=== PATIENT | female | born 1945 | race Caucasian/White ===

== ENCOUNTER → 2019-04-18 11:10 | Outpatient (CLI) | payer MEDICARE, SELFPAY ==
--- NOTE | 2019-04-18 11:14 | BD_ITS ---
STUDY: DUAL ENERGY X-RAY ABSORPTIOMETRY / DXA REASON FOR EXAM: Female, 74 years old. The patient is postmenopausal. Loss of height. TECHNIQUE: Bone Mineral Density (BMD) measurements of lumbar spine and bilateral hips were obtained. COMPARISON: Comparison is made with prior study dated March 22, 2017. FINDINGS: Lumbar Spine (L1-L4): g/cm2 (1.106) / T-score (-0.5) / Z-score (1.2) Findings are suggestive of normal bone density with a low fracture risk. Left Femur Total: g/cm2 (0.794) / T-score (-1.7) / Z-score (-0.1) Left Femoral Neck: g/cm2 (0.758) / T-score (-2.0) / Z-score (-0.2) Right Femur Total: g/cm2 (0.777) / T-score (-1.8) / Z-score (-0.2) Right Femoral Neck: g/cm2 (0.776) / T-score (-1.9) / Z-score (-0.1) The T-Scores on the most recent prior examination were: Lumbar Spine (L1-L4): There has been improvement of bone density since the previous examination. Left Femur Total: which represents a worsening of 4%. Right Femur Total: which represents an improvement of 5.4%. BD/Dexa Bone Density Study IMPRESSION: The patient is considered osteopenic as outlined below according to World Milad Organization (WHO) criteria with a moderate fracture risk. There has been improvement of bone density since the previous examination. Reference Information: The T-score is the number of standard deviations above or below the standard which is normal for young adults at their peak bone mineral density. The World Health Organization (WHO) interprets the T-scores as follows: Above -1 Normal bone density Between -1 and -2.5 Osteopenia Equal to / or below -2.5 Osteoporosis As a practical clinical guideline, osteopenia may be graded as follows: Mild -1 through -1.5 Moderate -1.6 through -2.0 Severe -2.1 through -2.4 The Z-score is the number of standard deviations above or below age-matched controls. A Z-score of less than -1.5 would be considered abnormal. References: 1. NIH Osteoporosis and Related Bone Diseases http://www.osteo.org 2. International Society for Clinical Densitometry http://www.iscd.org 3. National Osteoporosis Foundation http://www.nof.org Electronically Signed: Darnell Hernández, at 13:27 EDT , Service support ,
--- NOTE | 2019-04-18 11:14 | BI_ITS ---
MAMMOGRAPHY - BILATERAL SCREENING 3-D TOMOSYNTHESIS REASON FOR EXAM: Female, 74 years old. Bilateral Screening 3-D tomosynthesis PERTINENT HISTORY: Previous biopsy history. TECHNIQUE: 2-D mammograms and 3-D Tomosynthesis of the breast (s) were performed. CAD was performed. COMPARISON: 03/22/2017 FINDINGS: The breast composition is almost entirely fat. Scattered benign calcifications are seen. No dense spiculated masses or suspicious microcalcifications are identified. No architectural distortion is identified. There is no skin thickening or retraction. There has been no significant change since the prior study. BI/SCREEN MAMM (CAD) W/BERNARDINO BILAT IMPRESSION: No mammographic signs of malignancy. Routine yearly mammograms recommended. ASSESSMENT CATEGORY: BIRADS Category 1: Negative. A letter regarding these results will be sent to the patient by the facility within 30 days. FOLLOW UP RECOMMENDATION: Yearly follow up mammogram recommended. (A) Approximately 10% of breast cancers are not detected by mammography. A normal mammogram should not delay biopsy of a clinically suspicious abnormality. Electronically Signed: Jason Marley MD at 12:42 EDT , Service support ,
== END ==
PROVIDERS: Family Provider Family Medicine; PCP Family Medicine; Referring Provider Family Medicine; Visit Provider Family Medicine
DX: Z12.31 Encounter for screening mammogram for malignant neoplasm of breast (principal); M85.80 Other specified disorders of bone density and structure, unspecified site; Z78.0 Asymptomatic menopausal state
CPT/HCPCS: 77063; 77067; 77080

== ENCOUNTER → 2019-06-13 10:47 | Outpatient (CLI) | payer MEDICARE, SELFPAY ==
[2019-06-13 12:33] LABS: Erythrocyte Sedimentation Rate 17 mm/hr (0-30)
[2019-06-13 12:42] LABS: Absolute Lymphocyte Count 2.18 X10^3/uL (0.83-4.51); Absolute Neutrophil Count 6.3 X10^3/uL (2.0-7.7); Basophil# 0.08 X10^3/uL; Basophil% 0.8 % (0-1); Eosinophils% 2.1 % (0-5); Hematocrit 49.4 % (37-47); Hemoglobin 15.9 g/dL (12.0-15.0); Lymphocyte # 2.18 X10^3/ul (4.0); Mean Corp Hgb Conc 32.2 g/dL (32-36); Mean Corpuscular Hgb 31.9 pg (27.0-32.0); Mean Corpuscular Volume 99.2 fL (81-99); Mean Platelet Vol. 12.1 fl (6.2-12.0); Monocyte# 0.69 X10^3/uL; Monocyte% 7.3 % (0-10); NRBC Flagged by Analyzer 0 % (0-5); Neutrophil % 66.6 % (47-70); Platelet Count 230 K/mm3 (150-450); RBC Distribution Width CV 13.7 % (11.6-14.6); RBC Distribution Width SD 50.2 fl (35.1-43.9); Red Blood Count 4.98 M/mm3 (4.2-5.4); White Blood Count 9.5 K/mm3 (4.4-11.0)
[2019-06-13 12:52] LABS: ALB/GLOB Ratio 1.1 RATIO (0.9-2.4); AST(SGOT) 18 U/L (15-37); Alanine Aminotransfer ALT/SGPT 22 U/L (13-56); Albumin, Serum 3.9 g/dL (3.2-5.0); Alkaline Phosphatase 106 U/L (45-117); Anion Gap 8 (5-15); BUN 16 mg/dL (7-18); BUN/Creat Ratio 22.2 RATIO (10-20); Calcium,Total 9.2 mg/dL (8.5-10.1); Chloride 101 mmol/L (98-107); Cholesterol 151 mg/dL (200); Creatinine, Serum 0.72 mg/dL (0.55-1.02); EST Glomerular Filtration Rate 84 mL/min (>60); Est Glom Filt Rate - Afr Amer 102 mL/min (>60); Globulin 3.7 g/dL (2.2-4.2); Glucose 87 mg/dL (74-106); High Density Lipoprotein 59 mg/dL; Potassium 4.7 mmol/L (3.5-5.1); Protein, Total 7.6 g/dL (6.4-8.2); Sodium Level 138 mmol/L (136-145); Thyroid Stim Hormone (TSH) 2.33 uIU/mL (0.358-3.74); Triglycerides 155 mg/dL; Very Low Density Lipoprotein 31 mg/dL (5-40); Vitamin D,25 Hydroxy 40.4 ng/mL (29.95-100.01)
== END ==
PROVIDERS: Family Provider Family Medicine; PCP Family Medicine; Referring Provider Family Medicine; Visit Provider Family Medicine
DX: C18.9 Malignant neoplasm of colon, unspecified (principal); E78.00 Pure hypercholesterolemia, unspecified; M85.80 Other specified disorders of bone density and structure, unspecified site
CPT/HCPCS: 36415; 80053; 80061; 82306; 84443; 85025; 85652

== ENCOUNTER → 2020-06-30 11:45 | Outpatient (CLI) | payer MEDICARE, SELFPAY ==
[2020-04-01 12:57] VITALS: BMI 28.6
[2020-06-30 15:24] LABS: Hematocrit 48.8 % (37-47); Hemoglobin 15.4 g/dL (12.0-15.0); Mean Corp Hgb Conc 31.6 g/dL (32-36); Mean Corpuscular Hgb 30.7 pg (27.0-32.0); Mean Corpuscular Volume 97.4 fL (81-99); Mean Platelet Vol. 12.2 fl (6.2-12.0); Platelet Count 248 K/mm3 (150-450); RBC Distribution Width CV 12.8 % (11.6-14.6); RBC Distribution Width SD 46.5 fl (35.1-43.9); Red Blood Count 5.01 M/mm3 (4.2-5.4); White Blood Count 8.7 K/mm3 (4.4-11.0)
[2020-06-30 15:36] LABS: AST(SGOT) 16 U/L (15-37); Alanine Aminotransfer ALT/SGPT 22 U/L (13-56); Albumin, Serum 3.8 g/dL (3.2-5.0); Alkaline Phosphatase 105 U/L (45-117); Anion Gap 5 (5-15); BUN 15 mg/dL (7-18); BUN/Creat Ratio 20.8 RATIO (10-20); Calcium,Total 9.9 mg/dL (8.5-10.1); Chloride 101 mmol/L (98-107); Cholesterol 176 mg/dL (200); Creatinine, Serum 0.72 mg/dL (0.55-1.02); EST Glomerular Filtration Rate 84 mL/min (>60); Est Glom Filt Rate - Afr Amer 101 mL/min (>60); Globulin 3.9 g/dL (2.2-4.2); Glucose 89 mg/dL (74-106); High Density Lipoprotein 65 mg/dL; Potassium 4.5 mmol/L (3.5-5.1); Protein, Total 7.7 g/dL (6.4-8.2); Sodium Level 137 mmol/L (136-145); Triglycerides 198 mg/dL; Very Low Density Lipoprotein 40 mg/dL (5-40)
== END ==
PROVIDERS: PCP Family Medicine; Visit Provider Family Medicine
DX: R73.01 Impaired fasting glucose (principal); F17.200 Nicotine dependence, unspecified, uncomplicated; Z79.899 Other long term (current) drug therapy
CPT/HCPCS: 36415; 80053; 80061; 85027

== ENCOUNTER 2020-11-27 17:15 | Outpatient (RCR) | payer MEDICARE, SELFPAY ==
[2020-04-01 12:57] VITALS: BMI 28.6
[2020-11-27] MEDS: COVID-19 VACC, MRNA(PFIZER)/PF 30 MCG/0.3 ML SYRINGE IM (10:28)
[2020-12-18] MEDS: COVID-19 VACC, MRNA(PFIZER)/PF 30 MCG/0.3 ML SYRINGE IM (10:17)
== END 2020-11-27 23:59 ==
LOC: IMMUN 17:15
PROVIDERS: PCP Family Medicine; Visit Provider Family Medicine
DX: Z23 Encounter for immunization (principal)
CPT/HCPCS: 0001A; 0002A

== ENCOUNTER → 2021-05-14 15:24 | Outpatient (CLI) | payer MEDICARE, SELFPAY ==
--- NOTE | 2021-05-14 15:27 | RAD_ITS ---
STUDY: X-RAY - CERVICAL SPINE REASON FOR EXAM: Female, 76 years old. NECK PAIN TECHNIQUE: Lateral, bilateral oblique, AP, and odontoid radiographic view(s) of the cervical spine were obtained. COMPARISON: None FINDINGS: Normal anterior atlantoaxial articulation. Normal odontoid process. Normal cervical lordosis. Moderate to severe degenerative disc and endplate disease at C5-6 and C6-7. Otherwise normal vertebral bodies and endplates. Normal disc space heights. Mild to moderate facet arthrosis throughout the mid to lower cervical spine. No more than mild neural foraminal stenosis. The soft tissue structures are unremarkable. There is no demonstrated fracture of the cervical spine. 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 Electronically Signed: Camilo Armendariz MD at 0:06 EDT Tel , Service support ,
--- NOTE | 2021-05-14 15:27 | RAD_ITS ---
STUDY: X-RAY - LUMBAR SPINE REASON FOR EXAM: Female, 76 years old. BACK PAIN TECHNIQUE: 5 radiographic view(s) of the lumbar spine were obtained. COMPARISON: 07/28/2016 abdomen radiograph FINDINGS: Normal lumbar lordosis. Minimal levoscoliosis centered on L3-4. There is a normal alignment of the vertebrae. Normal vertebral bodies. Degenerative disc, endplate, and facet disease is most prominent at L2-3. There is no demonstrated fracture. There is no demonstrated spondylolysis of the pars interarticulares. Aortoiliac calcifications. RAD/L/S Spine Min 4 Views IMPRESSION: Degenerative changes most prominent at L2-3. No finding of vertebral compression or pars defect. Electronically Signed: Camilo Armendariz MD at 0:03 EDT Tel , Service support ,
== END ==
PROVIDERS: PCP Family Medicine; Referring Provider Family Medicine; Visit Provider Family Medicine
DX: M54.9 Dorsalgia, unspecified (principal); M54.2 Cervicalgia
CPT/HCPCS: 72050; 72110

== ENCOUNTER → 2021-08-26 13:45 | Outpatient (CLI) | payer MEDICARE, SELFPAY ==
--- NOTE | 2021-08-26 13:58 | CT_ITS ---
STUDY: LOW DOSE CT LUNG CANCER SCREENING REASON FOR EXAM: Female, 76 years old. Smoking history of 1 pack per day x55 years RADIATION DOSAGE (If Supplied By Facility): CTDIvol = ( 3.02 ) mGy, DLP = ( 91.38 ) mGycm TECHNIQUE: No contrast was administered. Low dose technique was utilized (average mAS-38 and kVp 120). 1.25 mm axial source images with a slice interval of 1.25-mm were reconstructed in lung windows. 2.5 mm axial source images with a slice interval of 2.5-mm were reconstructed in lung windows. 5.0 mm axial source images with a slice interval of 5.0-mm were reconstructed in soft tissue windows. Nodule measured using lung windows on PACS and/or independent workstation with automated measurement of minimum and maximum diameter. Nodule measurement reported as average diameter rounded to the nearest whole number. Growth is defined as an increase ins size of greater than 1.5 mm. COMPARISON: 2016 FINDINGS: There is underlying emphysema with bleb formation noted. New since previous study is a suspicious poorly defined somewhat spiculated mass in the left upper lobe measuring 1.9 x 1.9 cm. The mass shows evidence of a tail that extends to the pleural surface. This mass is highly suspicious for neoplastic process and further evaluation with biopsy or PET/CT recommended There is a tiny 2 mm noncalcified pleural-based nodule in the right upper lobe on axial image 49. There is a noncalcified 4.5 mm nodule in the right upper lobe on axial image 74. There is likely chronic elevation of the right hemidiaphragm with right basilar atelectasis. There is no organized infiltrate or effusion. Limited soft tissue evaluation shows a normal appearing thyroid gland. There are scattered subcentimeter axillary and mediastinal lymph nodes. There are calcified coronary vessels. Bony structures show degenerative change. Limited cuts through the upper abdomen do not show a suspicious abnormality CT/Low Dose CT Lung Screening IMPRESSION: Lung-RADS category 4X - Chest CT with or without contrast, PET/CT and/or tissue sampling can be obtained depending on the probability of malignancy and comorbidities. IMPORTANT NOTES FOR USE: ACR Lung-RADS Version 1.1 Assessment Categories Release Date: 2018 Category: Coded 0-4 bases on nodule(s) with highest degree of suspicion. Negative screen is defined as categories 1 and 2; a positive screen is defined as categories 3 and 4. Category 3 and 4A nodules that are unchanged on interval CT should be coded as category 2, and individuals returned to screening in 12 months. Category 4X: Category 3 or 4 nodules with additional imaging findings that increase the suspicion of lung cancer, such as spiculation, GGN that doubles in size in 1 year, enlarged lymph notes, etc. Category Modifiers: S (significant finding unrelated to lung cancer) Electronically Signed: Jason Marley MD at 17:27 EST , Service support ,
[2021-08-26 15:49] LABS: Vitamin D,25 Hydroxy 41.7 ng/mL
[2021-08-26 15:59] LABS: AST(SGOT) 24 U/L (15-37); Alanine Aminotransfer ALT/SGPT 25 U/L (13-56); Albumin, Serum 3.8 g/dL (3.2-5.0); Alkaline Phosphatase 104 U/L (45-117); Anion Gap 7 (5-15); BUN 20 mg/dL (7-18); BUN/Creat Ratio 30.5 RATIO (10-20); Bilirubin, Direct 0.13 mg/dL (0.00-0.30); Calcium,Total 9.4 mg/dL (8.5-10.1); Chloride 101 mmol/L (98-107); Cholesterol 175 mg/dL (200); Creatinine, Serum 0.66 mg/dL (0.55-1.02); EST Glomerular Filtration Rate 93 mL/min (>60); Est Glom Filt Rate - Afr Amer 113 mL/min (>60); Globulin 4.1 g/dL (2.2-4.2); Glucose 89 mg/dL (74-106); High Density Lipoprotein 62 mg/dL; Potassium 4.2 mmol/L (3.5-5.1); Protein, Total 7.9 g/dL (6.4-8.2); Sodium Level 138 mmol/L (136-145); Thyroid Stim Hormone (TSH) 2.51 uIU/mL (0.358-3.74); Triglycerides 261 mg/dL; Very Low Density Lipoprotein 52 mg/dL (5-40)
== END ==
PROVIDERS: PCP Family Medicine; Referring Provider Family Medicine; Visit Provider Family Medicine
DX: F17.210 Nicotine dependence, cigarettes, uncomplicated (principal); M85.80 Other specified disorders of bone density and structure, unspecified site; E78.00 Pure hypercholesterolemia, unspecified
CPT/HCPCS: 36415; 71271; 80048; 80061; 80076; 82306; 84443

== ENCOUNTER → 2021-09-15 13:49 | Outpatient (CLI) | payer MEDICARE, SELFPAY ==
--- NOTE | 2021-09-15 13:30 | PET_ITS ---
EXAMINATION: FDG PET-CT INDICATIONS: A 76-year-old female with reported history of pulmonary nodularity. COMPARISON EXAMINATION: CT of the chest report dated 08/26/21. INDEX LESION SIZE SUV INTERPRETATION Left upper lung-left upper lobe 24.4 mm (frame 202) 11.2 Fulfills quantitative criteria for viable neoplasm, histopathologic analysis recommended. TECHNIQUE: Following the intravenous administration of 16.82 mCi of F-18 deoxyglucose via the left antecubital fossa, multiplanar image acquisitions of the neck, chest, abdomen and pelvis to level of mid thigh, obtained at one hour post radiopharmaceutical administration contemporaneously interpreted with the current CT of the neck, chest, abdomen and pelvis, to level of mid thigh, dated 09/15/[address] of the chest report dated 08/26/21 reveals: BLOOD GLUCOSE LEVEL:?? 85 mg/dl?HEIGHT:?61 inches?WEIGHT: 162 lbs. FINDINGS: 1. Focal increased FDG distribution is defined in the left upper anterior lung-left upper lobe generating a calculated maximum standard uptake value of 11.2. The maximal axial diameter of the corresponding non-calcified density on review of CT of the chest dated 09/15/21 is 24.4-mm (AP). 2. Normal physiologic distribution of the radiopharmaceutical is apparent in the hepatic (2.8) and splenic parenchyma, both renal units, bladder and visualized intestinal tract. The visualized portion of the cerebral cortical-subcortical structures demonstrate symmetric and preserved glucose metabolism. Diffuse radiopharmaceutical concentration is noted in all four quadrants of the abdomen and pelvis. Pertinent CT findings are as follows: CHEST: There are no additional parenchymal densities-nodules defined in the right and left hemithorax with discernible increased tracer uptake. Bilateral axillary and scattered mediastinal soft tissue densities, a majority of which express fatty hilus formation, are non-glucose avid. There is atherosclerotic calcification defined in the thoracic aorta without evidence of dilatation-aneurysm formation. Coronary arterial calcification is observed. ABDOMEN AND PELVIS: There is atherosclerotic calcification defined in the abdominal aorta. The maximal axial diameter of the abdominal aorta is 29.3-mm. Abdominal and pelvic arterial calcification is defined. A paraumbilical ventral hernia with associated intestinal tract. Calcifications are manifest in both kidneys. Cholelithiasis is identified. The spleen is diminished in size. The uterus appears surgically absent. SKELETAL: Degenerative changes are noted in the cervical, thoracic and lumbar spine without evidence of increased radiopharmaceutical concentration. PET/PET/CT Tumor Base -Thigh Init IMPRESSION: 1. The increase in fluorine-labeled glucose metabolism defined in the left upper lung-right upper lobe fulfills quantitative criteria for viable neoplasm. Histopathologic analysis is recommended. (Sinha et al, Annals of Internal Medicine, 138:724, 2003) 2. No other quantitatively significant hypermetabolic abnormalities are encountered. Electronic Signature Que Quevedo D.O. Accurate Quantification of SUVs for this report are calculated using the exclusive [employer] Technology. (U.S. Patent No. 10, [id number] 983). Standardization and correction of the FDG SUV metric via [employer] technology allow for vendor non-specific objective quantitative examination comparison and optimization of the sensitivity and specificity of the FDG PET-CT examination. Electronically Signed: Que Quevedo DO at 23:27 EST Tel , Service support ,
== END ==
PROVIDERS: PCP Family Medicine; Referring Provider Family Medicine; Visit Provider Family Medicine
DX: R91.8 Other nonspecific abnormal finding of lung field (principal)
CPT/HCPCS: 78815; A9552

== ENCOUNTER → 2021-09-23 11:44 | Outpatient (CLI) | payer MEDICARE, SELFPAY ==
[2021-09-23 12:54] LABS: Prothrombin Time (Protime)PT. 12.7 SECONDS (11.7-14.9)
[2021-09-23 12:55] LABS: Partial Thromboplast Time 28.1 Seconds (24.1-36.2)
== END ==
PROVIDERS: PCP Family Medicine; Visit Provider Internal Medicine Critical Care Medicine
DX: R91.8 Other nonspecific abnormal finding of lung field (principal)
CPT/HCPCS: 36415; 85610; 85730

== ENCOUNTER 2021-10-02 09:15 | Inpatient (IN) | payer MEDICARE, SELFPAY ==
[2021-10-02] VITALS (31 sets, daily range): BP systolic 62–158; BP diastolic 21–113; PULSE 86–137; RESP 16–42; TEMP 35.1–36.6; O2SAT 87–98; BMI 30.6; BMI 29.6
--- NOTE | 2021-10-02 09:40 | EKG12_ITS ---
Test Reason : GI BLEED Blood Pressure : / mmHG Vent. Rate : 138 BPM Atrial Rate : 138 BPM P-R Int : 132 ms QRS Dur : 076 ms QT Int : 292 ms P-R-T Axes : 047 -14 055 degrees QTc Int : 442 ms Sinus tachycardia with Premature supraventricular complexes Nonspecific ST abnormality Abnormal ECG Confirmed by RIKI SÁNCHEZ, NAPOLEON ([id number]), medical editor MIGUEL DOMÍNGUEZ ([id number]) on 10/07/2021 11:15:00 AM Referred By: HEATHER Confirmed By:NAPOLEON LYN MD
[2021-10-02 09:49] LABS: Absolute Lymphocyte Count 2.13 X10^3/uL (0.83-4.51); Absolute Neutrophil Count 22.2 X10^3/uL (2.0-7.7); Basophil# 0.07 X10^3/uL; Basophil% 0.3 % (0-1); Eosinophil# 0.01 X10^3/uL; Hematocrit 43.5 % (37-47); Hemoglobin 14.1 g/dL (12.0-15.0); Lymphocyte # 2.13 X10^3/ul (0.83-4.51); Lymphocyte % 8.2 % (19-41); Mean Corp Hgb Conc 32.4 g/dL (32-36); Mean Corpuscular Hgb 31.7 pg (27.0-32.0); Mean Corpuscular Volume 97.8 fL (81-99); Mean Platelet Vol. 12.7 fl (6.2-12.0); Monocyte# 1.28 X10^3/uL; Monocyte% 4.9 % (0-10); NRBC Flagged by Analyzer 0 % (0-5); Neutrophil % 85.9 % (47-70); POSITIVE DIFFERENTIAL YES; Platelet Count 244 K/mm3 (150-450); RBC Distribution Width SD 50.8 fl (35.1-43.9); Red Blood Count 4.45 M/mm3 (4.2-5.4); White Blood Count 25.9 K/mm3 (4.4-11.0)
[2021-10-02] MEDS: Ondansetron 4 MG/2 ML Vial IV (09:57)
--- NOTE | 2021-10-02 10:00 | EDS_ITS ---
HPI HPI - GI History of Present Illness Chief Complaint: GI Bleed Informant: patient Narrative Narrative: Patient presents with 3 episodes of hematemesis and episode of melena. She states this started a little after dinner last night. She has vomited red blood 3 times. She does describe some coffee-ground type material mixed in. The stool she had was melena. When specifically asked, she did state that she has had increased acid reflux over the last 3 days. But she has no abdominal pain now. She has no chest pain. She does have soreness across her upper back and neck from vomiting. She also has a history of some chronic neck pain in that area. She does take baby aspirin which she last took yesterday. She takes Aleve about twice a week and has not been using it more. No other nonsteroidals. No other anticoagulation. She does not take anything for acid reduction. She has had endoscopies but it is probably 9 or 10 years ago. She has a history of a partial colectomy with colostomy that was reversed about 9 years ago. But neither her nor her remember why this was done. They do not know if this was diverticula, bleeding, or other disease. [facility] Medical History (Updated 10/02/21 @ 17:[address] Basilio Lai MD) Abdominal aortic aneurysm COPD (chronic obstructive pulmonary disease) Depression with anxiety Hemorrhoids Lung mass SOB (shortness of breath) Home Medications aspirin 81 mg PO DAILY 07/27/16 [History Last Taken Unknown] calcium carbonate-vitamin D3 1 ea PO DAILY 07/27/16 [History Last Taken Unknown] pramipexole 0.25 mg tablet 0.25 mg PO DAILY tab 04/01/20 [History Last Taken Unknown] albuterol sulfate 90 mcg/actuation aerosol inhaler 2 inh INHALATION Q8H PRN g 09/23/21 [History Last Taken Unknown] atorvastatin 20 mg tablet 20 mg PO DAILY tab 09/23/21 [History Last Taken Unknown] fluoxetine 20 mg capsule 20 mg PO DAILY cap 09/23/21 [History Last Taken Unknown] Allergy/AdvReac Type Severity Reaction Status Date / Time No Known Allergies Allergy Verified 10/02/21 09:18 Family History Mother Colon cancer Diabetes Father Heart disease Surgical History history colon reanastamosis History of colectomy History of colostomy History of hysterectomy Social History Smoking Status: Current every day smoker tobacco type: cigarettes Tobacco: How many years used: 50 Electronic Cigarette Use: not used second hand exposure: Yes alcohol intake: never substance use type: does not use ROS ROS ED Constitutional Constitutional ED: Denies fever(s) or subjective ENT ENT ED: Denies rhinorrhea or sore throat Cardiovascular Cardiovascular: Reports other Details: Heart rate is increased but patient's not really having palpitations. ; Denies chest pain, palpitations or racing heartbeat Respiratory/Chest Respiratory/Chest: Reports dyspnea and other Details: Patient did feel dyspneic coming back here. But she feels better now. ; Denies cough or sputum Gastrointestinal Gastrointestinal: Reports diarrhea, melena, nausea, vomiting and other Details: See history of present illness. ; Denies abdominal pain Genitourinary Genitourinary ED: Denies hematuria Musculoskeletal Musculoskeletal: Denies myalgias Integumentary Denies rash Neurologic Neurologic: Denies headache(s) Endocrine Endocrinology: Denies polydipsia or polyuria Hematologic/Lymphatic Hematologic/Lymphatic: Reports other Details: Patient does take baby aspirin. She takes occasional Aleve. No other anticoagulation. ; Denies easy bleeding or easy bruising Allergic/Immunologic Allergic/Immunologic ED: Denies mouth swelling or urticaria EXAM Physical Exam Const Vital Signs: 10/02/21 09:16 10/02/21 09:21 10/02/21 09:28 Temperature 95.2 F L Temperature Source Temporal Pulse Rate 86 137 H Respiratory Rate 29 H Blood Pressure 103/74 Blood Pressure Mean 83 Pulse Ox 95 Oxygen Delivery Method Room Air Oxygen Flow Rate (L/min) 10/02/21 09:37 10/02/21 10:46 10/02/21 11:02 Temperature Temperature Source Pulse Rate 127 H Respiratory Rate Blood Pressure 83/63 L Blood Pressure Mean 69 Pulse Ox 94 87 Oxygen Delivery Method Room Air Room Air Oxygen Flow Rate (L/min) 10/02/21 11:03 Temperature Temperature Source Pulse Rate Respiratory Rate Blood Pressure 158/113 H Blood Pressure Mean 128 Pulse Ox 98 Oxygen Delivery Method Nasal Cannula Oxygen Flow Rate (L/min) 2 Positive well nourished and well developed General Appearance ED: well developed and pallor HEENT normocephalic Eyes Eyes Narrative: Mildly pale conjunctive a. General Eye ED: Yes pale conjunctiva; Negative for scleral icterus Neck no JVD Resp normal respiratory effort and clear to auscultation bilaterally Auscultation: Negative for rales, rhonchi or wheezes Cardio regular rhythm; Negative for regular rate GI non-tender and non-distended Auscultation: normoactive bowel sounds Palpation: soft Back/Spine no CVA tenderness Extremity General Extremety ED: Negative for tenderness Neuro Sensorium / Orientation: alert and oriented to person Psych mental status grossly normal Skin Skin Narrative: Mild pallor General Skin Exam: pallor Lesions: no lesions Rashes: no rashes MDM MDM MDM Narrative Medical decision making narrative: We started getting blood work back. Her hemoglobin is normal. She does show signs of dehydration with elevation of the BUN and creatinine. BUN elevation is also likely due to some of the bleeding. I went over her history again. Both her and her state that she had 3 large episodes of bloody emesis. She had actually about 3 melena stools. She has minimal epigastric discomfort with palpation but it is not notably tender. I had to push very hard and she just mentioned that it was a little sore. Rectal exam shows some black stool around the anus but no sign of active bleeding. I also note that her troponin is a bit elevated. This may be due to her heart rate. Patient states she was not coughing blood but did vomit it. She has no chest pain or dyspnea. I will add CT scan of her abdomen. I do not want to give her something to artificially lower her heart rate as her history is consistent with a GI bleed and her blood pressure is not significantly up. We cannot give meds for typical NSTEMI as this can worsen a GI bleed. We will give her some fluids. CTs do show signs of pneumonia on the right. This goes along with some borderline hypoxia and elevated white count. She is given antibiotics. Her blood pressure did drop. Bit. With low blood pressure, lactate white count and pneumonia this does meet sepsis criteria. We initiated fluids. However she also has GI bleed and we wanted to kind to mitigate the total volume of fluids that she got so we did these fluid resuscitation's and smaller amounts for the patient safety. Patient will be admitted. We have adjusted fluids, medications, done further studies. With her GI bleed and significant pneumonia, hypotension hypoxia she was at risk for decompensation respiratory and GI. Patient has stabilized. At this point we will go PCU stepdown rather than ICU. She will get repeat hemoglobins. Lab Data Labs: Laboratory Results - last 24 hr 10/02/21 10/02/21 10/02/21 09:30 09:30 09:30 WBC 25.9 H RBC 4.45 Hgb 14.1 Hct 43.5 MCV 97.8 MCH 31.7 MCHC 32.4 RDW Std Deviation 50.8 H RDW Coeff of Yeimi 14.0 Plt Count 244 MPV 12.7 H Immature Gran % (Auto) 0.700 Neut % (Auto) 85.9 H Lymph % (Auto) 8.2 L [place] % (Auto) 4.9 Eos % (Auto) 0.0 Baso % (Auto) 0.3 Absolute Neuts (auto) 22.2 H Absolute Lymphs (auto) 2.13 Nucleated RBC % 0 Sodium 139 Potassium 3.8 Chloride 101 Carbon Dioxide 28.0 Anion Gap 10 BUN 64 H Creatinine 1.25 H Estim Creat Clear Calc 29.34 Est GFR (MDRD) Af Amer 54 L Est GFR (MDRD) Non-Af 44 L BUN/Creatinine Ratio 51.2 H Glucose 128 H Lactic Acid Cancelled Calcium 9.8 Total Bilirubin 0.60 AST 31 ALT 27 Alkaline Phosphatase 86 Troponin I High Sens 130 H* Total Protein 7.4 Albumin 3.5 Globulin 3.9 Albumin/Globulin Ratio 0.9 Lipase 45 L Blood Type Antibody Screen Crossmatch 10/02/21 10/02/21 10:25 10:25 WBC RBC Hgb Hct MCV MCH MCHC RDW Std Deviation RDW Coeff of [place] Plt Count MPV Immature Gran % (Auto) Neut % (Auto) Lymph % (Auto) [place] % (Auto) Eos % (Auto) Baso % (Auto) Absolute Neuts (auto) Absolute Lymphs (auto) Nucleated RBC % Sodium Potassium Chloride Carbon Dioxide Anion Gap BUN Creatinine Estim Creat Clear Calc Est GFR (MDRD) Af Amer Est GFR (MDRD) Non-Af BUN/Creatinine Ratio Glucose Lactic Acid 4.4 H* Calcium Total Bilirubin AST ALT Alkaline Phosphatase Troponin I High Sens Total Protein Albumin Globulin Albumin/Globulin Ratio Lipase Blood Type O POSITIVE Antibody Screen NEGATIVE Crossmatch See Detail Radiography Diagnostic Testing: Clinical Impression(s) from Imaging Studies Abdomen/Pelvis CT 10/02/21 10:48 IMPRESSION: Infiltration in the right middle lobe and right lower lobe. Fatty infiltration of liver. Electronically Signed: Darnell Hernández MD at 11:49 EST , Service support , Chest CTA 10/02/21 10:52 IMPRESSION: Right upper as well as right middle and right lower lobe pulmonary infiltrates. Stable appearance of the nodular densities in the left upper lobe. Electronically Signed: Darnell Hernández MD at 11:46 EST , Service support , EKG Initial EKG: Comments: EKG done for tachycardia read by me shows sinus rhythm with tachycardic rate at 138. There may be one PVC. Mild nonspecific ST changes. NC interval, QRS duration and QTc are normal. Critical Care Time Critical Care Time: Yes Critical care time (excluding procedures): 30-74 minutes, Including time spent:, Discussing w/Patient &/or Family/Dormitory Keeper, Discussing w/Consultants, Arranging Admission or Transfer, Performing Direct Patient Care at Bedside and - (40 minutes, repeat evaluations, altering therapy, type and screen, antibiotics, further CTs, and consultation discussion with others.) Discharge Plan Dx/Rx/DC Orders Clinical Impression: Acute GI bleeding, Elevated troponin, Sepsis, Aspiration pneumonia, Leukocytosis, Respiratory failure with hypoxia Disposition Disposition: Acute Care [facility] Discharge Date/Time: 10/02/21 13:34
[2021-10-02 10:02] LABS: Differential Indicated SCAN CRITERIA MET
[2021-10-02 10:17] LABS: ALB/GLOB Ratio 0.9 RATIO (0.9-2.4); AST(SGOT) 31 U/L (15-37); Alanine Aminotransfer ALT/SGPT 27 U/L (13-56); Albumin, Serum 3.5 g/dL (3.2-5.0); Alkaline Phosphatase 86 U/L (45-117); Anion Gap 10 (5-15); BUN 64 mg/dL (7-18); BUN/Creat Ratio 51.2 RATIO (10-20); Calcium,Total 9.8 mg/dL (8.5-10.1); Chloride 101 mmol/L (98-107); Creatinine, Serum 1.25 mg/dL (0.55-1.02); EST Glomerular Filtration Rate 44 mL/min (>60); Est Glom Filt Rate - Afr Amer 54 mL/min (>60); Estimated Creatinine Clearance 29.34 ml/min; Globulin 3.9 g/dL (2.2-4.2); Glucose 128 mg/dL (74-106); Lipase 45 U/L (73-393); Potassium 3.8 mmol/L (3.5-5.1); Protein, Total 7.4 g/dL (6.4-8.2); Sodium Level 139 mmol/L (136-145); Troponin-I HS 130 pg/mL (3.0-54.0)
--- NOTE | 2021-10-02 10:48 | CT_ITS ---
STUDY: CT ABDOMEN AND PELVIS WITH CONTRAST REASON FOR EXAM: Female, 76 years old. Abdominal pain, GI bleed, leukocytosis RADIATION DOSAGE (If Supplied By Facility): CTDIvol = ( 15.56 ) mGy, DLP = ( 1503.19 ) mGycm TECHNIQUE: Transaxial images were obtained from the dome of the diaphragm to the symphysis pubis without oral contrast. IV 100mL [id number]-[id number] was administered. Sagittal and coronal images were reconstructed. Individualized dose optimization techniques were used for this CT. COMPARISON: Comparison is made with prior examination dated 07/27/2016. FINDINGS: Consolidation in the right middle lobe and right lower lobe. Coronary artery calcification. There is decreased attenuation of the liver consistent with steatosis. Normal gallbladder and extrahepatic biliary system. Normal spleen. Normal pancreas. Normal bilateral adrenal glands. Normal right kidney. Normal left kidney. Normal visualized stomach. Normal small intestine. Normal colon. There is non-visualization of the appendix. There is diffuse atherosclerotic calcification of the abdominal aorta. There is evidence of a known abdominal aortic aneurysm with a transverse dimension of 2.4 cm. Mural thrombus is seen. Normal inferior vena cava. Normal retroperitoneum. Normal urinary bladder. There is absence of the uterus consistent with a prior hysterectomy. Evidence of prior ventral hernia repair. There are degenerative changes of the visualized lumbar spine. CT/Abdomen/Pelvis W IV Cont ONLY IMPRESSION: Infiltration in the right middle lobe and right lower lobe. Fatty infiltration of liver. Electronically Signed: Darnell Hernández MD at 11:49 EST , Service support ,
--- NOTE | 2021-10-02 10:52 | CT_ITS ---
STUDY: CTA CHEST REASON FOR EXAM: Female, 76 years old. PE RADIATION DOSAGE (If Supplied By Facility): CTDIvol = ( 15.56 ) mGy, DLP = ( 1503.19 ) mGycm TECHNIQUE: The examination was performed with the intravenous administration of IV 100mL Isovue-370. Post-processing of the angiographic images was performed, with multiplanar reformation and 3D reconstruction. Individualized dose optimization techniques were used for this CT. COMPARISON: Comparison is made with prior study dated 08/26/2021. FINDINGS: Normal enhancement of the main pulmonary artery and right and left pulmonary arteries. Normal enhancement of the bilateral peripheral pulmonary arteries. There is no demonstrated pulmonary embolism. Normal thoracic aorta and visualized great vessels. There is no demonstrated aortic dissection. There are calcifications of the coronary arteries. Normal mediastinum. Normal hilar regions. Normal visualized trachea and bronchi. The lungs are well expanded. Lungs again, there is a 1.9 cm x 1.9 cm spiculated mass in the anterior aspect of the left upper lobe. Anterior to this, there is also evidence of a 6.4 mm noncalcified nodule. Stable 4.5 mm noncalcified nodule in the right upper lobe. Patchy infiltrate in the posterior aspect of the right upper lobe abutting the right minor fissure. Progressive infiltration in the right lower lobe and right middle lobe. Normal chest wall structures. There are degenerative changes of thoracic spine. Small solitary gallstone. Focal calcification along the lateral limb of the right adrenal gland. CT/CTA Chest W/WO Contrast IMPRESSION: Right upper as well as right middle and right lower lobe pulmonary infiltrates. Stable appearance of the nodular densities in the left upper lobe. Electronically Signed: Darnell Hernández MD at 11:46 EST , Service support ,
[2021-10-02] MEDS: 0.9% Normal Saline 1,000 ML 999 ML IV ×2 (10:54→22:15)
--- NOTE | 2021-10-02 11:07 | ED.RN ---
pt has developed a wet cough that has not been witnessed until now by this RN. fluids turned off. provider aware.
[2021-10-02 11:10] LABS: Lactic Acid 4.4 mmol/L (0.4-1.9)
--- NOTE | 2021-10-02 12:05 | HP.PCM.HOS_ITS ---
[facility] - General General Date of Admission: 10/02/21 Date of Service: 10/02/21 Chief Complaint: Hematemesis HPI Narrative ERICA CASTILLO, is a 76 F who presented to the emergency department at [facility] on 10/02/2021 with a chief complaint of hematemesis. The patient states she was feeling relatively well up until last evening when she started vomiting blood. She did indicate that she had some acid reflux that has been worse probably the last 3 days prior to to having the hematemesis but attributed this to the stress that she is under lately. She takes daily aspirin and admits to Aleve use probably twice per week for joint pain. She has no history of GI bleeding. Last evening after dinner she developed her first episode of hematemesis and then states she woke up once in the middle the night with another episode and had a third this morning and that is when she decided to come to the emergency department. She also reports she had a large bowel movement that was black this morning. She denies any fever or chills, she developed a cough this morning after having emesis but was not having cough previous to this, she has some mild shortness of breath now but that started this morning as well, she denies any chest pain, she does have some epigastric pain but this does not radiate anywhere and her chest region, she has no tingling numbness or weakness. Upon arrival to the emergency department her temperature was 95.2 she was tachycardic with a heart rate at 137 her blood pressures have ranged from 79-158 systolic and 57-113 diastolic. I suspect the upper ranges are anomaly as they more consistently have been on the lower side. She was tachypneic with respiratory rates in the 30s to 40s and her oxygen saturation was 87% on room air. Her oxygen saturation did improve to the mid 90s on 2 L nasal cannula. Her CBC showed a markedly elevated white count at 25.9 with a left shift and a neutrophilia. Her hemoglobin was 14.1 in the mid 15-16 range. Her CMP shows normal electrolytes, and elevated BUN and creatinine at 64 and 1.25 with a BUN being disproportionately elevated when compared to her serum creatinine, a lactic acid at 4.4, normal LFTs, normal bilirubin and normal lipase. Her high- sensitivity troponin was slightly elevated at 130. Her EKG shows poor R wave progression, P mitrale but no ST-T wave changes consistent with acute ischemia. A CTA of her chest was performed and showed a right upper/middle/lower lobe infiltrate and a stable spiculated nodule of the left upper lobe. A CT of her abdomen pelvis was performed and showed fatty liver and an abdominal aortic aneurysm with a transverse dimension of 2.4 cm. Mural thrombus was noted at the aneurysm. Given her presentation and concerns for sepsis related to aspiration pneumonia she was treated with Zosyn in the emergency department and given fluid boluses at 30 cc/kg body weight. 2 full liters were given to the emergency department and 500 more cc were ordered upon admission. She was given antiemetics and request for admission was made to the hospital. [facility] Medical History (Updated 10/02/21 @ 12:[address] Mackenzie Hedrick DO) Abdominal aortic aneurysm COPD (chronic obstructive pulmonary disease) Depression with anxiety Hemorrhoids Lung mass SOB (shortness of breath) Home Medications aspirin 81 mg PO DAILY 07/27/16 [History Last Taken Unknown] calcium carbonate-vitamin D3 1 ea PO DAILY 07/27/16 [History Last Taken Unknown] pramipexole 0.25 mg tablet 0.25 mg PO DAILY tab 04/01/20 [History Last Taken Unknown] albuterol sulfate 90 mcg/actuation aerosol inhaler 2 inh INHALATION Q8H PRN g 09/23/21 [History Last Taken Unknown] atorvastatin 20 mg tablet 20 mg PO DAILY tab 09/23/21 [History Last Taken Unknown] fluoxetine 20 mg capsule 20 mg PO DAILY cap 09/23/21 [History Last Taken Unknown] Allergy/AdvReac Type Severity Reaction Status Date / Time No Known Allergies Allergy Verified 10/02/21 09:18 Family History Mother Colon cancer Diabetes Father Heart disease Surgical History history colon reanastamosis History of colectomy History of colostomy History of hysterectomy Social History Smoking Status: Current every day smoker tobacco type: cigarettes Tobacco: How many years used: 50 Electronic Cigarette Use: not used second hand exposure: Yes alcohol intake: never substance use type: does not use ROS Constitutional Constitutional: Denies anorexia, change in weight, chills, fatigue, fever(s), malaise, night sweats, weakness or other Eyes Eyes: Denies blurry vision, change in eye color, change in vision, discharge from eye(s), double vision, erythema, eye pain, loss of vision or other ENT HEENT: Denies abnormal hearing, dysphagia, ear pain, epistaxis, headache(s), hearing loss, nasal congestion, nasal discharge, post nasal drip, sinus pr essure, sore throat or other Cardiovascular Cardiovascular: Denies chest pain, claudication, dyspnea on exertion, edema, lightheadedness, orthopnea, palpitations, paroxysmal nocturnal dyspnea, rapid heart rate, syncope or other Respiratory/Chest Respiratory/Chest: Reports cough, dyspnea, shortness of breath at rest and shortness of breath with exertion; Denies excessive phlegm production, hemoptysis, productive cough, wheezing or other Gastrointestinal Gastrointestinal: Reports diarrhea, dyspepsia, hematemesis, melena, nausea and vomiting Genitourinary Genitourinary: Denies burning urination, difficulty urinating, dysuria, hematuria, nocturia, urinary frequency, urinary hesitancy, urinary incontinence, urinary urgency or other Musculoskeletal Musculoskeletal: Reports joint pain; Denies arthralgias, back pain, joint stiffness, joint swelling, myalgias, neck pain or other Neurologic Neurologic: Denies abnormal gait, abnormal speech, confusion, disequilibrium, dizziness, focal weakness, headache(s), numbness, paresthesias, seizure-like activity, seizures, syncope, tingling, tremor(s) or other Psychiatric Psychiatric: Denies anxiety, depression, homicidal ideation, suicidal ideation or other Endocrine Endocrinology: Denies change in body appearance, cold intolerance, excessive sweating, heat intolerance, polydipsia, polyuria or other Hematologic/Lymphatic Hematologic/Lymphatic: Denies anemia, easy bleeding, easy bruising, lymphadenopathy or other Allergic/Immunologic Allergic/Immunologic: Denies rhinitis, hives, eczemia, asthma or other Vital Signs Vital Signs Vital Signs: 10/02/21 09:16 10/02/21 09:21 10/02/21 09:28 Temperature 95.2 F L Temperature Source Temporal Pulse Rate 86 137 H Respiratory Rate 29 H Blood Pressure 103/74 Blood Pressure Mean 83 Pulse Ox 95 Oxygen Delivery Method Room Air Oxygen Flow Rate (L/min) 10/02/21 09:37 10/02/21 10:46 10/02/21 11:02 Temperature Temperature Source Pulse Rate 127 H Respiratory Rate Blood Pressure 83/63 L Blood Pressure Mean 69 Pulse Ox 94 87 Oxygen Delivery Method Room Air Room Air Oxygen Flow Rate (L/min) 10/02/21 11:03 10/02/21 11:57 Temperature Temperature Source Pulse Rate 120 H Respiratory Rate 42 H Blood Pressure 158/113 H 82/59 L Blood Pressure Mean 128 66 Pulse Ox 98 95 Oxygen Delivery Method Nasal Cannula Nasal Cannula Oxygen Flow Rate (L/min) 2 2 Weight Weight: 73.482 kg Body Mass Index (BMI) 30.6 Physical Exam Const alert and oriented x3 Constitutional Narrative: Obese older white female sitting up in bed, at bedside, patient appears nontoxic but mildly ill, very pleasant and appropriately interactive, able to move independently on the bed General Appearance: cooperative HEENT normocephalic, head/scalp atraumatic, hearing grossly normal bilaterally and moist oral mucous membranes HEENT Narrative: Maxilla is edentulous few decayed teeth in the lower mandible, Mallampati is 2, no thrush Eyes PERRL, EOMs intact bilaterally and conjunctivae normal Eyes Narrative: No scleral icterus Neck no lymphadenopathy, supple, no JVD and no carotid bruits Neck Narrative: Trachea midline, no thyroid enlargement Resp no retractions and no use of accessory muscles Resp Narrative: Crackles right lung base greater than apex, left lung is clear, mild tachypnea but no accessory muscle use Auscultation: crackles; Negative for rhonchi or wheezes Cardio regular rhythm, S1 normal heart sound, S2 normal heart sound, no murmurs, no rub, no gallops, no clicks and no JVD Cardio Narrative: Sinus tachycardia GI normal to inspection, nondistended, normoactive bowel sounds, soft to palpation and non-distended Palpation: tender epigastric Extremity no clubbing, cyanosis or edema Peripheral Pulses: Yes pulses 2+ throughout Skin no rashes or lesions noted, no wounds, skin turgor normal, no jaundice, no petec hiae and no mottling Neuro oriented x3, CN's II-XII intact bilaterally, moves all extremities and no focal motor deficits Neuro Narrative: Mild generalized weakness but no focal deficits, sensation is normal throughout Sensorium / Orientation: awake and alert Speech: speech normal Psych affect normal Psych Narrative: Very pleasant Results Lab / Micro Data Attestation: I reviewed the patient's lab results. Result Diagrams: 10/02/21 09:30 10/02/21 09:30 Labs: Laboratory Results - last 24 hr 10/02/21 09:30: WBC 25.9 H, RBC 4.45, Hgb 14.1, Hct 43.5, MCV 97.8, MCH 31.7, MC HC 32.4, RDW Std Deviation 50.8 H, RDW Coeff of [place] 14.0, Plt Count 244, MPV 12.7 H, Immature Gran % (Auto) 0.700, Neut % (Auto) 85.9 H, Lymph % (Auto) 8.2 L , [place] % (Auto) 4.9, Eos % (Auto) 0.0, Baso % (Auto) 0.3, Absolute Neuts (auto) 22.2 H, Absolute Lymphs (auto) 2.13, Nucleated RBC % 0 10/02/21 09:30: Sodium 139, Potassium 3.8, Chloride 101, Carbon Dioxide 28.0, Anion Gap 10, BUN 64 H, Creatinine 1.25 H, Estim Creat Clear Calc 29.34, Est GFR (MDRD) Af Amer 54 L, Est GFR (MDRD) Non-Af 44 L, BUN/Creatinine Ratio 51.2 H, Glucose 128 H, Calcium 9.8, Total Bilirubin 0.60, AST 31, ALT 27, Alkaline Phosphatase 86, Troponin I High Sens 130 H*, Total Protein 7.4, Albumin 3.5, Globulin 3.9, Albumin/Globulin Ratio 0.9, Lipase 45 L 10/02/21 09:30: Lactic Acid Cancelled 10/02/21 10:25: Blood Type O POSITIVE, Antibody Screen NEGATIVE, Crossmatch See Detail 10/02/21 10:25: Lactic Acid 4.4 H* Micro: Microbiology 10/02/21 10:47 Stool Stool Occult Blood (CHENG) - Final Occult Blood Positive 10/02/21 09:50 Nasal Secretion SARS-CoV-2 Antigen (Rapid) - Final Radiology Impression Abdomen/Pelvis CT 10/02/21 10:48 IMPRESSION: Infiltration in the right middle lobe and right lower lobe. Fatty infiltration of liver. Electronically Signed: Darnell Hernández MD at 11:49 EST , Service support , Chest CTA 10/02/21 10:52 IMPRESSION: Right upper as well as right middle and right lower lobe pulmonary infiltrates. Stable appearance of the nodular densities in the left upper lobe. Electronically Signed: Darnell Hernández MD at 11:46 EST , Service support , Assessment & Plan Assessment/Plan (1) Sepsis: (2) Aspiration pneumonia: (3) Lactic acidosis: (4) JESS (acute kidney injury): (5) Leukocytosis: (6) Acute GI bleeding: (7) Elevated troponin: (8) Acute respiratory failure with hypoxia: (9) Thrombosis of abdominal aorta: PLAN: Sepsis secondary to aspiration pneumonia -Patient with tachycardia, hypotension, leukocytosis, tachypnea, temp less than 96.8, JESS, lactic acidosis, and source of infection and therefore meets criteria for sepsis -Cultures are pending -High suspicion of aspiration with clinical history -Start Unasyn -Patient was given fluid boluses at 30 cc/kg body weight with 2 L given in the emergency department and 500 cc given at admission -We will continue IV hydration at 50 cc/h -Monitor blood pressures and may need to consider pressors -Case discussed with critical care medicine Acute hypoxic respiratory failure secondary to aspiration pneumonia -Unasyn -DuoNebs with as needed albuterol -Incentive spirometer -Acapella -Supplemental oxygen--> currently requiring 2 L Acute GI bleed -Suspect upper with BUN elevation and history -Antiemetics to prevent further emesis -Serial hemoglobins every 4 hours -Transfuse for hypotension/marked drop in hemoglobin/hemoglobin less than 7 -Protonix bolus with drip -Consult GI for EGD--> Case discussed with GI -Aspirin -Patient had been utilizing NSAIDs periodically at home Lactic acidosis -4.4 on arrival -Suspect multifactorial with sepsis due to aspiration pneumonia/GI bleed/hypoxia -We will cycle Troponin elevation -Mild -EGD without any signs of acute ischemia -Cycle cardiac enzymes -Suspect stress-induced ischemia related to hypotension/hypoxia/sepsis -Consider echo if upward trend JESS -Likely related to GI bleed/hypotension/sepsis picture -Fluid boluses given -Repeat BMP in a.m. Abdominal aortic mural thrombus -Unable to anticoagulate at this time -We will likely need anticoagulation at some point -Await input from GI related to GI bleeding -Monitor clinically AAA -Chronic -Current transverse dimension is 2.4 cm -will need monitored as an outpatient Left upper lobe spiculated lung mass -Outpatient work-up in progress -CT-guided biopsy has been ordered -Highly suspicious for malignancy -We will probably need left upper lobectomy Hyperlipidemia -Hold atorvastatin Restless leg syndrome -Hold Requip COPD -Aerosols as above Tobacco abuse -Patient remains smoking but states she is cut back to a pack every 2 to 2-1/2 days -Trying to quit -Is a marked history of tobacco abuse with a [id number] history -Continue patch available Depression -Hold fluoxetine DVT prophylaxis -SCDs -Chemoprophylaxis is contraindicated with GI bleed CODE STATUS -Full code as addressed with patient in the emergency department- at bedside during conversation Charges/Coding Visit Charges Inpatient E&M: 92414 Init Hosp L3
[2021-10-02 13:22] LABS: Hematocrit 36.8 % (37-47)
--- NOTE | 2021-10-02 14:14 | EX.PCM.CONCC ---
Assessment & Plan Assessment/Plan (1) Acute GI bleeding: (2) Aspiration pneumonia: (3) Sepsis: (4) Thrombosis of abdominal aorta: (5) COPD (chronic obstructive pulmonary disease): (6) Lung mass: PLAN: RECOMMENDATIONS: 1. Initiation of Unasyn for aspiration pneumonia 2. Continue bronchodilators. Wean oxygen as tolerated 3. Urgent endoscopy per GI. Start Protonix daily. Every 6hr H&H 4. No need for transfusion at this time 5. Fluid boluses as necessary for hypotension IMPRESSIONS: 1. Severe sepsis secondary to aspiration pneumonia Patient with severe sepsis as indicated by elevated troponin and acute kidney injury in the setting of hypotension. Clinical suspicion for a hypovolemic component also from problem #2. Patient will be placed on Unasyn for aspiration pneumonia. Patient will likely have an element of chemical pneumonitis at a minimum. Patient does have poor dentition, so I do believe antibiotics are needed. Continue to support blood pressure with fluid boluses. 2. Acute blood loss anemia secondary to acute upper GI bleed Patient with approximately 4 g drop in hemoglobin from baseline. Patient does report hematemesis prior to melena indicating probable upper GI bleed. GI has been consulted. Patient does not have a report of increased NSAID use, but partial colectomy may have been secondary to a GI bleed. Await results of scope. Patient can be placed on PPI for now. 3. Elevated troponin/JESS High clinical suspicion for elevation in troponin and creatinine secondary to problems one and two. We will continue with hemodynamic support and monitor closely. Do not believe an echocardiogram would be required at this time. Reasonable to continue to cycle troponins. No indication for renal replacement therapy at this time. 4. Advanced age/lung mass/AAA with mural thrombus/hyperlipidemia/tobacco abuse/depression Complicates care, management, recovery and prognosis. Low clinical suspicion for bleeding from the mass leading to onset of symptoms. Await findings on EGD prior to any recommendations on anticoagulation with thrombus. Reinitiate baseline meds per GI. Okay to give nicotine replacement. HPI Consult Data Date of Consult: 10/02/21 HPI Narrative HPI Narrative: ERICA CASTILLO is a 76 F, with past medical history listed below and known to me from the outpatient office, who presents to [facility] on 10/02/2021 secondary to 3 episodes of hematemesis followed by hemoptysis and an episode of melena. Patient reportedly stated she was out of her usual health until yesterday evening at dinner. Patient had an emesis with coffee-ground material. Shortly thereafter, patient had some hemoptysis and then melena. Patient had reported some increased GERD type symptoms for 3 days, but denied any obvious abdominal or chest pain. Patient has reported some soreness in the ER that she relates to vomiting. Patient does report a history of endoscopies 9 to 10 years ago and does have a history of a partial colectomy with colostomy that was reversed about 9 years ago. Patient is on aspirin, but no other anticoagulants at baseline. Patient is not reporting increased NSAID use. In the ER, patient was afebrile, but tachycardic at 137 bpm. Patient was saturating well on room air, but over the course of the ER visit started to become hypoxic and hypotensive. Patient did have a blood pressure documented in the 70s systolic, so she would eventually come to the intensive care unit. Laboratory work-up showed a white blood cell count of 25.9, hemoglobin of 14.1, down from a baseline of 15.4. Chemistry showed acute kidney injury with a BUN of 64, creatinine of 1.25 and a troponin of 130. EKG showed sinus tachycardia. Patient was given a fluid bolus and admitted to the intensive care unit for further evaluation. Since being in the intensive care unit, patient reports she subjectively feels improved compared to previous. Patient is not reporting any current chest pain or abdominal pain. Patient states she has not had a bowel movement since this morning. Patient is very clear that she did not have any retching prior to the onset of her hemoptysis and hematemesis. Patient also states that she had her hematemesis spontaneously, followed by shortness of breath with hemoptysis and then ultimately melena. Patient states on subsequent episodes of hematemesis she also had diarrhea with melena. Patient described it is foul-smelling. Patient does not have any history of GI bleeds that she is aware of. Patient had seen me in the last 2 weeks secondary to an incidentally found PET positive lung nodule. A CT-guided biopsy, PFT and walking oximetry have been ordered, but patient states she has not been able to complete the secondary to changing her insurance on September 26. Patient is very clear that she has not had any lung biopsy at this time. Patient does have a long smoking history and has continued to smoke. There are no other changes in her history compared to my most recent visit. Review of systems otherwise negative from a constitutional, HEENT, respiratory, cardiovascular, GI, genitourinary, musculoskeletal, skin, neurologic, psychiatric and hematologic system unless stated above. [facility] Medical History (Updated 10/02/21 @ 14:[address] Jay Jay Tan MD) Abdominal aortic aneurysm COPD (chronic obstructive pulmonary disease) Depression with anxiety Hemorrhoids Lung mass SOB (shortness of breath) Home Medications aspirin 81 mg PO DAILY 07/27/16 [History Last Taken Unknown] calcium carbonate-vitamin D3 1 ea PO DAILY 07/27/16 [History Last Taken Unknown] pramipexole 0.25 mg tablet 0.25 mg PO DAILY tab 04/01/20 [History Last Taken Unknown] albuterol sulfate 90 mcg/actuation aerosol inhaler 2 inh INHALATION Q8H PRN g 09/23/21 [History Last Taken Unknown] atorvastatin 20 mg tablet 20 mg PO DAILY tab 09/23/21 [History Last Taken Unknown] fluoxetine 20 mg capsule 20 mg PO DAILY cap 09/23/21 [History Last Taken Unknown] Allergy/AdvReac Type Severity Reaction Status Date / Time No Known Allergies Allergy Verified 10/02/21 09:18 Family History Mother Colon cancer Diabetes Father Heart disease Surgical History history colon reanastamosis History of colectomy History of colostomy History of hysterectomy Social History Smoking Status: Current every day smoker tobacco type: cigarettes Tobacco: How many years used: 50 Electronic Cigarette Use: not used second hand exposure: Yes alcohol intake: never substance use type: does not use ROS ROS Narrative See HPI Physical Exam Const alert, oriented x3 and average body habitus Constitutional Narrative: at the bedside. No conversational dyspnea. Slightly pale General Appearance: cooperative and comfortable HEENT normocephalic, head/scalp atraumatic, hearing grossly normal bilaterally and moist oral mucous membranes HEENT Narrative: Poor dentition. Mallampati two. Eyes PERRL, EOMs intact bilaterally, conjunctivae normal and no scleral icterus Neck no lymphadenopathy, supple, no JVD and no carotid bruits Neck Narrative: Trachea midline, no thyroid enlargement Chest Chest: abnormal inspection of the chest increased A-P diameter and symmetrical chest wall rise; Negative for crepitus Resp no retractions and no use of accessory muscles Effort and Inspection: able to speak in complete sentences Auscultation: rhonchi right lower; Negative for wheezes Cardio regular rhythm, S1 normal heart sound, S2 normal heart sound, no murmurs, no rub, no gallops, no clicks and no JVD Cardio Narrative: Sinus tachycardia GI normal to inspection, nondistended, normoactive bowel sounds, soft to palpation and non-distended Palpation: tender epigastric Extremity no clubbing, cyanosis or edema Peripheral Pulses: Yes pulses 2+ throughout Skin no rashes or lesions noted, no wounds, skin turgor normal, no jaundice, no petechiae and no mottling Neuro oriented x3, CN's II-XII intact bilaterally, moves all extremities and no focal motor deficits Sensorium / Orientation: awake and alert Speech: speech normal Psych mental status grossly normal, thought process normal, cooperative, affect normal and speech normal Lab / Micro Data Result Diagrams: 10/02/21 13:17 10/02/21 09:30 Labs: Laboratory Results - last 24 hr 10/02/21 09:30: WBC 25.9 H, RBC 4.45, Hgb 14.1, Hct 43.5, MCV 97.8, MCH 31.7, MCHC 32.4, RDW Std Deviation 50.8 H, RDW Coeff of Yeimi 14.0, Plt Count 244, MPV 12.7 H, Immature Gran % (Auto) 0.700, Neut % (Auto) 85.9 H, Lymph % (Auto) 8.2 L, [place] % (Auto) 4.9, Eos % (Auto) 0.0, Baso % (Auto) 0.3, Absolute Neuts (auto) 22.2 H, Absolute Lymphs (auto) 2.13, Nucleated RBC % 0 10/02/21 09:30: Sodium 139, Potassium 3.8, Chloride 101, Carbon Dioxide 28.0, Anion Gap 10, BUN 64 H, Creatinine 1.25 H, Estim Creat Clear Calc 29.34, Est GFR (MDRD) Af Amer 54 L, Est GFR (MDRD) Non-Af 44 L, BUN/Creatinine Ratio 51.2 H, Glucose 128 H, Calcium 9.8, Total Bilirubin 0.60, AST 31, ALT 27, Alkaline Phosphatase 86, Troponin I High Sens 130 H*, Total Protein 7.4, Albumin 3.5, Globulin 3.9, Albumin/Globulin Ratio 0.9, Lipase 45 L 10/02/21 09:30: Lactic Acid Cancelled 10/02/21 10:25: Blood Type O POSITIVE, Antibody Screen NEGATIVE, Crossmatch See Detail 10/02/21 10:25: Lactic Acid 4.4 H* 10/02/21 13:17: Hgb 12.0, Hct 36.8 L Micro: Microbiology 10/02/21 10:47 Stool Stool Occult Blood (CHENG) - Final Occult Blood Positive 10/02/21 09:50 Nasal Secretion SARS-CoV-2 Antigen (Rapid) - Final Radiology Impression Abdomen/Pelvis CT 10/02/21 10:48 IMPRESSION: Infiltration in the right middle lobe and right lower lobe. Fatty infiltration of liver. Electronically Signed: Darnell Hernández MD at 11:49 EST , Service support , Chest CTA 10/02/21 10:52 IMPRESSION: Right upper as well as right middle and right lower lobe pulmonary infiltrates. Stable appearance of the nodular densities in the left upper lobe. Electronically Signed: Darnell Hernández MD at 11:46 EST , Service support , Charges/Coding Visit Charges Inpatient E&M: 90755 Init Hosp L3
[2021-10-02 14:36] LABS: Reflex Lactate? Y
[2021-10-02 14:51] LABS: Troponin-I HS 145 pg/mL (3.0-54.0)
[2021-10-02] MEDS: 0.9% Normal Saline 1,000 ML 50 ML IV (15:27)
[2021-10-02 16:07] LABS: Lactic Acid 2.5 mmol/L (0.4-1.9)
[2021-10-02] MEDS: Ipratropium/Albuterol Sulfate 3 ML AMPUL.NEB INHALATION ×2 (16:24→19:20)
[2021-10-02] MEDS: Lactated Ringers 1,000 ML 999 ML IV (17:14)
--- NOTE | 2021-10-02 22:11 | CON.PCM.GI_ITS ---
HPI Consult Data Date of Consult: 10/02/21 HPI Narrative HPI Narrative: ERICA CASTILLO, is a 76 F who presents to the ED after having multiple episodes of hematemesis followed by hemoptysis. She also complained of one episode of melena prior to arriving to the hospital and she had one episode in the ED. She is not currently on anticoagulation. She is on aspirin and does not report any other NSAIDs. She had a possible history of acute recurrent lower GI bleeding resulting in the need for a sigmoid colectomy with primary anastomosis. In the ED she was discovered to have a elevated BUN/creatinine ratio of 64/1.25 and elevated troponin of 130. Her EKG is showing sinus tachycardia. She was also discovered to have elevated white blood cell count to 25.9. Her imaging displayed bilateral pneumonia possibly secondary to aspiration pneumonia. Her Covid test was negative. She was started on antibiotic therapy. She became hypotensive and tachycardic in the ED after having another episode of GI bleed. She also reports several episodes of hemoptysis. On her CT scan of the chest there also was a suspicious lung nodule. I was consulted for the evaluation of an upper GI bleed. At this time she is resting comfortably. [facility] Medical History (Updated 10/02/21 @ 17:[address] Basilio Lai MD) Abdominal aortic aneurysm COPD (chronic obstructive pulmonary disease) Depression with anxiety Hemorrhoids Lung mass SOB (shortness of breath) Home Medications aspirin 81 mg PO DAILY 07/27/16 [History Last Taken Unknown] calcium carbonate-vitamin D3 1 ea PO DAILY 07/27/16 [History Last Taken Unknown] pramipexole 0.25 mg tablet 0.25 mg PO DAILY tab 04/01/20 [History Last Taken Unknown] albuterol sulfate 90 mcg/actuation aerosol inhaler 2 inh INHALATION Q8H PRN g 09/23/21 [History Last Taken Unknown] atorvastatin 20 mg tablet 20 mg PO DAILY tab 09/23/21 [History Last Taken Unknown] fluoxetine 20 mg capsule 20 mg PO DAILY cap 09/23/21 [History Last Taken Unknown] Allergy/AdvReac Type Severity Reaction Status Date / Time No Known Allergies Allergy Verified 10/02/21 09:18 Family History Mother Colon cancer Diabetes Father Heart disease Surgical History history colon reanastamosis History of colectomy History of colostomy History of hysterectomy Social History Smoking Status: Current every day smoker tobacco type: cigarettes Tobacco: How many years used: 50 Electronic Cigarette Use: not used second hand exposure: Yes alcohol intake: never substance use type: does not use ROS Review of Systems ROS Unobtainable: other Constitutional Constitutional: Denies fatigue, fever(s), poor appetite, weight gain or weight loss ENT HEENT: Denies mouth lesions Cardiovascular Cardiovascular: Denies abdominal bloating, abdominal edema or abdominal pain Respiratory/Chest Respiratory/Chest: Denies change in mental status, change in phlegm color, chest congestion or chest tightness Gastrointestinal Gastrointestinal: Reports coffee ground emesis, hematemesis, hematochezia, rectal bleeding and vomiting; Denies belching, bloating, change in bowel habits, change in stool character, chewing difficulty, constipation, cramping, diarrhea, dyspepsia, dysphagia, early satiety, excessive flatus, fecal incontinence, heartburn, hemorrhoids, loose stools, melena, nausea, odynophagia, tenesmus or weight changes Genitourinary Genitourinary: Denies abdominal discomfort, burning urination or itching Musculoskeletal Musculoskeletal: Reports as per HPI; Denies muscle weakness or myalgias Integumentary Integumentary: Denies jaundice Neurologic Neurologic: Denies lack of coordination or weakness Psychiatric Psychiatric: Denies confusion, depression, memory loss, mood swings, paranoia or suicidal ideation Endocrine Endocrinology: Denies systems reviewed and no addt'l complaints, except as documented Hematologic/Lymphatic Hematologic/Lymphatic: Denies anemia, easy bleeding, easy bruising or lymphadenopathy Allergic/Immunologic Allergic/Immunologic: Denies systems reviewed and no addt'l complaints, except as documented Physical Exam Const alert General Appearance: cooperative Orientation / Consciousness: oriented to person HEENT hearing grossly normal bilaterally Head and Scalp: normal to inspection Face and Sinus: face symmetric Nose: external nose normal Mouth: oral and palatal mucosa normal Eyes conjunctivae normal General Eye: normal appearance of both eyes Neck full ROM General: normal visual inspection Lymph Lymphatic: no lymphadenopathy noted Chest inspection of chest normal and palpation of chest normal Chest: symmetrical chest wall rise Resp normal respiratory effort Effort and Inspection: able to speak in complete sentences Cardio regular rate GI non-distended Percussion: normal to percussion Rectal Exam: deferred Neuro Speech: speech normal Gait (Neuro): normal gait Lab / Micro Data Result Diagrams: 10/02/21 20:05 10/02/21 09:30 Labs: Laboratory Results - last 24 hr 10/02/21 09:30: WBC 25.9 H, RBC 4.45, Hgb 14.1, Hct 43.5, MCV 97.8, MCH 31.7, MCHC 32.4, RDW Std Deviation 50.8 H, RDW Coeff of Yeimi 14.0, Plt Count 244, MPV 12.7 H, Immature Gran % (Auto) 0.700, Neut % (Auto) 85.9 H, Lymph % (Auto) 8.2 L , [place] % (Auto) 4.9, Eos % (Auto) 0.0, Baso % (Auto) 0.3, Absolute Neuts (auto) 22.2 H, Absolute Lymphs (auto) 2.13, Nucleated RBC % 0 10/02/21 09:30: Sodium 139, Potassium 3.8, Chloride 101, Carbon Dioxide 28.0, Anion Gap 10, BUN 64 H, Creatinine 1.25 H, Estim Creat Clear Calc 29.34, Est GFR (MDRD) Af Amer 54 L, Est GFR (MDRD) Non-Af 44 L, BUN/Creatinine Ratio 51.2 H, Glucose 128 H, Calcium 9.8, Total Bilirubin 0.60, AST 31, ALT 27, Alkaline Phosphatase 86, Troponin I High Sens 130 H*, Total Protein 7.4, Albumin 3.5, Globulin 3.9, Albumin/Globulin Ratio 0.9, Lipase 45 L 10/02/21 09:30: Lactic Acid Cancelled 10/02/21 10:25: Blood Type O POSITIVE, Antibody Screen NEGATIVE, Crossmatch See Detail 10/02/21 10:25: Lactic Acid 4.4 H* 10/02/21 13:17: Hgb 12.0, Hct 36.8 L 10/02/21 14:05: Troponin I High Sens 145 H* 10/02/21 15:00: Lactic Acid 2.5 H* 10/02/21 20:05: Hgb 10.9 L, Hct 34.3 L Micro: Microbiology 10/02/21 15:00 Urine, Clean Catch Legionella Antigen - Final 10/02/21 15:00 Urine, Clean Catch Streptococcus pneumoniae Antigen (M - Final 10/02/21 10:47 Stool Stool Occult Blood (CHENG) - Final Occult Blood Positive 10/02/21 09:50 Nasal Secretion SARS-CoV-2 Antigen (Rapid) - Final Radiology Impression Abdomen/Pelvis CT 10/02/21 10:48 IMPRESSION: Infiltration in the right middle lobe and right lower lobe. Fatty infiltration of liver. Electronically Signed: Darnell Hernández MD at 11:49 EST , Service support , Chest CTA 10/02/21 10:52 IMPRESSION: Right upper as well as right middle and right lower lobe pulmonary infiltrates. Stable appearance of the nodular densities in the left upper lobe. Electronically Signed: Darnell Hernández MD at 11:46 EST , Service support , Assessment & Plan Assessment/Plan (1) Acute GI bleeding: PLAN: The differential diagnosis for upper GI bleed does include a Mariposa-Bryan tear, rule esophagitis, peptic ulcer disease. She will need to undergo an upper endoscopy. She was explained alternatives, risk, benefits including not withstanding bleeding, infection, sepsis, perforation, need for emergency or . She will have an ASA of 3. Recommend to continue PPI drip, monitor blood pressure closely. Charges/Coding Visit Charges Inpatient E&M: 42368 Init Hosp L3
[2021-10-03] VITALS (34 sets, daily range): BP systolic 63–104; BP diastolic 40–80; PULSE 80–112; RESP 15–25; TEMP 35.9–37.7; O2SAT 89–99
--- NOTE | 2021-10-03 | GASB_PTH ---
PATIENT: ERICA CASTILLO LOC: [facility] U#:[id number] AGE/SX: 76/F ROOM: [facility] RE10/02/[address]: Dr. Nalini Garcia MD : 1945 BED: 1 DIS: 10/06/2021 SPEC #: [id number] RECD: 10/03/21 13:34 STATUS: IRAJ REFabiola #: [id number] ESAU: 10/03/21 00:[address]: Wong George DEPT: SURGICAL PATHOLOGY RECD BY: Quang Treviño ENTERED: 10/05/21 07:39 SP TYPE: Gastric Bx OTHR DR: MD Dr. Luís Loera MD Dr. Derek Brown, DO Dr. Mackenzie Hedrick, MD Krissy Murrell Dr., [employer]ENTICE-C Tissues: Gastric mucous membrane Procedures: Special Stain Group II Surgery Specimen Level IV Alcian Blue/PAS (control) Comments: @ Ordering doctor for SUIV edited from to @ vernell VELASQUEZ at 10/05/21 1231 @ Submitting doctor edited from to @ vernell VELASQUEZ at 10/05/21 1231 HEADER OPERATION: EGD ([employer] [facility] [employer]) PRE-OP DIAGNOSIS: GI bleed TISSUE SUBMITTED: Gastric antral ulcer MICROSCOPIC DIAGNOSIS Gastric antral ulcer, biopsy: Fragments of gastric mucosa with focal ulceration, fibrinopurulent exudation, acute and chronic inflammation. See comment. SJ:lupe 10/06/2021 COMMENT H& E stains show focal area suspicious for intestinal metaplasia. Alcian blue/PAS stain with matched control is used in the evaluation of the specimen and negative for intestinal metaplasia. The results of immunohistochemistry for Helicobacter pylori will be reported separately ([id number]). MICROSCOPIC DESCRIPTION Slides are reviewed. GROSS DESCRIPTION Received in fixative is one container labeled with the patient's name and designated gastric antral ulcer. The specimen consists of multiple irregular fragments of light diop soft tissue that in aggregate measure 1 x 0.8 x 0.1 cm. The specimen is totally submitted in one cassette. / MICHEL:lupe 10/05/2021 TC:2 CPT: 22413, 57524
[2021-10-03 00:37] LABS: Hemoglobin 9.4 g/dL (12.0-15.0)
[2021-10-03 05:30] LABS: Hematocrit 34.2 % (37-47); Hemoglobin 10.9 g/dL (12.0-15.0); Mean Corp Hgb Conc 31.9 g/dL (32-36); Mean Corpuscular Hgb 31.2 pg (27.0-32.0); Mean Platelet Vol. 12.6 fl (6.2-12.0); Platelet Count 143 K/mm3 (150-450); RBC Distribution Width SD 57.4 fl (35.1-43.9); Red Blood Count 3.49 M/mm3 (4.2-5.4); White Blood Count 20.4 K/mm3 (4.4-11.0)
[2021-10-03 05:56] LABS: ALB/GLOB Ratio 0.8 RATIO (0.9-2.4); AST(SGOT) 34 U/L (15-37); Alanine Aminotransfer ALT/SGPT 17 U/L (13-56); Albumin, Serum 2.5 g/dL (3.2-5.0); Alkaline Phosphatase 56 U/L (45-117); Anion Gap 4 (5-15); BUN 32 mg/dL (7-18); Calcium,Total 8.3 mg/dL (8.5-10.1); Chloride 114 mmol/L (98-107); Creatinine, Serum 0.65 mg/dL (0.55-1.02); EST Glomerular Filtration Rate 94 mL/min (>60); Est Glom Filt Rate - Afr Amer 114 mL/min (>60); Estimated Creatinine Clearance 36.68 ml/min; Globulin 3.3 g/dL (2.2-4.2); Glucose 116 mg/dL (74-106); Phosphorus 2.9 mg/dL (2.5-4.9); Protein, Total 5.8 g/dL (6.4-8.2); Sodium Level 146 mmol/L (136-145)
[2021-10-03] MEDS: Ipratropium/Albuterol Sulfate 3 ML AMPUL.NEB INHALATION ×3 (06:58→20:27)
--- NOTE | 2021-10-03 07:19 | PCM.PN.INT ---
Assessment & Plan Assessment/Plan (1) Acute GI bleeding: (2) Aspiration pneumonia: (3) Sepsis: (4) Thrombosis of abdominal aorta: (5) COPD (chronic obstructive pulmonary disease): (6) Lung mass: PLAN: RECOMMENDATIONS: 1. Continue of Unasyn for aspiration pneumonia to complete 7 days 2. Continue bronchodilators. Wean oxygen as tolerated 3. Await endoscopy per GI. Possibly transition to twice daily Protonix. Possibly space H&H once intervention completed 4. Bolus with LR only as crystalloid option 5. Likely monitor in intensive care unit following endoscopy IMPRESSIONS: 1. Severe sepsis secondary to aspiration pneumonia Patient with severe sepsis as indicated by elevated troponin and acute kidney injury in the setting of hypotension. Clinical suspicion for a hypovolemic component also from problem #2. Patient will be placed on Unasyn for aspiration pneumonia. Patient will likely have an element of chemical pneumonitis at a minimum. Patient does have poor dentition, so I do believe antibiotics are needed. Continue to support blood pressure with fluid boluses. 2. Acute blood loss anemia secondary to acute upper GI bleed Patient with approximately 5 g drop in hemoglobin from baseline and has received 2 units of packed red blood cells thus far. Patient does report hematemesis prior to melena indicating probable upper GI bleed. GI has been consulted. Patient does not have a report of increased NSAID use, but partial colectomy may have been secondary to a GI bleed. Await results of scope. Await endoscopy to dictate length of PPI drip and frequency of H&H assessments 3. Elevated troponin/JESS High clinical suspicion for elevation in troponin and creatinine secondary to problems one and two. We will continue with hemodynamic support and monitor closely. Do not believe an echocardiogram would be required at this time. No indication for renal replacement therapy at this time. 4. Advanced age/lung mass/AAA with mural thrombus/hyperlipidemia/tobacco abuse/depression Complicates care, management, recovery and prognosis. Low clinical suspicion for bleeding from the mass leading to onset of symptoms. Await findings on EGD prior to any recommendations on anticoagulation with thrombus. Reinitiate baseline meds per GI. Okay to give nicotine replacement. Subjective Subjective Patient did okay overnight. Patient is not reporting a lot of abdominal pain, but has had marginal blood pressures overnight. Patient was given 2 units of packed red blood cells overnight secondary to ongoing losses. Patient is scheduled for an EGD this morning. Patient has had a periodic productive cough, but no hemoptysis is reported. Objective Data Objective Data Vital Signs: Vital Signs Temp Pulse Resp BP Pulse Ox 36.1 C L 92 18 85/62 L 94 10/03/21 07:00 10/03/21 07:00 10/03/21 07:00 10/03/21 07:00 10/03/21 07:00 Oxygen Flow Rate (L/min) 2 Oxygen Delivery Method Nasal Cannula Weight: 73.6 kg Body Mass Index (BMI) 29.6 Intake & Output: Intake and Output for Last 24 Hours 10/01/21 10/02/21 10/03/21 23:59 23:59 23:59 Intake Total 3395.8 / 3395.8 565 / 565 Output Total 200 / 600 750 / 750 Balance 3195.8 / 2795.8 -185 / -185 Lab / Micro Data Result Diagrams: 10/03/21 05:15 10/03/21 05:15 Labs: Laboratory Results - last 24 hr 10/02/21 09:30: WBC 25.9 H, RBC 4.45, Hgb 14.1, Hct 43.5, MCV 97.8, MCH 31.7, MCHC 32.4, RDW Std Deviation 50.8 H, RDW Coeff of Yeimi 14.0, Plt Count 244, MPV 12.7 H, Immature Gran % (Auto) 0.700, Neut % (Auto) 85.9 H, Lymph % (Auto) 8.2 L, [place] % (Auto) 4.9, Eos % (Auto) 0.0, Baso % (Auto) 0.3, Absolute Neuts (auto) 22.2 H, Absolute Lymphs (auto) 2.13, Nucleated RBC % 0 10/02/21 09:30: Sodium 139, Potassium 3.8, Chloride 101, Carbon Dioxide 28.0, Anion Gap 10, BUN 64 H, Creatinine 1.25 H, Estim Creat Clear Calc 29.34, Est GFR (MDRD) Af Amer 54 L, Est GFR (MDRD) Non-Af 44 L, BUN/Creatinine Ratio 51.2 H, Glucose 128 H, Calcium 9.8, Total Bilirubin 0.60, AST 31, ALT 27, Alkaline Phosphatase 86, Troponin I High Sens 130 H*, Total Protein 7.4, Albumin 3.5, Globulin 3.9, Albumin/Globulin Ratio 0.9, Lipase 45 L 10/02/21 09:30: Lactic Acid Cancelled 10/02/21 10:25: Blood Type O POSITIVE, Antibody Screen NEGATIVE, Crossmatch See Detail 10/02/21 10:25: Lactic Acid 4.4 H* 10/02/21 13:17: Hgb 12.0, Hct 36.8 L 10/02/21 14:05: Troponin I High Sens 145 H* 10/02/21 15:00: Lactic Acid 2.5 H* 10/02/21 20:05: Hgb 10.9 L, Hct 34.3 L 10/03/21 00:00: Hgb 9.4 L, Hct 30.0 L 10/03/21 05:15: WBC 20.4 H, RBC 3.49 L, Hgb 10.9 L, Hct 34.2 L, MCV 98.0, MCH 31.2, MCHC 31.9 L, RDW Std Deviation 57.4 H, RDW Coeff of Yeimi 16.0 H, Plt Count 143 L, MPV 12.6 H 10/03/21 05:15: Sodium 146 H, Potassium 5.0, Chloride 114 H, Carbon Dioxide 28.0, Anion Gap 4 L, BUN 32 H, Creatinine 0.65, Estim Creat Clear Calc 36.68, Est GFR (MDRD) Af Amer 114, Est GFR (MDRD) Non-Af 94, BUN/Creatinine Ratio 49.0 H, Glucose 116 H, Calcium 8.3 L, Phosphorus 2.9, Magnesium 2.0, Total Bilirubin 0.70, AST 34, ALT 17, Alkaline Phosphatase 56, Total Protein 5.8 L, Albumin 2.5 L, Globulin 3.3, Albumin/Globulin Ratio 0.8 L Micro: Microbiology 10/02/21 15:00 Urine, Clean Catch Legionella Antigen - Final 10/02/21 15:00 Urine, Clean Catch Streptococcus pneumoniae Antigen (M - Final 10/02/21 10:47 Stool Stool Occult Blood (CHENG) - Final Occult Blood Positive 10/02/21 09:50 Nasal Secretion SARS-CoV-2 Antigen (Rapid) - Final Radiography Diagnostic Testing: Radiology Impression Abdomen/Pelvis CT 10/02/21 10:48 IMPRESSION: Infiltration in the right middle lobe and right lower lobe. Fatty infiltration of liver. Electronically Signed: Darnell Hernández MD at 11:49 EST , Service support , Chest CTA 10/02/21 10:52 IMPRESSION: Right upper as well as right middle and right lower lobe pulmonary infiltrates. Stable appearance of the nodular densities in the left upper lobe. Electronically Signed: Darnell Hernández MD at 11:46 EST , Service support , Physical Exam Const alert, oriented x3 and average body habitus Constitutional Narrative: No conversational dyspnea. Slightly pale General Appearance: cooperative and comfortable HEENT normocephalic, head/scalp atraumatic, hearing grossly normal bilaterally and moist oral mucous membranes HEENT Narrative: Poor dentition. Mallampati 2 00,. Eyes PERRL, EOMs intact bilaterally, conjunctivae normal and no scleral icterus Neck no lymphadenopathy, supple, no JVD and no carotid bruits Neck Narrative: Trachea midline, no thyroid enlargement Chest Chest: abnormal inspection of the chest increased A-P diameter and symmetrical chest wall rise; Negative for crepitus Resp no retractions and no use of accessory muscles Effort and Inspection: able to speak in complete sentences Auscultation: rhonchi right lower; Negative for wheezes Cardio regular rhythm, S1 normal heart sound, S2 normal heart sound, no murmurs, no rub, no gallops, no clicks and no JVD Cardio Narrative: Sinus tachycardia GI normal to inspection, nondistended, normoactive bowel sounds, soft to palpation and non-distended Palpation: tender epigastric Extremity no clubbing, cyanosis or edema Peripheral Pulses: Yes pulses 2+ throughout Skin no rashes or lesions noted, no wounds, skin turgor normal, no jaundice, no petechiae and no mottling Neuro oriented x3, CN's II-XII intact bilaterally, moves all extremities and no focal motor deficits Sensorium / Orientation: awake and alert Speech: speech normal Psych mental status grossly normal, thought process normal, cooperative, affect normal and speech normal Charges/Coding Visit Charges Inpatient E&M: 88034 Subs Hosp L3
[2021-10-03] MEDS: 0.45% Normal Saline 1,000 ML 60 ML IV (08:23)
[2021-10-03 09:00] LABS: Hemoglobin 12.5 g/dL (12.0-15.0)
--- NOTE | 2021-10-03 09:35 | IMM_PTH ---
PATIENT: ERICA CASTILLO LOC: [facility] U#:[id number] AGE/SX: 76/F ROOM: [facility] RE10/02/[address]: Dr. Nalini Garcia MD : 1945 BED: 1 DIS: 10/06/2021 SPEC #: [id number] RECD: 10/05/21 12:29 STATUS: IRAJ REQ #: [id number] ESAU: 10/03/21 09:[address]: Wong George DEPT: IMMUNOHISTOCHEMISTRY RECD BY: Salome Bell ENTERED: 10/05/21 12:31 SP TYPE: IMMUNO OTHR DR: MD Dr. Luís Loera MD Dr. Derek Brown, DO Dr. Kathryn Lee, DO Dr. Nana Yaa Koram, MD Christina Muller, WATER INSPECTOR-C Tissues: Stomach, NOS Procedures: H Pylori (initial) PHYSICIAN & [place] [id number] SPECIMEN INFORMATION: Tissue Source: Gastric antral ulcer Clinical Info: GI bleed Specimen Number: [id number] CPT code: 93348 METHODOLOGY: Deparaffinized sections of prefer/formalin-fixed tissue or PAP/DQ stained slides are incubated with monoclonal/polyclonal antibodies/oligonucleotide probes. Localization is made via biotin free immunoperoxidase method. Appropriate controls are performed and reacted as expected. Results on target cell population are indicated in the following table: RESULTS: ANTIBODY / CLONE RESULT H Pylori (polyclonal) negative These tests were developed and their performance characteristics determined by [facility]. They may not have been cleared or approved by the U.S. Food and Drug Administration. The FDA has determined that such clearance or approval is not necessary. INTERPRETATION: Gastric antral ulcer: Negative for Helicobacter pylori organisms. SJ:lupe 10/06/2021
--- NOTE | 2021-10-03 10:45 | CASEMGMT ---
Addendum entered by Liliane Olivier 10/03/21 14:53: FREDDY HORTON in to pt room. Pt is off of floor at this time. Original Note: FREDDY HORTON in to pt room to complete assessment. Pt off floor at this time. Pt in room. FREDDY HORTON to check back at later time.
--- NOTE | 2021-10-03 11:00 | OP.EGD_ITS ---
Patient Name: Olivia Townsend Procedure Date: 10/03/2021 9:50 AM Date of : 1945 Age: 76 Procedure: Upper GI endoscopy Indications: Coffee-ground emesis, Hematemesis, Melena Providers: Wong George DO Medicines: See the Anesthesia note for documentation of the administered medications Patient Profile: This is a 76 year old female. Refer to note in patient chart for documentation of history and physical. Patient has symptoms. Complications: No immediate complications. Procedure: Pre-Anesthesia Assessment: - Prior to the procedure, a History and Physical was performed, and patient medications and allergies were reviewed. The patient is competent. The risks and benefits of the procedure and the sedation options and risks were discussed with the patient. All questions were answered and informed consent was obtained. Patient identification and proposed procedure were verified by the physician in the pre-procedure area. Mental Status Examination: alert and oriented. Airway Examination: normal oropharyngeal airway and neck mobility. Respiratory Examination: clear to auscultation. CV Examination: normal. Prophylactic Antibiotics: The patient does not require prophylactic antibiotics. Prior Anticoagulants: The patient has taken no previous anticoagulant or antiplatelet agents. ASA Grade Assessment: II - A patient with mild systemic disease. After reviewing the risks and benefits, the patient was deemed in satisfactory condition to undergo the procedure. The anesthesia plan was to use moderate sedation / analgesia (conscious sedation). Immediately prior to administration of medications, the patient was re-assessed for adequacy to receive sedatives. The heart rate, respiratory rate, oxygen saturations, blood pressure, adequacy of pulmonary ventilation, and response to care were monitored throughout the procedure. The physical status of the patient was re-assessed after the procedure. After obtaining informed consent, the endoscope was passed under direct vision. Throughout the procedure, the patient's blood pressure, pulse, and oxygen saturations were monitored continuously. The gastroscope was introduced through the mouth, and advanced to the second part of duodenum. The Endoscope was introduced through the and advanced to the. The upper GI endoscopy was accomplished without difficulty. The patient tolerated the procedure well. Moderate Sedation: Moderate (conscious) sedation was administered by the endoscopy nurse and supervised by the endoscopist. The patient's oxygen saturation, heart rate, blood pressure and response to care were monitored. Total physician intraservice time was 15 minutes. Moderate (conscious) sedation was administered by the endoscopy nurse and supervised by the endoscopist. The patient's oxygen saturation, heart rate, blood pressure and response to care were monitored. Total physician intraservice time was 15 minutes. Scope In: 10:40:06 AM Scope Out: 10:51:35 AM Total Procedure Duration Time 0 hours 11 minutes 29 seconds Findings: The examined esophagus was normal. Red blood was found in the stomach. One oozing cratered gastric ulcer with a visible vessel was found in the gastric body. The lesion was 20 mm in largest dimension. Coagulation for hemostasis using heater probe was successful. Biopsies were taken with a cold forceps for histology. Verification of patient identification for the specimen was done. Estimated blood loss was minimal. The second portion of the duodenum was normal. Impression: - Normal esophagus. - Red blood in the stomach. - Oozing gastric ulcer with a visible vessel. Treated with a heater probe. Biopsied. - Normal second portion of the duodenum. Recommendation: - [facility]. - Clear liquid diet today. - No aspirin, ibuprofen, naproxen, or other non-steroidal anti-inflammatory drugs for 4 weeks. - Await pathology results. - Repeat upper endoscopy in 2 months for surveillance based on pathology results. - Return to GI office in 2 weeks. - Use sucralfate suspension 1 gram PO QID for 4 weeks. - Use Protonix (pantoprazole) 40 mg PO BID for 8 months. Procedure Code(s): --- Professional --- 04913, 59, Esophagogastroduodenoscopy, flexible, transoral; with control of bleeding, any method 63355, Esophagogastroduodenoscopy, flexible, transoral; with biopsy, single or multiple 66621, 59, Moderate sedation services provided by the same physician or other qualified health child care performing the diagnostic or therapeutic service that the sedation supports, requiring the presence of an independent trained observer to assist in the monitoring of the patient's level of consciousness and physiological status; initial 15 minutes of intraservice time, patient age 5 years or older 19760, 59, Moderate sedation services provided by the same physician or other qualified health child care performing the diagnostic or therapeutic service that the sedation supports, requiring the presence of an independent trained observer to assist in the monitoring of the patient's level of consciousness and physiological status; initial 15 minutes of intraservice time, patient age 5 years or older CPT copyright 2017 [employer]. All rights reserved. The codes documented in this report are preliminary and upon printing table hand review may be revised to meet current compliance requirements. Wong George DO 10/03/2021 11:00:11 AM This report has been signed electronically. Number of Addenda: 1 Note Initiated On: 10/03/2021 9:50 AM Addendum Number: 1 Addendum Date: 06/03/2022 6:11:23 AM MAC was used instead of moderate sedation for the patient. Wong George DO 06/03/2022 6:11:27 AM This report has been signed electronically.
--- NOTE | 2021-10-03 11:01 | OP.CCLET_ITS ---
06/03/2022 Emigdio Jasso [address] [place] [address] Re : Upper GI endoscopy procedure for Olivia Townsend Dear Dr. Jasso This procedure was performed on Sunday, October 03, 2021. My impressions and recommendations are as follows: Impressions : - Normal esophagus. - Red blood in the stomach. - Oozing gastric ulcer with a visible vessel. Treated with a heater probe. Biopsied. - Normal second portion of the duodenum. Recommendations : - [facility]. - Clear liquid diet today. - No aspirin, ibuprofen, naproxen, or other non-steroidal anti-inflammatory drugs for 4 weeks. - Await pathology results. - Repeat upper endoscopy in 2 months for surveillance based on pathology results. - Return to GI office in 2 weeks. - Use sucralfate suspension 1 gram PO QID for 4 weeks. - Use Protonix (pantoprazole) 40 mg PO BID for 8 months. My findings are described in the full procedure note, which is enclosed. If I can be of further assistance, please feel free to contact me at . Sincerely, Wong George, 10/03/2021 11:00:11 AM This report has been signed electronically.
[2021-10-03] MEDS: Sucralfate 1 GM Tablet PO ×3 (11:59→22:05)
--- NOTE | 2021-10-03 14:22 | PN.HOSP_ITS ---
Subjective Subjective Scope is planned for this morning via EGD. No further hematemesis. Patient states that her mouth is very dry and she is anxious to have something to drink. She denies any pain. Blood pressures remain borderline. She was able to produce a sputum to be sent for culture although I suspect this will be aspiration based. Objective Data Objective Data Vital Signs: Vital Signs Temp Pulse Resp BP Pulse Ox 96.7 F L 112 H 22 H 90/75 94 10/03/21 12:00 10/03/21 13:00 10/03/21 13:00 10/03/21 13:00 10/03/21 13:00 Oxygen Flow Rate (L/min) 2 Oxygen Delivery Method Nasal Cannula Weight: 73.6 kg Body Mass Index (BMI) 29.6 Intake & Output: Intake and Output for Last 24 Hours 10/01/21 10/02/21 10/03/21 23:59 23:59 23:59 Intake Total 3395.8 / 3395.8 1975.83 / 1975.83 Output Total 200 / 600 750 / 750 Balance 3195.8 / 2795.8 1225.83 / 1225.83 Lab / Micro Data Result Diagrams: 10/03/21 08:50 10/03/21 05:15 Labs: Laboratory Results - last 24 hr 10/02/21 10:25: Blood Type O POSITIVE, Antibody Screen NEGATIVE, Crossmatch See Detail 10/02/21 14:05: Troponin I High Sens 145 H* 10/02/21 15:00: Lactic Acid 2.5 H* 10/02/21 20:05: Hgb Cancelled, Hct Cancelled 10/03/21 00:00: Hgb 9.4 L, Hct 30.0 L 10/03/21 05:15: WBC 20.4 H, RBC 3.49 L, Hgb 10.9 L, Hct 34.2 L, MCV 98.0, MCH 31.2, MCHC 31.9 L, RDW Std Deviation 57.4 H, RDW Coeff of Yeimi 16.0 H, Plt Count 143 L, MPV 12.6 H 10/03/21 05:15: Sodium 146 H, Potassium 5.0, Chloride 114 H, Carbon Dioxide 28.0, Anion Gap 4 L, BUN 32 H, Creatinine 0.65, Estim Creat Clear Calc 36.68, Est GFR (MDRD) Af Amer 114, Est GFR (MDRD) Non-Af 94, BUN/Creatinine Ratio 49.0 H, Glucose 116 H, Calcium 8.3 L, Phosphorus 2.9, Magnesium 2.0, Total Bilirubin 0.70, AST 34, ALT 17, Alkaline Phosphatase 56, Total Protein 5.8 L, Albumin 2.5 L, Globulin 3.3, Albumin/Globulin Ratio 0.8 L 10/03/21 08:50: Hgb 12.5, Hct 39.0 Micro: Microbiology 10/02/21 15:00 Urine, Clean Catch Legionella Antigen - Final 10/02/21 15:00 Urine, Clean Catch Streptococcus pneumoniae Antigen (M - Final 10/02/21 10:47 Stool Stool Occult Blood (CHENG) - Final Occult Blood Positive 10/02/21 09:50 Nasal Secretion SARS-CoV-2 Antigen (Rapid) - Final Physical Exam Const alert and oriented x3 Constitutional Narrative: Obese older white female lying in bed in the ICU, appears comfortable, nontoxic no significant complaints this morning other than she is thirsty, nursing at bedside General Appearance: cooperative Exam Limitations: no limitations Nutritional Appearance: overweight HEENT normocephalic, head/scalp atraumatic, hearing grossly normal bilaterally and moist oral mucous membranes Head and Scalp: normocephalic Resp no retractions and no use of accessory muscles Resp Narrative: Crackles at right lung base greater than apex, left lung is clear, remains with mild tachypnea but still no signs of extremis and on 2 L Auscultation: crackles; Negative for rhonchi or wheezes Cardio regular rhythm, S1 normal heart sound, S2 normal heart sound, no murmurs, no rub, no gallops, no clicks and no JVD Cardio Narrative: Sinus tachycardia GI normal to inspection, nondistended, normoactive bowel sounds, soft to palpation and non-distended Palpation: tender epigastric Extremity no clubbing, cyanosis or edema Peripheral Pulses: Yes pulses 2+ throughout Neuro oriented x3, moves all extremities and no focal motor deficits Sensorium / Orientation: awake and alert Speech: speech normal Assessment & Plan Assessment/Plan (1) Sepsis: (2) Aspiration pneumonia: (3) Lactic acidosis: (4) JESS (acute kidney injury): (5) Leukocytosis: (6) Acute GI bleeding: (7) Elevated troponin: (8) Acute respiratory failure with hypoxia: (9) Thrombosis of abdominal aorta: PLAN: Sepsis secondary to aspiration pneumonia -Patient with tachycardia, hypotension, leukocytosis, tachypnea, temp less than 96.8, JESS, lactic acidosis, and source of infection and therefore meets criteria for sepsis -Sepsis is resolving -Sputum culture was sent this morning -Blood cultures are pending -Strep pneumo and Legionella antigens are negative -Blood pressures are improving and patient states that her pressures usually run on the low normal side at baseline -K[facility] to [facility] Acute hypoxic respiratory failure secondary to aspiration pneumonia -Continue Unasyn -Sputum cultures pending -Strep pneumo and Legionella antigens are negative -Covid test is negative -DuoNebs with as needed albuterol -Continue incentive spirometer -Continue Acapella -Supplemental oxygen--> remains on 2 L nasal cannula with oxygen saturations in the mid 90s Acute GI bleed -EGD was done today and showed a normal esophagus with red blood in the stomach and a oozing gastric ulcer with a visible vessel -Treated with a heater probe -Biopsies taken -Hemoglobin has relatively stabilized and therefore will discontinue serial hemoglobins -Transfuse for hypotension/marked drop in hemoglobin/hemoglobin less than 7 -Comfort Protonix to p.o. twice daily for 8 months -Carafate added 1 g p.o. 4 times daily for 4 weeks -'s pension is preferred however we only have tablets here -Consult GI for EGD--> Case discussed with GI -Hold aspirin for another 5 days and okay to start full anticoagulation at 5 days as well per discussion with gastroenterology -Recommend limited NSAID use -Minus for repeat EGD in 2 months Lactic acidosis - resolved Troponin elevation -Mild -EGD without any signs of acute ischemia -Cardiac enzymes were fairly stable with mild elevation -No current need for echocardiogram -Suspect stress-induced ischemia related to hypotension/hypoxia/sepsis JESS -Likely related to GI bleed/hypotension/sepsis picture -Resolved Abdominal aortic mural thrombus -Unable to anticoagulate at this time--> discussed with gastroenterology today and okay for full anticoagulation in 5 days -will likely need anticoagulation at some point -Would recommend outpatient follow-up with vascular medicine -Monitor clinically AAA -Chronic -Current transverse dimension is 2.4 cm -Outpatient follow-up with vascular medicine -will need monitored as an outpatient Left upper lobe spiculated lung mass -Outpatient work-up in progress -CT-guided biopsy has been ordered--> pending approval -Highly suspicious for malignancy -We will probably need left upper lobectomy Hyperlipidemia -Hold atorvastatin Restless leg syndrome -Hold Requip COPD -Aerosols as above Tobacco abuse -Patient remains smoking but states she is cut back to a pack every 2 to 2-1/2 days -Trying to quit -Is a marked history of tobacco abuse with a [id number] history -Continue patch available Depression -Hold fluoxetine DVT prophylaxis -SCDs -Chemoprophylaxis is contraindicated with GI bleed CODE STATUS -Full code as addressed with patient in the emergency department- at bedside during conversation Charges/Coding Visit Charges Inpatient E&M: 08955 Subs Hosp L2
--- NOTE | 2021-10-03 17:26 | PCS.PANDOC ---
PANDEMIC DOCUMENTATION INITIATED: Date: 05/11/2021 Time: 190
[2021-10-03] MEDS: MELATONIN 3 MG TABLET PO (23:01)
[2021-10-04] VITALS (17 sets, daily range): BP systolic 90–118; BP diastolic 56–85; PULSE 77–115; RESP 16–20; TEMP 36.6–37.6; O2SAT 78–95
[2021-10-04 05:18] LABS: Absolute Neutrophil Count 12.6 X10^3/uL (2.0-7.7); Basophil# 0.04 X10^3/uL; Basophil% 0.3 % (0-1); Eosinophil# 0.02 X10^3/uL; Eosinophils% 0.1 % (0-5); Hematocrit 35.2 % (37-47); Hemoglobin 11.5 g/dL (12.0-15.0); Lymphocyte % 8.7 % (19-41); Mean Corp Hgb Conc 32.7 g/dL (32-36); Mean Corpuscular Hgb 31.4 pg (27.0-32.0); Mean Corpuscular Volume 96.2 fL (81-99); Mean Platelet Vol. 12.2 fl (6.2-12.0); Monocyte# 0.96 X10^3/uL; Monocyte% 6.4 % (0-10); NRBC Flagged by Analyzer 0 % (0-5); Neutrophil # 12.61 X10^3/uL (2.7-7.7); Neutrophil % 84.1 % (47-70); Platelet Count 127 K/mm3 (150-450); RBC Distribution Width CV 16.1 % (11.6-14.6); RBC Distribution Width SD 57.9 fl (35.1-43.9); Red Blood Count 3.66 M/mm3 (4.2-5.4)
[2021-10-04 05:38] LABS: Anion Gap 8 (5-15); BUN 13 mg/dL (7-18); BUN/Creat Ratio 22.5 RATIO (10-20); Calcium,Total 8.2 mg/dL (8.5-10.1); Chloride 106 mmol/L (98-107); Creatinine, Serum 0.58 mg/dL (0.55-1.02); EST Glomerular Filtration Rate 108 mL/min (>60); Est Glom Filt Rate - Afr Amer 131 mL/min (>60); Estimated Creatinine Clearance 36.68 ml/min; Glucose 106 mg/dL (74-106); Potassium 3.5 mmol/L (3.5-5.1); Sodium Level 140 mmol/L (136-145)
[2021-10-04] MEDS: Sucralfate 1 GM Tablet PO ×4 (06:03→21:52)
[2021-10-04] MEDS: Ipratropium/Albuterol Sulfate 3 ML AMPUL.NEB INHALATION ×4 (07:17→20:05)
--- NOTE | 2021-10-04 09:41 | PCM.PN.INT ---
Assessment & Plan Assessment/Plan (1) Acute GI bleeding: (2) Aspiration pneumonia: (3) Sepsis: (4) Thrombosis of abdominal aorta: (5) COPD (chronic obstructive pulmonary disease): (6) Lung mass: PLAN: RECOMMENDATIONS: 1. Continue of Unasyn/Augmentin for aspiration pneumonia to complete 7 days 2. Continue bronchodilators. Wean oxygen as tolerated 3. Okay for daily H&H from my perspective. PPI p.o. twice daily per GI 4. No biopsy of lung mass until stomach biopsy is resulted. Okay to obtain complete PFT and walking oximetry as outpatient 5. Hemodynamically stable on minimal nasal cannula oxygen. Will sign off from a pulmonary perspective 6. Patient should follow-up with pulmonary 2 weeks after discharge or scheduled appointment IMPRESSIONS: 1. Severe sepsis secondary to aspiration pneumonia Patient with severe sepsis as indicated by elevated troponin and acute kidney injury in the setting of hypotension. Clinical suspicion for a hypovolemic component also from problem #2. Patient will be placed on Unasyn for aspiration pneumonia. Patient will likely have an element of chemical pneumonitis at a minimum. Patient does have poor dentition, so I do believe antibiotics are needed to complete 7 days. Blood pressure has been doing well but now the GI bleed is controlled 2. Acute blood loss anemia secondary to acute upper GI bleed Patient with approximately 5 g drop in hemoglobin from baseline and has received 2 units of packed red blood cells thus far. Patient does report hematemesis prior to melena indicating probable upper GI bleed. Patient was found to have a large gastric ulcer with some concerns for malignancy. Biopsies are pending. Intervention appears to be successful. Okay to move to daily blood counts. 3. Elevated troponin/JESS High clinical suspicion for elevation in troponin and creatinine secondary to problems one and two. We will continue with hemodynamic support and monitor closely. Do not believe an echocardiogram would be required at this time. No indication for renal replacement therapy at this time. 4. Advanced age/lung mass/AAA with mural thrombus/hyperlipidemia/tobacco abuse/depression Complicates care, management, recovery and prognosis. Low clinical suspicion for bleeding from the mass leading to onset of symptoms. Await findings on EGD prior to any recommendations on anticoagulation with thrombus. Reinitiate baseline meds per GI. Okay to give nicotine replacement. Subjective Subjective Patient did well overnight. No recurrence of nausea or melena reported. Patient did require minimal nasal cannula oxygen overnight with sleep. Patient is not reporting any abdominal pain. Patient does have a cough. Objective Data Objective Data Vital Signs: Vital Signs Temp Pulse Resp BP Pulse Ox 37.1 C 88 18 102/69 94 10/04/21 07:33 10/04/21 07:33 10/04/21 07:33 10/04/21 07:33 10/04/21 07:33 Oxygen Flow Rate (L/min) 3 Oxygen Delivery Method Nasal Cannula Weight: 75.7 kg Body Mass Index (BMI) 29.6 Intake & Output: Intake and Output for Last 24 Hours 10/02/21 10/03/21 10/04/21 23:59 23:59 23:59 Intake Total 3395.8 / 3395.8 2580.66 / 2580.66 698.5 / 698.5 Output Total 200 / 600 750 / 750 Balance 3195.8 / 2795.8 1830.66 / 1830.66 698.5 / 698.5 Lab / Micro Data Result Diagrams: 10/04/21 04:25 10/04/21 04:25 Labs: Laboratory Results - last 24 hr 10/02/21 20:05: Hgb Cancelled, Hct Cancelled 10/04/21 04:25: WBC 15.0 H, RBC 3.66 L, Hgb 11.5 L, Hct 35.2 L, MCV 96.2, MCH 31.4, MCHC 32.7, RDW Std Deviation 57.9 H, RDW Coeff of [place]imi 16.1 H, Plt Count 127 L, MPV 12.2 H, Immature Gran % (Auto) 0.400, Neut % (Auto) 84.1 H, Lymph % (Auto) 8.7 L, [place] % (Auto) 6.4, Eos % (Auto) 0.1, Baso % (Auto) 0.3, Absolute Neuts (auto) 12.6 H, Absolute Lymphs (auto) 1.30, Nucleated RBC % 0 10/04/21 04:25: Sodium 140, Potassium 3.5, Chloride 106, Carbon Dioxide 26.0, Anion Gap 8, BUN 13, Creatinine 0.58, Estim Creat Clear Calc 36.68, Est GFR (MDRD) Af Amer 131, Est GFR (MDRD) Non-Af 108, BUN/Creatinine Ratio 22.5 H, Glucose 106, Calcium 8.2 L Micro: Microbiology 10/02/21 12:00 Blood Culture (Wb) - Venous Blood Culture - Preliminary No growth in 48 hours. 10/02/21 11:40 Blood Culture (Wb) - Venous Blood Culture - Preliminary No growth in 48 hours. 10/02/21 15:00 Urine, Clean Catch Legionella Antigen - Final 10/02/21 15:00 Urine, Clean Catch Streptococcus pneumoniae Antigen (M - Final 10/02/21 10:47 Stool Stool Occult Blood (CHENG) - Final Occult Blood Positive 10/02/21 09:50 Nasal Secretion SARS-CoV-2 Antigen (Rapid) - Final Physical Exam Const alert, oriented x3 and average body habitus Constitutional Narrative: No conversational dyspnea. Appears to be at baseline General Appearance: cooperative and comfortable HEENT normocephalic, head/scalp atraumatic, hearing grossly normal bilaterally and moist oral mucous membranes HEENT Narrative: Poor dentition. Mallampati 2 Eyes PERRL, EOMs intact bilaterally, conjunctivae normal and no scleral icterus Neck no lymphadenopathy, supple, no JVD and no carotid bruits Neck Narrative: Trachea midline, no thyroid enlargement Chest Chest: abnormal inspection of the chest increased A-P diameter and symmetrical chest wall rise; Negative for crepitus Resp no retractions and no use of accessory muscles Effort and Inspection: able to speak in complete sentences Auscultation: rhonchi right lower; Negative for wheezes Cardio regular rhythm, S1 normal heart sound, S2 normal heart sound, no murmurs, no rub, no gallops, no clicks and no JVD Cardio Narrative: Sinus tachycardia GI normal to inspection, nondistended, normoactive bowel sounds, soft to palpation and non-distended Palpation: tender epigastric Extremity no clubbing, cyanosis or edema Peripheral Pulses: Yes pulses 2+ throughout Skin no rashes or lesions noted, no wounds, skin turgor normal, no jaundice, no petechiae and no mottling Neuro oriented x3, CN's II-XII intact bilaterally, moves all extremities and no focal motor deficits Sensorium / Orientation: awake and alert Speech: speech normal Psych mental status grossly normal, thought process normal, cooperative, affect normal and speech normal Charges/Coding Visit Charges Inpatient E&M: 69059 Subs Hosp L2
--- NOTE | 2021-10-04 11:02 | PN.HOSP_ITS ---
Subjective Subjective Patient states she is feeling much better today. She states her breathing is improved. She is having no epigastric pain or nausea/vomiting. Did discuss with her the fact she has an abdominal aortic aneurysm and a mural thrombus and will need anticoagulated when it is okay with gastroenterology. She is anxious to eat some food today. Objective Data Objective Data Vital Signs: Vital Signs Temp Pulse Resp BP Pulse Ox 98.8 F 88 18 102/69 94 10/04/21 07:33 10/04/21 07:33 10/04/21 07:33 10/04/21 07:33 10/04/21 07:33 Oxygen Flow Rate (L/min) 3 Oxygen Delivery Method Nasal Cannula Weight: 75.7 kg Body Mass Index (BMI) 29.6 Intake & Output: Intake and Output for Last 24 Hours 10/02/21 10/03/21 10/04/21 23:59 23:59 23:59 Intake Total 3395.8 / 3395.8 2580.66 / 2580.66 698.5 / 698.5 Output Total 200 / 600 750 / 750 Balance 3195.8 / 2795.8 1830.66 / 1830.66 698.5 / 698.5 Lab / Micro Data Result Diagrams: 10/04/21 04:25 10/04/21 04:25 Labs: Laboratory Results - last 24 hr 10/04/21 04:25: WBC 15.0 H, RBC 3.66 L, Hgb 11.5 L, Hct 35.2 L, MCV 96.2, MCH 31.4, MCHC 32.7, RDW Std Deviation 57.9 H, RDW Coeff of [place] 16.1 H, Plt Count 127 L, MPV 12.2 H, Immature Gran % (Auto) 0.400, Neut % (Auto) 84.1 H, Lymph % (Auto) 8.7 L, [place] % (Auto) 6.4, Eos % (Auto) 0.1, Baso % (Auto) 0.3, Absolute Neuts (auto) 12.6 H, Absolute Lymphs (auto) 1.30, Nucleated RBC % 0 10/04/21 04:25: Sodium 140, Potassium 3.5, Chloride 106, Carbon Dioxide 26.0, Anion Gap 8, BUN 13, Creatinine 0.58, Estim Creat Clear Calc 36.68, Est GFR (MDRD) Af Amer 131, Est GFR (MDRD) Non-Af 108, BUN/Creatinine Ratio 22.5 H, G lucose 106, Calcium 8.2 L Micro: Microbiology 10/03/21 11:00 Sputum, Expectorated/Coughed Respiratory Culture - Preliminary Appears to be normal respiratory clarence. Further studies to follow. 10/02/21 12:00 Blood Culture (Wb) - Venous Blood Culture - Preliminary No growth in 48 hours. 10/02/21 11:40 Blood Culture (Wb) - Venous Blood Culture - Preliminary No growth in 48 hours. 10/02/21 15:00 Urine, Clean Catch Legionella Antigen - Final 10/02/21 15:00 Urine, Clean Catch Streptococcus pneumoniae Antigen (M - Final 10/02/21 10:47 Stool Stool Occult Blood (CHENG) - Final Occult Blood Positive 10/02/21 09:50 Nasal Secretion SARS-CoV-2 Antigen (Rapid) - Final Physical Exam Const alert, oriented x3 and no apparent distress Constitutional Narrative: Obese older white female sitting up in a chair at the bedside, is at the bedside, patient appears comfortable and nontoxic, appears much more comfortable General Appearance: cooperative Exam Limitations: no limitations Nutritional Appearance: overweight HEENT normocephalic, head/scalp atraumatic, hearing grossly normal bilaterally and moist oral mucous membranes HEENT Narrative: Mallampati 2, no thrush Head and Scalp: normocephalic Resp normal respiratory effort, no retractions, no use of accessory muscles and clear to auscultation bilaterally Resp Narrative: Diffusely diminished but clear Auscultation: Negative for crackles, rales, rhonchi or wheezes Cardio regular rate, regular rhythm, S1 normal heart sound, S2 normal heart sound, no murmurs, no rub, no gallops, no clicks and no JVD GI normal to inspection, nondistended, normoactive bowel sounds, soft to palpation, non-tender and non-distended Extremity no clubbing, cyanosis or edema Peripheral Pulses: Yes pulses 2+ throughout Neuro oriented x3, moves all extremities and no focal motor deficits Neuro Narrative: Mild generalized weakness but no focal deficits, sensation is normal throughout Sensorium / Orientation: awake and alert Speech: speech normal Assessment & Plan Assessment/Plan (1) Sepsis: (2) Aspiration pneumonia: (3) Lactic acidosis: (4) JESS (acute kidney injury): (5) Leukocytosis: (6) Acute GI bleeding: (7) Elevated troponin: (8) Acute respiratory failure with hypoxia: (9) Thrombosis of abdominal aorta: PLAN: Sepsis secondary to aspiration pneumonia -Patient with tachycardia, hypotension, leukocytosis, tachypnea, temp less than 96.8, JESS, lactic acidosis, and source of infection and therefore meets criteria for sepsis -Sepsis is resolved -Sputum culture is consistent with normal oral clarence -Blood cultures are negative -Strep pneumo and Legionella antigens are negative -Blood pressures are improving and patient states that her pressures usually run on the low normal side at baseline Acute hypoxic respiratory failure secondary to aspiration pneumonia -Continue Unasyn and would complete a course of Augmentin at discharge for total of 7 days of antibiotic therapy day 3 of 7 -Sputum cultures normal oral clarence -Strep pneumo and Legionella antigens are negative -Covid test is negative -DuoNebs with as needed albuterol -Continue incentive spirometer -Continue Acapella -Patient is on room air at baseline--> currently on 2 to 3 L--> christiano with nursing and they will be weaning today Acute GI bleed secondary to peptic ulcer -EGD was done today and showed a normal esophagus with red blood in the stomach and a oozing gastric ulcer with a visible vessel -Treated with a heater probe -Biopsies taken -Hemoglobin has relatively stabilized and therefore will discontinue serial h emoglobins -Transfuse for hypotension/marked drop in hemoglobin/hemoglobin less than 7 -Comfort Protonix to p.o. twice daily for 8 months -Carafate added 1 g p.o. 4 times daily for 4 weeks -'suspension is preferred however we only have tablets here--> order suspension on discharge -Consult GI for EGD--> Case discussed with GI -Hold aspirin for another 5 days and okay to start full anticoagulation at 5 days as well per discussion with gastroenterology -Recommend limited NSAID use -We will need repeat EGD in 2 months Troponin elevation -Mild -EGD without any signs of acute ischemia -Cardiac enzymes were fairly stable with mild elevation -No current need for echocardiogram -Suspect stress-induced ischemia related to hypotension/hypoxia/sepsis Abdominal aortic mural thrombus -Unable to anticoagulate at this time--> discussed with gastroenterology today and okay for full anticoagulation in 5 days -Would recommend outpatient follow-up with vascular medicine -Monitor clinically AAA -Chronic -Current transverse dimension is 2.4 cm -Outpatient follow-up with vascular medicine -will need monitored as an outpatient Left upper lobe spiculated lung mass -Outpatient work-up in progress -CT-guided biopsy has been ordered--> but pulmonology would like to hold off given gastric biopsy as this could be metastatic disease if gastric biopsy is unremarkable then we will proceed with CT-guided biopsy of the spiculated lung mass -Highly suspicious for malignancy Hyperlipidemia -Hold atorvastatin Restless leg syndrome -Restart Requip COPD -Aerosols as above Tobacco abuse -Patient remains smoking but states she is cut back to a pack every 2 to 2-1/2 days -Trying to quit -Is a marked history of tobacco abuse with a [id number] history -Continue patch available Depression -Restart fluoxetine DVT prophylaxis -SCDs -Chemoprophylaxis is contraindicated with GI bleed CODE STATUS -Full code as addressed with patient in the emergency department- at bedside during conversation Charges/Coding Visit Charges Inpatient E&M: 00355 Subs Hosp L2
[2021-10-04] MEDS: FLUoxetine 20 MG Capsule PO (12:21)
[2021-10-04] MEDS: Pramipexole Di-HCl 0.25 MG Tablet PO (19:58)
[2021-10-04] MEDS: Atorvastatin Calcium 20 MG Tablet PO (21:52)
[2021-10-04] MEDS: MELATONIN 3 MG TABLET PO (21:52)
[2021-10-05] VITALS (13 sets, daily range): BP systolic 96–137; BP diastolic 65–89; PULSE 93–104; RESP 16–21; TEMP 36.6–37.1; O2SAT 92–95
[2021-10-05] MEDS: Sucralfate 1 GM Tablet PO ×4 (05:39→20:34)
[2021-10-05 06:11] LABS: Absolute Neutrophil Count 11.2 X10^3/uL (2.0-7.7); Basophil# 0.03 X10^3/uL; Basophil% 0.2 % (0-1); Eosinophil# 0.08 X10^3/uL; Eosinophils% 0.6 % (0-5); Hematocrit 35.3 % (37-47); Hemoglobin 11.2 g/dL (12.0-15.0); Lymphocyte % 11.5 % (19-41); Mean Corp Hgb Conc 31.7 g/dL (32-36); Mean Corpuscular Hgb 30.8 pg (27.0-32.0); Mean Platelet Vol. 12.1 fl (6.2-12.0); Monocyte# 0.99 X10^3/uL; Monocyte% 7.1 % (0-10); NRBC Flagged by Analyzer 0 % (0-5); Neutrophil # 11.15 X10^3/uL (2.7-7.7); Neutrophil % 80.1 % (47-70); Platelet Count 149 K/mm3 (150-450); RBC Distribution Width CV 15.1 % (11.6-14.6); RBC Distribution Width SD 54.6 fl (35.1-43.9); Red Blood Count 3.64 M/mm3 (4.2-5.4); White Blood Count 13.9 K/mm3 (4.4-11.0)
[2021-10-05 06:45] LABS: Anion Gap 8 (5-15); BUN 10 mg/dL (7-18); Calcium,Total 8.6 mg/dL (8.5-10.1); Chloride 107 mmol/L (98-107); Creatinine, Serum 0.67 mg/dL (0.55-1.02); EST Glomerular Filtration Rate 92 mL/min (>60); Est Glom Filt Rate - Afr Amer 111 mL/min (>60); Estimated Creatinine Clearance 36.68 ml/min; Glucose 108 mg/dL (74-106); Potassium 3.6 mmol/L (3.5-5.1); Sodium Level 141 mmol/L (136-145)
[2021-10-05] MEDS: FLUoxetine 20 MG Capsule PO (10:10)
--- NOTE | 2021-10-05 11:20 | CASEMGMT ---
FREDDY HORTON assessment: Face to face with pt for initial transition planning/care coordination assessment. FREDDY HORTON introduced self and role at [facility], pt voices understanding and consents to assessment. Pt is sitting up in chair on 3L in no distress. Care providers, pharmacy, and demographics verified. Presentation: Pt c/o vomiting blood x3 and dark stools Admitting dx: Sepsis w/ asp pna, GI bleed PCP: Romero Specialists: francisca Tan [facility]: [facility] Insurance: [facility] Prescription Benefit: [facility] Living Will/HPOA: Pt states does not have LW/HPOA but would like to complete AD's at this time. Dalila SW aware, voices understanding. LNOK: Georgi Townsend, Living Arrangements: Pt lives with in 1 story home with laundry in basement and states no concerns at home. Pt is independent with ADL's. Transportation: Pt drives self and states no transportation concerns. DME/HHC: Pt has the following DME: canes, walkers, w/c, and shower chair. Pt states no need for any further DME. Pt states no preference for DME provider, if qualifies for home oxygen at discharge. Pt states no hx of HHC or SNF. Pt states no concerns with going home at time of discharge. Pt is retired. Pt states does smoke pack cigarettes daily but is trying to quit and does not drink ETOH. Pt states no further concerns/needs. CM to follow for any further discharge planning/needs. Advised pt to ask for CM if any further questions/cocnerns/needs arise, voices understanding. Pt Goal: Home Plan[place] FREDDY HORTON
--- NOTE | 2021-10-05 13:14 | PN.HOSP_ITS ---
Subjective Subjective Patient seen and examined. She had no complaints this morning. Significant other was by her bedside. Review of systems otherwise negative. She remains on PPI drip. Objective Data Objective Data Vital Signs: Vital Signs Temp Pulse Resp BP Pulse Ox 97.9 F 102 H 17 96/65 92 10/05/21 10:05 10/05/21 12:01 10/05/21 10:05 10/05/21 10:05 10/05/21 10:05 Oxygen Flow Rate (L/min) 3 Oxygen Delivery Method Nasal Cannula Weight: 167 lb 12.348 oz Body Mass Index (BMI) 29.6 Intake & Output: Intake and Output for Last 24 Hours 10/03/21 10/04/21 10/05/21 23:59 23:59 23:59 Intake Total 2580.66 / 2580.66 2222.0 / 2222.0 1346 / 1346 Output Total 750 / 750 Balance 1830.66 / 1830.66 2222.0 / 2222.0 1346 / 1346 Lab / Micro Data Result Diagrams: 10/05/21 05:04 10/05/21 05:04 Labs: Laboratory Results - last 24 hr 10/02/21 10:25: Crossmatch See Detail 10/05/21 05:04: WBC 13.9 H, RBC 3.64 L, Hgb 11.2 L, Hct 35.3 L, MCV 97.0, MCH 30.8, MCHC 31.7 L, RDW Std Deviation 54.6 H, RDW Coeff of Ye[place] 15.1 H, Plt Count 149 L, MPV 12.1 H, Immature Gran % (Auto) 0.500, Neut % (Auto) 80.1 H, Lymph % (Auto) 11.5 L, [place] % (Auto) 7.1, Eos % (Auto) 0.6, Baso % (Auto) 0.2, Absolute Neuts (auto) 11.2 H, Absolute Lymphs (auto) 1.60, Nucleated RBC % 0 10/05/21 05:04: Sodium 141, Potassium 3.6, Chloride 107, Carbon Dioxide 26.0, Anion Gap 8, BUN 10, Creatinine 0.67, Estim Creat Clear Calc 36.68, Est GFR (MDRD) Af Amer 111, Est GFR (MDRD) Non-Af 92, BUN/Creatinine Ratio 15.0, Glucose 108 H, Calcium 8.6 Micro: Microbiology 10/03/21 11:00 Sputum, Expectorated/Coughed Gram Stain - Final 10/03/21 11:00 Sputum, Expectorated/Coughed Respiratory Culture - Final 10/02/21 12:00 Blood Culture (Wb) - Venous Blood Culture - Preliminary No growth in 48 hours. 10/02/21 11:40 Blood Culture (Wb) - Venous Blood Culture - Preliminary No growth in 48 hours. 10/02/21 15:00 Urine, Clean Catch Legionella Antigen - Final 10/02/21 15:00 Urine, Clean Catch Streptococcus pneumoniae Antigen (M - Final 10/02/21 10:47 Stool Stool Occult Blood (CHENG) - Final Occult Blood Positive 10/02/21 09:50 Nasal Secretion SARS-CoV-2 Antigen (Rapid) - Final Physical Exam Const alert, oriented x3 and no apparent distress Exam Limitations: no limitations HEENT head/scalp atraumatic and moist oral mucous membranes Head and Scalp: normocephalic Eyes PERRL, EOMs intact bilaterally and conjunctivae normal Neck no lymphadenopathy and supple Resp normal respiratory effort, no retractions, no use of accessory muscles and clear to auscultation bilaterally Resp Narrative: on 3L of oxygen by nasal canula Cardio regular rate, regular rhythm, S1 normal heart sound, S2 normal heart sound and no murmurs GI normal to inspection, nondistended, normoactive bowel sounds, soft to palpation, non-tender and non-distended Extremity normal to inspection, full ROM and no clubbing, cyanosis or edema Peripheral Pulses: Yes pulses 2+ throughout Skin no rashes or lesions noted Neuro oriented x3, CN's II-XII intact bilaterally and moves all extremities Sensorium / Orientation: awake and alert Psych affect normal Assessment & Plan Assessment/Plan (1) Respiratory failure with hypoxia: (2) Acute GI bleeding: (3) Lung mass: PLAN: #Acute hypoxic respiratory failure due to aspiration pneumonia * on Unasyn * sputum cultures grew normal clarence * on breathing treatment with bronchodilators. Titrate oxygen to maintain sats >90% * on 3L of oxygen; wean as tolerated. * #Acute on chronic anemia due to UGI bleed from peptic ulcer * EGD done during this admission showed a normal esophagus with red blood in the stomach and an oozing gastric ulcer with a visible vessel which was treated with a heater probe and biopsies taken * Currently on Protonix drip. Also on Carafate. * GI on board. Aspirin on hold for another 5 days and start full anticoagulation 5 days after EGD for abdominal aortic aneurysm thrombus * Will benefit from EGD in 2 months. * ] #Bleeding peptic ulcer: As above #Troponin elevation: Mild. No evidence of chest pain and cardiac enzymes showed only mild elevation. Thought to be due to stress-induced ischemia #Abdominal aortic mural thrombus * Okay to start anticoagulation 5 days after EGD; that will be 10/09/2021\ * #Abdominal aortic aneurysm: 2.4 cm in diameter. Follow-up with vascular surgery as outpatient basis. #Left upper lobe spiculated lung mass * Mass noted to be enlarging. * Pulmonology on board. CT-guided biopsy not done as report of gastric biopsy from EGD is pending. If that is negative for any evidence of metastasis then to have CT-guided biopsy of the lung mass which is highly suspicious for malignancy. * #Hyperlipidemia: On atorvastatin #Restless leg syndrome: On Requip #COPD: Not in exacerbation. Breathing treatments with bronchodilators. #Nicotine dependence: Still smokes. Counseled to quit. #Depression: On fluoxetine DVT prophylaxis: SCDs. No anticoagulation due to GI bleed Charges/Coding Visit Charges Inpatient E&M: 50460 Subs Hosp L2
[2021-10-05] MEDS: guaiFENesin 10 ML UDC (200MG/10ML) PO ×2 (14:16→20:34)
[2021-10-05] MEDS: Ipratropium/Albuterol Sulfate 3 ML AMPUL.NEB INHALATION ×2 (15:08→20:23)
--- NOTE | 2021-10-05 15:12 | CASEMGMT ---
SW completed Healthcare Power of Ssis Etl Developer and Healthcare Living Will with patient per her request. Copies were made and given to patient along with originals. A copy of each was also placed in patient's chart. Jessica LONGO
--- NOTE | 2021-10-05 20:28 | NURSING ---
2200 medications given early per patient request.
[2021-10-05] MEDS: Pantoprazole Sodium 40 MG Tablet PO (20:33)
[2021-10-05] MEDS: Pramipexole Di-HCl 0.25 MG Tablet PO (20:33)
[2021-10-05] MEDS: Atorvastatin Calcium 20 MG Tablet PO (20:34)
[2021-10-06] VITALS (8 sets, daily range): BP systolic 96–136; BP diastolic 60–82; PULSE 86–106; RESP 17–18; TEMP 36.7–36.9; O2SAT 87–96
[2021-10-06] MEDS: guaiFENesin 10 ML UDC (200MG/10ML) PO ×3 (00:48→14:58)
[2021-10-06 06:00] LABS: Absolute Lymphocyte Count 1.93 X10^3/uL (0.83-4.51); Absolute Neutrophil Count 8.7 X10^3/uL (2.0-7.7); Basophil# 0.04 X10^3/uL; Basophil% 0.3 % (0-1); Eosinophil# 0.22 X10^3/uL; Eosinophils% 1.8 % (0-5); Hematocrit 34.7 % (37-47); Hemoglobin 11.2 g/dL (12.0-15.0); Lymphocyte # 1.93 X10^3/ul (0.83-4.51); Lymphocyte % 16.1 % (19-41); Mean Corp Hgb Conc 32.3 g/dL (32-36); Mean Corpuscular Volume 96.1 fL (81-99); Mean Platelet Vol. 11.9 fl (6.2-12.0); Monocyte# 0.99 X10^3/uL; Monocyte% 8.3 % (0-10); NRBC Flagged by Analyzer 0 % (0-5); Neutrophil # 8.73 X10^3/uL (2.7-7.7); Platelet Count 204 K/mm3 (150-450); RBC Distribution Width CV 14.6 % (11.6-14.6); RBC Distribution Width SD 51.7 fl (35.1-43.9); Red Blood Count 3.61 M/mm3 (4.2-5.4)
[2021-10-06 06:28] LABS: Anion Gap 7 (5-15); BUN 13 mg/dL (7-18); BUN/Creat Ratio 23.9 RATIO (10-20); Chloride 105 mmol/L (98-107); Creatinine, Serum 0.54 mg/dL (0.55-1.02); EST Glomerular Filtration Rate 116 mL/min (>60); Est Glom Filt Rate - Afr Amer 141 mL/min (>60); Estimated Creatinine Clearance 36.68 ml/min; Glucose 103 mg/dL (74-106); Potassium 3.4 mmol/L (3.5-5.1); Sodium Level 142 mmol/L (136-145)
[2021-10-06] MEDS: Sucralfate 1 GM Tablet PO ×2 (06:42→10:24)
[2021-10-06] MEDS: Ipratropium/Albuterol Sulfate 3 ML AMPUL.NEB INHALATION ×2 (07:32→11:50)
[2021-10-06] MEDS: FLUoxetine 20 MG Capsule PO (08:46)
[2021-10-06] MEDS: Potassium Chloride Oral Tablet 20 MEQ 40 MEQ PO (08:46)
[2021-10-06] MEDS: Pantoprazole Sodium 40 MG Tablet PO (08:46)
--- NOTE | 2021-10-06 11:09 | CASEMGMT ---
Addendum entered by Samantha Antoine 10/06/21 14:43: Pt to be sent home on Eliquis at discharge and med e-scribed to [facility]. Per tech, pt's copay is $42 and pt provided with 30 day free trial card via [facility] pharmacist at this time. Eveline HAYES CM Addendum entered by Samantha Antoine 10/06/21 11:44: This FREDDY CM to room to update pt on home oxygen, voices understanding and pt states has been independent in room. Pt/ voice no further questions/concerns/needs. Eveline HAYES CM Original Note: Pt qualifies for 2L at rest and 4L w/ exertion and states no preference for DME company. Order obtained and faxed to [employer] [facility] notified of referral and pt to use [employer] e-tank already provided to [facility]. Eveline HAYES CM
[2021-10-06] MEDS: Acetaminophen 325 MG Tablet 650 MG PO (12:20)
--- NOTE | 2021-10-06 13:10 | PCM.DC.SUM ---
Providers Date of Admission: 10/02/21 Primary Care Physician: Dr. Emigdio Jasso MD Consultations 10/02/21 14:34 Consult: Gastroenterology Routine Consulting Provider: [facility] Reason for Consult: GIB EMERGENT Consult: No Notified: Yes Date Notified: 10/02/21 Time Notified: 17:19 Method of Notification: Answering Service Consult: [employer] / Pulmonary Medicine Routine Consulting Provider: Pulmonary Medicine [facility] Reason for Consult: Sepsis EMERGENT Consult: No Notified: Yes Date Notified: 10/02/21 Time Notified: 12:56 Method of Notification: Verbal Reason For Visit: SEPSIS 2/2 ASPIRATION PNA/GI BLEED Diagnosis Discharge Diagnosis (1) Respiratory failure with hypoxia: Status: Acute Code(s): J96.91 - Respiratory failure, unspecified with hypoxia (2) Acute GI bleeding: Status: Acute Code(s): K92.2 - Gastrointestinal hemorrhage, unspecified (3) Lung mass: Status: Acute Code(s): R91.8 - Other nonspecific abnormal finding of lung field Medications at Discharge Home Medications calcium carbonate-vitamin D3 1 ea PO DAILY 07/27/16 pramipexole 0.25 mg tablet 0.25 mg PO DAILY tab 04/01/20 albuterol sulfate 90 mcg/actuation aerosol inhaler 2 inh INHALATION Q8H PRN g 09/23/21 atorvastatin 20 mg tablet 20 mg PO DAILY tab 09/23/21 fluoxetine 20 mg capsule 20 mg PO DAILY cap 09/23/21 amoxicillin-pot clavulanate [Augmentin] 1 tab PO BID #10 tab 10/06/21 apixaban [Eliquis] 5 mg PO BID #60 tab 10/06/21 pantoprazole 40 mg PO BID #60 tab 10/06/21 sucralfate 1 g PO 1HR_ACHS #90 tab 10/06/21 Hospital Course Operations None Procedures EGD Summary of Care Provided Minutes Spent on Discharge: 45 Hospital Course: Patient is a 76-year-old female with a past medical history as outlined was admitted through the ED on 10/02/2021 with complaint of hematemesis which started the night before admission. She did have a history of reflux which have been getting worse for about 3 days prior to admission and also took aspirin daily and also admitted to [facility] for joint pain. She has not had any GI bleeding previously. She also had a bowel movement which was black on the morning of admission. She complained of a cough which started after she had an episode of emesis and also admitted to shortness of breath. She was found to be saturating at 87% on room air and her respiratory rate was in the 30s to 40s. CTA of her chest done showed a right upper middle and lower lobe infiltrate and a stable spiculated nodule of the left upper lobe and T of the abdomen and pelvis showed fatty liver and abdominal aortic aneurysm with a transverse dimension of 2.4 cm with mural thrombus noted in the aneurysm. She was started on IV Zosyn in the ED for aspiration pneumonia and hydrated with fluid boluses. She was admitted and managed for acute upper GI bleed and also for severe sepsis due to aspiration pneumonia as well as acute blood loss anemia due to upper GI bleed. She was also found to have lactic acidosis. She had EGD which showed normal esophagus and red blood in the stomach and an oozing gastric ulcer with a visible vessel which was treated with heater probe and biopsied. His shortness of breath gradually improved. She was put on IV PPI drip and also placed on sucralfate. Patient improved subsequently and felt much better. Protonix drip was switched to p.o. Protonix. Her oxygen requirement gradually improved. He had walking pulse ox on 10/06/2021 which showed that she required 2 L of oxygen at rest and 4 L with ambulation. Patient remained stable and was discharged home 10/06/2021. She was discharged on p.o. Augmentin to complete a 7-day course. Patient was seen and examined prior to discharge. He had no active complaints and feels much better. Review of systems otherwise negative. Labs and vitals reviewed. Home medication reviewed and reconciled. She is follow-up with her primary care doctor and gastroenterology in 1 to 2 weeks. She is also to follow-up with pulmonology for biopsy of her lung nodule. Pathology of biopsy from EGD was still pending at time of discharge. She also had walking pulse ox which showed that she required 2 L oxygen at rest and 4 L of oxygen with ambulation. She was also discharged on p.o. Eliquis 5 mg twice daily as anticoagulation for the abdominal aortic aneurysm mural thrombus. Per gastroenterology, she could start anticoagulation 5 days after her EGD which would be 10/08/2021. Physical Exam Const alert, oriented x3 and no apparent distress General Appearance: cooperative, comfortable and well kempt Orientation / Consciousness: awake and oriented to person Exam Limitations: no limitations Nutritional Appearance: overweight HEENT normocephalic, head/scalp atraumatic, hearing grossly normal bilaterally and moist oral mucous membranes Eyes PERRL, EOMs intact bilaterally and conjunctivae normal Neck no lymphadenopathy, supple, no JVD and no carotid bruits Neck Narrative: Trachea midline, no thyroid enlargement Resp normal respiratory effort, no retractions, no use of accessory muscles and clear to auscultation bilaterally Resp Narrative: on 2L of oxygen by nasal canula Auscultation: Negative for crackles, rales, rhonchi or wheezes Cardio regular rate, regular rhythm, S1 normal heart sound, S2 normal heart sound, no murmurs, no rub, no gallops, no clicks and no JVD Cardio Narrative: Sinus tachycardia GI normal to inspection, nondistended, normoactive bowel sounds, soft to palpation, non-tender and non-distended Palpation: tender epigastric Extremity normal to inspection, full ROM and no clubbing, cyanosis or edema Skin no rashes or lesions noted, no wounds, skin turgor normal, no jaundice, no petechiae and no mottling Neuro oriented x3, CN's II-XII intact bilaterally, moves all extremities and no focal motor deficits Sensorium / Orientation: awake and alert Speech: speech normal Psych affect normal Weight / BMI Weight Weight: 169 lb 5.04 oz Body Mass Index (BMI) 29.6 ABG / Lab / Microbiology Data Result Diagrams: 10/06/21 05:20 10/06/21 05:20 Laboratory: Laboratory Results - last 24 hr 10/02/21 10:25: Crossmatch See Detail 10/06/21 05:20: WBC 12.0 H, RBC 3.61 L, Hgb 11.2 L, Hct 34.7 L, MCV 96.1, MCH 31.0, MCHC 32.3, RDW Std Deviation 51.7 H, RDW Coeff of Yeimi 14.6, Plt Count 204, MPV 11.9, Immature Gran % (Auto) 0.500, Neut % (Auto) 73.0 H, Lymph % (Auto) 16.1 L, Hunt % (Auto) 8.3, Eos % (Auto) 1.8, Baso % (Auto) 0.3, Absolute Neuts (auto) 8.7 H, Absolute Lymphs (auto) 1.93, Nucleated RBC % 0 10/06/21 05:20: Sodium 142, Potassium 3.4 L, Chloride 105, Carbon Dioxide 30.0, Anion Gap 7, BUN 13, Creatinine 0.54 L, Estim Creat Clear Calc 36.68, Est GFR (MDRD) Af Amer 141, Est GFR (MDRD) Non-Af 116, BUN/Creatinine Ratio 23.9 H, Glucose 103, Calcium 9.0 Microbiology: Microbiology 10/03/21 11:00 Sputum, Expectorated/Coughed Gram Stain - Final 10/03/21 11:00 Sputum, Expectorated/Coughed Respiratory Culture - Final 10/02/21 12:00 Blood Culture (Wb) - Venous Blood Culture - Preliminary No growth in 48 hours. 10/02/21 11:40 Blood Culture (Wb) - Venous Blood Culture - Preliminary No growth in 48 hours. 10/02/21 15:00 Urine, Clean Catch Legionella Antigen - Final 10/02/21 15:00 Urine, Clean Catch Streptococcus pneumoniae Antigen (M - Final 10/02/21 10:47 Stool Stool Occult Blood (CHENG) - Final Occult Blood Positive 10/02/21 09:50 Nasal Secretion SARS-CoV-2 Antigen (Rapid) - Final D/C Instructions Discharge Diet: Low fat / Low cholesterol Discharge Activity: Return to Normal Activity Weight Bearing Status: Weight bearing as tolerated Call your doctor if you observe: Fever of 101 or Higher, Shortness of breath, Swelling in the ankles, Uncontrolled pain and - (vomiting of blood, dark stools) Meaningful Use Info Meaningful Use Diagnoses (Choose all that apply): None applicable Discharge Plan Admission Admit Date/Time: 10/02/21 11:56 Primary Reason for Your Visit: UGI bleed, aspiration pneumonia Attending Provider: Nalini Garcia Primary Care Provider: Emigdio Jasso Consulting Providers: Jay Jay Tan ; Cordell Leavitt ; Krissy Cheema RADARMAN Instructions Patient Instructions: Dysphagia Aspiration Tx, ED Upper GI Bleeding (Stable) Discharge Orders/Prescriptions Prescriptions: New sucralfate 1 gram Tablet 1 g PO 1HR_ACHS Qty: 90 RF: 1 pantoprazole 40 mg Tablet,Delayed Release (Dr/Ec) 40 mg PO BID Qty: 60 RF: 2 amoxicillin-pot clavulanate [Augmentin] 875-125 mg tablet 1 tab PO BID Qty: 10 RF: 0 Eliquis 5 mg tablet 5 mg PO BID Qty: 60 RF: 1 Continued pramipexole 0.25 mg tablet 0.25 mg PO DAILY RF: 0 atorvastatin 20 mg tablet 20 mg PO DAILY RF: 0 fluoxetine 20 mg capsule 20 mg PO DAILY RF: 0 albuterol sulfate 90 mcg/actuation HFA aerosol inhaler 2 inh inhalation Q8H PRN (Reason: Wheezing) RF: 0 calcium carbonate-vitamin D3 1 EACH tablet 1 ea PO DAILY RF: 0 Discontinued aspirin 81 MG tablet,chewable 81 mg PO DAILY RF: 0 Referrals / Follow Up: Jay Jay Tan MD [STAFF PHYSICIAN] - Within 2 Weeks Emigdio Jasso MD [Primary Care Provider] - Wong George DO [STAFF PHYSICIAN] - Within 2 Weeks Disposition Disposition (needs filled in before D/C Order can be placed): Home, Self Care Charges/Coding Visit Charges Inpatient E&M: 77443 Disch Hosp
--- NOTE | 2021-10-06 14:59 | PHA.DC.MC ---
Pharmacy Service has performed discharge medication reconciliation and counseling for this patient. Per RN CLIFFORD Singh, cost for 1 month of Eliquis is $42. This [facility] gave patient a 30-day free card for Eliquis. Patient voiced understanding. 1. AUGMENTIN 875MG PO BID X 5 DAYS 2. APIXABAN 5MG PO BID STARTING 10/08/21 3. PANTOPRAZOLE 40MG PO BID 4. SUCRALFATE 1000MG PO 1HR_ACHS The patient's discharge medication list was reviewed for discrepancies and discrepancies were resolved. Home Medications calcium carbonate-vitamin D3 1 ea PO DAILY 07/27/16 pramipexole 0.25 mg tablet 0.25 mg PO DAILY tab 04/01/20 albuterol sulfate 90 mcg/actuation aerosol inhaler 2 inh INHALATION Q8H PRN g 09/23/21 atorvastatin 20 mg tablet 20 mg PO DAILY tab 09/23/21 fluoxetine 20 mg capsule 20 mg PO DAILY cap 09/23/21 amoxicillin-pot clavulanate [Augmentin] 1 tab PO BID #10 tab 10/06/21 apixaban [Eliquis] 5 mg PO BID #60 tab 10/06/21 pantoprazole 40 mg PO BID #60 tab 10/06/21 sucralfate 1 g PO 1HR_ACHS #90 tab 10/06/21 The patient was counseled on the following discharge medications and changes in medications for homegoing were reviewed. The Reason for Use, instructions for use, and potential side effects were reviewed for all new medications. The patient's questions regarding all of their medications were answered. The patient was able to verbally demonstrate an understanding of their discharge medications.
== END 2021-10-06 15:20 | disposition home or self-care (01) | DRG 871 ==
LOC: ED 11:59 → ICU 14:41 → PCU 10-03 14:55
PROVIDERS: Internal Medicine Critical Care Medicine; Internal Medicine Gastroenterology; Admitting Provider Internal Medicine; Emergency Provider Emergency Medicine; PCP Family Medicine; Visit Provider Student in an Organized Health Care Education/Training Program
PROC: 0DJ08ZZ Inspection of Upper Intestinal Tract, Via Natural or Artificial Opening Endoscopic (ICD-10-PCS; CPT 43235; principal; 2021-10-03 09:30)
DX: A41.9 Sepsis, unspecified organism (principal); J96.01 Acute respiratory failure with hypoxia; J69.0 Pneumonitis due to inhalation of food and vomit; K27.4 Chronic or unspecified peptic ulcer, site unspecified, with hemorrhage; I74.11 Embolism and thrombosis of thoracic aorta; E87.2 Acidosis; N17.9 Acute kidney failure, unspecified; J44.0 Chronic obstructive pulmonary disease with (acute) lower respiratory infection; D62 Acute posthemorrhagic anemia; K22.10 Ulcer of esophagus without bleeding; R65.20 Severe sepsis without septic shock; I71.4 Abdominal aortic aneurysm, without rupture; G25.81 Restless legs syndrome; E78.5 Hyperlipidemia, unspecified; K76.0 Fatty (change of) liver, not elsewhere classified; M54.2 Cervicalgia; Z87.891 Personal history of nicotine dependence; Z79.82 Long term (current) use of aspirin; Z80.0 Family history of malignant neoplasm of digestive organs; G89.29 Other chronic pain; F32.A Depression, unspecified; R91.8 Other nonspecific abnormal finding of lung field
CPT/HCPCS: 36415; 71275; 74177; 80048; 80053; 82274; 83605; 83690; 83735; 84100; 84484; 85014; 85018; 85025; 85027; 86850; 86900; 86901; 86920; 87040; 87070; 87205; 87426; 87449; 88305; 88313; 88342; 93005; 94640; 94667; 94668; 94762; 97110; 97116; 97162; 97530; 99251; 99284; 99406; J7030; J7120; P9016; Q9967; G0463; J0295; J2405; J3490

== ENCOUNTER 2021-10-23 08:53 | Outpatient (CLI) | payer MEDICARE, SELFPAY ==
[2021-10-23] VITALS (11 sets, daily range): BP systolic 73–125; BP diastolic 42–76; PULSE 84–103; RESP 18–24; TEMP 37; O2SAT 92–100; BMI 29.0
--- NOTE | 2021-10-23 | IMM_PTH ---
PATIENT: ERICA CASTILLO LOC: CT U#:[id number] AGE/SX: 76/F ROOM: RE10/23/[address]: Dr. Jay Jay Tan MD : 1945 BED: DIS: 10/23/2021 SPEC #: [id number] RECD: 10/26/21 12:02 STATUS: IRAJ REFabiola #: [id number] ESAU: 10/23/21 00:[address]: Jay Jay Tan DEPT: IMMUNOHISTOCHEMISTRY RECD BY: Salome Bell ENTERED: 10/26/21 12:04 SP TYPE: IMMUNO OTHR DR: Dr. Luís Jasso MD Tissues: Left upper lobe of lung, NOS Procedures: RCC (add) NAPSIN A (add) CK20 (add) CK5-6 (add) CK7 (add) CK8 (add) HEP PAR (add) NE (add) TTF1 (add) Pankeratin (add) P40 (add) ER (initial) PHYSICIAN & [address] [address] SPECIMEN INFORMATION: Tissue Source: Left upper lobe of lung Clinical Info: SHAWNEE mass Specimen Number: [id number] CPT code: 42553, 10407 x11 METHODOLOGY: Deparaffinized sections of prefer/formalin-fixed tissue or PAP/DQ stained slides are incubated with monoclonal/polyclonal antibodies/oligonucleotide probes. Localization is made via biotin free immunoperoxidase method. Appropriate controls are performed and reacted as expected. Results on target cell population are indicated in the following table: RESULTS: ANTIBODY / CLONE RESULT ER (6F11) negative NE (1E2) negative AE1-3 (AE1/AE3/PCK26) positive CK7 (OV-TL12/30) negative CK8 (34cmgfK53) negative CK20 (KS20.8) negative TTF-1 (8G7G3/1) negative Napsin A (Rabbit Polyclonal) negative HepPar (OCh1E5) negative RCC (PN-15) negative CK5-6 (D5 & 1684) positive P40 (BC28) positive These tests were developed and their performance characteristics determined by [facility]. They may not have been cleared or approved by the U.S. Food and Drug Administration. The FDA has determined that such clearance or approval is not necessary. The above immunohistochemical/dualISH markers are ordered and reviewed by the Pathologist. INTERPRETATION: Left upper lobe of lung, CT-guided core biopsy: Non-small cell carcinoma, favor squamous carcinoma. /SJ 10/26/21
--- NOTE | 2021-10-23 | ASPIGT_PTH ---
PATIENT: ERICA CASTILLO LOC: CT U#:[id number] AGE/SX: 76/F ROOM: RE10/23/[address]: Dr. Jay Jay Tan MD : 1945 BED: DIS: 10/23/2021 SPEC #: [id number] RECD: 10/23/21 11:38 STATUS: IRAJ REFabiola #: [id number] ESAU: 10/23/21 00:[address]: Jay Jay Tan DEPT: SURGICAL PATHOLOGY RECD BY: Quang Treviño ENTERED: 10/23/21 11:39 SP TYPE: ASP RAD OTHR DR: Dr. Luís Jasso MD Tissues: Lung, NOS Procedures: FNA Specimen Adequacy Special Stain Group II Surgery Specimen Level IV Imprint (control) HEADER OPERATION: Left lung, CT-guided core biopsy PRE-OP DIAGNOSIS: SHAWNEE mass TISSUE SUBMITTED: SHAWNEE lung, 20-gauge x4 MICROSCOPIC DIAGNOSIS Left upper lobe lung, CT-guided core biopsy: Non-small cell carcinoma, favor squamous cell carcinoma. See comment. MICHEL:lupe 10/26/2021 COMMENT The specimen is evaluated at the time of biopsy by Dr. Waddell. Immediate Evaluation = Negative for malignant cells. A few granulomas noted. Immunohistochemistry ([id number]) supports the above diagnosis. Molecular studies on the tumor can be performed if clinically indicated. Please notify the laboratory if they are needed. Case has been reviewed in consultation with Dr. Grossman who concurs with the above diagnosis. IDC:AM MICROSCOPIC DESCRIPTION Slides are reviewed. GROSS DESCRIPTION Received in fixative is one container labeled with the patient's name and designated left upper lobe lung, CT-guided core biopsy. The specimen consists of multiple elongated fragments of light diop soft tissue that in aggregate measure 1.5 x 0.1 x <0.1 cm. The specimen is totally submitted in one cassette. Two touch imprints are prepared at the time of core biopsy. / MICHEL:lupe 10/23/2021 TC:0 CPT: 38749, 45699
--- NOTE | 2021-10-23 09:09 | CT_ITS ---
PROCEDURE: CT GUIDED CORE NEEDLE BIOPSY OF A left upper lobe LUNG LESION INDICATION: Female, 76 years old. SHAWNEE mass PHYSICIAN: Dr. MARLON Ann CONSENT: Written informed consent was obtained having explained the risks, benefits and alternatives in detail with the patient who accepted the risks and agreed to proceed. Laboratory review and clinical assessment was performed. CONSCIOUS SEDATION PROTOCOL: The Drugs used were: 2 mg Versed, IV., and 50 mcg Fentanyl, IV. The sedation time was: 30 minutes. Conscious sedation was started at 9:58 AM and terminated at 10:28 AM. The conscious sedation protocol was independently monitored. RADIATION DOSAGE (If Supplied By Facility): CTDIvol = ( 12 ) mGy, DLP = ( 707.26 ) mGycm Individualized dose optimization techniques were used for this CT. TECHNIQUE: The patient was placed in the supine position. A noncontrast CT was performed to localize the lesion in the . The skin surface was prepped and draped in a sterile fashion. 1% lidocaine was used for local anesthesia. Using CT guidance, a 20-gauge coaxial biopsy device was advanced to the periphery of the lesion. A total of 4 core specimens were obtained. The specimens were placed in a formalin solution. A post procedure CT demonstrated no adverse sequelae or pneumothorax. The patient tolerated the procedure well without adverse event. A negative biopsy does not exclude malignancy. Further imaging or clinical followup based on patient condition and degree of clinical suspicion for malignancy. Suggest rebiopsy, if biopsy results do not match with clinical scenario. CT/Biopsy/Inj or Needle Placement IMPRESSION: 1. CT directed core needle biopsy of the left upper lobe lung nodule using CT image guidance with image documentation as described. Pathology results are pending. 2. Conscious Sedation protocol utilized with independent monitoring. Electronically Signed: Darnell Hernández MD at 10:55 EST ,
[2021-10-23 09:12] LABS: Platelet Count 366 K/mm3 (150-450)
[2021-10-23 09:25] LABS: International Normalized Ratio 1.1; Prothrombin Time (Protime)PT. 13.4 SECONDS (11.7-14.9)
[2021-10-23 09:26] LABS: Partial Thromboplast Time 29.8 Seconds (24.1-36.2)
[2021-10-23] MEDS: Midazolam 2 MG/2 ML Syringe IV (09:58)
[2021-10-23] MEDS: fentaNYL 100 MCG/2 ML Ampul IV (09:58)
[2021-10-23] MEDS: Lidocaine 2% (20 ml mdv) 20 ML Vial INFILT (10:10)
--- NOTE | 2021-10-23 10:30 | RAD_ITS ---
STUDY: X-RAY CHEST REASON FOR EXAM: Female, 76 years old. Post lung bx -- Immediately post lung biopsy TECHNIQUE: AP inspiration and expiration views. COMPARISON: None. FINDINGS: Immediate post left lung biopsy radiographs were obtained. There is an approximately 5% left apical pneumothorax. The patient is asymptomatic. RAD/Chest Insp/Exp 2 View IMPRESSION: 5% left apical pneumothorax following the left upper lobe lung biopsy. Electronically Signed: Darnell Hernández MD at 10:52 EST ,
--- NOTE | 2021-10-23 12:25 | RAD_ITS ---
STUDY: X-RAY CHEST REASON FOR EXAM: Female, 76 years old. Post lung bx -- 2 hours post lung biopsy TECHNIQUE: AP inspiration and expiration views. COMPARISON: Comparison is made with prior study done earlier today. FINDINGS: There now is evidence of a 10-15% left pneumothorax. RAD/Chest Insp/Exp 2 View IMPRESSION: 10-15% left pneumothorax. The clinician was notified for appropriate treatment. Electronically Signed: Darnell Hernández MD at 14:37 EST ,
--- NOTE | 2021-10-23 13:07 | NURSING ---
PT TO ED VIA CART TO ROOM 2. REPORT TO GUERDA MIRANDA. AT BEDSIDE.
== END 2021-10-23 23:59 | disposition short-term general hospital (02) ==
PROVIDERS: PCP Family Medicine; Visit Provider Internal Medicine Critical Care Medicine
DX: R91.1 Solitary pulmonary nodule (principal)
CPT/HCPCS: 36415; 71046; 77012; 85049; 85610; 85730; 88172; 88305; 88313; 99156; 99157; J7040; A4216; C2613

== ENCOUNTER 2021-10-23 12:51 | Inpatient (IN) | payer MEDICARE, SELFPAY ==
[2021-10-23] VITALS (9 sets, daily range): BP systolic 105–122; BP diastolic 68–75; PULSE 81–99; RESP 18–24; TEMP 36.3–36.9; O2SAT 92–96; BMI 29.0; BMI 29.7
--- NOTE | 2021-10-23 13:11 | ED.RN ---
wears 2-4L oxygen at home.
--- NOTE | 2021-10-23 13:21 | ED.VIS.DYS ---
HPI History of Present Illness Chief Complaint: Shortness of Breath Informant: patient Narrative Narrative: Patient sent over from radiology department for left-sided pneumothorax status post lung biopsy. Patient states had a nodule that is being evaluated. She is followed by Dr. Tan. Radiologist called over with results for chest tube. History of COPD. She has been on oxygen since her hospitalization earlier this month for GI bleed. She was started on Eliquis after GI bleed was stable. From records for abdominal aortic mural thrombus noted. This has been held for 4 days for her biopsy today. Reports she did have increasing dyspnea after the procedure. This was first biopsied. X-rays reviewed left-sided pneumothorax. [facility] Medical History (Updated 10/23/21 @ 15:[address] Yuniel Gallardo DO) Abdominal aortic aneurysm Acute respiratory failure with hypoxia COPD (chronic obstructive pulmonary disease) Depression with anxiety Hemorrhoids Hyperlipidemia Lung mass Peptic ulcer Restless leg syndrome SOB (shortness of breath) Thrombosis of abdominal aorta Tobacco abuse Home Medications calcium carbonate-vitamin D3 1 ea PO DAILY 07/27/16 [History Last Taken 10/22/21] pramipexole 0.25 mg tablet 0.25 mg PO DAILY tab 04/01/20 [History Last Taken 10/22/21] atorvastatin 20 mg tablet 20 mg PO DAILY tab 09/23/21 [History Last Taken 10/22/21] fluoxetine 20 mg capsule 20 mg PO DAILY cap 09/23/21 [History Last Taken 10/22/21] apixaban [Eliquis] 5 mg PO BID #60 tab 10/06/21 [Rx Last Taken 10/19/21] pantoprazole 40 mg PO BID #60 tab 10/06/21 [Rx Last Taken 10/22/21] sucralfate 1 g PO 1HR_ACHS #90 tab 10/06/21 [Rx Last Taken 10/22/21] Allergy/AdvReac Type Severity Reaction Status Date / Time No Known Allergies Allergy Verified 10/23/21 09:30 Family History Mother Colon cancer Diabetes Father Heart disease Surgical History (Updated 10/23/21 @ 15:[address] Yuniel Gallardo DO) history colon reanastamosis History of colectomy History of colostomy History of hysterectomy Social History Smoking Status: Current every day smoker tobacco type: cigarettes Tobacco: How many years used: 50 Electronic Cigarette Use: not used second hand exposure: Yes alcohol intake: never substance use type: does not use ROS ROS ED Constitutional Constitutional ED: Denies chills, fever(s) or sweats Eyes Eyes: Denies change in vision ENT ENT ED: Denies dysphagia or sore throat Cardiovascular Cardiovascular: Denies chest pain, leg edema, palpitations or racing heartbeat Respiratory/Chest Respiratory/Chest: Reports dyspnea; Denies cough or dyspnea on exertion Gastrointestinal Gastrointestinal: Denies abdominal pain, diarrhea, nausea or vomiting Genitourinary Genitourinary ED: Denies dysuria, hematuria or urinary frequency Musculoskeletal Musculoskeletal: Denies back pain, extremity pain or neck pain Integumentary Denies rash or wounds Neurologic Neurologic: Denies headache(s), paresthesias or weakness EXAM Physical Exam Const Vital Signs: 10/23/21 12:51 10/23/21 13:04 10/23/21 13:07 Temperature 98.4 F Temperature Source Oral Pulse Rate 92 Respiratory Rate 24 H Respiratory Effort Labored Blood Pressure 120/74 Blood Pressure Mean 89 Pulse Ox 93 92 Oxygen Delivery Method Nasal Cannula Nasal Cannula Oxygen Flow Rate (L/min) 2 2 10/23/21 13:45 Temperature Temperature Source Pulse Rate 99 Respiratory Rate 24 H Respiratory Effort Blood Pressure 122/68 H Blood Pressure Mean 86 Pulse Ox 96 Oxygen Delivery Method Nasal Cannula Oxygen Flow Rate (L/min) 2 Positive well nourished and well developed Constitutional Narrative: Nasal cannula, no respiratory distress. General Appearance ED: well developed and NAD HEENT Reports moist mucous membranes normocephalic and atraumatic Eyes PERRL, EOMs intact bilaterally and conjunctivae normal General Eye ED: Yes normal appearance of both eyes Neck no lymphadenopathy and supple General: Negative for tenderness Chest Wall Chest: Negative for tenderness Resp normal air movement Resp Narrative: Diminished breath sounds on the left side. Effort and Inspection: symmetric chest movement; Negative for respiratory distress Cardio regular rate, regular rhythm and no murmurs Peripheral Pulses: pulses 2+ throughout GI normal to inspection, nondistended, normoactive bowel sounds and non-tender Palpation: Negative for guarding or rebound tenderness present Back/Spine no CVA tenderness and no thoracic nor lumbar tenderness Extremity normal to inspection General Extremety ED: Negative for edema or tenderness General Extremity: Negative for edema Neuro oriented x3 and no sensory deficits noted Sensorium / Orientation: awake and alert Skin no rashes or lesions noted and no wounds MDM MDM MDM Narrative Medical decision making narrative: Patient presents with a left-sided pneumothorax status post lung biopsy. Vitals are stable she is on her home current oxygen. There is diminished breath sounds. Basic labs were obtained. She had coags from earlier. Written consent risk and benefits were discussed. Left-sided chest tube 20 Mongolian tube placed with no complications. Tubes are clear. Post chest x-ray notes resolved pneumothorax. She is admitted to medicine service Dr. Hedrick, she will consult her sweatband shaper Dr. Tan for management. She is admitted to PCU. Procedure note: Chest tube placement. Written consent. Risk and benefits discussed. Normal sterile conditions. Site was marked. Lidocaine with epinephrine used for local analgesia with total of 10 cc. Betadine prep of the skin. Patient was placed 30 degrees, left arm over the head. 15 blade horizontal incision was made over the rib. Large hemostats used to enter the chest cavity with a gush of air. 20-gauge Mongolian tube was advanced to 18 cm. Tube was secured. 1 additional skin suture was placed. Around the tube with tube dressing placed. This was secured with tape. Xeroform gauze this was attached to the Pleur-evac. There was no leakage of fluid. Post chest films notes good placement and resolved pneumothorax. Patient tolerated procedure well. Lab Data Attestation: I reviewed the patient's lab results. Labs: Laboratory Results - last 24 hr 10/23/21 10/23/21 08:59 13:30 WBC 11.4 H RBC 3.65 L Hgb 11.1 L Hct 35.6 L MCV 97.5 MCH 30.4 MCHC 31.2 L RDW Std Deviation 49.0 H RDW Coeff of Yeimi 13.7 Plt Count 365 MPV 11.6 Immature Gran % (Auto) 0.400 Neut % (Auto) 75.7 H Lymph % (Auto) 11.6 L [place] % (Auto) 7.3 Eos % (Auto) 4.1 Baso % (Auto) 0.9 Absolute Neuts (auto) 8.6 H Absolute Lymphs (auto) 1.32 Nucleated RBC % 0 Sodium 139 Potassium 4.0 Chloride 106 Carbon Dioxide 28.0 Anion Gap 5 BUN 11 Creatinine 0.59 Estim Creat Clear Calc 36.68 Est GFR (MDRD) Af Amer 128 Est GFR (MDRD) Non-Af 106 BUN/Creatinine Ratio 18.7 Glucose 97 Calcium 9.1 Radiography Chest X-Ray - ED: 1 View, Read by ED Physician and Read by Radiologist Diagnostic Testing: Clinical Impression(s) from Imaging Studies Chest X-Ray 10/23/21 14:14 IMPRESSION: Status post left chest tube placement. The left-sided pneumothorax has resolved. Small amount of subcutaneous emphysema overlying the left thorax. Electronically Signed: Darnell Hernández MD at 14:26 EST , Discharge Plan Triage Chief Complaint: Shortness of Breath ED Provider: Yuniel Gallardo Dx/Rx/DC Orders Clinical Impression: Acute pneumothorax, S/P chest tube placement Primary Care Provider: Emigdio Jasso Disposition Disposition: Acute Care Hospital [facility]
[2021-10-23 13:28] LABS: Absolute Lymphocyte Count 1.32 X10^3/uL (0.83-4.51); Absolute Neutrophil Count 8.6 X10^3/uL (2.0-7.7); Basophil% 0.9 % (0-1); Eosinophil# 0.47 X10^3/uL; Eosinophils% 4.1 % (0-5); Hematocrit 35.6 % (37-47); Hemoglobin 11.1 g/dL (12.0-15.0); Lymphocyte # 1.32 X10^3/ul (0.83-4.51); Lymphocyte % 11.6 % (19-41); Mean Corp Hgb Conc 31.2 g/dL (32-36); Mean Corpuscular Hgb 30.4 pg (27.0-32.0); Mean Corpuscular Volume 97.5 fL (81-99); Mean Platelet Vol. 11.6 fl (6.2-12.0); Monocyte# 0.83 X10^3/uL; Monocyte% 7.3 % (0-10); NRBC Flagged by Analyzer 0 % (0-5); Neutrophil # 8.64 X10^3/uL (2.7-7.7); Neutrophil % 75.7 % (47-70); Platelet Count 365 K/mm3 (150-450); RBC Distribution Width CV 13.7 % (11.6-14.6); Red Blood Count 3.65 M/mm3 (4.2-5.4); White Blood Count 11.4 K/mm3 (4.4-11.0)
[2021-10-23 13:45] LABS: Anion Gap 5 (5-15); BUN 11 mg/dL (7-18); BUN/Creat Ratio 18.7 RATIO (10-20); Calcium,Total 9.1 mg/dL (8.5-10.1); Chloride 106 mmol/L (98-107); Creatinine, Serum 0.59 mg/dL (0.55-1.02); EST Glomerular Filtration Rate 106 mL/min (>60); Est Glom Filt Rate - Afr Amer 128 mL/min (>60); Estimated Creatinine Clearance 36.68 ml/min; Glucose 97 mg/dL (74-106); Sodium Level 139 mmol/L (136-145)
[2021-10-23] MEDS: Morphine 4 MG/ML Syringe IV (14:12)
[2021-10-23] MEDS: Ondansetron 4 MG/2 ML Vial IV (14:12)
--- NOTE | 2021-10-23 14:14 | RAD_ITS ---
STUDY: X-RAY CHEST REASON FOR EXAM: Female, 76 years old. Chest tube TECHNIQUE: Single AP portable view of the chest. COMPARISON: Comparison is made with prior chest radiograph done earlier today at 12:21 PM. FINDINGS: The left-sided chest tube has been placed. The tip is in the left apex. Something is emphysema is seen overlying the left lateral chest wall. The pneumothorax has cleared. Stable elevation of the right hemidiaphragm with infiltrate in the right lower lobe. Stable nodular density in the left upper lobe. RAD/Chest 1 View (Portable) IMPRESSION: Status post left chest tube placement. The left-sided pneumothorax has resolved. Small amount of subcutaneous emphysema overlying the left thorax. Electronically Signed: Darnell Hernández MD at 14:26 EST ,
--- NOTE | 2021-10-23 14:25 | NURSING ---
PCU PEDRO LEFT PNEUMOTHORAX S/P CHEST TUBE
[2021-10-23] MEDS: HYDROmorphone 1 MG/ML Syringe IV (14:44)
--- NOTE | 2021-10-23 14:45 | CASEMGMT ---
FREDDY CM to room to meet with patient for initial transition planning/care coordination assessment. FREDDY HORTON introduced self and role at [facility]. Patient voices understanding and consents to assessment at this time. Patient's Georgi present at bedside. Patient is somewhat drowsy s/p pain medication administration but oriented and answers all questions appropriately. Care providers, pharmacy, and demographics verified/updated at this time. PCP: Luís Jasso Specialists: Dominick- pulmonology Preferred Pharmacy: [facility] Insurance: [facility] Prescription Benefit: yes Living Will/HPOA: Patient has a living will and HPOA is Georgi Townsend. These forms are on file at [facility]. LNOK: Georgi Townsend Living Arrangements: Patient lives with in one story house. Patient independent with ADLs prior to hospitalization. Smoking/ETOH: Patient reports she has quit smoking since time of hospital discharge 10/06/21. Denies ETOH use. Transportation: Patient drives self and denies transportation concerns. DME/HHC/SNF: Patient typically ambulates independently without the use of an assistive device. DME available in home: shower chair, wheelchair, cane and walker. Patient discharged from [facility] on 10/06/21 with order for home oxygen through [employer]: 2LPM at rest and 4LPM with exertion. Patient has oxygen concentrator, as well as portable tanks. Patient reports compliant with use in the home using concentrator but does not use oxygen when leaving the home because tanks are too heavy and difficult to carry. Patient states she is currently working with PCP and [employer] to get portable concentrator. Previous HHC following abdominal surgery but unsure of agency name. Denies previous SNF stays. Patient has no concerns with going home at time of discharge. CM to follow for any discharge planning/needs. Patient voices no concerns/needs at this time. Advised patient to ask for CM if any questions/concerns/needs arise. Voices understanding. Plan: home
--- NOTE | 2021-10-23 14:45 | HP.PCM.HOS_ITS ---
[facility] - General General Date of Admission: 10/23/21 Date of Service: 10/23/21 Chief Complaint: Shortness of breath HPI Narrative ERICA CASTILLO, is a 76 F who presented to the emergency department [facility] on 10/23/2021 with acute shortness of breath after a CT-guided biopsy of a left-sided lung mass that she underwent this morning at approximately 10 AM. Her post procedure chest x-ray shows an acute pneumothorax on the left side. She is on baseline oxygen at 2 to 4 L in has been on 2 to 4 L while in the emergency department with no hypoxia. She is a patient of Dr. Pro. Given the significant size of the left-sided pneumothorax a 20-gauge catheter/test tube was placed by the ER physician with the postprocedure chest x-ray showing resolution of the left-sided pneumothorax and a small amount of subcutaneous emphysema overlying the left thorax. Her only complaint upon my evaluation was pain related to her chest tube placement. Emergency department her vital signs were stable and her oxygen saturation was consistently greater than 92% on her supplemental 2 to 4 L that is her baseline requirement. Her CBC shows a mild leukocytosis with a white count of 11.4. Her hemoglobin is 11.1 which is improved from her recent hospitalization for GI bleed, and her platelet count is normal. Her BMP is unremarkable. In the emergency department a chest tube was placed as noted above and she was treated with pain medication after chest tube placement. She was fairly asymptomatic prior to to the chest tube placement per discussion with the emergency department nurse. Her Eliquis had been held for the procedure and we will restart this tonight. [facility] Medical History (Updated 10/23/21 @ 15:[address] Mackenzie Hedrick, ) Abdominal aortic aneurysm Acute respiratory failure with hypoxia COPD (chronic obstructive pulmonary disease) Depression with anxiety Hemorrhoids Hyperlipidemia Lung mass Peptic ulcer Restless leg syndrome SOB (shortness of breath) Thrombosis of abdominal aorta Tobacco abuse Home Medications calcium carbonate-vitamin D3 1 ea PO DAILY 07/27/16 [History Last Taken Unknown] pramipexole 0.25 mg tablet 0.25 mg PO DAILY tab 04/01/20 [History Last Taken Unknown] atorvastatin 20 mg tablet 20 mg PO DAILY tab 09/23/21 [History Last Taken Unknown] fluoxetine 20 mg capsule 20 mg PO DAILY cap 09/23/21 [History Last Taken Unknown] apixaban [Eliquis] 5 mg PO BID #60 tab 10/06/21 [Rx Last Taken 10/19/21] pantoprazole 40 mg PO BID #60 tab 10/06/21 [Rx Last Taken Unknown] sucralfate 1 g PO 1HR_ACHS #90 tab 10/06/21 [Rx Last Taken Unknown] Allergy/AdvReac Type Severity Reaction Status Date / Time No Known Allergies Allergy Verified 10/23/21 09:30 Family History Mother Colon cancer Diabetes Father Heart disease Surgical History history colon reanastamosis History of colectomy History of colostomy History of hysterectomy Social History Smoking Status: Current every day smoker tobacco type: cigarettes Tobacco: How many years used: 50 Electronic Cigarette Use: not used second hand exposure: Yes alcohol intake: never substance use type: does not use ROS Constitutional Constitutional: Denies anorexia, change in weight, chills, fatigue, fever(s), malaise, night sweats, weakness or other Eyes Eyes: Denies blurry vision, change in eye color, change in vision, discharge from eye(s), double vision, erythema, eye pain, loss of vision or other ENT HEENT: Denies abnormal hearing, dysphagia, ear pain, epistaxis, headache(s), hearing loss, nasal congestion, nasal discharge, post nasal drip, sinus pressure, sore throat or other Cardiovascular Cardiovascular: Reports chest pain; Denies claudication, dyspnea on exertion, edema, lightheadedness, orthopnea, palpitations, paroxysmal nocturnal dyspnea, rapid heart rate, syncope or other Respiratory/Chest Respiratory/Chest: Reports dyspnea and shortness of breath with exertion; Denies cough, excessive phlegm production, hemoptysis, productive cough, shortness of breath at rest, wheezing or other Gastrointestinal Gastrointestinal: Denies abdominal pain, coffee ground emesis, constipation, diarrhea, dyspepsia, hematemesis, hematochezia, loose stools, melena, nausea, vomiting or other Genitourinary Genitourinary: Denies burning urination, difficulty urinating, dysuria, hematuria, nocturia, urinary frequency, urinary hesitancy, urinary incontinence, urinary urgency or other Musculoskeletal Musculoskeletal: Denies arthralgias, back pain, joint pain, joint stiffness, joint swelling, myalgias, neck pain or other Neurologic Neurologic: Denies abnormal gait, abnormal speech, confusion, disequilibrium, dizziness, focal weakness, headache(s), numbness, paresthesias, seizure-like activity, seizures, syncope, tingling, tremor(s) or other Psychiatric Psychiatric: Denies anxiety, depression, homicidal ideation, suicidal ideation or other Endocrine Endocrinology: Denies change in body appearance, cold intolerance, excessive sweating, heat intolerance, polydipsia, polyuria or other Hematologic/Lymphatic Hematologic/Lymphatic: Reports anemia; Denies easy bleeding, easy bruising, lymphadenopathy or other Allergic/Immunologic Allergic/Immunologic: Denies rhinitis, hives, eczemia, asthma or other Vital Signs Vital Signs Vital Signs: 10/23/21 12:51 10/23/21 13:04 10/23/21 13:07 Temperature 98.4 F Temperature Source Oral Pulse Rate 92 Respiratory Rate 24 H Respiratory Effort Labored Blood Pressure 120/74 Blood Pressure Mean 89 Pulse Ox 93 92 Oxygen Delivery Method Nasal Cannula Nasal Cannula Oxygen Flow Rate (L/min) 2 2 10/23/21 13:45 Temperature Temperature Source Pulse Rate 99 Respiratory Rate 24 H Respiratory Effort Blood Pressure 122/68 H Blood Pressure Mean 86 Pulse Ox 96 Oxygen Delivery Method Nasal Cannula Oxygen Flow Rate (L/min) 2 Weight Weight: 69.853 kg Body Mass Index (BMI) 29.0 Physical Exam Const alert, oriented x3 and no apparent distress Constitutional Narrative: Overweight older white female sitting up in bed, appears uncomfortable related to recent chest lead placement, at the bedside, very pleasant General Appearance: cooperative HEENT normocephalic, head/scalp atraumatic, hearing grossly normal bilaterally, moist oral mucous membranes and oropharynx normal Mouth: oral and palatal mucosa normal Eyes PERRL, EOMs intact bilaterally and conjunctivae normal Eyes Narrative: No scleral icterus Neck no lymphadenopathy, supple, no JVD and no carotid bruits Neck Narrative: Trachea midline, no thyroid enlargement neck is short and thick Resp no retractions, no use of accessory muscles and clear to auscultation lizzie aterally Resp Narrative: Diffusely diminished, currently has breath sounds bilaterally, appears uncomfortable with deep breathing and is currently taking shallow br eaths Auscultation: Negative for crackles, rales, rhonchi or wheezes Cardio regular rate, regular rhythm, S1 normal heart sound, S2 normal heart sound, no murmurs, no rub, no gallops, no clicks and no JVD GI normal to inspection, nondistended, normoactive bowel sounds, soft to palpation, non-tender and non-distended Extremity no clubbing, cyanosis or edema Peripheral Pulses: Yes pulses 2+ throughout Skin no rashes or lesions noted, no wounds, skin turgor normal, no jaundice, no petechiae and no mottling Skin Narrative: Left-sided chest tube in place in the left lateral chest wall with dressing intact Neuro oriented x3, CN's II-XII intact bilaterally, moves all extremities and no focal motor deficits Sensorium / Orientation: awake and alert Speech: speech normal Psych affect normal Results Lab / Micro Data Attestation: I reviewed the patient's lab results. Result Diagrams: 10/23/21 08:59 10/23/21 13:30 Labs: Laboratory Results - last 24 hr 10/23/21 08:59: WBC 11.4 H, RBC 3.65 L, Hgb 11.1 L, Hct 35.6 L, MCV 97.5, MCH 30.4, MCHC 31.2 L, RDW Std Deviation 49.0 H, RDW Coeff of Yeimi 13.7, Plt Count 365, MPV 11.6, Immature Gran % (Auto) 0.400, Neut % (Auto) 75.7 H, Lymph % (Auto) 11.6 L, [place] % (Auto) 7.3, Eos % (Auto) 4.1, Baso % (Auto) 0.9, Absolute Neuts (auto) 8.6 H, Absolute Lymphs (auto) 1.32, Nucleated RBC % 0 10/23/21 13:30: Sodium 139, Potassium 4.0, Chloride 106, Carbon Dioxide 28.0, Anion Gap 5, BUN 11, Creatinine 0.59, Estim Creat Clear Calc 36.68, Est GFR (MDRD) Af Amer 128, Est GFR (MDRD) Non-Af 106, BUN/Creatinine Ratio 18.7, Glucose 97, Calcium 9.1 Radiology Impression Chest X-Ray 10/23/21 14:14 IMPRESSION: Status post left chest tube placement. The left-sided pneumothorax has resolved. Small amount of subcutaneous emphysema overlying the left thorax. Electronically Signed: Darnell Hernández MD at 14:26 EST , Assessment & Plan Assessment/Plan (1) Acute pneumothorax: (2) Acute anemia: PLAN: Acute pneumothorax-iatrogenic -Patient was undergoing CT-guided biopsy for left-sided lung mass and postprocedure chest x-ray showed a large left-sided pneumothorax -Left-sided chest tube in place with resolution on chest x-ray -mild subcu emphysema on left side of thorax -Continue chest tube to wall suction -Suspect that that should resolve fairly quickly -We will hold Eliquis until chest tube has been removed -Consult pulmonary medicine--> discussed with Dr. Leavitt Peptic ulcer disease -Had recent upper GI bleed with hematemesis earlier this month -Is doing well -Hemoglobin appears to be recovering despite being anticoagulated -Continue PPI 40 mg p.o. twice daily -Continue Carafate -Patient is following up with Dr. George as an outpatient Left upper lobe spiculated lung mass -Status post biopsy 10/23/2021 -Highly suspicious for malignancy -Pathology reports pending -Patient follows with Dr. Tan -Pulmonary medicine is consulted Abdominal aortic mural thrombus -Restart Eliquis once chest tube has been able to be removed AAA -Chronic -Current transverse dimension is 2.4 cm -will need monitored as an outpatient Hyperlipidemia -Continue atorvastatin Restless leg syndrome -Continue Requip COPD with chronic hypoxic respiratory failure -Aerosols as above -Wears 2 to 4 L of oxygen at baseline Tobacco abuse -Trying to quit -Is a marked history of tobacco abuse with a [id number] history -Patches available if patient so desires Depression -Continue fluoxetine DVT prophylaxis -Lovenox 40 mg daily -SCDs CODE STATUS -Full code as addressed with patient in the emergency department- at bedside during conversation Charges/Coding Visit Charges Inpatient E&M: 42580 Init Hosp L3
--- NOTE | 2021-10-23 16:02 | PCS.PANDOC ---
PANDEMIC DOCUMENTATION INITIATED: Date: 05/11/2021 Time: 190
[2021-10-23] MEDS: oxyCODONE 5 MG Tablet PO (16:23)
[2021-10-23] MEDS: Sucralfate 1 GM Tablet PO ×2 (17:02→21:07)
[2021-10-23] MEDS: Morphine 2 MG/ML Syringe IV (19:52)
[2021-10-23] MEDS: 0.9% Saline Lock 10 ML Syringe IV (19:54)
[2021-10-23] MEDS: Atorvastatin Calcium 20 MG Tablet PO (21:07)
[2021-10-23] MEDS: Pramipexole Di-HCl 0.25 MG Tablet PO (21:07)
[2021-10-23] MEDS: Pantoprazole Sodium 40 MG Tablet PO (21:07)
[2021-10-24] MEDS: Morphine 2 MG/ML Syringe (01:20)
[2021-10-24] MEDS: Sucralfate 1 GM Tablet PO ×4 (06:15→20:30)
[2021-10-24] MEDS: 0.9% Normal Saline 1,000 ML 100 ML IV ×2 (07:50→17:56)
[2021-10-24] MEDS: Morphine 2 MG/ML Syringe 1 MG IV (08:20)
[2021-10-24] MEDS: Pantoprazole Sodium 40 MG Tablet PO ×2 (08:30→20:30)
[2021-10-24] MEDS: Enoxaparin 40 MG/0.4 ML Syringe SC (08:30)
[2021-10-24] MEDS: FLUoxetine 20 MG Capsule PO (08:30)
--- NOTE | 2021-10-24 08:30 | RAD_ITS ---
STUDY: X-RAY CHEST REASON FOR EXAM: Female, 76 years old. pneumothorax TECHNIQUE: Single AP portable view of the chest. COMPARISON: 10/15/2021 FINDINGS: Left-sided thoracostomy tube with no pneumothorax which is unchanged. The lungs are clear and expanded. Increased elevation the right hemidiaphragm with worsening right lower lobe atelectasis. Normal size heart. Normal mediastinum and jaylen. Normal visualized pulmonary arteries. Normal visualized aortic arch and descending thoracic aorta. Normal visualized thoracic spine. Normal visualized ribs, clavicles, and shoulders. There is no demonstrated abnormality of the visualized soft tissue structures of the upper abdomen. RAD/Chest 1 View IMPRESSION: 1. Left-sided thoracostomy tube with no pneumothorax. 2. Increased elevation right hemidiaphragm with worsening right lower lobe atelectasis per Electronically Signed: Que Gorman MD at 9:16 EST ,
[2021-10-24] MEDS: 0.9% Saline Lock 10 ML Syringe IV (09:25)
--- NOTE | 2021-10-24 14:00 | PN_ITS ---
DATE OF SERVICE 10/24/21 SUBJECTIVE Patient seen and examined. Denies significant shortness of breath. Reports back pain and pain related to chest tube. Denies other symptoms or complaints. OBJECTIVE Physical exam: General appearance: Awake, appropriate, no noted distress HEENT: Normocephalic, head/scalp atraumatic Eyes: Conjunctiva normal and no scleral icterus Neck: Supple, no lymphadenopathy, trachea midline Respiratory: Diminished, clear to auscultation Cardio: regular rate/rhythm GI: Soft, nondistended, nontender, normal active bowel sounds Extremity: Normal capillary refill, +1 bilateral lower extremity edema Skin: No lesions, no rashes, no breakdown Neuro: No focal motor deficits and no sensory deficits noted Psych: Normal affect Vitals and lab data personally reviewed. Hemodynamically stable. ASSESSMENT/PLAN 1. Acute iatrogenic pneumothorax-following CT-guided biopsy for left-sided lung mass. Pulmonary medicine following. Chest tube placed to suction. Repeat chest x-ray pending. Eliquis on hold. 2. Left upper lobe spiculated lung mass-biopsy 10/23/2021. Following with pulmonary as outpatient. 3. COPD with chronic approximate respiratory failure-wears 2 to 4 L of oxygen at baseline. Continue aerosols. 4. Tobacco dependence-trying to quit. Support provided. Nicotine replacement patch if desired. 5. Peptic ulcer disease-recent GI bleed. Continue PPI/Carafate. 6. Abdominal aortic mural thrombus-restart Eliquis following resolve of chest tube. 7. AAA-continue outpatient monitoring. 8. Hyperlipidemia-continue statin. 9. Restless leg syndrome-on Requip. 10. Depression-on fluoxetine. DVT prophylaxis-Lovenox, SCDs This patient was seen by JORDYN Jovel under the supervision of Dr. Garcia. Time spent including examining patient, reviewing data and subsequent management: 15 minutes Addendum Patient seen by Vilma COBB under my supervision Patient seen and examined. She was admitted for left-sided pneumothorax which was iatrogenic after she had a lung biopsy. She has chest tube in. He was noted to be hypotensive this morning, so her pain meds were held. Blood pressure improved after she received IV fluid boluses. She still complains of pain this morning. The pain is worse with slight movement at the site of the chest tube insertion. She denies any fever or chills, nausea, vomiting or diarrhea. She is on 2 L of oxygen. Review of systems otherwise negative. O/E: Physical exam: General appearance: Awake, appropriate, no noted distress HEENT: Normocephalic, head/scalp atraumatic Eyes: Conjunctiva normal and no scleral icterus Neck: Supple, no lymphadenopathy, trachea midline Respiratory: diminished breath sounds bibasally, no wheezes or crackles. On 2L of oxygen by nasal canula. Has left sided chest tube in situ Cardio: regular rate/rhythm GI: Soft, nondistended, nontender, normal active bowel sounds Extremity: Normal capillary refill, +1 bilateral lower extremity edema Skin: No lesions, no rashes, no breakdown Neuro: No focal motor deficits and no sensory deficits noted Psych: Normal affect Assessment and plan #Left sided pneumothorax Resulted from lung biopsy for left lung mass Chest tube in place Pulmonology on board. Eliquis on hold. Repeat CXR done, read pending. #Left upper lobe lung mass s/p biopsy. Pathology reports pending. Pulmonology on board. #Hypotension BP was running low this morning, so pain meds were held. BP improved from the 70s systolic to the 100s and 110s systolic after she received a bolus of fluid. Will continue hydrating with IVF NS @ 100cc/hr x 2 bags #History of peptic ulcer disease with recent GI bleed: On PPI and Carafate #Hyperlipidemia: On statin #Abdominal aortic aneurysm with mural thrombus: Eliquis hold as she had chest tube inserted. To resume when chest tube is taken out. #Chronic hypoxic respiratory failure due to COPD On 2 to 3 L at home. Breathing treatments with bronchodilators. #Restless leg syndrome: on requip #Depression: on fluoxetine #Nicotine dependence: Counseled to quit. Nicotine patch. DVT prophylaxis: lovenox Patient seen by Vilma Perez under my supervision. Total time I spent on care with patient today: 20 minutes. Billing code: inpatient follow up Level 2- 45080
[2021-10-24] MEDS: Ketorolac 30 MG/ML Syringe (17:20)
[2021-10-24] MEDS: guaiFENesin 10 ML UDC (200MG/10ML) (17:25)
[2021-10-24 19:05] LABS: ALB/GLOB Ratio 0.7 RATIO (0.9-2.4); AST(SGOT) 16 U/L (15-37); Alanine Aminotransfer ALT/SGPT 22 U/L (13-56); Albumin, Serum 2.7 g/dL (3.2-5.0); Alkaline Phosphatase 140 U/L (45-117); Anion Gap 5 (5-15); BUN 12 mg/dL (7-18); BUN/Creat Ratio 21.5 RATIO (10-20); Calcium,Total 8.7 mg/dL (8.5-10.1); Chloride 105 mmol/L (98-107); Creatinine, Serum 0.56 mg/dL (0.55-1.02); EST Glomerular Filtration Rate 113 mL/min (>60); Est Glom Filt Rate - Afr Amer 136 mL/min (>60); Estimated Creatinine Clearance 36.68 ml/min; Glucose 115 mg/dL (74-106); Magnesium 2.1 mg/dL (1.6-2.6); Phosphorus 3.4 mg/dL (2.5-4.9); Potassium 3.9 mmol/L (3.5-5.1); Protein, Total 6.7 g/dL (6.4-8.2); Sodium Level 138 mmol/L (136-145)
[2021-10-24] MEDS: Pramipexole Di-HCl 0.25 MG Tablet PO (20:30)
[2021-10-24] MEDS: Atorvastatin Calcium 20 MG Tablet PO (20:30)
[2021-10-24 22:36] LABS: Absolute Lymphocyte Count 0.66 X10^3/uL (0.83-4.51); Absolute Neutrophil Count 5.6 X10^3/uL (2.0-7.7); Basophil# 0.05 X10^3/uL; Basophil% 0.7 % (0-1); Eosinophil# 0.05 X10^3/uL; Eosinophils% 0.7 % (0-5); Hematocrit 53.2 % (37-47); Hemoglobin 16.8 g/dL (12.0-15.0); Lymphocyte # 0.66 X10^3/ul (0.83-4.51); Lymphocyte % 9.6 % (19-41); Mean Corp Hgb Conc 31.6 g/dL (32-36); Mean Corpuscular Volume 98.2 fL (81-99); Mean Platelet Vol. 11.2 fl (6.2-12.0); Monocyte# 0.45 X10^3/uL; Monocyte% 6.6 % (0-10); NRBC Flagged by Analyzer 0 % (0-5); Neutrophil # 5.61 X10^3/uL (2.7-7.7); Neutrophil % 82.1 % (47-70); Platelet Count 174 K/mm3 (150-450); RBC Distribution Width CV 13.8 % (11.6-14.6); RBC Distribution Width SD 50.2 fl (35.1-43.9); Red Blood Count 5.42 M/mm3 (4.2-5.4); White Blood Count 6.8 K/mm3 (4.4-11.0)
[2021-10-24 23:55] VITALS: BP 101/60; PULSE 87; RESP 18; TEMP 37.1; O2SAT 95
[2021-10-25] VITALS (11 sets, daily range): BP systolic 94–106; BP diastolic 56–86; PULSE 86–104; RESP 16–19; TEMP 36.6–36.9; O2SAT 92–96
--- NOTE | 2021-10-25 06:18 | PCM.PN.INT ---
Assessment & Plan Assessment/Plan (1) Acute pneumothorax: PLAN: RECOMMENDATIONS: 1. Remove chest tube. 2. Obtain repeat chest x-ray at 10 AM. If there is no evidence of pneumothorax, the patient can be discharged home. 3. Supplemental oxygen as needed. 4. Follow-up in the pulmonary medicine clinic post discharge. IMPRESSIONS: 1. Iatrogenic pneumothorax The patient underwent CT-guided lung biopsy for a left upper lobe lung lesion which resulted in a pneumothorax, which required chest tube placement. Follow-up chest imaging has confirmed resolution of the pneumothorax. Therefore, the patient's chest tube was removed this morning at the bedside after chest imaging revealed stability on waterseal. Recommend obtaining a repeat chest x-ray in 2 hours. If there is no evidence of pneumothorax, the patient can be discharged home with outpatient pulmonary follow-up. 2. COPD with chronic hypoxemic respiratory failure Continue scheduled aerosol treatments and supplemental oxygen. 3. Chronic tobacco dependency The patient has an approximate 98-[id number]-[id number] smoking history. Smoking cessation counseling was provided. Nicotine replacement therapy can be offered to the patient while admitted to the hospital. 4. History of peptic ulcer disease/AAA/restless leg syndrome/depression Complicates care, management, recovery and prognosis. Continue home medications as indicated. This note was generated with [employer] dictation software. It may contain incorrect words, spelling, and punctuation that were not noted in checking the note before signing. Subjective Subjective The patient was seen and examined at the bedside this morning. Events from the last 24 hours have been reviewed. The patient is currently afebrile, hemodynamically stable and maintaining appropriate oxygen saturations on 3 L/min via nasal cannula. The patient's last chest x-ray continues to demonstrate resolution of her pneumothorax. Therefore, she was transitioned from wall suction to waterseal this morning. The patient was seen in consultation yesterday for management of her chest tube after she sustained an iatrogenic pneumothorax following CT-guided lung biopsy on October 23. Follow-up chest imaging after the patient was placed to waterseal demonstrated no significant pneumothorax. Therefore, the patient's chest tube was removed without complication. Objective Data Objective Data The patient's most recent lab work, culture data and imaging studies have all been personally reviewed. Vital Signs: Vital Signs Temp Pulse Resp BP Pulse Ox 97.9 F 88 18 102/70 95 10/25/21 04:30 10/25/21 04:30 10/25/21 04:30 10/25/21 04:30 10/25/21 04:30 Oxygen Flow Rate (L/min) 3 Oxygen Delivery Method Nasal Cannula Weight: 71.5 kg Body Mass Index (BMI) 29.7 Intake & Output: Intake and Output for Last 24 Hours 10/23/21 10/24/21 10/25/21 23:59 23:59 23:59 Intake Total 720 / 720 Output Total 0 / 0 Balance 720 / 720 Lab / Micro Data Attestation: I reviewed the patient's lab results. Result Diagrams: 10/24/21 04:38 10/24/21 04:38 Labs: Laboratory Results - last 24 hr 10/24/21 04:38: WBC 6.8, RBC 5.42 H, Hgb 16.8 H, Hct 53.2 H, MCV 98.2, MCH 31.0, MCHC 31.6 L, RDW Std Deviation 50.2 H, RDW Coeff of Yeimi 13.8, Plt Count 174, MPV 11.2, Immature Gran % (Auto) 0.300, Neut % (Auto) 82.1 H, Lymph % (Auto) 9.6 L, [place] % (Auto) 6.6, Eos % (Auto) 0.7, Baso % (Auto) 0.7, Absolute Neuts (auto) 5.6, Absolute Lymphs (auto) 0.66 L, Nucleated RBC % 0 10/24/21 04:38: Sodium 138, Potassium 3.9, Chloride 105, Carbon Dioxide 28.0, Anion Gap 5, BUN 12, Creatinine 0.56, Estim Creat Clear Calc 36.68, Est GFR (MDRD) Af Amer 136, Est GFR (MDRD) Non-Af 113, BUN/Creatinine Ratio 21.5 H, Glucose 115 H, Calcium 8.7, Phosphorus 3.4, Magnesium 2.1, Total Bilirubin 0.40, AST 16, ALT 22, Alkaline Phosphatase 140 H, Total Protein 6.7, Albumin 2.7 L, Globulin 4.0, Albumin/Globulin Ratio 0.7 L Radiography Diagnostic Testing: Radiology Impression Chest X-Ray 10/24/21 08:30 IMPRESSION: 1. Left-sided thoracostomy tube with no pneumothorax. 2. Increased elevation right hemidiaphragm with worsening right lower lobe atelectasis per Electronically Signed: Que Gorman MD at 9:16 EST , Physical Exam Const alert, oriented x3 and no apparent distress General Appearance: cooperative HEENT normocephalic, head/scalp atraumatic and moist oral mucous membranes Eyes PERRL, EOMs intact bilaterally and conjunctivae normal Neck supple General: trachea midline Chest Chest Narrative: On waterseal currently. No air leak noted in the Pleur-evac. Chest: chest tube Resp Auscultation: diminished lung sounds; Negative for rales, rhonchi or wheezes Cardio regular rate and regular rhythm GI normal to inspection, nondistended, normoactive bowel sounds Extremity no clubbing, cyanosis or edema Skin no rashes or lesions noted Neuro CN's II-XII intact bilaterally, moves all extremities and no focal motor deficits Psych cooperative and affect normal Charges/Coding Visit Charges Inpatient E&M: 65932 Subs Hosp L3
--- NOTE | 2021-10-25 06:32 | RAD_ITS ---
STUDY: X-RAY CHEST REASON FOR EXAM: Female, 76 years old. Chest tube to water seal TECHNIQUE: Single AP portable view of the chest. COMPARISON: 10/15/2021 FINDINGS: Left-sided thoracostomy tube with no pneumothorax which is unchanged. Increase in alveolar opacity in the lower right lung consistent with worsening right lower lobe pneumonia or atelectasis. Elevated right hemidiaphragm which is unchanged. Normal size heart. Normal mediastinum and jaylen. Normal visualized pulmonary arteries. Normal visualized aortic arch and descending thoracic aorta. Normal visualized thoracic spine. Normal visualized ribs, clavicles, and shoulders. There is no demonstrated abnormality of the visualized soft tissue structures of the upper abdomen. RAD/Chest 1 View (Portable) IMPRESSION: Worsening right lower lobe pneumonia or atelectasis. Electronically Signed: Que Gorman MD at 8:14 EST ,
[2021-10-25] MEDS: Sucralfate 1 GM Tablet PO ×4 (07:07→20:44)
[2021-10-25] MEDS: Pantoprazole Sodium 40 MG Tablet PO ×2 (08:49→20:44)
[2021-10-25] MEDS: FLUoxetine 20 MG Capsule PO (08:49)
[2021-10-25] MEDS: Enoxaparin 40 MG/0.4 ML Syringe SC (08:49)
--- NOTE | 2021-10-25 10:00 | RAD_ITS ---
STUDY: X-RAY CHEST REASON FOR EXAM: Female, 76 years old. f/u chest tube removal TECHNIQUE: Single AP portable view of the chest. COMPARISON: 10/25/2021 at 06 19 FINDINGS: Interval removal left-sided thoracostomy tube. No pneumothorax. No change in alveolar opacity in the lower right lung consistent with right lower lobe pneumonia or atelectasis. Elevated right hemidiaphragm which is unchanged. Normal size heart. Normal mediastinum and jaylen. Normal visualized pulmonary arteries. Normal visualized aortic arch and descending thoracic aorta. Normal visualized thoracic spine. Normal visualized ribs, clavicles, and shoulders. There is no demonstrated abnormality of the visualized soft tissue structures of the upper abdomen. RAD/Chest 1 View (Portable) IMPRESSION: Interval removal of left-sided thoracostomy tube with no pneumothorax. Electronically Signed: Que Gorman MD at 10:24 EST ,
--- NOTE | 2021-10-25 10:19 | PN.HOSP_ITS ---
Documented by User: Vilma Perez NP, HEEL CEMENTER MACHINE-C 10/25/21 10:29 Subjective Subjective Patient seen and examined. Chest tube removed this morning. Repeat chest x-ray pending. Patient denies shortness of breath, pain improved. Objective Data Objective Data Vital Signs: Vital Signs Temp Pulse Resp BP Pulse Ox 97.8 F 90 19 H 94/65 92 10/25/21 09:30 10/25/21 09:30 10/25/21 09:30 10/25/21 09:30 10/25/21 09:30 Oxygen Flow Rate (L/min) 3 Oxygen Delivery Method Nasal Cannula Weight: 157 lb 10.088 oz Body Mass Index (BMI) 29.7 Intake & Output: Intake and Output for Last 24 Hours 10/23/21 10/24/21 10/25/21 23:59 23:59 23:59 Intake Total 720 / 720 Output Total 0 / 0 Balance 720 / 720 Lab / Micro Data Result Diagrams: 10/24/21 04:38 10/24/21 04:38 Labs: Laboratory Results - last 24 hr 10/24/21 04:38: WBC 6.8, RBC 5.42 H, Hgb 16.8 H, Hct 53.2 H, MCV 98.2, MCH 31.0, MCHC 31.6 L, RDW Std Deviation 50.2 H, RDW Coeff of Yeimi 13.8, Plt Count 174, MPV 11.2, Immature Gran % (Auto) 0.300, Neut % (Auto) 82.1 H, Lymph % (Auto) 9.6 L, [place] % (Auto) 6.6, Eos % (Auto) 0.7, Baso % (Auto) 0.7, Absolute Neuts (auto) 5.6, Absolute Lymphs (auto) 0.66 L, Nucleated RBC % 0 10/24/21 04:38: Sodium 138, Potassium 3.9, Chloride 105, Carbon Dioxide 28.0, Anion Gap 5, BUN 12, Creatinine 0.56, Estim Creat Clear Calc 36.68, Est GFR (MDRD) Af Amer 136, Est GFR (MDRD) Non-Af 113, BUN/Creatinine Ratio 21.5 H, Glucose 115 H, Calcium 8.7, Phosphorus 3.4, Magnesium 2.1, Total Bilirubin 0.40, AST 16, ALT 22, Alkaline Phosphatase 140 H, Total Protein 6.7, Albumin 2.7 L, Globulin 4.0, Albumin/Globulin Ratio 0.7 L Radiography Diagnostic Testing: Radiology Impression Chest X-Ray 10/24/21 08:30 IMPRESSION: 1. Left-sided thoracostomy tube with no pneumothorax. 2. Increased elevation right hemidiaphragm with worsening right lower lobe atelectasis per Electronically Signed: Que Gorman MD at 9:16 EST Reading Location ID and State: [employer] [facility] [employer] , Service support , Chest X-Ray 10/25/21 06:32 IMPRESSION: Worsening right lower lobe pneumonia or atelectasis. Electronically Signed: Que Gorman MD at 8:14 EST Reading Location ID and State: [employer] [facility] [employer] , Service support , Physical Exam Const alert, oriented x3 and no apparent distress Orientation / Consciousness: awake, oriented to person, oriented to place and oriented to time HEENT normocephalic and moist oral mucous membranes Eyes PERRL, EOMs intact bilaterally and conjunctivae normal Neck no lymphadenopathy Resp normal respiratory effort Auscultation: diminished lung sounds Cardio regular rate, regular rhythm and no murmurs Peripheral Pulses: pulses 2+ throughout GI normal to inspection, nondistended, normoactive bowel sounds, non-tender and non-distended Extremity normal to inspection Skin no rashes or lesions noted Lesions: no lesions Rashes: no rashes Trauma: no lacerations or abrasions Neuro CN's II-XII intact bilaterally, no focal motor deficits, no sensory deficits noted and deep tendon reflexes 2+ bilaterally Psych mental status grossly normal and affect normal Assessment & Plan Assessment/Plan (1) Acute pneumothorax: PLAN: 1. Acute iatrogenic pneumothorax-following CT-guided biopsy for left-sided lung mass. Pulmonary medicine following. Chest tube removed 2 AM. Repeat chest x-ray pending. Resume Eliquis 10/26/21. Plan for DC 10/26 if patient remains stable. 2. Left upper lobe spiculated lung mass-biopsy 10/23/2021. Following with pulmonary as outpatient. 3. COPD with chronic approximate respiratory failure-wears 2 to 4 L of oxygen at baseline. Continue aerosols. 4. Tobacco dependence-trying to quit. Support provided. Nicotine replacement patch if desired. 5. Peptic ulcer disease-recent GI bleed. Continue PPI/Carafate. 6. Abdominal aortic mural thrombus-restart Eliquis following resolve of chest tube. 7. AAA-continue outpatient monitoring. 8. Hyperlipidemia-continue statin. 9. Restless leg syndrome-on Requip. 10. Depression-on fluoxetine. DVT prophylaxis-Lovenox, SCDs This patient was seen by JORDYN Jovel under the supervision of Dr. Garcia. Time spent including examining patient, reviewing data and subsequent management: 12 minutes Documented by User: Dr. Nalini Garcia MD 10/25/21 16:02 Objective Data Lab / Micro Data Result Diagrams: 10/24/21 04:38 10/24/21 04:38 Charges/Coding Addendum Addendum: Patient seen by Vilma COBB under my supervision Patient seen and examined. She felt much better today. The chest tube was taken out this morning after chest x-ray done this morning showed that the pneumothorax had resolved. She denies chest pain, shortness of breath, fever or chills and review of systems otherwise negative. O/E: Physical exam: General appearance: Awake, appropriate, no noted distress HEENT: Normocephalic, head/scalp atraumatic Eyes: Conjunctiva normal and no scleral icterus Neck: Supple, no lymphadenopathy, trachea midline Respiratory: diminished breath sounds bibasally, no wheezes or crackles. On 2L of oxygen by nasal canula. chest tube removed Cardio: regular rate/rhythm GI: Soft, nondistended, nontender, normal active bowel sounds Extremity: Normal capillary refill, +1 bilateral lower extremity edema Skin: No lesions, no rashes, no breakdown Neuro: No focal motor deficits and no sensory deficits noted Psych: Normal affect Assessment and plan #Left sided pneumothorax * Chest tube removed today after repeat chest x-ray today showed resolution of pneumothorax * titrate oxygen to maintain sats >90% * breathing treatment with bronchodilators * #Left upper lobe mass: Pathology report pending. S/p biopsy. Pulmonology on board. #Hypotension: Has resolved. Most likely due to the pain meds she was receiving. #History of peptic ulcer disease with recent GI bleed: On PPI and Carafate #Hyperlipidemia: On statin #History of abdominal aortic aneurysm with mural thrombus: Eliquis held as she had her chest tube inserted. Will resume tomorrow as chest tube was just taken out today. #Chronic hypoxic respiratory failure due to COPD: * On 2 to 3 L of oxygen at home. * Breathing treatments of bronchodilators. * Titrate oxygen to maintain saturation above 90%. #Restless leg syndrome: On Requip #Depression: on fluoxetine DVT prophylaxis: Lovenox Disposition: anticipate likely discharge tomorrow Patient seen by JEREMIE JovelC under my supervision Split/share billling time documentation: * Total time spent reviewing patient's chart, examining patient and subsequent documentation and management: 22 minutes making a total of 34 minutes including 12 minutes by the HEEL CEMENTER MACHINE Visit Charges Inpatient E&M: 29768 Subs Hosp L2
[2021-10-25] MEDS: Atorvastatin Calcium 20 MG Tablet PO (20:44)
[2021-10-25] MEDS: Pramipexole Di-HCl 0.25 MG Tablet PO (20:44)
[2021-10-26] VITALS (8 sets, daily range): BP systolic 94–102; BP diastolic 56–67; PULSE 71–92; RESP 16–18; TEMP 36.7–37.1; O2SAT 90–98
[2021-10-26] MEDS: Sucralfate 1 GM Tablet PO ×2 (06:47→10:52)
[2021-10-26] MEDS: FLUoxetine 20 MG Capsule PO (08:21)
[2021-10-26] MEDS: Enoxaparin 40 MG/0.4 ML Syringe SC (08:21)
[2021-10-26] MEDS: Pantoprazole Sodium 40 MG Tablet PO (08:21)
--- NOTE | 2021-10-26 08:40 | PN.CC_ITS ---
Assessment & Plan Assessment/Plan (1) Acute pneumothorax: PLAN: RECOMMENDATIONS: 1. Await pathology from biopsy 2. Walking oximetry prior to discharge 3. Supplemental oxygen on discharge if indicated 4. Follow-up in pulmonary office to discuss biopsy results when available IMPRESSIONS: 1. Iatrogenic pneumothorax The patient underwent CT-guided lung biopsy for a left upper lobe lung lesion which resulted in a pneumothorax, which required chest tube placement. Follow-up chest imaging has confirmed resolution of the pneumothorax. Therefore, the patient's chest tube was removed yesterday morning at the bedside after chest imaging revealed stability on waterseal. Chest x-ray did not show any reaccumulation. Patient will have a walking oximetry and supplemental oxygen if necessary. Anticipate discharge later today. 2. COPD with chronic hypoxemic respiratory failure Continue scheduled aerosol treatments and supplemental oxygen. 3. Chronic tobacco dependency The patient has an approximate 20-[id number]-skzw smoking history. Smoking cessation counseling was provided. Nicotine replacement therapy can be offered to the patient while admitted to the hospital. 4. History of peptic ulcer disease/AAA/restless leg syndrome/depression Complicates care, management, recovery and prognosis. Continue home medications as indicated. This note was generated with [employer] dictation software. It may contain incorrect words, spelling, and punctuation that were not noted in checking the note before signing. Subjective Subjective Patient did well overnight. No acute issues were reported. Patient subjectively feels unchanged compared to previous. Patient is reporting some minor soreness at the place of chest tube. Patient does report she has supplemental oxygen at home if necessary. Objective Data Objective Data Vital Signs: Vital Signs Temp Pulse Resp BP Pulse Ox 37.1 C 71 18 102/67 93 10/26/21 03:00 10/26/21 07:00 10/26/21 03:00 10/26/21 03:00 10/26/21 08:24 Oxygen Flow Rate (L/min) 2 Oxygen Delivery Method Nasal Cannula Weight: 71.5 kg Body Mass Index (BMI) 29.7 Intake & Output: Intake and Output for Last 24 Hours 10/24/21 10/25/21 10/26/21 23:59 23:59 23:59 Intake Total 1640 / 1640 1480 / 1680 200 / 200 Balance 1640 / 1640 1480 / 1680 200 / 200 Lab / Micro Data Result Diagrams: 10/24/21 04:38 10/24/21 04:38 Radiography Diagnostic Testing: Radiology Impression Chest X-Ray 10/25/21 10:00 IMPRESSION: Interval removal of left-sided thoracostomy tube with no pneumothorax. Electronically Signed: Que Gorman MD at 10:24 EST , Physical Exam Const alert, oriented x3 and no apparent distress General Appearance: cooperative HEENT normocephalic, head/scalp atraumatic and moist oral mucous membranes Eyes PERRL, EOMs intact bilaterally and conjunctivae normal Neck supple General: trachea midline Chest Chest Narrative: Chest tube removed. Slight erythema without exudate or induration Chest: chest tube Resp Auscultation: diminished lung sounds; Negative for rales, rhonchi or wheezes Cardio regular rate and regular rhythm GI normal to inspection, nondistended, normoactive bowel sounds Extremity no clubbing, cyanosis or edema Skin no rashes or lesions noted Neuro CN's II-XII intact bilaterally, moves all extremities and no focal motor deficits Psych cooperative and affect normal Charges/Coding Visit Charges Inpatient E&M: 51792 Subs Hosp L2
--- NOTE | 2021-10-26 10:05 | CASEMGMT ---
Pt's home order is for 2L at rest and 4L w/ exertion and pt tested on this at this time. Per Nick RN, pt does not qualify for increased home oxygen. Per pt and , pt only has e-tanks at home and states is working on getting POC or mini tanks. Call to [facility] [place] and per Viviane, pt has order and will be set up mid week with mini tanks. Pt/ updated on all and voice no further questions/concerns/needs. Pt states has been up in room and declines need for HHC. Eveline RN CM
--- NOTE | 2021-10-26 10:32 | PCM.DC ---
Discharge Instructions Diet Discharge Diet: No restrictions Activity Discharge Activity: Return to Normal Activity Dressing / Incision Call your doctor if you observe: Fever of 101 or Higher, Shortness of breath, Dizziness and Chest pain Follow Up Care Test Results: Test results from this visit will be discussed in further detail at your follow-up appointment, if applicable. Discharge Plan Admission Admit Date/Time: 10/23/21 14:22 Primary Reason for Your Visit: Pneumothorax Attending Provider: Geraldo Law Primary Care Provider: Emigdio Jasso Consulting Providers: Jay Jay Tan ; Cordell Leavitt ; Krissy Cheema ASSISTANT MEDIA PLANNER Discharge Orders/Prescriptions Prescriptions: Continued pramipexole 0.25 mg tablet 0.25 mg PO DAILY RF: 0 atorvastatin 20 mg tablet 20 mg PO DAILY RF: 0 fluoxetine 20 mg capsule 20 mg PO DAILY RF: 0 calcium carbonate-vitamin D3 1 EACH tablet 1 ea PO DAILY RF: 0 sucralfate 1 gram Tablet 1 g PO 1HR_ACHS Qty: 90 RF: 1 pantoprazole 40 mg Tablet,Delayed Release (Dr/Ec) 40 mg PO BID Qty: 60 RF: 2 Eliquis 5 mg tablet 5 mg PO BID Qty: 60 RF: 1 Referrals / Follow Up: Jay Jay Tan MD [STAFF PHYSICIAN] - Within 1 Week Emigdio Jasso MD [Primary Care Provider] - In 1 Week Disposition Disposition (needs filled in before D/C Order can be placed): Home, Self Care
--- NOTE | 2021-10-26 10:45 | PCM.DC.SUM ---
Documented by User: Vilma Perez NP, RADIO MECHANIC HELPER-C 10/26/21 10:50 Providers Date of Admission: 10/23/21 Date of Discharge: 10/26/21 Primary Care Physician: Dr. Emidgio Jasso MD Consultations 10/23/21 15:45 Consult: Spray Mixer / Pulmonary Medicine Routine Consulting Provider: [facility] Reason for Consult: PTX L EMERGENT Consult: No MD Notified: Yes Date Notified: 10/23/21 Time Notified: 14:45 Method of Notification: Verbal Reason For Visit: ACUTE PNEUMOTHORAX Diagnosis Discharge Diagnosis (1) Acute pneumothorax: Status: Acute Code(s): J93.83 - Other pneumothorax Medications at Discharge Home Medications calcium carbonate-vitamin D3 1 ea PO DAILY 07/27/16 pramipexole 0.25 mg tablet 0.25 mg PO DAILY tab 04/01/20 atorvastatin 20 mg tablet 20 mg PO DAILY tab 09/23/21 fluoxetine 20 mg capsule 20 mg PO DAILY cap 09/23/21 Eliquis 5 mg PO BID #60 tab 10/06/21 pantoprazole 40 mg PO BID #60 tab 10/06/21 sucralfate 1 g PO 1HR_ACHS #90 tab 10/06/21 Hospital Course Operations None Procedures - (Chest tube placement) Summary of Care Provided Hospital Course: Patient is a 76-year-old female admitted 10/23/2021 due to shortness of breath. 1. Acute iatrogenic pneumothorax-following CT-guided biopsy for left-sided lung mass. Pulmonary medicine consulted during admission. Chest tube removed 10/25/2019 2 AM. Repeat chest x-ray with resolve of pneumothorax. Resume Eliquis at discharge. Follow-up with pulmonary medicine and PCP in 1 week. 2. Left upper lobe spiculated lung mass-biopsy 10/23/2021. Following with pulmonary as outpatient. 3. COPD with chronic approximate respiratory failure-wears 2 to 4 L of oxygen at baseline. On baseline home O2 requirements. 4. Tobacco dependence-trying to quit. Support provided. 5. Peptic ulcer disease-recent GI bleed. Continue PPI/Carafate. Continue outpatient follow-up with GI as scheduled. 6. Abdominal aortic mural thrombus-restart Eliquis at discharge. 7. AAA-continue outpatient monitoring. 8. Hyperlipidemia-continue statin. 9. Restless leg syndrome-on Requip. 10. Depression-on fluoxetine. Physical Exam Const alert, oriented x3 and no apparent distress Orientation / Consciousness: awake, oriented to person, oriented to place and oriented to time HEENT normocephalic and moist oral mucous membranes Eyes PERRL, EOMs intact bilaterally and conjunctivae normal Neck no lymphadenopathy Resp normal respiratory effort Auscultation: diminished lung sounds Cardio regular rate, regular rhythm and no murmurs Peripheral Pulses: pulses 2+ throughout GI normal to inspection, nondistended, normoactive bowel sounds, non-tender and non-distended Extremity normal to inspection Skin no rashes or lesions noted Lesions: no lesions Rashes: no rashes Trauma: no lacerations or abrasions Neuro CN's II-XII intact bilaterally, no focal motor deficits, no sensory deficits noted and deep tendon reflexes 2+ bilaterally Psych mental status grossly normal and affect normal Patient seen and examined prior to discharge. Physical assessment as noted above. Patient is stable for discharge with follow up recommendations as noted above. This patient was seen by JORDYN Jovel under the supervision of Dr. Law. Time spent examining patient, reviewing data and subsequent management of care: 16 Minutes Weight / BMI Weight Weight: 157 lb 10.088 oz Body Mass Index (BMI) 29.7 ABG / Lab / Microbiology Data Result Diagrams: 10/24/21 04:38 10/24/21 04:38 D/C Instructions Discharge Diet: No restrictions Call your doctor if you observe: Fever of 101 or Higher, Shortness of breath, Dizziness and Chest pain Meaningful Use Info Meaningful Use Diagnoses (Choose all that apply): None applicable Discharge Plan Admission Admit Date/Time: 10/23/21 14:22 Primary Reason for Your Visit: Pneumothorax Attending Provider: Geraldo Law Primary Care Provider: Emigdio Jasso Consulting Providers: Jay Jay Tan ; Cordell Leavitt ; Krissy Cheema RADIO MECHANIC HELPER Discharge Orders/Prescriptions Prescriptions: Continued pramipexole 0.25 mg tablet 0.25 mg PO DAILY RF: 0 atorvastatin 20 mg tablet 20 mg PO DAILY RF: 0 fluoxetine 20 mg capsule 20 mg PO DAILY RF: 0 calcium carbonate-vitamin D3 1 EACH tablet 1 ea PO DAILY RF: 0 sucralfate 1 gram Tablet 1 g PO 1HR_ACHS Qty: 90 RF: 1 pantoprazole 40 mg Tablet,Delayed Release (Dr/Ec) 40 mg PO BID Qty: 60 RF: 2 Eliquis 5 mg tablet 5 mg PO BID Qty: 60 RF: 1 Referrals / Follow Up: Jay Jay Tan MD [STAFF PHYSICIAN] - Within 1 Week Emigdio Jasso MD [Primary Care Provider] - In 1 Week Disposition Disposition (needs filled in before D/C Order can be placed): Home, Self Care Documented by User: Dr. Geraldo Law DO 10/26/21 16:27 Providers Date of Admission: 10/23/21 Reason For Visit: ACUTE PNEUMOTHORAX Medications at Discharge Home Medications calcium carbonate-vitamin D3 1 ea PO DAILY 07/27/16 pramipexole 0.25 mg tablet 0.25 mg PO DAILY tab 04/01/20 atorvastatin 20 mg tablet 20 mg PO DAILY tab 09/23/21 fluoxetine 20 mg capsule 20 mg PO DAILY cap 09/23/21 Eliquis 5 mg PO BID #60 tab 10/06/21 pantoprazole 40 mg PO BID #60 tab 10/06/21 sucralfate 1 g PO 1HR_ACHS #90 tab 10/06/21 Hospital Course Procedures - (chest tube) Summary of Care Provided Minutes Spent on Discharge: 35 Hospital Course: This is a 76-year-old female who developed a pneumothorax status post biopsy of a lung mass. Patient had chest tube placed in the emergency room. Chest tube was in place until the and removed. Patient had no complications after removal and is feeling fine. Patient discharged today in stable condition Physical Exam Resp normal respiratory effort, no retractions, no use of accessory muscles and clear to auscultation bilaterally Cardio regular rate, regular rhythm, S1 normal heart sound and S2 normal heart sound GI normal to inspection, nondistended, normoactive bowel sounds, soft to palpation and non-tender Extremity normal to inspection ABG / Lab / Microbiology Data Result Diagrams: 10/24/21 04:38 10/24/21 04:38 Discharge Plan Admission Admit Date/Time: 10/23/21 14:22 Primary Reason for Your Visit: Pneumothorax Attending Provider: Geraldo Law Primary Care Provider: Emigdio Jasso Consulting Providers: Jay Jay Tan ; Cordell Leavitt ; Krissy Cheema RADIO MECHANIC HELPER Discharge Orders/Prescriptions Prescriptions: Continued pramipexole 0.25 mg tablet 0.25 mg PO DAILY RF: 0 atorvastatin 20 mg tablet 20 mg PO DAILY RF: 0 fluoxetine 20 mg capsule 20 mg PO DAILY RF: 0 calcium carbonate-vitamin D3 1 EACH tablet 1 ea PO DAILY RF: 0 sucralfate 1 gram Tablet 1 g PO 1HR_ACHS Qty: 90 RF: 1 pantoprazole 40 mg Tablet,Delayed Release (Dr/Ec) 40 mg PO BID Qty: 60 RF: 2 Eliquis 5 mg tablet 5 mg PO BID Qty: 60 RF: 1 Referrals / Follow Up: Jay Jay Tan MD [STAFF PHYSICIAN] - Within 1 Week Emigdio Jasso MD [Primary Care Provider] - In 1 Week Disposition Disposition (needs filled in before D/C Order can be placed): Home, Self Care Charges/Coding Visit Charges Inpatient E&M: 34951 Disch Hosp
== END 2021-10-26 11:42 | disposition home or self-care (01) | DRG 200 ==
LOC: ED 14:24 → PCU 15:28
PROVIDERS: Admitting Provider Internal Medicine; Emergency Provider Emergency Medicine; PCP Family Medicine
DX: J95.811 Postprocedural pneumothorax (principal); J96.11 Chronic respiratory failure with hypoxia; I74.09 Other arterial embolism and thrombosis of abdominal aorta; I95.9 Hypotension, unspecified; Z99.81 Dependence on supplemental oxygen; J44.9 Chronic obstructive pulmonary disease, unspecified; I71.4 Abdominal aortic aneurysm, without rupture; G25.81 Restless legs syndrome; D64.9 Anemia, unspecified; E78.5 Hyperlipidemia, unspecified; F17.210 Nicotine dependence, cigarettes, uncomplicated; F41.8 Other specified anxiety disorders; K27.9 Peptic ulcer, site unspecified, unspecified as acute or chronic, without hemorrhage or perforation; Z79.01 Long term (current) use of anticoagulants; R91.1 Solitary pulmonary nodule; Z79.899 Other long term (current) drug therapy
CPT/HCPCS: 32551; 36415; 71045; 71046; 77012; 80048; 80053; 83735; 84100; 85025; 85049; 85610; 85730; 88172; 88305; 88313; 88341; 88342; 99156; 99157; 99251; 99284; 99406; J7030; J7040; A4216; C2613; G0463; J2405

== ENCOUNTER 2021-11-19 09:29 | Outpatient (CLI) | payer MEDICARE, SELFPAY ==
[2021-11-19 10:10] LABS: Allen Test Positive; Base Excess 3 mmol/L (-2 to +2); Bicarbonate 26.9 mmol/L (22-26); Blood Gas Specimen Type ART; O2 Delivery Device Room Air; PO2 60 mmHG (75-100); SITE L Radial; SO2 91 % (95-99); Total Carbon Dioxide 28 mmol/L; pH 7.42 (7.35-7.45)
--- NOTE | 2021-11-19 10:57 | CT_ITS ---
STUDY: CT CHEST WITH CONTRAST REASON FOR EXAM: Female, 76 years old. Newly diagnosed lung cancer. History of uterine and cervical cancer. RADIATION DOSAGE (If Supplied By Facility): CTDIvol = ( 12.18 ) mGy, DLP = ( 371.63 ) mGycm TECHNIQUE: Transaxial imaging was performed following intravenous administration of IV 100mL Isovue-300. Multiplanar coronal and sagittal images were reformatted. Individualized dose optimization techniques were used for this CT. COMPARISON: Comparison is made with prior examination dated 08/26/2021. FINDINGS: Small benign-appearing bilateral axillary lymph nodes. Essentially stable appearance of the spiculated nodular density in the anterior aspect of the right upper lobe as seen on axial image #31. Stable linear scarring with nodular density along its anterior aspect as seen in the anterior aspect of the left upper lobe on axial image #28. Stable volume loss in the anterior aspect of the right lower lobe with areas of bronchiectasis. There are calcifications of the coronary arteries. Normal mediastinum. Normal hilar regions. Normal enhanced pulmonary arteries. Normal aorta arch and descending thoracic aorta. There are multi-level degenerative changes of the thoracic spine. Fatty infiltration of the liver. CT/Chest WITH Contrast IMPRESSION: Stable examination. Electronically Signed: Darnell Hernández MD at 15:15 EST ,
--- NOTE | 2021-11-20 09:58 | PFT ---
INTRODUCTION: The patient is a 76-year-old female that presents for pulmonary function studies secondary to a diagnosis of lung cancer. Respiratory therapy reported good patient effort. Bronchodilators were used during testing. INTERPRETATION: Forced expiration spirometry demonstrates the presence of a moderately severe large airways obstructive ventilatory defect. There was no significant response to aerosolized bronchodilators. Spirograms are of fair quality but do not plateau indicating slow emptying of the lungs. Body plethysmography was performed and revealed an elevated RV to 143% of predicted, indicative of underlying air trapping. Diffusing capacity by single breath CO is reduced at 31% of predicted. IMPRESSION: Irreversible moderately severe large airways obstructive ventilatory defect with associated air trapping and symmetric reduction in diffusing capacity.
== END 2021-11-19 23:59 | disposition home or self-care (01) ==
LOC: PSN 09:30
PROVIDERS: PCP Family Medicine; Referring Provider Internal Medicine Medical Oncology; Visit Provider Internal Medicine Medical Oncology
DX: C34.12 Malignant neoplasm of upper lobe, left bronchus or lung (principal); J18.9 Pneumonia, unspecified organism
CPT/HCPCS: 36600; 71260; 82803; 94060; 94726; 94729; Q9967

== ENCOUNTER 2021-11-27 08:33 | Outpatient (CLI) | payer MEDICARE, SELFPAY ==
--- NOTE | 2021-11-27 10:04 | ECHODONC_ITS ---
Reason For Study: SOB, Pre-chemo lung CA Procedure This was a 2D Doppler, Color Flow transthoracic echocardiogram. Myocardial strain analysis was performed in this exam to aid in the assessment of cardiac function. Exam performed in department. Left Ventricle Normal LV size. Left ventricular systolic function is normal. The estimated ejection fraction is 60 %. Stage 1 diastolic dysfunction. No regional wall motion abnormalities noted. Right Ventricle Normal RV size. Normal systolic function. Atria Normal left atrium. Normal right atrium. Mitral Valve There is moderate to severe mitral annular calcification. Mild (1+) eccentric mitral valve insufficiency. Tricuspid Valve Normal tricuspid valve. Mild (1+) tricuspid valve insufficiency. Pulmonary artery systolic pressure is 32 mmHg. Aortic Valve Trisinus/trileaflet aortic valve. Trivial aortic valve insufficiency. Pulmonic Valve Normal pulmonic valve. Mild (1+) pulmonic valve insufficiency. Great Vessels Normal aortic root. The pulmonary artery is normal size. Normal inferior vena cava. Pericardium/Pleural No pericardial effusion. MMode/2D Measurements & Calculations LVIDd: 4.6 cm IVSd: 0.86 cm LVOT diam: 2.0 cm LVIDs: 3.0 cm LVPWd: 0.94 cm LVOT area: 3.2 cm2 RVDd: 2.2 cm FS: 35.0 % Ao root diam: 3.3 cm LAV(MOD-bp): 43.8 ml LVAd ap4: 19.3 cm2 LAV(MOD-bp) Indexed: 26.0 ml/m2 LVLd ap4: 6.5 cm LAV(MOD-sp2): 46.6 ml EDV(MOD-sp4): 47.9 ml LAV(MOD-sp4): 30.9 ml EDV(sp4-el): 49.0 ml LVAs ap4: 9.7 cm2 LVLs ap4: 5.2 cm ESV(MOD-sp4): 15.6 ml ESV(sp4-el): 15.1 ml EF(MOD-sp4): 67.4 % EF(sp4-el): 69.1 % LVAd ap2: 20.9 cm2 SV(MOD-sp4): 32.3 ml SV(MOD-sp2): 32.7 ml LVLd ap2: 6.6 cm EDV(MOD-sp2): 55.5 ml EDV(sp2-el): 56.3 ml LVAs ap2: 12.2 cm2 LVLs ap2: 5.6 cm ESV(MOD-sp2): 22.8 ml ESV(sp2-el): 22.6 ml EF(MOD-sp2): 59.0 % SV(sp4-el): 33.9 ml LA dimension(2D): 3.5 cm LA A4 area: 12.6 cm2 RA A4 area: 8.7 cm2 Doppler Measurements & Calculations MV E max aung: 76.9 cm/sec Lat Peak E' Aung: 6.6 cm/sec Med Peak E' Aung: 4.8 cm/sec MV A max aung: 110.9 cm/sec E/E' lat: 11.7 E/E' med: 16.1 MV E/A: 0.69 Ao V2 max: 155.5 cm/sec LV V1 max: 111.9 cm/sec SV(LVOT): 73.3 ml Ao max P.7 mmHg LV V1 max P.0 mmHg Ao V2 mean: 107.8 cm/sec LV V1 mean P.8 mmHg Ao mean P.1 mmHg LV V1 mean: 80.3 cm/sec Ao V2 VTI: 30.3 cm LV V1 VTI: 22.6 cm LISA(I,D): 2.4 cm2 LISA(V,D): 2.3 cm2 PA V2 max: 58.1 cm/sec TR max aung: 262.2 cm/sec TR max P.5 mmHg ECHO/ONC Echo Complete Interpretation Summary Normal LV size. Left ventricular systolic function is normal. The estimated ejection fraction is 60 %. Stage 1 diastolic dysfunction. There is moderate to severe mitral annular calcification. Trivial aortic valve insufficiency. The global longitudinal strain is normal. The global longitudinal strain = -19. 2 % (normal). Ordering Physician: Harshil Lopez Referring Physician: Harshil Lopez Performed By: Anna Guerrero RDCS
== END 2021-11-27 23:59 | disposition home or self-care (01) ==
PROVIDERS: PCP Family Medicine; Referring Provider Internal Medicine Medical Oncology; Visit Provider Internal Medicine Medical Oncology
DX: Z01.818 Encounter for other preprocedural examination (principal); C34.90 Malignant neoplasm of unspecified part of unspecified bronchus or lung; R06.02 Shortness of breath
CPT/HCPCS: 93306; 93356

== ENCOUNTER 2021-12-07 12:28 | Outpatient (CLI) | payer MEDICARE, SELFPAY ==
--- NOTE | 2021-12-07 12:29 | MRI_ITS ---
STUDY: MRI BRAIN WITH AND WITHOUT CONTRAST REASON FOR EXAM: Female, 76 years old. no neuro symptoms STAGING LUNG CANCER TECHNIQUE: Standardized multiplanar fat and water weighted pulse sequences were obtained. IV 14ML DOTAREM was administered for the contrast portion of the examination. COMPARISON: CTA of the chest dated October 02, 2021 FINDINGS: There is mild cerebral atrophy with widening of the extra-axial spaces and ventricular dilatation. There are a limited number of small white matter hyperintensities, distributed throughout the deep white matter tracts of the cerebral hemispheres, consistent with mild chronic white matter ischemic changes. There is no evidence for recent intracranial ischemia or other cause of cytotoxic edema on diffusion weighted imaging (DWI). Normal T2* images of the brain without demonstrated susceptibility artifact. There is no demonstrated hemosiderin stain. No focal lesions or edema or abnormal enhancement of the brain parenchyma or meninges or dura is seen on the current study. Normal bilateral basal ganglia. Normal thalami. There is no extra-axial fluid accumulation. Small fatty marrow island in the anterior and left side of the frontal bone noted. Otherwise no focal or suspicious lesions of the skull. Normal flow voids within the major intracranial circulation suggesting patency by spin echo criteria. Normal venous enhancement. There is no enhancing intra-axial or extra-axial abnormality. Normal sella turcica, pituitary gland, infundibular stalk, optic chiasm and hypothalamus. Normal tectal plate and pineal gland. Normal midbrain, idris and medulla. Normal cerebellum. Normal basal cisterns. Normal bilateral temporal bones. Normal bilateral internal auditory canals. No demonstrated orbital abnormality, within the constraints of a routine brain study. Normal visualized paranasal sinuses. Normal calvarium and skull base. Normal visualized soft tissue structures. Normal visualized upper cervical spine. MRI/Brain W/WO Contrast IMPRESSION: 1. Mild chronic ischemic and involutional changes of the brain, as described above. Electronically Signed: Reginald Santos MD at 15:42 EDT Reading Location ID and State: [facility] / [place] , Service support ,
== END 2021-12-07 23:59 | disposition home or self-care (01) ==
LOC: MRI 12:29
PROVIDERS: PCP Family Medicine; Visit Provider Internal Medicine Medical Oncology
DX: C34.90 Malignant neoplasm of unspecified part of unspecified bronchus or lung (principal)
CPT/HCPCS: 70553; A9575

== ENCOUNTER → 2022-03-23 | Outpatient (CLI) | payer MEDICARE, SELFPAY ==
[2022-03-23 08:15] VITALS: PULSE 104; PULSE 105; PULSE 106; PULSE 85; PULSE 88; PULSE 89; PULSE 97; PULSE 98; O2SAT 90; O2SAT 91; O2SAT 92; O2SAT 94; O2SAT 95
--- NOTE | 2022-03-24 10:01 | PCM.PSN.6M ---
PSN 6 Minute Walk Test 6 Minute Walk Test 6 Minute Walk Test: 6 Minute Walk Test PSN:6-Minute Walk Test Start: 03/23/22 08:47 Freq: Status: Active Protocol: RESP.6MINW Document 03/23/22 08:15 EW (Rec: 03/23/22 08:51 EW [id number]) 6 Minute Walk Test Date Performed 03/23/22 Time Performed 08:15 Height 5 ft 1 in Weight: 146 lb Weight in Pounds 146.[address]: Jay Jay Tan Assistive device used: None Pre-test Oxygen Delivery Method Room Air Pulse Ox (%) 95 Pulse Rate (60-100 beats/min) 85 Dyspnea Karen Scale (0-10) 0 Exertion Karen Scale (6-20) 11 1st minute Oxygen Delivery Method Room Air Pulse Ox (%) 91 Pulse Rate (60-100 beats/min) 88 2nd minute Oxygen Delivery Method Room Air Pulse Ox (%) 92 Pulse Rate (60-100 beats/min) 89 3rd minute Oxygen Delivery Method Room Air Pulse Ox (%) 90 Pulse Rate (60-100 beats/min) 98 4th minute Oxygen Delivery Method Room Air Pulse Ox (%) 91 Pulse Rate (60-100 beats/min) 105 H 5th minute Oxygen Delivery Method Room Air Pulse Ox (%) 92 Pulse Rate (60-100 beats/min) 106 H 6th minute Oxygen Delivery Method Room Air Pulse Ox (%) 92 Pulse Rate (60-100 beats/min) 97 Post-test Oxygen Delivery Method Room Air Pulse Ox (%) 94 Pulse Rate (60-100 beats/min) 104 H Dyspnea Karen Scale (0-10) 3 Exertion Karen Scale (6-20) 8 Full Laps Walked 18 Partial Lap, Number of Tiles Walked 20 Total Distance Walked (ft) 1082 Interpretation Interpretation: The patient ambulated 1082 feet over the course of 6 minutes beginning on room air without assistive devices. Pretesting oxygen saturation was noted to be 95% on room air. With ambulation, the joaquin oxygen saturation was 90%. This represents a significant exertional oxygen desaturation. Recommendations Recommendations: There is no indication for the use of supplemental oxygen at this time. However, close interval follow-up is recommended, given the degree of oxygen desaturation noted during this study.
== END | disposition home or self-care (01) ==
LOC: PSN 08:18
PROVIDERS: PCP Family Medicine; Referring Provider Internal Medicine Critical Care Medicine; Visit Provider Internal Medicine Critical Care Medicine
DX: C34.92 Malignant neoplasm of unspecified part of left bronchus or lung (principal)
CPT/HCPCS: 94618

== ENCOUNTER → 2022-04-05 | Outpatient (CLI) | payer MEDICARE, SELFPAY ==
--- NOTE | 2022-04-05 12:49 | CT_ITS ---
STUDY: CT CHEST WITH CONTRAST REASON FOR EXAM: Female, 76 years old. MONITOR LUNG CA. Prior left upper lobe radiation. RADIATION DOSAGE (If Supplied By Facility): CTDIvol = ( 10.26 ) mGy, DLP = ( 368.91 ) mGycm TECHNIQUE: Transaxial imaging was performed following intravenous administration of IV 100mL Isovue-300. Multiplanar coronal and sagittal images were reformatted. Individualized dose optimization techniques were used for this CT. COMPARISON: Comparison is made with prior study dated 11/19/2021. FINDINGS: CHEST Stable small benign-appearing bilateral axillary lymph nodes. The previously seen spiculated nodule in the anterior aspect of the left upper lobe has decreased in size. It presently measures 1.3 cm x 1.1 cm. Stable mild increased markings in the posterior aspect of the right upper lobe abutting the fissure. Linear scarring with volume loss and bronchiectasis in the anterior aspect of the right lower lobe as well as at the posterior aspect of the right lower lobe although there has been improvement. There is no demonstrated pleural abnormality. There are calcifications of the coronary arteries. Normal mediastinum. Normal hilar regions. Normal unenhanced pulmonary arteries. There is atherosclerotic calcification of the aortic arch with tortuosity and elongation of the aortic arch and descending thoracic aorta. There are multi-level degenerative changes of the thoracic spine. Fatty infiltration of the liver. CT/Chest WITH Contrast IMPRESSION: Interval decrease in size of the right upper lobe nodular density. Persistent scarring with bronchiectasis in the right middle lobe although this as improved. Stable scarring at the right lung base. Electronically Signed: Darnell Hernández MD at 14:57 EDT ,
[2022-04-05 13:21] LABS: CREATININE FINGERSTICK < 0.9 mg/dL (0.55-1.02); EGFR FINGERSTICK > 60.0000 mL/min (>60)
== END | disposition home or self-care (01) ==
LOC: CT 12:49
PROVIDERS: PCP Family Medicine; Referring Provider Internal Medicine Medical Oncology; Visit Provider Internal Medicine Medical Oncology
DX: Z01.812 Encounter for preprocedural laboratory examination (principal); C34.90 Malignant neoplasm of unspecified part of unspecified bronchus or lung; C34.12 Malignant neoplasm of upper lobe, left bronchus or lung
CPT/HCPCS: 71260; Q9967

== ENCOUNTER → 2022-04-13 | Outpatient (CLI) | payer MEDICARE, SELFPAY ==
--- NOTE | 2022-04-13 14:32 | PFTCOMP_ITS ---
COMPLETE PULMONARY FUNCTION TEST INTERPRETATION Brief HPI: Patient is a 77-year-old female, currently under the care of myself, who presents to [facility] for complete pulmonary function tests secondary to diagnosis of COPD. Respiratory therapist reports good effort and reproducible results. Interpretation: Forced expiration spirometry shows a moderate large airways obstructive ventilatory defect with an FEV1 of 68% predicted. There is no significant bronchodilator response by strict ATS criteria. Spirograms are of good quality and plateau slowly, indicating slowly emptying areas of the lungs. The respiratory flow volume loop shows decreased expiratory flow rates at all lung volumes consistent with airway obstruction. Lung volumes by body plethysmography show a normal total lung capacity at 4.57 L, 110% predicted. FRC and RV are elevated out of proportion. Lung volume measurements are consistent with hyperinflation and air-trapping. Diffusion capacity by carbon monoxide is decreased at 48% predicted. The airway resistance is slightly elevated. Compared to previous pulmonary function tests from 11/19/2021, there is been a significant improvement in FEV1 and DLCO by 22% and 46% respectively. Impression: Irreversible moderate large airways obstructive ventilatory defect with a disproportionate reduction in diffusing capacity, resulting in air trapping and hyperinflation. There has been some improvement compared to October of this year.
== END | disposition home or self-care (01) ==
LOC: PSN 09:36
PROVIDERS: PCP Family Medicine; Referring Provider Internal Medicine Critical Care Medicine; Visit Provider Internal Medicine Critical Care Medicine
DX: C34.92 Malignant neoplasm of unspecified part of left bronchus or lung (principal)
CPT/HCPCS: 94060; 94726; 94729

== ENCOUNTER → 2022-10-07 | Outpatient (CLI) | payer MEDICARE, SELFPAY ==
--- NOTE | 2022-10-07 17:34 | CT_ITS ---
ACR Level 3 findings have been noted. An addendum which confirms receipt of the report will follow. STUDY: CT CHEST WITH CONTRAST REASON FOR EXAM: Female, 77 years old. Non-small cell lung cancer. Status post radiation treatment. RADIATION DOSAGE (If Supplied By Facility): CTDIvol = ( 9.37 ) mGy, DLP = ( 312.02 ) mGycm TECHNIQUE: Transaxial imaging was performed following intravenous administration of IV 100mL Isovue-370. Individualized dose optimization techniques were used for this CT. COMPARISON: 04/05/2022 CT chest. FINDINGS: Heart and great vessels: Heart size normal. No dissection or aneurysm of the thoracic aorta. Calcific atherosclerosis of the coronary arteries, not well evaluated because of cardiac motion. Mixed plaque causes moderate narrowing of the proximal left subclavian artery, similar to prior. Lipomatous hypertrophy of the interatrial septum again demonstrated. Lungs, pleura, airways: A new highly suspicious nodule in the superior segment of the lower lobe of the left lung, abutting the fissure, measures 1.8 x 0.7 x 1.1 cm TRV X AP X CC, with irregular spiculated margin. The spiculated nodule in the anterior aspect of the left upper lobe measures 1.1 cm diameter, decreased from 1.4 cm on the previous study. Underlying moderate emphysema, elevation of the right hemidiaphragm with overlying right basilar atelectasis, are similar to prior. Small amount of secretions in the distal trachea and right main bronchus. No evidence of pneumonia, edema, pneumothorax, or pleural effusion. Mediastinum: No adenopathy or mass or hematoma. Osseous:No acute osseous abnormality. Chest wall: No concerning findings. Upper abdomen: No acute findings. Small gallstone in the gallbladder. CT/Chest WITH Contrast IMPRESSION: Interval development of a 1.8 cm in greatest dimension nodule abutting the fissure in the superior segment of the left lower lobe with features highly suspicious for a new lung cancer. The spiculated nodule in the more cephalad left upper lobe has decreased in size. Other chronic findings similar to prior. Electronically Signed: Magdiel Mata MD at 5:57 EST Reading Location ID and State: 1951 [place] Tel , Service support ,
[2022-10-07 18:00] LABS: CREATININE FINGERSTICK < 0.9 mg/dL (0.55-1.02); EGFR FINGERSTICK > 60.0000 mL/min (>60)
== END | disposition home or self-care (01) ==
PROVIDERS: PCP Family Medicine; Referring Provider Internal Medicine Medical Oncology; Visit Provider Internal Medicine Medical Oncology
DX: C34.90 Malignant neoplasm of unspecified part of unspecified bronchus or lung (principal); Z92.3 Personal history of irradiation
CPT/HCPCS: 71260; Q9967

== ENCOUNTER → 2023-06-27 | Outpatient (CLI) | payer MEDICARE, SELFPAY | END | disposition home or self-care (01) | PROVIDERS: PCP Family Medicine; Visit Provider Family Medicine | DX: R10.9 Unspecified abdominal pain (principal) | CPT/HCPCS: 87077; 87086; 87088; 87186 ==

== ENCOUNTER → 2023-10-27 | Outpatient (CLI) | payer MEDICARE, SELFPAY ==
--- NOTE | 2023-10-27 13:41 | CT_ITS ---
STUDY: CT CHEST WITH CONTRAST REASON FOR EXAM: Female, 78 years old. MONITOR LUNG CA. Status post radiation treatment. RADIATION DOSAGE (If Supplied By Facility): CTDIvol = ( 11.94 ) mGy, DLP = ( 363.61 ) mGycm TECHNIQUE: Transaxial imaging was performed following intravenous administration of IV 100mL Isovue-370. Multiplanar coronal and sagittal images were reformatted. Individualized dose optimization techniques were used for this CT. COMPARISON: Comparison is made with prior study dated October 07, 2022. FINDINGS: CHEST Irregular area of increased markings are seen in the anterior aspect of the left upper lobe. 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 The previously seen spiculated nodule has decreased in size. There is evidence of increased markings in the left lower lobe suggestive of either atelectasis and/or scarring as well as in the right middle lobe. The previously seen spiculated nodule in the anterior aspect of the left lower lobe abutting the left major fissure has decreased in size. A tiny residual linear density is seen at that site. There is no demonstrated pleural abnormality. There are calcifications of the coronary arteries. Normal mediastinum. Normal hilar regions. Normal unenhanced pulmonary arteries. There is atherosclerotic calcification of the aortic arch with tortuosity and elongation of the aortic arch and descending thoracic aorta. There is demineralization of the thoracic spine. Fatty infiltration of the liver. CT/Chest WITH Contrast IMPRESSION: Status post radiation of the previously seen nodule in the left upper lobe with the findings suggestive of post radiation fibrosis. Interval decrease in size of the previously seen nodular density in the anterior aspect of the left lower lobe abutting the left major fissure. Electronically Signed: Darnell Hernández MD at 15:04 EST ,
[2023-10-27 14:16] LABS: CREATININE FINGERSTICK < 1.0 mg/dL (0.55-1.02)
--- OUTSIDE RECORDS SUMMARY | 2023-10-27 17:33 | XMS RPT_ITS | CCD ---
Author Name Unknown Address [address] [place] [address] Organization [facility] Care Team Providers Care Head [employer] Tenn[employer] Name Role Phone Luís Jasso MD Primary Care Provider Ryley SÁNCHEZ MD, Cheloung Unavailable [phone] Medications Current Medications Medication Drug Class(es) Dates Sig (Normalized) Sig (Original) [id number] 200 actuat albuterol 0.09 mg/actuat metered dose inhaler (9 sources) beta2-Adrenergic Agonist Start: 12-29-2021 End: 03-29-2022 take 2 puff(s) by inhalation every six hours as needed for wheezing albuterol HFA (PROVENTIL HFA, VENTOLIN HFA) 90 mcg/actuation inhaler Indications: Chronic obstructive pulmonary disease, unspecified COPD type (HCC) Inhale 2 Puffs as instructed every 6 hours as needed for wheezing/shortness of breath. 1 Inhaler 2 12/29/2021 03/29/2022 Active Completed/Discontinued Medications Medication Drug Class(es) Dates Sig (Normalized) Sig (Original) aspirin 81 mg delayed release oral tablet (4 sources) Platelet Aggregation Inhibitor, Nonsteroidal Anti-inflammatory Drug Start: 11-24-2009 End: 12-29-2021 aspirin(ADULT LOW DOSE ASPIRIN 81 MG TAB, DELAYED RELEASE) Take one(1) tablet daily. 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] Onset: 12-29-2021 Chronic Chronic obstructive pulmonary disease and bronchiectasis (10 sources) Chronic obstructive lung disease; Translations: [Chronic obstructive pulmonary disease, unspecified] Chronic Disorders of lipid metabolism (12 sources) Dyslipidemia; Translations: [Hyperlipidemia, unspecified] Onset: 08-03-2016 08-03-2016 Chronic Diverticulosis and diverticulitis (12 sources) Diverticulitis of sigmoid colon; Translations: [Diverticulitis of large intestine without perforation or abscess without bleeding] Onset: 11-28-2009 10-19-2016 Chronic Mood disorders (12 sources) Mood disorder; Translations: [Unspecified mood [affective] disorder] Onset: 08-03-2016 08-03-2016 Chronic Other gastrointestinal disorders (12 sources) Ileostomy present; Translations: [Ileostomy status] Onset: 08-11-2016 08-11-2016 Chronic Other nutritional; endocrine; and metabolic disorders (9 sources) Unintentional weight loss; Translations: [Abnormal weight loss] 12-29-2021 Episodic Substance-related disorders (10 sources) Smoker; Translations: [Nicotine dependence, unspecified, uncomplicated] Chronic Past or Other Problems Problem Classification Problem Date Documented Da te Episodic/Chronic Other gastrointestinal disorders (12 sources) Disorder of abdomen; Translations: [Peritoneal adhesions (postprocedural) (postinfection)] Onset: 04-11-2010 04-11-2010 Episodic Other lower respiratory disease (12 sources) Cough; Translations: [Cough] Onset: 03-24-2010 03-24-2010 Episodic Other nervous system disorders (12 sources) Postoperative pain ; Translations: [Other acute postprocedural pain] Onset: 10-21-2016 10-21-2016 Episodic Results Test Name Value Interpretation Reference Range Facil ity Vital Signs Date Time Vital Sign Value Performing Clinician Faci lity 01-27-2022 14:45-0400 Body temperature 97.5 [degF] Shama Vasquez MD, MD Work Phone: [facility] 01-27-2022 14:45-0400 Body weight 66.68 kg Shama Vasquez MD, MD Work Phone: [facility] 01-27-2022 14:45-0400 Diastolic blood pressure 58 mm[Hg] Shama Vasquez MD, MD Work Phone: [facility] 01-27-2022 14:45-0400 Heart rate 83 /min Shama Vasquez MD, MD Work Phone: [facility] 01-27-2022 14:45-0400 Respiratory rate 16 /min Shama Vasquez MD, MD Work Phone: [facility] 01-27-2022 14:45-0400 SaO2% (BldA) [Mass fraction] 94 % Shama Vasquez MD, MD Work Phone: [facility] 01-27-2022 14:45-0400 Systolic blood pressure 113 mm[Hg] Shama Vasquez MD, MD Work Phone: [facility] 12-29-2021 09:36-0400 Body height 154.9 cm Eric Martínez MD Work Phone: [facility] 12-29-2021 09:36-0400 Body temperature 97.39 [degF] Eric Martínez MD Work Phone: [facility] 12-29-2021 09:36-0400 Body weight 67.13 kg Eric Martínez MD Work Phone: [facility] 12-29-2021 09:36-0400 Diastolic blood pressure 73 mm[Hg] Eric Martínez MD Work Phone: [facility] 12-29-2021 09:36-0400 Heart rate 88 /min Eric Martínez MD Work Phone: [facility] 12-29-2021 09:36-0400 Respiratory rate 18 /min Eric Martínez MD Work Phone: [facility] 12-29-2021 09:36-0400 SaO2% (BldA) [Mass fraction] 95 % Eric Martínez MD Work Phone: [facility] 12-29-2021 09:36-0400 Systolic blood pressure 140 mm[Hg] Eric Martínez MD Work Phone: [facility] 12-18-2021 13:28-0400 Body temperature 98.1 [degF] Shama Vasquez MD, MD Work Phone: [facility] 12-18-2021 13:28-040 Body weight 69.85 kg Shama Vasquez MD, MD Work Phone: [facility] 12-18-2021 13:28-040 Diastolic blood pressure 54 mm[Hg] Shama Vasquez MD, MD Work Phone: [facility] 12-18-2021 13:28-040 Heart rate 53 /min Shama Vasquez MD, MD Work Phone: [facility] 12-18-2021 13:28040 SaO2% (BldA) [Mass fraction] 93 % Shama Vasquez MD, MD Work Phone: [facility] 12-18-2021 13:28-040 Systolic blood pressure 95 mm[Hg] Shama Vasquez MD, MD Work Phone: [facility] Encounters Encounter Date Encounter Type Care Provider Facility Start: 01-29-2022 ambulatory Shama Vasquez MD Work Phone: Radiation Oncology Procedures Date Procedure Procedure Detail Performing Clinician Start: 05-07-2003 Colonoscopy Georgi reid MD Work Phone: Plan of Treatment Date Care Activity Detail Author Start: 12-29-2024 DIABETES SCREEN DIABETES SCREEN [facility] Start: 05-27-2022 Influenza vaccination INFLUENZ A (Season Ended) [facility] Start: 12-27-2021 COVID-19 VACCINE (4 - Booster for Pfizer series) COVID-19 VACCINE (4 - Booster for Pfizer series) [facility] Start: 12-21-2021 End: 12-21-2022 Basic metabolic 2000 panel - Serum or Plasma BASIC METABOLIC PNL Lab STAT Pre-op testing Expected: 12/21/2021, Expires: 12/21/2022 [facility] Work Phone: Immunizations Immunization Date Immunization Notes Care Provider [facility] 07-09-2016 influenza, high dose seasonal, preservative-free Georgi Diaz MD Work Phone: [facility] Payers Date Payer Category Payer Unknown [employer] S [employer] BLUE [employer]IELD ANTHMAIRA HERNANDEZ O [id number] 2021-Present [phone] [address] [place] [address] O [id number] Social History Date Type Detail Facility [facility] Work Phone: History of tobacco use Cigarette Smoker [facility] Work Phone: Start: 12-18-2021 End: 01-27-2022 Alcohol intake Current non-drinker of alcohol (finding) [facility] Start: 12-18-2021 Tobacco Comment has been cutting felipa n [facility] Start: 1945 Sex Assigned At Not on file [facility] Start: 12-08-2021 End: 01-27-2022 Exposure to SARS-CoV-2 (event) Not sure [facility] Clinical Notes 10-21-2016 to 02-26-2022 Angelic Hall RN - 01/29/2022 2:47 PM Kyle Vasquez MD, MD - 01/29/2022 12:00 AM Kyle Vasquez MD, MD - 01/27/2022 2:52 PM EDTShawnee Polo RN - 01/27/2022 2:46 PM EDT Note Date & Type Note Facility 02-26-2022 Note HNO ID: [id number] Author: Shama Vasquez MD, MD Service: ? Author Type: Physician Type: Progress Notes Filed: 02/26/2022 1:19 PM Note Text: AMBULATORY TELEPHONE VISIT Erica Townsend has consented to this telephone encounter. Persons Present: patient Chief Complaint/Reason: Four week follow-up after radiation treatment. 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 She is doing well without any specific new complaints. She denies any chest pain, shortness of breath or cough. Data Reviewed: None. Assessment: She didn't have any significant acute treatment complications. Plan: She is scheduled to have CT chest ordered by Dr. Lopez and plans to see him for a follow-up. She plans to have regularly follow-ups with Dr. Lopez. I will see her as needed. Total Time Spent: 5 minutes Shama Vasquez MD cc: Dr. Harshil Lopez [facility] 01-29-2022 Nurse Note Written discharge instructions given and reviewed with patient. Patient verbalizes understanding. Encouraged to call with any questions or concerns. Instruction for 4 week phone call follow up appointment given per Dr. Vasquez. documented in this encounter [facility] 01-29-2022 Note Education (NIYA) ERICA TOWNSEND ([id number]) 1945 F Date Time Provider Department 01/29/22 SHAMA VASQUEZ MD Reason for Visit: Patient Education [91] Visit Notes: >> Angelic Hall RN TueJanuary 29, 2022 2:47 PM Status: Signed Written discharge instructions given and reviewed with patient. Patient verbalizes understanding. Encouraged to call with any questions or concerns. Instruction for 4 week phone call follow up appointment given per Dr. Vasquez. During your visit today, we recorded the following information about you: Allergies As of Date: 01/29/2022 (No Known Allergies) Date Reviewed: 01/27/2022 Reviewed by: Shawnee Polo RN - Fully Assessed Prescriptions as of 01/29/2022 - tiotropium (SPIRIVA WITH HANDIHALER) 18 mcg inhalation capsule Inhale 1 capsule as instructed once daily. Use with HandiHaler. - albuterol HFA (PROVENTIL HFA, VENTOLIN HFA) 90 mcg/actuation inhaler Inhale 2 Puffs as instructed every 6 hours as needed for wheezing/shortness of breath. - pramipexole (MIRAPEX) 0.25 mg tablet Take 1 tablet by mouth twice daily. - FLUoxetine (PROZAC) 20 mg capsule Take 2 capsules by mouth once daily. - famotidine (PEPCID) 40 mg tablet Take 40 mg by mouth once daily. - calcium carbonate/vitamin d3(CALCARB 600 WITH VITAMIN D 600 MG (1,500)-200 UNIT TAB) daily - atorvastatin calcium(LIPITOR 20 MG TAB) Take one(1) tablet daily. Encounter Status:Closed by ANGELIC HALL on 01/29/22 [facility] 01-29-2022 Note HNO ID: [id number] Author: Shama Vasquez MD, MD Service: Radiation Oncology Author Type: Physician Type: Progress Notes Filed: 02/02/2022 12:33 AM Note Text: ERICA TOWNSEND [id number] : 1945 01/29/2022 [facility] Department of Radiation Oncology RADIATION ONCOLOGY - COMPLETION NOTE DATE OF SIMULATION: 01/11/22 DATES OF TREATMENT: 01/20/22 - 01/29/22 [facility]: Left upper lung DISEASE: Clinical stage IA2, T1bN0, non-small cell lung cancer (squamous cell carcinoma) of the left upper lobe. DELIVERED DOSE: SBRT. 5000 cGy in 5 fractions every other day treating to the 69.7% isodose line with 6 MV FFF and 2 park. ELAPSED TIME: 9 days. TOLERANCE/ RESPONSE: She didn't have any significant acute treatment complications. REMARKS: She tolerated radiation treatment well. Four week follow-up with me. Staff Physician SHAMA VASQUEZ M.D. / :41 PM Electronically Signed cc: Luís Jasso ([place]) [address] [place] [address] Harshil Lopez MD [address] [facility] [address] Georgi Diaz [facility] 01-29-2022 History of Presen t illness Narrative ERICA TOWNSEND [id number] : 1945 01/29/2022 [facility] Department of Radiation Oncology RADIATION ONCOLOGY - COMPLETION NOTE DATE OF SIMULATION: 01/11/22 DATES OF TREATMENT: 01/20/22 - 01/29/22 UNIT: [facility] AREA TREATED: Left upper lung DISEASE: Clinical stage IA2, T1bN0, non-small cell lung cancer (squamous cell carcinoma) of the left upper lobe. DELIVERED DOSE: SBRT. 5000 cGy in 5 fractions every other day treating to the 69.7% isodose line with 6 MV FFF and 2 park. ELAPSED TIME: 9 days. TOLERANCE/ RESPONSE: She didn't have any significant acute treatment complications. REMARKS: She tolerated radiation treatment well. Four week follow-up with me. Staff Physician SHAMA VASQUEZ M.D. / 23:41 PM Electronically Signed cc: Luís Jasso ([facility]) [address] [place] [id number] Harshil Lopez MD [address] [facility] [address] Georgi Sosaslade documented in this encounter [facility] 01-27-2022 Note HNO ID: [id number] Author: Shama Vasquez MD, MD Service: ? Author Type: Physician Type: Progress Notes Filed: 01/27/2022 2:56 PM Note Text: Radiation Oncology - On Treatment Review (OTR) Note PATIENT NAME: Erica Townsend PATIENT DIAGNOSIS: Clinical stage IA2, T1bN0, non-small cell lung cancer (squamous cell carcinoma) of the left upper lobe. COURSE: SBRT (stereotactic body radiotherapy) AREA TREATED: Left upper lung CURRENT DOSE: 4000 cGy in 4 fx PLANNED DOSE: 5000 cGy in 5 fx SUBJECTIVE: She is doing well without any specific new complaints. EXAM: KPS: 90 General Appearance: Alert and oriented. No acute distress. IMAGING/LAB RESULTS: None Treatment chart checked: Yes Patient treatment site reviewed and verified:Yes CBCTs reviewed and current:Yes Medications started: None ASSESSMENT/PLAN: Clinically stable. No signs of toxicity. Continue radiation treatment as planned. Shama Vasquez MD [facility] 01-27-2022 History of Presen t illness Narrative Radiation Oncology - On Treatment Review (OTR) Note PATIENT NAME: Erica Townsend PATIENT DIAGNOSIS: Clinical stage IA2, T1bN0, non-small cell lung cancer (squamous cell carcinoma) of the left upper lobe. COURSE: SBRT (stereotactic body radiotherapy) AREA TREATED: Left upper lung CURRENT DOSE: 4000 cGy in 4 fx PLANNED DOSE: 5000 cGy in 5 fx SUBJECTIVE: She is doing well without any specific new complaints. EXAM: KPS: 90 General Appearance: Alert and oriented. No acute distress. IMAGING/LAB RESULTS: None Treatment chart checked: Yes Patient treatment site reviewed and verified:Yes CBCTs reviewed and current:Yes Medications started: None ASSESSMENT/PLAN: Clinically stable. No signs of toxicity. Continue radiation treatment as planned. Shama Vasquez MD documented in this encounter [facility] 01-27-2022 Nurse Note Radiation Therapy - Nursing Note (OTV) PATIENT NAME: Erica Townsend PATIENT January 27, 2022 [facility] FACILITY/LOCATION: [place] NURSING NOTE TYPE: CHEST Subjective Data No c/o Additional Data Do you want to see a Wet Suit Gluer? No Status: Post-menopausal. Stress Scale: On a scale of 0 to 10, what number best describes how much distress you have experienced in the past week?(0 being no distress and 10 being extreme distress) 2 Social work notified: no Nursing Assessment Fatigue: increased fatigue over baseline but not altering normal activities Appetite: fair Nutritional Intake: Regular oral intake. Weight Gain/Loss: No Ambulatory weight history: Last 6 Encounter Wt Readings: Date: Wt: 01/27/2022 66.7 kg (147 lb) 12/29/2021 67.1 kg (148 lb) 12/18/2021 69.9 kg (154 lb) 06/08/2021 73.5 kg (162 lb) 11/25/2016 61.9 kg (136 lb 6.4 oz) 10/14/2016 62.1 kg (136 lb 12.8 oz) Nausea:None Vomiting: None Bowel Function: normal bowel movements Erythema/Hyperpigmentation:mild Desquamation:none Rash:none Skin Care: Aquaphor Skin Sensation: Within Normal Limits Focused Assessment CHEST: Dysphagia: No. Pain with swallowing: No. Shortness of breath: No. Cough: Mild. SIGNED by: Shawnee Polo RN documented in this encounter [facility] 01-20-2022 Note Education (RADBrandiWS) TOWNSENDERICA GIL ([id number]) 1945 F Date Time Provider Department 01/20/22 SHAMA VASQUEZ MDTWS Reason for Visit: Patient Education [91] Visit Notes: >> Angelic Hall RN TueJan 20, 2022 11:18 AM Status: Signed Radiation Therapy - Patient Education Note PATIENT NAME: Erica Townsend PATIENT January 20, 2022 [facility] FACILITY/LOCATION: [place] READINESS TO LEARN Cognitive Ability: Alert and oriented Motivation to learn: Eager Family Support: High - Very involved in pt care Instruction provide to: Patient and Family member Patient learns best by: Individual Instruction Written Instruction - Hand-outs Verbal Instruction Factors effecting learning: None Physical limitations effecting learning: None LEARNING RESPONSE Diagnosis: Pt simulated today for radiation therapy to left lung. Education Topic/Teaching Points: Radiation therapy, Side effects and OTV: Method of instruction: Teach Back skin care Patient /Family response: Patient and family verbalized understanding of radiation treatments, side effects, OTV, and transportation. Follow-up plan: Complete - No need for follow-up Reinforce - Repeat previous content Contact information given. Supplemental material: Informational handouts on Esophagitis/Mucositis, Fatigue, Nausea and vomiting and Skin changes. Referral (recommendation): None, Pt denied need for social work, van service, and psychological operations. Signed by: Angelic Hall RN During your visit today, we recorded the following information about you: Allergies As of Date: 01/20/2022 (No Known Allergies) Date Reviewed: 12/31/2021 Reviewed by: Sissy Olson RN - Fully Assessed Prescriptions as of 01/20/2022 - tiotropium (SPIRIVA WITH HANDIHALER) 18 mcg inhalation capsule Inhale 1 capsule as instructed once daily. Use with HandiHaler. - albuterol HFA (PROVENTIL HFA, VENTOLIN HFA) 90 mcg/actuation inhaler Inhale 2 Puffs as instructed every 6 hours as needed for wheezing/shortness of breath. - pramipexole (MIRAPEX) 0.25 mg tablet Take 1 tablet by mouth twice daily. - FLUoxetine (PROZAC) 20 mg capsule Take 2 capsules by mouth once daily. - famotidine (PEPCID) 40 mg tablet Take 40 mg by mouth once daily. - calcium carbonate/vitamin d3(CALCARB 600 WITH VITAMIN D 600 MG (1,500)-200 UNIT TAB) daily - atorvastatin calcium(LIPITOR 20 MG TAB) Take one(1) tablet daily. Encounter Status:Closed by ANGELIC HALL on 01/20/22 [facility] 01-11-2022 Note HNO ID: [id number] Author: Shama Vasquez MD, MD Service: Radiation Oncology Author Type: Physician Type: Progress Notes Filed: 01/29/2022 12:34 AM Note Text: ERICA TOWNSEND [id number] 01/11/2022 [facility] Department of Radiation Oncology [facility] RADIATION ONCOLOGY SIMULATION NOTE DATE OF SIMULATION: 01/11/2022 MACHINE: Siemens Definition CT Simulator Diagnosis: Clinical stage IA2, T1bN0, non-small cell lung cancer (squamous cell carcinoma) of the left upper lobe. AREA:Left Lung PATIENT POSITION: Supine. CONTRAST: None PROTOCOL: None BLOCKING: Custom blocking to be determined at treatment planning. FIXATION DEVICE: In order to achieve accurate and reproducible treatments, the patient is to be immobilized with AIO orfit system, compression belt, and vacbag. PROCEDURE: A time-out was conducted and recorded by the therapist. Patient was simulated on the CT scanner for external beam radiation therapy. Treatment site was marked by the simulation therapist. ASSESSMENT/PLAN: Patient tolerated simulation procedure well. Treatments will be initiated after treatment planning. The patient is scheduled for a verification simulation on the treatment machine to ensure proper set-up and field arrangement is correct prior to the first treatment of primary and boost park if applicable. Electronically Signed Shama Vasquez M.D./ap :01 PM [facility] 01-11-2022 Note HNO ID: [id number] Author: Shmaa Vasquez MD, Service: Radiation Oncology Author Type: Physician Type: Progress Notes Filed: 01/20/2022 12:36 AM Note Text: ERICA TOWNSEND [id number] 01/11/2022 [facility] Department of Radiation Oncology Treatment Planning Note For reasons stated in the consult note, Erica Townsend is a candidate for radiation therapy. Based on review and interpretation of the relevant diagnostic studies together with the exam findings, Erica Townsend was simulated on 01/11/2022 at which time the target volume and/or requisite park were delineated, as indicated in the simulation note, to be treated according to the prescription. An ITV was created from all the phases of respiratory motion captured by the 4DCT image sets. Motion management allowed for design of patient specific planning target volume and reduced the radiation exposure to normal tissues. The treatment target and organs at risk were contoured on the simulation scan Using the fused PET. Special consideration to these and other structures was given in light of the potential for increased toxicities of stereotactic body radiation therapy (SBRT). Pulmonary function testing was reviewed. After reviewing multiple treatment plans with dosimetry, the best plan was approved to deliver the prescribed course of radiation to the target area using inverse planning to allow for the best isodose distribution, treating to the 69.7% isodose line with 6MV FFF and 2 park. Custom MLC and asym jaws for IMRT were the treatment devices used to shape/modify the beams. Limiting dose to normal tissue was confirmed upon review of the calculated dose volume histogram. IMRT planning was used because it best met the dose/volume constraints for the organs at risk for this patient, better than what could be achieved using conventional or 3D planning. The specific dose requirements for the PTV, organs at risk and dose-volume histograms are contained in this treatment plan and/or elsewhere in the medical record. A completed summary of this plan dated 01/19/2022 incorporated herein by reference includes dose, beam arrangements, energy, blocking, isodose distribution, and/or ports and DVH. Electronically Signed Shama Vasquez M.D. 1:11 AM [facility] 01-11-2022 Note HNO ID: [id number] Author: Shama Vasquez MD, MD Service: Radiation Oncology Author Type: Physician Type: Progress Notes Filed: 01/15/2022 12:34 AM Note Text: JONATHAN ERICA L [id number] 01/11/2022 [facility] Department of Radiation Oncology [facility] RADIATION ONCOLOGY SIMULATION NOTE DATE OF SIMULATION: 01/11/2022 MACHINE: Siemens Definition CT Simulator Diagnosis: Clinical stage IA2, T1bN0, non-small cell lung cancer (squamous cell carcinoma) of the left upper lobe. AREA:Left Lung PATIENT POSITION: Supine. CONTRAST: None PROTOCOL: None BLOCKING: Custom blocking to be determined at treatment planning. FIXATION DEVICE: In order to achieve accurate and reproducible treatments, the patient is to be immobilized with AIO orfit system and compression belt PROCEDURE: A time-out was conducted and recorded by the therapist. Patient was simulated on the CT scanner for external beam radiation therapy. Treatment site was marked by the simulation therapist. ASSESSMENT/PLAN: Patient tolerated simulation procedure well. Treatments will be initiated after treatment planning. The patient is scheduled for a verification simulation on the treatment machine to ensure proper set-up and field arrangement is correct prior to the first treatment of primary and boost park if applicable. Electronically Signed Shama Vasquez M.D./ap 23:06 PM [facility] 01-11-[address] Vasquez notified. Pt coming today for Sim. Notified pt that Dr Vasquez is out of office until Tuesday and we will get back with her then. She states understanding. Pt would like to know results of Bronchoscopy on 12/31/21. documented in this encounter [facility] 01-11-2022 History of Presen t illness Narrative TOWNSENDERICA GIL David [id number] 01/11/2022 [facility] Department of Radiation Oncology [facility] RADIATION ONCOLOGY SIMULATION NOTE DATE OF SIMULATION: 01/11/2022 MACHINE: Siemens Definition CT Simulator Diagnosis: Clinical stage IA2, T1bN0, non-small cell lung cancer (squamous cell carcinoma) of the left upper lobe. AREA:Left Lung PATIENT POSITION: Supine. CONTRAST: None PROTOCOL: None BLOCKING: Custom blocking to be determined at treatment planning. FIXATION DEVICE: In order to achieve accurate and reproducible treatments, the patient is to be immobilized with AIO orfit system and compression belt PROCEDURE: A time-out was conducted and recorded by the therapist. Patient was simulated on the CT scanner for external beam radiation therapy. Treatment site was marked by the simulation therapist. ASSESSMENT/PLAN: Patient tolerated simulation procedure well. Treatments will be initiated after treatment planning. The patient is scheduled for a verification simulation on the treatment machine to ensure proper set-up and field arrangement is correct prior to the first treatment of primary and boost park if applicable. Electronically Signed Shama Vasquez M.D./chaya 23:06 PM documented in this encounter [facility] 01-11-2022 History of Presen t illness Narrative ERICA TOWNSEND [id number] 01/11/2022 [facility] Department of Radiation Oncology Treatment Planning Note For reasons stated in the consult note, Erica Townsend is a candidate for radiation therapy. Based on review and interpretation of the relevant diagnostic studies together with the exam findings, Erica Townsend was simulated on 01/11/2022 at which time the target volume and/or requisite park were delineated, as indicated in the simulation note, to be treated according to the prescription. An ITV was created from all the phases of respiratory motion captured by the 4DCT image sets. Motion management allowed for design of patient specific planning target volume and reduced the radiation exposure to normal tissues. The treatment target and organs at risk were contoured on the simulation scan Using the fused PET. Special consideration to these and other structures was given in light of the potential for increased toxicities of stereotactic body radiation therapy (SBRT). Pulmonary function testing was reviewed. After reviewing multiple treatment plans with dosimetry, the best plan was approved to deliver the prescribed course of radiation to the target area using inverse planning to allow for the best isodose distribution, treating to the 69.7% isodose line with 6MV FFF and 2 park. Custom MLC and asym jaws for IMRT were the treatment devices used to shape/modify the beams. Limiting dose to normal tissue was confirmed upon review of the calculated dose volume histogram. IMRT planning was used because it best met the dose/volume constraints for the organs at risk for this patient, better than what could be achieved using conventional or 3D planning. The specific dose requirements for the PTV, organs at risk and dose-volume histograms are contained in this treatment plan and/or elsewhere in the medical record. A completed summary of this plan dated 01/19/2022 incorporated herein by reference includes dose, beam arrangements, energy, blocking, isodose distribution, and/or ports and DVH. Electronically Signed Shama Vasquez M.D. 1:11 AM documented in this encounter [facility] 01-11-2022 History of Presen t illness Narrative ERICA TOWNSEND [id number] 01/11/2022 [facility] Department of Radiation Oncology [facility] RADIATION ONCOLOGY SIMULATION NOTE DATE OF SIMULATION: 01/11/2022 MACHINE: Siemens Definition CT Simulator Diagnosis: Clinical stage IA2, T1bN0, non-small cell lung cancer (squamous cell carcinoma) of the left upper lobe. AREA:Left Lung PATIENT POSITION: Supine. CONTRAST: None PROTOCOL: None BLOCKING: Custom blocking to be determined at treatment planning. FIXATION DEVICE: In order to achieve accurate and reproducible treatments, the patient is to be immobilized with AIO orfit system, compression belt, and vacbag. PROCEDURE: A time-out was conducted and recorded by the therapist. Patient was simulated on the CT scanner for external beam radiation therapy. Treatment site was marked by the simulation therapist. ASSESSMENT/PLAN: Patient tolerated simulation procedure well. Treatments will be initiated after treatment planning. The patient is scheduled for a verification simulation on the treatment machine to ensure proper set-up and field arrangement is correct prior to the first treatment of primary and boost park if applicable. Electronically Signed Shama Vasquez M.D./chaya 2:01 PM documented in this encounter [facility] 12-31-2021 Note HNO ID: [id number] Author: Shanna Livingston APRN.LOAN EXAMINER Service: ? 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 Size 4 Seal Adequate: yes Airway trauma: atraumatic. Airway not difficult SIGNATURE: Shanna Livingston APRN.LOAN EXAMINER PATIENT NAME: Erica Townsend DATE: December 31, 2021 TIME: 1:56 PM CSN: [id number] [facility] 12-29-2021 Note HNO ID: [id number] Author: Eric Martínez MD Service: ? Author Type: Physician Type: Progress Notes Filed: 12/29/2021 3:04 PM Note Text: INTERVENTIONAL PULMONARY CONSULTATION Consultation requested by Dr. Shama Vasquez for an opinion regarding lung cancer. 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 She is anxious about her new diagnosis of lung cancer and possible involvement of lymph nodes, status pending. She had a screening CT chest scan on 08/26/21 which showed a left upper lung nodule. PET scan (09/15/21) demonstrated a hypermetabolic solitary nodule in the SHAWNEE. CTA on 10/02/21 showed a SHAWNEE nodule and RLL infiltrates. She underwent a CT guided biopsy of the SHAWNEE on 10/23/21, complicated by a pneumothorax. She was diagnosed with clinical stage IA2 T1bN0 non-small cell lung cancer (squamous) and was recommended by Rad/Onc for SBRT due to her poor lung function. Brain MRI (12/07/21) without evidence of metastasis. She states she had a bleeding ulcer in September 2021 and was urgently admitted to local hospital for surgical repair. She inadvertently aspirated blood and subsequently developed pneumonia. She was discharged from the hospital with supplemental oxygen RTC, however, she recently stopped wearing it during the day as she felt she did not need it anymore. She has a home pulse oxygen monitor and checks her levels after activities, ie cooking dinner, and it runs between 90 - 92 %. Her makes her wear it at hs. She does not check pulse ox with activities, such as stair climbing. She denies SOB or PICHARDO. She is not using an inhaler. She denies chest pain, palpitations, edema. She endorses a dry cough. She is able to complete all ADL. She states despite her appetite being normal, she has lost 17 lbs since August 2021. She is a current smoker for over 50 years, at least a pack a day, now down to 7 -8 cigarettes per day. She is trying to quit; she has made attempts in the past, citing use of nicotine patch, gum and lozenges. She used the patch alone and was not able to tolerate the gum, citing dental issues. No known history of COVID infection, fully vaccinated. PAST MEDICAL HISTORY Diagnosis Date - Depression - Diverticulitis - High cholesterol - Smoker PAST SURGICAL HISTORY Procedure Laterality Date - corpal tunnel left [facility] - LAPAROSCOPY ENTEROLYSIS SEPARATE PROCEDURE 04/10/10 Extensive adhesions - LAPS COLECTOMY PRTL W/COLOPXTSTMY LW ANAST 04/10/10 - PAST SURGICAL HISTORY OF 10/19/2016 Closure of modified loop ileostomy. - PICC LINE INSERT/CONSULT 07/31/2016 - tendonitis right [facility] - TOTAL ABDOMINAL HYSTERECT W/WO RMVL TUBE OVARY late Social History Tobacco Use - Smoking status: Current Every Day Smoker Packs/day: 0.25 Years: 50.00 Pack years: 12.50 Types: Cigarettes - Smokeless tobacco: Never Used - Tobacco comment: has been cutting down Substance Use Topics - Alcohol use: No - Drug use: No FAMILY HISTORY Problem Relation Age of Onset - Cancer Mother - Colon Cancer Mother - Diabetes Mother - other (heart disease [Other]) Father - other (tuberculosis [Other]) Mother Allergies: ALLERGIES No Known Allergies Current Medications: tiotropium (SPIRIVA WITH HANDIHALER) 18 mcg inhalation capsule Inhale 1 capsule as instructed once daily. Use with HandiHaler. albuterol HFA (PROVENTIL HFA, VENTOLIN HFA) 90 mcg/actuation inhaler Inhale 2 Puffs as instructed every 6 hours as needed for wheezing/shortness of breath. famotidine (PEPCID) 40 mg tablet Take 40 mg by mouth once daily. pramipexole (MIRAPEX) 0.25 mg tablet Take 1 tablet by mouth once daily. NAPROXEN SODIUM (ALEVE ORAL) Take by mouth as needed. CRANBERRY FRUIT EXTRACT (CRANBERRY EXTRACT ORAL) Take by mouth. calcium carbonate/vitamin d3(CALCARB 600 WITH VITAMIN D 600 MG (1,500)-200 UNIT TAB) daily atorvastatin calcium(LIPITOR 20 MG TAB) Take one(1) tablet daily. fluoxetine hcl(PROZAC 20 MG CAP) Take one(1) capsule daily. aspirin(ADULT LOW DOSE ASPIRIN 81 MG TAB, DELAYED RELEASE) Take one(1) tablet daily. Imaging: Reviewed by Staff and myself. See HPI Lab data: Reviewed Pending. EKG RESULTS: Pending. REVIEW OF SYSTEMS GENERAL: Unintentional weight loss HEENT: Negative for frequent or significant headaches, No changes in hearing or vision, no nose bleeds or other nasal problems NECK: Negative for lumps, goiter, pain and significant neck swelling RESPIRATORY: See HPI CARDIOVASCULAR: Negative for chest pain, leg swelling, CHF or palpit (more content not included)... [facility] 12-29-2021 History of Presen t illness Narrative INTERVENTIONAL PULMONARY CONSULTATION Consultation requested by Dr. Shama Vasquez for an opinion regarding lung cancer. 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 She is anxious about her new diagnosis of lung cancer and possible involvement of lymph nodes, status pending. She had a screening CT chest scan on 08/26/21 which showed a left upper lung nodule. PET scan (09/15/21) demonstrated a hypermetabolic solitary nodule in the SHAWNEE. CTA on 10/02/21 showed a SHAWENE nodule and RLL infiltrates. She underwent a CT guided biopsy of the SHAWNEE on 10/23/21, complicated by a pneumothorax. She was diagnosed with clinical stage IA2 T1bN0 non-small cell lung cancer (squamous) and was recommended by Rad/Onc for SBRT due to her poor lung function. Brain MRI (12/07/21) without evidence of metastasis. She states she had a bleeding ulcer in September 2021 and was urgently admitted to local hospital for surgical repair. She inadvertently aspirated blood and subsequently developed pneumonia. She was discharged from the hospital with supplemental oxygen RTC, however, she recently stopped wearing it during the day as she felt she did not need it anymore. She has a home pulse oxygen monitor and checks her levels after activities, ie cooking dinner, and it runs between 90 - 92 %. Her makes her wear it at hs. She does not check pulse ox with activities, such as stair climbing. She denies SOB or PICHARDO. She is not using an inhaler. She denies chest pain, palpitations, edema. She endorses a dry cough. She is able to complete all ADL. She states despite her appetite being normal, she has lost 17 lbs since August 2021. She is a current smoker for over 50 years, at least a pack a day, now down to 7 -8 cigarettes per day. She is trying to quit; she has made attempts in the past, citing use of nicotine patch, gum and lozenges. She used the patch alone and was not able to tolerate the gum, citing dental issues. No known history of COVID infection, fully vaccinated. PAST MEDICAL HISTORY Diagnosis Date Depression Diverticulitis High cholesterol Smoker PAST SURGICAL HISTORY Procedure Laterality Date corpal tunnel left [facility] LAPAROSCOPY ENTEROLYSIS SEPARATE PROCEDURE 04/10/10 Extensive adhesions LAPS COLECTOMY PRTL W/COLOPXTSTMY LW ANAST 04/10/10 PAST SURGICAL HISTORY OF 10/19/2016 Closure of modified loop ileostomy. PICC LINE INSERT/CONSULT 07/31/2016 tendonitis right [facility] TOTAL ABDOMINAL HYSTERECT W/WO RMVL TUBE OVARY late Social History Tobacco Use Smoking status: Current Every Day Smoker Packs/day: 0.25 Years: 50.00 Pack years: 12.50 Types: Cigarettes Smokeless tobacco: Never Used Tobacco comment: has been cutting down Substance Use Topics Alcohol use: No Drug use: No FAMILY HISTORY Problem Relation Age of Onset Cancer Mother Colon Cancer Mother Diabetes Mother other (heart disease [Other]) Father other (tuberculosis [Other]) Mother Allergies: ALLERGIES No Known Allergies Current Medications: tiotropium (SPIRIVA WITH HANDIHALER) 18 mcg inhalation capsule Inhale 1 capsule as instructed once daily. Use with HandiHaler. albuterol HFA (PROVENTIL HFA, VENTOLIN HFA) 90 mcg/actuation inhaler Inhale 2 Puffs as instructed every 6 hours as needed for wheezing/shortness of breath. famotidine (PEPCID) 40 mg tablet Take 40 mg by mouth once daily. pramipexole (MIRAPEX) 0.25 mg tablet Take 1 tablet by mouth once daily. NAPROXEN SODIUM (ALEVE ORAL) Take by mouth as needed. CRANBERRY FRUIT EXTRACT (CRANBERRY EXTRACT ORAL) Take by mouth. calcium carbonate/vitamin d3(CALCARB 600 WITH VITAMIN D 600 MG (1,500)-200 UNIT TAB) daily atorvastatin calcium(LIPITOR 20 MG TAB) Take one(1) tablet daily. fluoxetine hcl(PROZAC 20 MG CAP) Take one(1) capsule daily. aspirin(ADULT LOW DOSE ASPIRIN 81 MG TAB, DELAYED RELEASE) Take one(1) tablet daily. Imaging: Reviewed by Staff and myself. See HPI Lab data: Reviewed Pending. EKG RESULTS: Pending. REVIEW OF SYSTEMS GENERAL: Unintentional weight loss HEENT: Negative for frequent or significant headaches, No changes in hearing or vision, no nose bleeds or other nasal problems NECK: Negative for lumps, goiter, pain and significant neck swelling RESPIRATORY: See HPI CARDIOVASCULAR: Negative for chest pain, leg swelling, CHF or palpitations GI: hx bowel surgeries, ileostomy (reversed), bleeding ulcer : No history of dysuria, frequency or incontinence MUSCULOSKELETAL: Negative for joint pain or swelling, back pain or muscle pain SKIN: Negative for lesions, rash, and itching PSYCH: anxiety about health HEMATOLOGY/LYMPHOLOGY: Negative for prolonged bleeding, bruising easily or swollen nodes ENDOCRINE: Negative for cold or heat intolerance, polyuria, polydipsia and goiter NEURO: No history of headaches, syncope, paralysis, seizures or tremors Immunization History Administered Date(s) Administered COVID-19 vaccine, age 12+ yr ([employer] - PURPLE TOP) 11/27/2020 12/18/2020 08/28/2021 Influenza Seasonal - High Dose - Age 65+ 07/09/2016 PHYSICAL EXAMINATION: BP 140/73 Pulse 88 Temp 36.3 C (97.4 F) (Temporal Artery) Resp 18 Ht 154.9 cm (5' 1 ) Wt 67.1 kg (148 lb) SpO2 95% BMI 27.96 kg/m Body mass index is 27.96 kg/m . General appearance: Well appearing, alert, in no acute distress, well-hydrated, well nourished. Accompanied by her . Skin: Skin color, texture, turgor normal, no suspicious rashes or lesions Head: Normocephalic, no masses, lesions, tenderness or abnormalities Eyes: Anicteric sclera. Pupils are equally round and reactive to light. Extraocular movements are intact. Nose/Sinuses: Not examined Oropharynx: Face mask in place due to COVID precautions. Cites poor dentition. Neck: Supple, no adenopathy, normal size Back: Normal exam Lungs: Intermittent wheeze in upper left lung, bibasilar dry crackles. Heart: RRR without murmur, gallop, or rubs. No ectopy Extremities: No deformities, edema, skin discoloration, clubbing or cyanosis. Good capillary refill. Musculoskeletal: Spine range of motion normal. Muscular strength intact, No joint swelling, deformity, or tenderness Peripheral pulses: Normal Neuro: Sensation grossly intact. 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 (J44.9) Chronic obstructive pulmonary disease, unspecified COPD type (HCC) (primary encounter diagnosis) Comment: Goal to optimize lung function. Plan: tiotropium (SPIRIVA WITH HANDIHALER) 18 mcg inhalation capsule, albuterol HFA (PROVENTIL HFA, VENTOLIN HFA) 90 mcg/actuation inhaler Quit smoking. (Z01.818) Preoperative examination Comment: No need for PACE Plan: No roger barriers to GA (C33, C34.80) Cancer of trachea, bronchus, and lung (HCC) Comment: Pending full staging Plan: Staging EBUS (F17.200) Smoker Comment: Defers smoking cessation Plan: Counseled on need to quit smoking now. Assistance and Cessation Clinic offered but currently deferred. (F41.8) Anxiety about health Comment: States makes her want to smoke more. Plan: Emotional support given. On preoperative examination, there are no clear contraindications for the patient to undergo general anesthesia. Not on anticoagulation/anti-platelet therapy. Pending pre-operative COVID, EKG, and lab test results, proceeding for testing following today's visit. Risks, benefits, alternatives and personnel discussed with patient who consents to proceed. All questions answered. NPO as of midnight on the day before the planned procedure. Plan to proceed for airway evaluation and staging EBUS under GA, in order to aid in future treatment and management. Please see Dr. Eric Martínez's note below for further impression and plan. Mary Jane Sherwood PA-C December 29, 2021, 10:40 AM Attending Note I have personally performed a face to face assessment of the patient and have reviewed the PA/SENIOR SUSTAINABILITY ADVISOR resident or fellow note. My ribeiro findings include: History is as above, CT showed abnormality, led to a biopsy which was unfortunately complicated by a PTX, this in addition to a bleeding ulcer led to a significant time delay. PET was recently completed and shows the primary lesion but no signs of distant disease. Given her present diagnosis and size of lesion an EBUS bronchoscopy with a systematic interrogation of her mediastinal and hilar nodes is the next most appropriate step. She is not a surgical candidate and would go on to SBRT if all her nodes are cleared. We discussed smoking cessation as well. I also provided scripts for LAMA and JELANI. Will follow-up once the bronch is completed and path/cyto is finalized. Consented for procedure as well, she is quite anxious about another PTX, I reassured her the rate of a PTX for this procedure is exceedingly small. Thank you for the interesting consult. I will forward this note on to the consulting physician Signature: Eric Martínez MD Date: December 29, 2021 Time: 2:59 PM CC: Dr. Shama Vasquez documented in this encounter [facility] 12-21-2021 Note HNO ID: [id number] Author: Georgi Diaz MD Service: ? Author Type: Physician Type: Progress Notes Filed: 12/21/2021 8:56 AM Note Text: Bronchoscopy Request: Cleared for scheduling December 21, 2021 Please schedule patient for the following: New Consultation Staging EBUS Timing: Acute Semi-Elective: 24 hours to 2 weeks Visit and Bronchoscopy: Virtual Visit Time Allotment/Tier: TIER 2: 2 HOUR Physician Performing Bronchoscopy:Bronch A, B or C Anesthesia Type: General Special Requests: None Needs Labs: Yes, CBC and BMP Needs EKG: Yes Needs CT prior: No Does the pt need cardiac clearance?: No Is he/she on anticoagulants/anti-plt therapy?: No Nursing Considerations: (ie: retirement, TB, respiratory isolation, etc.) none Diagnosis/Reason for Bronchoscopy: Lung cancer, needs staging Consultation request/referral by: Dr. Vasquez Reviewed by: MD Georgi Clemente MD December 21, 2021 8:08 AM Addendum: CBC with diff: WBC 10.07 10/20/2016 RBC 4.01 10/20/2016 Hemoglobin 12.0 10/20/2016 Hematocrit,POC 38.3 10/20/2016 MCV 95.5 10/20/2016 MCH 29.9 10/20/2016 MCHC 31.3 10/20/2016 RDW-CV 13.9 10/20/2016 Platelet Count 228 10/20/2016 MPV 12.0 10/20/2016 Neut% 59.9 10/20/2016 Lymph% 31.2 10/20/2016 Price% 6.6 10/20/2016 Eosin% 1.9 10/20/2016 Baso% 0.4 10/20/2016 Abs Neut (ANC) 6.04 10/20/2016 Abs Price 0.66 10/20/2016 Abs Eosin 0.19 10/20/2016 Abs Baso 0.04 10/20/2016 Potassium Date Value Ref Range Status 10/20/2016 4.8 3.7 - 5.1 mmol/L Final 10/19/2016 4.5 3.7 - 5.1 mmol/L Final 10/14/2016 4.0 3.7 - 5.1 mmol/L Final Sodium Date Value Ref Range Status 10/20/2016 144 136 - 144 mmol/L Final 10/19/2016 145 (H) 136 - 144 mmol/L Final 10/14/2016 139 136 - 144 mmol/L Final BUN Date Value Ref Range Status 10/20/2016 12 7 - 21 mg/dL Final Creatinine Date Value Ref Range Status 10/20/2016 0.55 (L) 0.58 - 0.96 mg/dL Final [facility] 12-21-2021 History of Presen t illness Narrative Bronchoscopy Request: Cleared for scheduling December 21, 2021 Please schedule patient for the following: New Consultation Staging EBUS Timing: Acute Semi-Elective: 24 hours to 2 weeks Visit and Bronchoscopy: Virtual Visit Time Allotment/Tier: TIER 2: 2 HOUR Physician Performing Bronchoscopy:Bronch A, B or C Anesthesia Type: General Special Requests: None Needs Labs: Yes, CBC and BMP Needs EKG: Yes Needs CT prior: No Does the pt need cardiac clearance?: No Is he/she on anticoagulants/anti-plt therapy?: No Nursing Considerations: (ie: retirement, TB, respiratory isolation, etc.) none Diagnosis/Reason for Bronchoscopy: Lung cancer, needs staging Consultation request/referral by: Dr. Vasquez Reviewed by: MD Georgi Clemente MD December 21, 2021 8:08 AM Addendum: CBC with diff: WBC 10.07 10/20/2016 RBC 4.01 10/20/2016 Hemoglobin 12.0 10/20/2016 Hematocrit,POC 38.3 10/20/2016 MCV 95.5 10/20/2016 MCH 29.9 10/20/2016 MCHC 31.3 10/20/2016 RDW-CV 13.9 10/20/2016 Platelet Count 228 10/20/2016 MPV 12.0 10/20/2016 Neut% 59.9 10/20/2016 Lymph% 31.2 10/20/2016 Price% 6.6 10/20/2016 Eosin% 1.9 10/20/2016 Baso% 0.4 10/20/2016 Abs Neut (ANC) 6.04 10/20/2016 Abs Price 0.66 10/20/2016 Abs Eosin 0.19 10/20/2016 Abs Baso 0.04 10/20/2016 Potassium Date Value Ref Range Status 10/20/2016 4.8 3.7 - 5.1 mmol/L Final 10/19/2016 4.5 3.7 - 5.1 mmol/L Final 10/14/2016 4.0 3.7 - 5.1 mmol/L Final Sodium Date Value Ref Range Status 10/20/2016 144 136 - 144 mmol/L Final 10/19/2016 145 (H) 136 - 144 mmol/L Final 10/14/2016 139 136 - 144 mmol/L Final BUN Date Value Ref Range Status 10/20/2016 12 7 - 21 mg/dL Final Creatinine Date Value Ref Range Status 10/20/2016 0.55 (L) 0.58 - 0.96 mg/dL Final documented in this encounter [facility] 12-18-2021 Note HNO ID: [id number] Author: Shama Vasquez MD, MD Service: ? Author Type: Physician Type: Progress Notes Filed: 12/21/2021 5:02 PM Note Text: Radiation Oncology - New Patient/Consult Note PATIENT NAME: Erica Townsend PATIENT REQUESTING PROVIDER: Harshil Lopez MD DIAGNOSIS: Clinical stage IA2, T1bN0, non-small cell lung cancer (squamous cell carcinoma) of the left upper lobe. HPI: 76 year old female who presents with above diagnosis, for an opinion regarding the role of radiation therapy in the management of the patient's disease. Final recommendations will be communicated back to the requesting physician by way of the shared medical record, or letter to requesting physician via US mail. 76 year old woman with 50 pack-year history of smoking had an abnormal screening CT scan on 08/26/21. It showed a left upper lobe lung nodule measuring 1.9 x 1.9 cm. PET/CT scan on 09/15/21 showed a hypermetabolic lesion in the left upper lobe lung with max SUV of 11.2. There was no other suspicious hypermetabolic lesion. Of note, she had hematemesis and was admitted to the [facility] in early September. CTA chest at that time again showed a 1.9 cm x 1.9 cm spiculated mass in the anterior aspect of the left upper lobe. Anterior to this, there is also evidence of a 6.4 mm noncalcified nodule. Stable 4.5 mm noncalcified nodule in the right upper lobe. Patchy infiltrate in the posterior aspect of the right upper lobe abutting the right minor fissure. Progressive infiltration in the right lower lobe and right middle lobe. She was felt to have aspiration pneumonia. She had EGD and was found to have peptic ulcer. She underwent CT guided biopsy of the left upper lung lesion on 10/23/21. Pathology showed non-small cell carcinoma favoring squamous cell carcinoma. It was complicated with pneumothorax requiring chest tube placement and hospitalization. Pulmonary function test on 11/19/21 showed FEV1 1 L (54% predicted) and DLCO 31% of predicted. She had irreversible moderately severe large airway obstruction with associated air trapping and symmetric reduction in diffusing capacity. Repeat CT chest with contrast on 11/19/21 showed a stable appearance of the spiculated nodular density in the anterior aspect of the right upper lobe and stable linear scarring with nodular density along its anterior aspect as seen in the anterior aspect of the left upper lobe. Normal mediastinum. Normal hilar regions. Staging MRI brain on 12/07/21 was negative for metastasis. PET/CT scan on 12/09/21 showed a hypermetabolic lesion in the left upper lobe lung with SUV of 8.4. It measured 17.3 mm. There was a mild linear, non-nodular uptake in the right upper lateral lung with SUV of 2.0 not meeting quantitative criteria for viable neoplasm. She uses oxygen 2L/min at night only. She has chronic dry cough. ALLERGIES No Known Allergies PAST MEDICAL HISTORY Diagnosis Date - Depression - Diverticulitis - High cholesterol - Smoker Prior radiation therapy, collagen vascular disease, or inflammatory bowel disease: No status: Post-menopausal. PAST SURGICAL HISTORY Procedure Laterality Date - corpal tunnel left [facility] - LAPAROSCOPY ENTEROLYSIS SEPARATE PROCEDURE 04/10/10 Extensive adhesions - LAPS COLECTOMY PRTL W/COLOPXTSTMY LW ANAST 04/10/10 - PAST SURGICAL HISTORY OF 10/19/2016 Closure of modified loop ileostomy. - PICC LINE INSERT/CONSULT 07/31/2016 - tendonitis right [facility] - TOTAL ABDOMINAL HYSTERECT W/WO RMVL TUBE OVARY late 1959' FAMILY HISTORY Problem Relation Age of Onset - Cancer Mother - Colon Cancer Mother - Diabetes Mother - other (heart disease [Other]) Father - other (tuberculosis [Other]) Mother Social History Tobacco Use - Smoking status: Current Every Day Smoker Packs/day: 0.25 Years: 50.00 Pack years: 12.50 Types: Cigarettes - Smokeless tobacco: Never Used - Tobacco comment: has been cutting down Substance Use Topics - Alcohol use: No - Drug use: No COMPLETE REVIEW OF SYSTEMS: GENERAL: feeling well without fatigue, no recent change in weight HEENT: denies DIAS, change in hearing or vision, no other ENT complaints NECK: denies swelling or pain in neck RESPIRATORY: see HPI. CARDIOVASCULAR: no chest pain, no palpitations GI: h/o recent GI bleeding and peptic ulcer. : urination is normal MUSCULOSKELETAL: denies any painful or swollen joints, no muscle aches SKIN: no rash HEMATOLOGY/LYMPHOLOGY: negative for prolonged bleeding, no swollen lymph nodes NEURO: no numbness or paresthesias and no weakness of the extremities PHYSICAL EXAM: VS: BP 95/54 Pulse (!) 53 Temp 36.7 ?C (98.1 ?F) (Temporal) Wt 69.9 kg (154 lb) SpO2 93% BMI 28.63 kg/m? KPS: 90 General Appearance: Alert and oriented. No acute distress. HEENT: NCAT. Sclera anicteric. EOMI. Neck: Normal ROM. Chest: No respiratory distress. Lungs clear (more content not included)... [facility] 12-18-2021 History of Presen t illness Narrative Radiation Oncology - New Patient/Consult Note PATIENT NAME: Erica Townsend PATIENT REQUESTING PROVIDER: Harshil Lopez MD DIAGNOSIS: Clinical stage IA2, T1bN0, non-small cell lung cancer (squamous cell carcinoma) of the left upper lobe. HPI: 76 year old female who presents with above diagnosis, for an opinion regarding the role of radiation therapy in the management of the patient's disease. Final recommendations will be communicated back to the requesting physician by way of the shared medical record, or letter to requesting physician via US mail. 76 year old woman with 50 pack-year history of smoking had an abnormal screening CT scan on 08/26/21. It showed a left upper lobe lung nodule measuring 1.9 x 1.9 cm. PET/CT scan on 09/15/21 showed a hypermetabolic lesion in the left upper lobe lung with max SUV of 11.2. There was no other suspicious hypermetabolic lesion. Of note, she had hematemesis and was admitted to the [facility] in early September. CTA chest at that time again showed a 1.9 cm x 1.9 cm spiculated mass in the anterior aspect of the left upper lobe. Anterior to this, there is also evidence of a 6.4 mm noncalcified nodule. Stable 4.5 mm noncalcified nodule in the right upper lobe. Patchy infiltrate in the posterior aspect of the right upper lobe abutting the right minor fissure. Progressive infiltration in the right lower lobe and right middle lobe. She was felt to have aspiration pneumonia. She had EGD and was found to have peptic ulcer. She underwent CT guided biopsy of the left upper lung lesion on 10/23/21. Pathology showed non-small cell carcinoma favoring squamous cell carcinoma. It was complicated with pneumothorax requiring chest tube placement and hospitalization. Pulmonary function test on 11/19/21 showed FEV1 1 L (54% predicted) and DLCO 31% of predicted. She had irreversible moderately severe large airway obstruction with associated air trapping and symmetric reduction in diffusing capacity. Repeat CT chest with contrast on 11/19/21 showed a stable appearance of the spiculated nodular density in the anterior aspect of the right upper lobe and stable linear scarring with nodular density along its anterior aspect as seen in the anterior aspect of the left upper lobe. Normal mediastinum. Normal hilar regions. Staging MRI brain on 12/07/21 was negative for metastasis. PET/CT scan on 12/09/21 showed a hypermetabolic lesion in the left upper lobe lung with SUV of 8.4. It measured 17.3 mm. There was a mild linear, non-nodular uptake in the right upper lateral lung with SUV of 2.0 not meeting quantitative criteria for viable neoplasm. She uses oxygen 2L/min at night only. She has chronic dry cough. ALLERGIES No Known Allergies PAST MEDICAL HISTORY Diagnosis Date Depression Diverticulitis High cholesterol Smoker Prior radiation therapy, collagen vascular disease, or inflammatory bowel disease: No status: Post-menopausal. PAST SURGICAL HISTORY Procedure Laterality Date corpal tunnel left [facility] LAPAROSCOPY ENTEROLYSIS SEPARATE PROCEDURE 04/10/10 Extensive adhesions LAPS COLECTOMY PRTL W/COLOPXTSTMY LW ANAST 04/10/10 PAST SURGICAL HISTORY OF 10/19/2016 Closure of modified loop ileostomy. PICC LINE INSERT/CONSULT 07/31/2016 tendonitis right [facility] TOTAL ABDOMINAL HYSTERECT W/WO RMVL TUBE OVARY late FAMILY HISTORY Problem Relation Age of Onset Cancer Mother Colon Cancer Mother Diabetes Mother other (heart disease [Other]) Father other (tuberculosis [Other]) Mother Social History Tobacco Use Smoking status: Current Every Day Smoker Packs/day: 0.25 Years: 50.00 Pack years: 12.50 Types: Cigarettes Smokeless tobacco: Never Used Tobacco comment: has been cutting down Substance Use Topics Alcohol use: No Drug use: No COMPLETE REVIEW OF SYSTEMS: GENERAL: feeling well without fatigue, no recent change in weight HEENT: denies DIAS, change in hearing or vision, no other ENT complaints NECK: denies swelling or pain in neck RESPIRATORY: see HPI. CARDIOVASCULAR: no chest pain, no palpitations GI: h/o recent GI bleeding and peptic ulcer. : urination is normal MUSCULOSKELETAL: denies any painful or swollen joints, no muscle aches SKIN: no rash HEMATOLOGY/LYMPHOLOGY: negative for prolonged bleeding, no swollen lymph nodes NEURO: no numbness or paresthesias and no weakness of the extremities PHYSICAL EXAM: VS: BP 95/54 Pulse (!) 53 Temp 36.7 C (98.1 F) (Temporal) Wt 69.9 kg (154 lb) SpO2 93% BMI 28.63 kg/m KPS: 90 General Appearance: Alert and oriented. No acute distress. HEENT: NCAT. Sclera anicteric. EOMI. Neck: Normal ROM. Chest: No respiratory distress. Lungs clear to auscultation bilaterally. Heart: Regular rate and rhythm. Abdomen: Soft. Nontender. Nondistended. Musculoskeletal: No edema. Normal ROM in extremities. No bone or spine tenderness. Neuro: Speech fluent. Gait normal. No focal deficits. Skin: No rashes noted Lymphatics: No palpable lymphadenopathy. Hematologic: No signs of active bleeding. RADIOLOGY/LABORATORY DATA: see HPI ASSESSMENT AND PLAN: 76 year old woman with clinical stage IA2, T1bN0, non-small cell lung cancer (squamous cell carcinoma) of the left upper lobe. She has COPD using oxygen at night. She was felt to be not a good candidate for surgery due to her poor lung function. I recommend SBRT. I explained the rationale, benefits, alternative management options and potential complications of radiation treatment to the patient and she understands and agrees to proceed. It was explained and understood that other personnel such as radiation therapists, legal office administrator, and physicists will participate in planning and delivery of radiation treatment. Permanent tattoo regalado will be placed to aid with positioning for daily treatment and the patient consented. I will talk to Dr. Diaz to see if she would be a candidate for EBUS node staging. Thank you very much for allowing us to participate in her care. Signed by: Shama Vasquez MD cc: Luís Jasso ([facility]) [address] [place] [address] Harshil Lopez MD [facility] [facility] [id number] Georgi Diaz documented in this encounter [facility] 12-18-2021 Nurse Note Radiation Therapy - Nursing Note (Consult) PATIENT NAME: Erica Townsend PATIENT December 18, 2021 [facility] FACILITY/LOCATION: [place] Chief Complaint: lung cancer Reason for visit: Consult. Referring physician: Internal provider Jessica Subjective Data: no complaints, very nervous Additional Data Do you want to see a Wet Suit Gluer? No Are you interested in information about fertility? No Status: Post-menopausal Stress Scale: On a scale of 0 to 10, what number best describes how much distress you have experienced in the past week?(0 being no distress and 10 being extreme distress) 9 Social work notified: no SIGNED by: Angelic Hall RN documented in this encounter [facility] 06-08-2021 Note HNO ID: [id number] Author: RT Maame(R) Service: ? Author Type: Technologist Type: Progress Notes Filed: 06/08/2021 7:35 PM Note Text: Radiology Service Progress Note PATIENT NAME: Erica Townsend DATE OF SERVICE: June 08, 2021 TIME: 7:26 PM PATIENT IDENTITY VERIFICATION COMPLETED USING TWO (2) IDENTIFIERS: Name and Date of confirmed by patient verbally. FALL SCREENING: Has the patient had 2 falls in the last year or 1 fall with injury or currently using an Ambulatory Assistive Device (Walker, Cane, Wheelchair, Crutches, etc.)? No PATIENT GENDER DATA: Female. status: : No status: NO. PATIENT RELEVANT IMPLANT DATA REVIEWED: Yes RADIOLOGY DEPARTMENT: General X-ray: Exam(s) Completed: Chest X-Ray PERIPHERAL IV DATA: Not applicable SIGNED BY: RT Maame(R) June 08, 2021 7:26 PM [facility] 06-08-2021 Note HNO ID: [id number] Author: Rahul Bhatia MD Service: ? Author Type: Physician Type: Progress Notes Filed: 06/08/2021 7:59 PM Note Text: Patient presents with: Cough: with fever AND SOB x 3 days HPI: Feeling sick for 4 days. Positive symptoms: Cough (yellow and blood), Shortness of breath, Fever, bad Sore throat, Negative symptoms: Nasal Congestion, Rhinorrhea, Nausea, Vomiting, Diarrhea, Chest pain, OTC: Mucinex. Out of inhalers. 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 Reports she smokes. She has a baseline Pulse Ox around 92% but dips to the mid 80s when she is sick. Completed 2 doses of [employer] COVID-19 vaccine in November. PAST MEDICAL HISTORY Diagnosis Date - Depression - Diverticulitis - High cholesterol - Smoker MEDICATIONS: Current Outpatient Medications Medication Sig - pramipexole (MIRAPEX) 0.25 mg tablet Take 1 tablet by mouth once daily. - NAPROXEN SODIUM (ALEVE ORAL) Take by mouth as needed. - CRANBERRY FRUIT EXTRACT (CRANBERRY EXTRACT ORAL) Take by mouth. - calcium carbonate/vitamin d3(CALCARB 600 WITH VITAMIN D 600 MG (1,500)-200 UNIT TAB) daily - atorvastatin calcium(LIPITOR 20 MG TAB) Take one(1) tablet daily. - fluoxetine hcl(PROZAC 20 MG CAP) Take one(1) capsule daily. - aspirin(ADULT LOW DOSE ASPIRIN 81 MG TAB, DELAYED RELEASE) Take one(1) tablet daily. No current facility-administered medications for this visit. ALLERGIES: ALLERGIES No Known Allergies VITALS: BP 122/76 Pulse 110 Temp 37.9 ?C (100.2 ?F) (Left Tympanic) Resp 24 Wt 73.5 kg (162 lb) SpO2 88% BMI 30.11 kg/m? PHYSICAL EXAM: GEN: ill appearing. Accompanied by her . HEENT: PERRL, EOMI, conjunctiva clear Sinuses: non-tender frontal sinus, non-tender maxillary sinuses Throat: moist mucous membranes, pharyngeal erythema, no exudate Neck: supple, no thyromegaly, no lymphadenopathy HEART: regular rate and rhythm, no murmurs LUNGS: Basilar crackles, mild increased WOB with ambulation (pulse ox 85-90%), moist sounding cough. ASSESSMENT/PLAN: 1. Cough - ICD9: 786.2, ICD10: R05 (primary diagnosis) 2. Hemoptysis - ICD9: 786.30, ICD10: R04.2 - XR CHEST 2V FRONTAL/LAT There is hypoinflation of the lungs with chronic atelectatic/fibrotic changes in both lung bases. ?A superimposed infiltrate due to viral pneumonia cannot be excluded from the left lower lung. ?I suggest follow-up examination. - 2019 CORONAVIRUS Treat for COPD flare up. - AZITHROMYCIN 250 MG TABLET - PREDNISONE 10 MG TABLET taper. Denies adverse side effects with prior use. Patient declined hospital referral at triage and throughout the visit. She would really like to just try a Z-Baudilio. Advised decline can happen rapidly with Covid. She agrees to seek hospital evaluation if symptoms worsen. She understands coughing up blood can be a symptom of lung cancer and needs further evaluation. She declines pulmonology referral. She will follow up with her physician and seek further evaluation there. Rahul Bhatia MD [facility] documented as of this encounter (statuses as of 12/21/2021) [facility] History of Past illness Narrative* Problem Noted Date Resolved Date Hypernatremia 10/21/2016 10/21/2016 Leukocytosis 10/21/2016 10/21/2016 Attention to ileostomy 10/21/2016 7 Leukocytosis 08/11/2016 08/11/2016 Tobacco use 08/11/2016 08/11/2016 Ileus 08/09/2016 08/11/2016 Post-op pain 08/09/2016 08/11/2016 Hypotension 08/09/2016 08/11/2016 Malnutrition of mild degree 07/29/201609/27 Large bowel obstruction 07/28/2016 08/11/20 16 documented as of this encounter (statuses as of 12/21/2021) [facility] History of Past illness Narrative* Problem Noted Date Resolved Date Hypernatremia 10/21/2016 10/21/2016 Leukocytosis 10/21/2016 10/21/2016 Attention to ileostomy 10/21/2016 7 Leukocytosis 08/11/2016 08/11/2016 Tobacco use 08/11/2016 08/11/2016 Ileus 08/09/2016 08/11/2016 Post-op pain 08/09/2016 08/11/2016 Hypotension 08/09/2016 08/11/2016 Malnutrition of mild degree 07/29/201609/27 Large bowel obstruction 07/28/2016 08/11/20 16 documented as of this encounter (statuses as of 12/21/2021) [facility] History of Past illness Narrative* Problem Noted Date Resolved Date Hypernatremia 10/21/2016 10/21/2016 Leukocytosis 10/21/2016 10/21/2016 Attention to ileostomy 10/21/2016 7 Leukocytosis 08/11/2016 08/11/2016 Tobacco use 08/11/2016 08/11/2016 Ileus 08/09/2016 08/11/2016 Post-op pain 08/09/2016 08/11/2016 Hypotension 08/09/2016 08/11/2016 Malnutrition of mild degree 07/29/201609/27 Large bowel obstruction 07/28/2016 08/11/20 16 documented as of this encounter (statuses as of 12/29/2021) [address]26-2017 History of Past illness Narrative* Problem Noted Date Resolved Date Hypernatremia 10/21/2016 10/21/2016 Leukocytosis 10/21/2016 10/21/2016 Attention to ileostomy 10/21/2016 7 Leukocytosis 08/11/2016 08/11/2016 Tobacco use 08/11/2016 08/11/2016 Ileus 08/09/2016 08/11/2016 Post-op pain 08/09/2016 08/11/2016 Hypotension 08/09/2016 08/11/2016 Malnutrition of mild degree 07/29/201609/27 Large bowel obstruction 07/28/2016 08/11/20 16 documented as of this encounter (statuses as of 01/11/2022) [address]26-2017 History of Past illness Narrative* Problem Noted Date Resolved Date Hypernatremia 10/21/2016 10/21/2016 Leukocytosis 10/21/2016 10/21/2016 Attention to ileostomy 10/21/2016 7 Leukocytosis 08/11/2016 08/11/2016 Tobacco use 08/11/2016 08/11/2016 Ileus 08/09/2016 08/11/2016 Post-op pain 08/09/2016 08/11/2016 Hypotension 08/09/2016 08/11/2016 Malnutrition of mild degree 07/29/201609/27 Large bowel obstruction 07/28/2016 08/11/20 16 documented as of this encounter (statuses as of 01/11/2022) [address]26-2017 History of Past illness Narrative* Problem Noted Date Resolved Date Hypernatremia 10/21/2016 10/21/2016 Leukocytosis 10/21/2016 10/21/2016 Attention to ileostomy 10/21/2016 7 Leukocytosis 08/11/2016 08/11/2016 Tobacco use 08/11/2016 08/11/2016 Ileus 08/09/2016 08/11/2016 Post-op pain 08/09/2016 08/11/2016 Hypotension 08/09/2016 08/11/2016 Malnutrition of mild degree 07/29/201609/27 Large bowel obstruction 07/28/2016 08/11/20 16 documented as of this encounter (statuses as of 01/15/2022) [address]26-2017 History of Past illness Narrative* Problem Noted Date Resolved Date Hypernatremia 10/21/2016 10/21/2016 Leukocytosis 10/21/2016 10/21/2016 Attention to ileostomy 10/21/2016 7 Leukocytosis 08/11/2016 08/11/2016 Tobacco use 08/11/2016 08/11/2016 Ileus 08/09/2016 08/11/2016 Post-op pain 08/09/2016 08/11/2016 Hypotension 08/09/2016 08/11/2016 Malnutrition of mild degree 07/29/201609/27 Large bowel obstruction 07/28/2016 08/11/20 16 documented as of this encounter (statuses as of 01/20/2022) [address]2017 History of Past illness Narrative* Problem Noted Date Resolved Date Hypernatremia 10/21/2016 10/21/2016 Leukocytosis 10/21/2016 10/21/2016 Attention to ileostomy 10/21/2016 7 Leukocytosis 08/11/2016 08/11/2016 Tobacco use 08/11/2016 08/11/2016 Ileus 08/09/2016 08/11/2016 Post-op pain 08/09/2016 08/11/2016 Hypotension 08/09/2016 08/11/2016 Malnutrition of mild degree 07/29/201609/27 Large bowel obstruction 07/28/2016 08/11/20 16 documented as of this encounter (statuses as of 01/27/2022) [address]2017 History of Past illness Narrative* Problem Noted Date Resolved Date Hypernatremia 10/21/2016 10/21/2016 Leukocytosis 10/21/2016 10/21/2016 Attention to ileostomy 10/21/2016 7 Leukocytosis 08/11/2016 08/11/2016 Tobacco use 08/11/2016 08/11/2016 Ileus 08/09/2016 08/11/2016 Post-op pain 08/09/2016 08/11/2016 Hypotension 08/09/2016 08/11/2016 Malnutrition of mild degree 07/29/201609/27 Large bowel obstruction 07/28/2016 08/11/20 16 documented as of this encounter (statuses as of 01/29/2022) [facility] History of Past illness Narrative* Problem Noted Date Resolved Date Hypernatremia 10/21/2016 10/21/2016 Leukocytosis 10/21/2016 10/21/2016 Attention to ileostomy 10/21/2016 7 Leukocytosis 08/11/2016 08/11/2016 Tobacco use 08/11/2016 08/11/2016 Ileus 08/09/2016 08/11/2016 Post-op pain 08/09/2016 08/11/2016 Hypotension 08/09/2016 08/11/2016 Malnutrition of mild degree 07/29/201609/27 Large bowel obstruction 07/28/2016 08/11/20 16 documented as of this encounter (statuses as of 01/29/2022) [place] [address]-2017 History of Past illness Narrative* Problem Noted Date Resolved Date Hypernatremia 10/21/2016 10/21/2016 Leukocytosis 10/21/2016 10/21/2016 Attention to ileostomy 10/21/2016 7 Leukocytosis 08/11/2016 08/11/2016 Tobacco use 08/11/2016 08/11/2016 Ileus 08/09/2016 08/11/2016 Post-op pain 08/09/2016 08/11/2016 Hypotension 08/09/2016 08/11/2016 Malnutrition of mild degree 07/29/201609/27 Large bowel obstruction 07/28/2016 08/11/20 16 documented as of this encounter (statuses as of 02/02/2022) [facility] Pre-op testing- Primary Preoperative examination, unspecified Bronchiolar disease Other diseases of trachea and bronchus [facility] Diagnosis Primary cancer of left upper lobe of lung (HCC)- Primary Bronchiolar disease Other diseases of trachea and bronchus documented in this encounter [facility] note* Diagnosis Chronic obstructive pulmonary disease, unspecified COPD type (HCC)- Primary Preoperative examination Preoperative examination, unspecified Cancer of trachea, bronchus, and lung (HCC) Malignant neoplasm of other parts of bronchus or lung Smoker Tobacco use disorder Anxiety about health Bronchiolar disease Other diseases of trachea and bronchus documented in this encounter [facility] note* Diagnosis Primary cancer of left upper lobe of lung (HCC)- Primary documented in this encounter [facility] note* Diagnosis Primary cancer of left upper lobe of lung (HCC)- Primary documented in this encounter [facility] for referral (narrative)* Outpatient Procedure (Urgent) - Authorized Specialty Diagnoses / Procedures Referred By Contac t Referred To Contact [facility] [place] Diagnoses Pre-op testing Procedures ECG COMPLETE ECG ROUTINE ECG W/LEAST 12 LDS W/I&R Georgi Diaz MD [address] [id number] [facility] [place] [address] Referral ID Status Reason Start Date Expiration Date Visits Requested Visits Authorized [id number] Authorized Auto-Generat ed Referral 12/21/2021 12/21/2022 1 1 [facility] Advance Directives No Advanced Directives Records FoundDocuments on File Type Date Recorded Patient [place] Expert Expl anation Advance Directive(s) 10/19/2016 9:55 AM Advance Directive(s) 10/15/2016 8:45 AM Advance Directive(s) 10/06/2016 12:44 PM Advance Directive(s) 07/30/2016 2:12 PM Documents on File Type Date Recorded Patient [place] Expert Expl anation Advance Directive(s) 10/19/2016 9:55 AM Advance Directive(s) 10/15/2016 8:45 AM Advance Directive(s) 10/06/2016 12:44 PM Advance Directive(s) 07/30/2016 2:12 PM Documents on File Type Date Recorded Patient [place] Expert Expl anation Advance Directive(s) 12/22/2021 12:22 PM Advance Directive(s) 10/19/2016 9:55 AM Advance Directive(s) 10/15/2016 8:45 AM Advance Directive(s) 10/06/2016 12:44 PM Advance Directive(s) 07/30/2016 2:12 PM Summary Purpose Family History No Family History Records Found Additional Source Comments Source Comments (unrecognize d section and content) In the event this informatio n is protected by the Federal Confidentiality of Alcohol and Drug Abuse Patient Records regulations: The Federal rules restrict any use of the information to criminally investigate or prosecute any alcohol or drug abuse patient.[facility] CenterIn the event this information is protected by the Federal Confidentiality of Alcohol and Drug Abuse Patient Records regulations: The Federal rules restrict any use of the information to criminally investigate or prosecute any alcohol or drug abuse patient.[facility] CenterIn the event this information is protected by the Federal Confidentiality of Alcohol and Drug Abuse Patient Records regulations: The Federal rules restrict any use of the information to criminally investigate or prosecute any alcohol or drug abuse patient.[facility] CenterIn the event this information is protected by the Federal Confidentiality of Alcohol and Drug Abuse Patient Records regulations: The Federal rules restrict any use of the information to criminally investigate or prosecute any alcohol or drug abuse patient.[facility] CenterIn the event this information is protected by the Federal Confidentiality of Alcohol and Drug Abuse Patient Records regulations: The Federal rules restrict any use of the information to criminally investigate or prosecute any alcohol or drug abuse patient.[facility] CenterIn the event this information is protected by the Federal Confidentiality of Alcohol and Drug Abuse Patient Records regulations: The Federal rules restrict any use of the information to criminally investigate or prosecute any alcohol or drug abuse patient.[facility] CenterIn the event this information is protected by the Federal Confidentiality of Alcohol and Drug Abuse Patient Records regulations: The Federal rules restrict any use of the information to criminally investigate or prosecute any alcohol or drug abuse patient.[facility] CenterIn the event this information is protected by the Federal Confidentiality of Alcohol and Drug Abuse Patient Records regulations: The Federal rules restrict any use of the information to criminally investigate or prosecute any alcohol or drug abuse patient.[facility] CenterIn the event this information is protected by the Federal Confidentiality of Alcohol and Drug Abuse Patient Records regulations: The Federal rules restrict any use of the information to criminally investigate or prosecute any alcohol or drug abuse patient.[facility] CenterIn the event this information is protected by the Federal Confidentiality of Alcohol and Drug Abuse Patient Records regulations: The Federal rules restrict any use of the information to criminally investigate or prosecute any alcohol or drug abuse patient.[facility] CenterIn the event this information is protected by the Federal Confidentiality of Alcohol and Drug Abuse Patient Records regulations: The Federal rules restrict any use of the information to criminally investigate or prosecute any alcohol or drug abuse patient.[facility] CenterIn the event this information is protected by the Federal Confidentiality of Alcohol and Drug Abuse Patient Records regulations: The Federal rules restrict any use of the information to criminally investigate or prosecute any alcohol or drug abuse patient.[facility] Reason for Visit (unrecogniz ed section and content) Reason Comments Appointment PreOp Bronch Reason Comments Consult Reason Comments Recheck Reason Comments Results Reason Onset Date Comments Simulation Request Form 01/11/2022 Reason Comments Radiotherapy On-treatment Visit Reason Comments Patient Education Care Teams (unrecognized sec tion and content) Head Men'S Tennis Coach Relationship Specialty Start Date End Date Luís Jasso MD [address] [place], [place] [id number] PCP - General Family Practice 07/23/16 Shama Vasquez MD, [address] [place] [address] Physician Radiation Oncology 12/15/21 Head Men'S Tennis Coach Relationship Specialty Start Date End Date Luís Jasso MD [address] [facility] [place] [address] PCP - General Family Practice 07/23/16 Shama Vasquez MD, [address] [place] [address] Physician Radiation Oncology 12/15/21 Head Men'S Tennis Coach Relationship Specialty Start Date End Date Luís Jasso MD [address] [facility] [place], [place] [address] PCP - General Family Practice 07/23/16 Shama Vasquez MD, [address] [place] [address] Physician Radiation Oncology 12/15/21 Head Men'S Tennis Coach Relationship Specialty Start Date End Date Luís Jasso MD [address] [place] [address] PCP - General Family Practice 07/23/16 Shama Vasquez MD, [address] [place] [address] Physician Radiation Oncology 12/15/21 Head Men'S Tennis Coach Relationship Specialty Start Date End Date Luís Jasso MD [address] [place] [address] PCP - General Family Practice 07/23/16 Shama Vasquez MD, [address] [place] [address] Physician Radiation Oncology 12/15/21 Head Men'S Tennis Coach Relationship Specialty Start Date End Date Luís Jasso MD [address] [place] [address] PCP - General Family Practice 07/23/16 Shama Vasquez MD, [address] [place] [address] Physician Radiation Oncology 12/15/21 Head Men'S Tennis Coach Relationship Specialty Start Date End Date Luís Jasso MD [address] [place] [address] PCP - General Family Practice 07/23/16 Shama Vasquez MD, [address] [place] [address] Physician Radiation Oncology 12/15/21 INFORMATION SOURCE (unrecogn ized section and content) FOR RECORDS PERTAINING TO PATIENTS WHO ARE OR HAVE BEEN ENROLLED IN A CHEMICAL DEPENDENCY/SUBSTANCEABUSE PROGRAM, SOME INFORMATION MAY BE OMITTED. This clinical summary was aggregated from multiple sources. Caution should be exercised in using it in the provision of clinical care. This summary normalizes information from multiple sources, and as a consequence, information in this document may materially change the coding, format and clinical context of patient data. In addition, data may be omitted in some cases. CLINICAL DECISIONS SHOULD BE BASED ON THE PRIMARY CLINICAL RECORDS. [facility] [employer] [facility]. provides no warranty or guarantee of the accuracy or completeness of information in this document.
== END | disposition home or self-care (01) ==
LOC: CT 13:37
PROVIDERS: PCP Family Medicine; Referring Provider Internal Medicine Medical Oncology; Visit Provider Internal Medicine Medical Oncology
DX: C34.12 Malignant neoplasm of upper lobe, left bronchus or lung (principal)
CPT/HCPCS: 71260; Q9967

== ENCOUNTER → 2023-12-29 | Outpatient (CLI) | payer MEDICARE, SELFPAY ==
--- NOTE | 2023-12-29 13:06 | BD_ITS ---
STUDY: DUAL ENERGY X-RAY ABSORPTIOMETRY / DXA REASON FOR EXAM: Female, 78 years old. [id number] TECHNIQUE: Bone Mineral Density (BMD) measurements of lumbar spine and bilateral hips were obtained. COMPARISON: Comparison is made with prior study dated April 18, 2019. FINDINGS: Lumbar Spine (L1-L4): g/cm2 (0.924) / T-score (-0.8) / Z-score (1.7) Findings are suggestive of normal bone density with a low fracture risk. Left Femur Total: g/cm2 (0.692) / T-score (-2.1) / Z-score (-0.1) Left Femoral Neck: g/cm2 (0.641) / T-score (-1.9) / Z-score (0.3) Right Femur Total: g/cm2 (0.697) / T-score (-2.0) / Z-score (-0.1) Right Femoral Neck: g/cm2 (0.636) / T-score (-1.9) / Z-score (0.3) The T-Scores on the most recent prior examination were: Lumbar Spine (L1-L4): There has been worsening of bone density since the previous examination. Left Femur Total: which represents a worsening of 5.7%. Right Femur Total: which represents a worsening of 2.8%. BD/Dexa Bone Density Study IMPRESSION: The patient is considered osteopenic as outlined below according to World Milad Organization (WHO) criteria with a high fracture risk. There has been worsening of bone density since the previous examination. Reference Information: The T-score is the number of standard deviations above or below the standard which is normal for young adults at their peak bone mineral density. The World Health Organization (WHO) interprets the T-scores as follows: Above -1 Normal bone density Between -1 and -2.5 Osteopenia Equal to / or below -2.5 Osteoporosis As a practical clinical guideline, osteopenia may be graded as follows: Mild -1 through -1.5 Moderate -1.6 through -2.0 Severe -2.1 through -2.4 The Z-score is the number of standard deviations above or below age-matched controls. A Z-score of less than -1.5 would be considered abnormal. References: 1. NIH Osteoporosis and Related Bone Diseases www osteo.org 2. International Society for Clinical Densitometry www iscd.org 3. National Osteoporosis Foundation www nof.org Electronically Signed: Darnell Hernández MD at 13:24 EDT ,
--- NOTE | 2023-12-29 13:06 | BI_ITS ---
MAMMOGRAPHY - BILATERAL SCREENING REASON FOR EXAM: Female, 78 years old. Routine annual screening examination. PERTINENT HISTORY: Non-contributory. TECHNIQUE: Digital bilateral breast bernardino (3D mammographic acquisition) in the CC and MLO projections. 2-D mediolateral oblique (MLO) and craniocaudad (CC) views of both breasts were obtained. CAD: Full Field Digital Mammography with Computer Added Detection was performed. COMPARISON: Comparison is made with prior study dated April 18, 2019 and March 22, 2017. FINDINGS: Breast Composition: There are scattered areas of fibroglandular density. There are no dominant masses or suspicious calcifications. Stable small benign-appearing bilateral axillary lymph nodes. No other significant abnormalities are identified. There has been no significant change since the prior study. BI/SCRN MAMM (CAD)W/BERNARDINO BILAT IMPRESSION: Stable bilateral screening mammogram. Yearly follow-up mammogram recommended. (A) ASSESSMENT CATEGORY: BIRADS Category 2: Benign. A letter regarding these results will be sent to the patient by the facility within 30 days. Approximately 10% of breast cancers are not detected by mammography. A normal mammogram should not delay biopsy of a clinically suspicious abnormality. [id number] Electronically Signed: Darnell Hernández MD at 15:04 EDT ,
== END | disposition home or self-care (01) ==
LOC: OPBD 13:04
PROVIDERS: PCP Family Medicine; Referring Provider Family Medicine; Visit Provider Family Medicine
DX: Z00.00 Encounter for general adult medical examination without abnormal findings (principal); Z12.31 Encounter for screening mammogram for malignant neoplasm of breast; Z78.0 Asymptomatic menopausal state
CPT/HCPCS: 77063; 77067; 77080

== ENCOUNTER → 2024-03-05 | Outpatient (CLI) | payer MEDICARE, SELFPAY ==
--- NOTE | 2024-03-05 12:51 | RAD_ITS ---
STUDY: X-RAY CHEST REASON FOR EXAM: Female, 78 years old. Abnormal lung sounds, COPD, cough . History of the lung cancer. TECHNIQUE: PA and lateral views of the chest. COMPARISON: Comparison is made with prior study dated October 25, 2021. FINDINGS: There is elevation of the right hemidiaphragm. Increased linear markings in the right middle lobe. This may represent linear scarring and/or linear atelectasis. Mild increased markings in the medial aspect of the left upper lobe in keeping with the patient''s history of prior radiation at that size suggestive of postradiation fibrosis. Mild increased markings at the left lung base suggestive of scarring. No definite infiltrate is seen. There is no demonstrated pleural abnormality. Normal size heart. Normal mediastinum and jaylen. Normal visualized pulmonary arteries. There is atherosclerotic calcification of the aortic arch with tortuosity. There is demineralization of the osseous structures. Increased kyphosis. Normal visualized ribs, clavicles, and shoulders. There is no demonstrated abnormality of the visualized soft tissue structures of the upper abdomen. RAD/Chest PA and Lateral IMPRESSION: Elevation of the right hemidiaphragm with increased linear markings in the right middle lobe and mild increased markings in the left lower lobe as well as in the left upper lobe. This is suggestive of scarring. Electronically Signed: Darnell Hernández MD at 8:58 EDT ,
== END | disposition home or self-care (01) ==
LOC: MTRAD 12:43
PROVIDERS: PCP Family Medicine; Referring Provider Nurse Practitioner; Visit Provider Nurse Practitioner
DX: R05.9 Cough, unspecified (principal)
CPT/HCPCS: 71046

== ENCOUNTER → 2024-06-12 | Outpatient (CLI) | payer MEDICARE, SELFPAY ==
--- NOTE | 2024-06-12 09:18 | RAD_ITS ---
STUDY: X-RAY CHEST REASON FOR EXAM: Female, 79 years old. Cough. COPD. TECHNIQUE: Frontal and lateral views of the chest. COMPARISON: March 05, 2024 FINDINGS: Stable elevation of the right hemidiaphragm with atelectasis/scarring in the right middle and lower lobes. Mild diffuse interstitial prominence with granulomatous changes in both apices, unaltered. There is no demonstrated pleural abnormality. Stable borderline cardiomegaly. Normal mediastinum and jaylen. Normal visualized pulmonary arteries. Aortic tortuosity with calcification unchanged. Thoracic osteopenia with mild spondylosis and increased kyphosis. Normal visualized ribs, clavicles, and shoulders. No abnormality of the visualized soft tissue structures of the upper abdomen. RAD/Chest PA and Lateral IMPRESSION: Stable chest with no acute or active cardiopulmonary disease. Electronically Signed: Georgi Nettles MD at 10:08 EDT ,
== END | disposition home or self-care (01) ==
LOC: MTRAD 09:18
PROVIDERS: PCP Family Medicine; Referring Provider Family Medicine; Visit Provider Family Medicine
DX: J44.9 Chronic obstructive pulmonary disease, unspecified (principal)
CPT/HCPCS: 71046

== ENCOUNTER → 2024-07-02 | Outpatient (CLI) | payer MEDICARE, SELFPAY ==
[2024-07-02 18:04] LABS: Basophil# 0.05 X10^3/uL; Basophil% 0.5 % (0-1); Eosinophil# 0.16 X10^3/uL; Eosinophils% 1.5 % (0-5); Hematocrit 45.9 % (37-47); Hemoglobin 14.4 g/dL (12.0-15.0); Lymphocyte % 17.4 % (19-41); Mean Corp Hgb Conc 31.4 g/dL (32-36); Mean Corpuscular Hgb 31.6 pg (27.0-32.0); Mean Corpuscular Volume 100.7 fL (81-99); Mean Platelet Vol. 11.3 fl (6.2-12.0); Monocyte# 0.74 X10^3/uL; Monocyte% 6.8 % (0-10); NRBC Flagged by Analyzer 0 % (0-5); Neutrophil # 7.98 X10^3/uL (2.7-7.7); Neutrophil % 73.2 % (47-70); Platelet Count 256 K/mm3 (150-450); RBC Distribution Width CV 15.5 % (11.6-14.6); RBC Distribution Width SD 57.4 fl (35.1-43.9); Red Blood Count 4.56 M/mm3 (4.2-5.4); White Blood Count 10.9 K/mm3 (4.4-11.0)
[2024-07-02 18:06] LABS: BNP,B-Type NATRIURETIC PEPTIDE 37.6 pg/mL (0-100)
[2024-07-02 18:16] LABS: ALB/GLOB Ratio 0.8 RATIO (0.9-2.4); AST(SGOT) 22 U/L (15-37); Alanine Aminotransfer ALT/SGPT 20 U/L (13-56); Albumin, Serum 3.3 g/dL (3.2-5.0); Alkaline Phosphatase 89 U/L (45-117); Anion Gap 6 (5-15); BUN 12 mg/dL (7-18); BUN/Creat Ratio 18.4 RATIO (10-20); Calcium,Total 9.7 mg/dL (8.5-10.1); Chloride 100 mmol/L (98-107); Creatinine, Serum 0.65 mg/dL (0.55-1.02); EST Glomerular Filtration Rate 93 mL/min (>60); Est Glom Filt Rate - Afr Amer 113 mL/min (>60); Globulin 3.9 g/dL (2.2-4.2); Glucose 82 mg/dL (74-106); Potassium 4.3 mmol/L (3.5-5.1); Protein, Total 7.2 g/dL (6.4-8.2); Sodium Level 138 mmol/L (136-145)
== END | disposition home or self-care (01) ==
PROVIDERS: PCP Family Medicine; Referring Provider Family Medicine; Visit Provider Family Medicine
DX: M79.89 Other specified soft tissue disorders (principal)
CPT/HCPCS: 36415; 80053; 83880; 84443; 85025

== ENCOUNTER → 2024-07-16 | Outpatient (CLI) | payer MEDICARE, SELFPAY ==
--- NOTE | 2024-07-16 10:42 | ECHOD_ITS ---
Reason For Study: EDEMA Procedure This was a 2D Doppler, Color Flow transthoracic echocardiogram. Myocardial strain analysis was performed in this exam to aid in the assessment of cardiac function. Exam performed in department. Left Ventricle Normal size and thickness. The left ventricular ejection fraction is 60 %. LV Global longitudinal strain -17.9 which is normal. Right Ventricle Normal right ventricle. Atria The left and right atria are normal. Mitral Valve Severe mitral annular calcification. Mild (1+) mitral valve insufficiency. Tricuspid Valve Mild tricuspid valve insufficiency. Right ventricular systolic pressure estimated to be 51 mmHg. Aortic Valve Mild aortic valve stenosis with mean peak gradient 8 mmHg. Trivial aortic valve regurgitation. Pulmonic Valve The pulmonic valve is not well visualized. Great Vessels Normal sized aortic root. Pericardium/Pleural No pericardial effusion. Epicardial fat. MMode/2D Measurements & Calculations LVIDd: 4.7 cm IVSd: 0.92 cm LVOT diam: 1.9 cm LVIDs: 2.8 cm LVPWd: 0.81 cm LVOT area: 2.8 cm2 RVDd: 2.6 cm FS: 41.7 % asc Aorta Diam: 3.1 cm LAV(MOD-bp): 38.8 ml LVAd ap4: 14.6 cm2 LAV(MOD-bp) Indexed: 23.5 ml/m2 LVLd ap4: 6.0 cm LAV(MOD-sp2): 47.5 ml EDV(MOD-sp4): 29.9 ml LAV(MOD-sp4): 27.7 ml EDV(sp4-el): 30.3 ml LVAs ap4: 8.4 cm2 LVLs ap4: 5.3 cm ESV(MOD-sp4): 11.0 ml ESV(sp4-el): 11.1 ml EF(MOD-sp4): 63.1 % EF(sp4-el): 63.2 % LVAd ap2: 14.8 cm2 SV(MOD-sp4): 18.9 ml SV(MOD-sp2): 18.3 ml LVLd ap2: 5.9 cm EDV(MOD-sp2): 30.6 ml EDV(sp2-el): 31.9 ml LVAs ap2: 8.7 cm2 LVLs ap2: 5.3 cm ESV(MOD-sp2): 12.2 ml ESV(sp2-el): 12.2 ml EF(MOD-sp2): 60.0 % SV(sp4-el): 19.2 ml Ao sinus diam: 3.[address] Junction: 2.5 cm LA dimension(2D): 3.1 cm LA A4 area: 12.7 cm2 RA A4 area: 6.6 cm2 TAPSE: 2.0 cm Time Measurements MV dec time: 0.13 sec Doppler Measurements & Calculations MV E max aung: 80.9 cm/sec Lat Peak E' Aung: 7.7 cm/sec Med Peak E' Aung: 6.9 cm/sec MV A max aung: 107.6 cm/sec E/E' lat: 10.5 E/E' med: 11.7 MV E/A: 0.75 MV dec slope: 608.2 cm/sec2 Ao V2 max: 192.5 cm/sec AI max aung: 409.7 cm/sec Ao max P.8 mmHg AI max P.3 mmHg Ao V2 mean: 139.0 cm/sec AI dec slope: 404.9 cm/sec2 Ao mean P.4 mmHg AI P1/2t: 296.4 msec Ao V2 VTI: 36.3 cm AV (velocity ratio): 0.63 LISA(I,D): 1.8 cm2 LISA(V,D): 1.5 cm2 LV V1 max: 102.9 cm/sec SV(LVOT): 63.9 ml PA V2 max: 93.1 cm/sec LV V1 max P.2 mmHg PA max PG (full): 2.4 mmHg LV V1 mean P.9 mmHg LV V1 mean: 83.0 cm/sec LV V1 VTI: 22.8 cm TR max aung: 327.9 cm/sec TR max P.0 mmHg ECHO/Echo Complete Interpretation Summary The left ventricular ejection fraction is 60 %. LV Global longitudinal strain -17.9 which is normal. Severe mitral annular calcification. Mild (1+) mitral valve insufficiency. Mild tricuspid valve insufficiency. Right ventricular systolic pressure estimated to be 51 mmHg. Mild aortic valve stenosis with mean peak gradient 8 mmHg. Trivial aortic valve regurgitation. Ordering Physician: Luís Jasso Referring Physician: Luís Jasso Performed By: Elizabeth Isbell RDCS
== END | disposition home or self-care (01) ==
LOC: CVS 10:38
PROVIDERS: PCP Family Medicine; Referring Provider Family Medicine; Visit Provider Family Medicine
DX: R01.1 Cardiac murmur, unspecified (principal); M79.89 Other specified soft tissue disorders
CPT/HCPCS: 93306

== ENCOUNTER → 2024-08-30 | Outpatient (CLI) | payer MEDICARE, SELFPAY ==
--- NOTE | 2024-08-30 08:31 | ART_ITS ---
Reason For Study: BILATERAL FOOOT PAIN Right Segmental Pressures Right brachial= 122mmHg. Right posterior tibial artery = 135mmHg. Right dorsalis pedis artery = 127mmHg. Right digit = 40 mmHg. The right posterior tibial artery waveforms are monophasic. The right dorsalis pedis waveforms are monophasic. Indices The right resting ankle brachial index is 1.05. The right ankle brachial index by the posterior tibial artery is 1.05. The right ankle brachial index by the dorsalis pedis is 0.99. The right digital-brachial index is 0.31. The left resting ankle brachial index is 1.18. The left ankle brachial index by the posterior tibial artery is 1.18. The left ankle brachial index by the dorsalis pedis is 1.12. The left digital-brachial index is 0.94. VL/Ankle Brachial Index Interpretation Summary Significant discrepancy of waveform morphology and RAPHAEL. Right RAPHAEL 1.05, normal. Doppler/PVR waveforms of the right ankle moderately dim inished at rest. TBI and digit waveforms diminished. Left RAPHAEL 1.18, normal. Doppler/PVR waveforms of the left ankle moderately dimin ished at rest. Digit waveforms diminished. Ordering Physician: Camilo Castillo Referring Physician: CAMILO CASTILLO MD Performed By: Barbara Carias RVT, RDCS
--- NOTE | 2024-08-30 08:31 | EKG12_ITS ---
Test Reason : FEET PAIN Blood Pressure : */* mmHG Vent. Rate : 100 BPM Atrial Rate : 100 BPM P-R Int : 100 ms QRS Dur : 68 ms QT Int : 366 ms P-R-T Axes : 74 65 77 degrees QTcB Int : 472 ms Sinus rhythm with short ID with Premature atrial complexes Low voltage QRS MINOR Nonspecific ST and T wave abnormality Abnormal ECG Confirmed by Eric Haley ([id number]), microarray specialist JEFFREY MORIN ([id number]) on 08/31/2024 6:45:09 AM Referred By: Camilo Castillo Confirmed By: Eric Haley
== END | disposition home or self-care (01) ==
PROVIDERS: PCP Family Medicine; Referring Provider Family Medicine; Visit Provider Family Medicine
DX: I70.213 Atherosclerosis of native arteries of extremities with intermittent claudication, bilateral legs (principal); I49.9 Cardiac arrhythmia, unspecified
CPT/HCPCS: 93005; 93922

== ENCOUNTER 2024-09-21 12:07 | Inpatient (IN) | payer MEDICARE, SELFPAY ==
[2024-09-21] VITALS (16 sets, daily range): BP systolic 88–127; BP diastolic 56–103; PULSE 70–107; RESP 16–20; TEMP 36.4–37; O2SAT 88–105; BMI 28.1; BMI 28.0
--- NOTE | 2024-09-21 13:00 | EKG12_ITS ---
Test Reason : SOB Blood Pressure : */* mmHG Vent. Rate : 98 BPM Atrial Rate : 98 BPM P-R Int : 124 ms QRS Dur : 72 ms QT Int : 336 ms P-R-T Axes : 49 -22 39 degrees QTcB Int : 428 ms Normal sinus rhythm Low voltage QRS Borderline ECG Confirmed by JOAO HENNESSY MD ([id number]), metropolitan editor JEFFREY MORIN ([id number]) on 09/24/2024 6:43:27 AM Referred By: Confirmed By: JOAO HENNESSY MD
--- NOTE | 2024-09-21 13:00 | RAD_ITS ---
INDICATION: cough EXAMINATION/TECHNIQUE: X-RAY - XR Chest 2 Views COMPARISON: June 12, 2024 FINDINGS: LINES/DEVICES: None. LUNGS: There is persistent elevation of the right hemidiaphragm. There are bibasilar ill-defined opacities. No pneumothorax. MEDIASTINUM AND CARDIOVASCULAR STRUCTURES: Cardiac silhouette not enlarged. Central airways and mediastinal contour are unremarkable. BONES AND SOFT TISSUES: Unremarkable. RAD/Chest PA and Lateral IMPRESSION: Bibasilar atelectasis and/or pneumonia. Electronically Signed: Maren Quezada MD at 13:56 EST ,
[2024-09-21] MEDS: MethylPREDNISolone 125 MG/2 ML Vial IV (13:06)
--- NOTE | 2024-09-21 13:16 | EX.ED.DYSGE1 ---
HPI <JORDYN French - Last Filed: 09/21/24 15:32> History of Present Illness Chief Complaint: Shortness of Breath Narrative Narrative: Patient is a 79-year-old female with history of lung cancer, tobacco use 1 pack/day, who uses oxygen at nighttime presenting to the emergency department for multiple weeks of worsening shortness of breath. Patient was at the pulmonary office today, patient was 85%. Patient is having exertional dyspnea, and is here for evaluation. Patient denies any fever or chills. Patient [place] any history of blood clots to the legs or lungs <Dr. Adam Echeverria DO - Last Filed: 09/21/24 15:41> Narrative Narrative: Patient is a 79-year-old female with history of lung cancer, tobacco use 1 pack/day, who uses oxygen at nighttime presenting to the emergency department for multiple weeks of worsening shortness of breath. Patient was at the pulmonary office today, patient was 85%. Patient is having exertional dyspnea, and is here for evaluation. Patient denies any fever or chills. Patient denies any history of blood clots to the legs or lungs PFSH <JORDYN French - Last Filed: 09/21/24 15:32> [facility] Medical History Asthmatic bronchitis with exacerbation Acute bronchitis, unspecified Tobacco abuse Restless leg syndrome Hyperlipidemia Peptic ulcer Abdominal aortic aneurysm Thrombosis of abdominal aorta Acute respiratory failure with hypoxia Lung mass Hemorrhoids SOB (shortness of breath) COPD (chronic obstructive pulmonary disease) Depression with anxiety Home Medications ?Medication ?Instructions ?Recorded ?Last Taken ?Type atorvastatin 20 mg tablet 20 mg PO DAILY cholesterol 09/23/21 10/22/21 History fluoxetine 20 mg capsule 20 mg PO DAILY mental health 09/23/21 10/22/21 History famotidine 40 mg tablet 40 mg PO DAILY #30 tabs 11/18/21 Unknown Rx fluticasone propionate 230 2 puff inhalation BID #12 grams 06/29/22 Unknown Rx mcg-salmeterol 21 mcg/actuation HFA inhaler (Advair HFA) tiotropium bromide 2.5 2 inh inhalation QDAY #1 ea 06/29/22 Unknown Rx mcg/actuation mist for inhalation (Spiriva Respimat) albuterol sulfate 90 mcg/actuation 2 puff inhalation Q6H PRN 04/16/24 Unknown Rx aerosol inhaler (Ventolin HFA) shortness of breath or wheezing #8.5 grams furosemide 40 mg tablet 40 mg PO QDAY 09/21/24 Unknown History potassium chloride 20 mEq 20 meq PO QDAY 09/21/24 Unknown History tablet,extended release(part/cryst) Allergy/AdvReac Type Severity Reaction Status Date / Time No Known Allergies Allergy Verified 09/21/24 12:10 Family History Mother Colon cancer Diabetes Father Heart disease Surgical History history colon reanastamosis History of colostomy History of colectomy History of hysterectomy Social History Smoking Status: Current every day smoker tobacco type: cigarettes Tobacco: How many years used: 50 Electronic Cigarette Use: not used second hand exposure: Yes alcohol intake: never substance use type: does not use ROS <JORDYN French - Last Filed: 09/21/24 15:32> ROS ED ROS Narrative Constitutional: Negative for fever, chills, weight loss, weakness Eyes: Negative for vision loss, vision change, double vision ENT: Negative for any sore throat, ear pain, congestion Cardiovascular: Negative for any palpitations. Positive chest pain, chest congestion Respiratory: Negative for any sputum production, hemoptysis. Positive for cough, dyspnea, dyspnea on exertion, orthopnea Gastrointestinal: Negative for any abdominal pain, nausea, vomiting, diarrhea, constipation, blood in stool, blood in vomit : Negative for any urinary frequency, dysuria, retention, blood in urine Muscle skeletal: Negative for any neck pain, back pain Neurological: Negative for any headache, syncope, dizziness Skin: Negative for any rashes, itching, abrasions, lacerations Psychiatric: Negative for any depression, anxiety, stress, suicidal ideation, homicidal ideation Hematologic: Negative for any excessive bruising, easy bleeding EXAM <JORDYN French - Last Filed: 09/21/24 15:32> Physical Exam Narrative Exam Narrative: Vital signs reviewed. Patient does have some conversational dyspnea, on 3 L, patient is stable. HEET: Head normocephalic atraumatic, TMs clear bilaterally. Posterior pharynx is clear, moist mucous membranes. Nares clear bilaterally. Neck: Supple with no lymphadenopathy or tenderness. No signs of meningismus. Cardiac: Regular rate and rhythm no murmurs gallops or rubs, equal peripheral pulses bilaterally. Respiratory: Rhonchorous breath sounds throughout, crackles to both bases. Some expiratory wheezes.. No chest tenderness. Abdomen: Soft, nontender, nondistended. No abdominal bruit or pulsatile masses. No hepatosplenomegaly Extremities: +1 pitting edema to both feet, no signs of gross trauma or deformity. Active full range of motion of all extremities. Neuro: Cranial nerves II through XII intact, no focal neurological deficits. Skin: Clean dry and intact with no rash, purpura, petechiae, vesicles or pustules. Backs/flank: No CVA tenderness, no midline spinal tenderness, no deformity. Psych: Normal mood and affect. No SI, HI or acute psychosis. Const Vital Signs: 09/21/24 12:08 09/21/24 12:09 09/21/24 12:10 Temperature 98.2 F 98.1 F Temperature Source Oral Oral Pulse Rate 107 H 101 H Respiratory Rate 18 18 Respiratory Effort Respiratory Depth Respiratory Pattern Blood Pressure 97/61 104/69 Blood Pressure Mean 73 80 Pulse Ox 88 98 94 Oxygen Delivery Method Room Air Nasal Cannula Nasal Cannula Oxygen Flow Rate (L/min) 2 2 09/21/24 13:07 09/21/24 13:07 09/21/24 13:09 Temperature 98.1 F Temperature Source Oral Pulse Rate 105 H 104 H Respiratory Rate 18 18 Respiratory Effort Respiratory Depth Respiratory Pattern Blood Pressure 126/103 H 126/103 H Blood Pressure Mean 110 110 Pulse Ox 105 95 Oxygen Delivery Method Room Air Nasal Cannula Nasal Cannula Oxygen Flow Rate (L/min) 2 2 09/21/24 13:14 09/21/24 13:25 09/21/24 13:28 Temperature Temperature Source Pulse Rate 102 H Respiratory Rate 18 Respiratory Effort Short of Breath Respiratory Depth Normal Respiratory Pattern Normal Normal Blood Pressure 88/56 L Blood Pressure Mean 66 Pulse Ox Oxygen Delivery Method Oxygen Flow Rate (L/min) 09/21/24 14:00 09/21/24 15:00 Temperature 98 F 97.9 F Temperature Source Oral Oral Pulse Rate 70 99 Respiratory Rate 18 16 Respiratory Effort Respiratory Depth Respiratory Pattern Blood Pressure 121/88 H 127/95 H Blood Pressure Mean 99 105 Pulse Ox 98 98 Oxygen Delivery Method Nasal Cannula Nasal Cannula Oxygen Flow Rate (L/min) 2 2 <Dr. Adam Echeverria DO - Last Filed: 09/21/24 15:41> Physical Exam Const Vital Signs: 09/21/24 12:08 09/21/24 12:09 09/21/24 12:10 Temperature 98.2 F 98.1 F Temperature Source Oral Oral Pulse Rate 107 H 101 H Respiratory Rate 18 18 Respiratory Effort Respiratory Depth Respiratory Pattern Blood Pressure 97/61 104/69 Blood Pressure Mean 73 80 Pulse Ox 88 98 94 Oxygen Delivery Method Room Air Nasal Cannula Nasal Cannula Oxygen Flow Rate (L/min) 2 2 09/21/24 13:07 09/21/24 13:07 09/21/24 13:09 Temperature 98.1 F Temperature Source Oral Pulse Rate 105 H 104 H Respiratory Rate 18 18 Respiratory Effort Respiratory Depth Respiratory Pattern Blood Pressure 126/103 H 126/103 H Blood Pressure Mean 110 110 Pulse Ox 105 95 Oxygen Delivery Method Room Air Nasal Cannula Nasal Cannula Oxygen Flow Rate (L/min) 2 2 09/21/24 13:14 09/21/24 13:25 09/21/24 13:28 Temperature Temperature Source Pulse Rate 102 H Respiratory Rate 18 Respiratory Effort Short of Breath Respiratory Depth Normal Respiratory Pattern Normal Normal Blood Pressure 88/56 L Blood Pressure Mean 66 Pulse Ox Oxygen Delivery Method Oxygen Flow Rate (L/min) 09/21/24 14:00 09/21/24 15:00 Temperature 98 F 97.9 F Temperature Source Oral Oral Pulse Rate 70 99 Respiratory Rate 18 16 Respiratory Effort Respiratory Depth Respiratory Pattern Blood Pressure 121/88 H 127/95 H Blood Pressure Mean 99 105 Pulse Ox 98 98 Oxygen Delivery Method Nasal Cannula Nasal Cannula Oxygen Flow Rate (L/min) 2 2 MDM <JORDYN French - Last Filed: 09/21/24 15:32> MDM Lab Data Labs: Laboratory Results - last 24 hr 09/21/24 12:45 WBC 15.9 H RBC 4.78 Hgb 14.9 Hct 47.4 H MCV 99.2 H MCH 31.2 MCHC 31.4 L RDW Std Deviation 53.6 H RDW Coeff of Yeimi 14.8 H Plt Count 175 MPV 12.1 H Immature Gran % (Auto) 0.800 Neut % (Auto) 80.7 H Lymph % (Auto) 11.4 L Charlton % (Auto) 6.4 Eos % (Auto) 0.4 Baso % (Auto) 0.3 Absolute Neuts (auto) 12.8 H Absolute Lymphs (auto) 1.82 Nucleated RBC % 0 Sodium 142 Potassium 4.7 Chloride 104 Carbon Dioxide 35.0 H Anion Gap 3 L BUN 20 H Creatinine 0.80 Estim Creat Clear Calc 50.97 Est GFR (MDRD) Af Amer 89 Est GFR (MDRD) Non-Af 73 BUN/Creatinine Ratio 24.9 H Glucose 107 H Calcium 9.7 Troponin I High Sens 39 B-Natriuretic Peptide 214.9 H Radiography Diagnostic Testing: Clinical Impression(s) from Imaging Studies Chest X-Ray 09/21/24 13:00 IMPRESSION: Bibasilar atelectasis and/or pneumonia. Electronically Signed: Maren Quezada MD at 13:56 EST Reading Location ID and State: [facility] / [place] Tel , Service support , Chest CTA 09/21/24 14:01 IMPRESSION: Bilateral pulmonary emboli. Grossly stable ill-defined left upper lobe opacity which may reflect atelectasis and/or scarring, cannot exclude a neoplastic process. Emphysema. Mitral annulus calcifications. Left basilar atelectasis. Atherosclerosis. The presence of pulmonary emphysema on CT is an independent risk factor for lung cancer. As of the prior chest CT dated October 27, 2023, the patient appears to be followed given the history of lung cancer. Electronically Signed: Maren Quezada MD at 15:18 EST , ADDENDUM: 09/21/24 1536 IMPRESSION: Bilateral pulmonary emboli. Grossly stable ill-defined left upper lobe opacity which may reflect atelectasis and/or scarring, cannot exclude a neoplastic process. Emphysema. Mitral annulus calcifications. Left basilar atelectasis. Atherosclerosis. The presence of pulmonary emphysema on CT is an independent risk factor for lung cancer. As of the prior chest CT dated October 27, 2023, the patient appears to be followed given the history of lung cancer. N.B. : The above Results were Read Back by Maren Quezada MD to Camilo Munoz NP, and understanding confirmed on 09/21/2024 15:29:27 (ET). Electronically Signed: Maren Quezada MD at 15:18 EST , Treatment and Re-Evaluation :: Differential diagnosis includes however is not limited to: CHF exacerbation, COPD exacerbation, PE, pneumonia, COVID-19, influenza, RSV, respiratory failure secondary to tobacco use Patient presents to the emergency department for complaints of worsening shortness of breath over the last several months. Patient on 2 to 3 L of nasal cannula oxygen is 94 to 95%. I did take with the call from the patient's pulmonology office for worsening symptoms. Patient received a full cardiac workup including BNP, high sensitive troponin, basic laboratory values. Two-view chest x-ray will be obtained. All radiologic examinations were read, reviewed by the emergency department attending. From these reads, a plan of care will be put in place. Upon my initial evaluation I am unsure the patient will be able to be discharged home secondary to the stable decline in her breathing efforts. Patient after breathing treatments only helped slightly, patient remains stable on oxygen. Patient CBC does show leukocytosis with a white blood count of 15.9, patient's chemistries were unremarkable, BNP was slightly elevated at 214.9. Chest x-ray showed bibasal atelectasis and/or pneumonia. Secondary to this finding, patient did receive a CTA of the chest. CTA chest result was called to me by [facility], patient does have bilateral pulmonary emboli. Secondary this finding, I reached out to the hospitalist, patient will need to be admitted the hospital. Patient started IV heparin. Made the patient aware, patient is agreeable. Stable for admission. <Dr. Adam Echeverria, DO - Last Filed: 09/21/24 15:41> MDM History & Record Review Discussion w/independent historian: Patient and Family Lab Data Attestation: I reviewed the patient's lab results. Labs: Laboratory Results - last 24 hr 09/21/24 12:45 WBC 15.9 H RBC 4.78 Hgb 14.9 Hct 47.4 H MCV 99.2 H MCH 31.2 MCHC 31.4 L RDW Std Deviation 53.6 H RDW Coeff of Yeimi 14.8 H Plt Count 175 MPV 12.1 H Immature Gran % (Auto) 0.800 Neut % (Auto) 80.7 H Lymph % (Auto) 11.4 L Charl[place] % (Auto) 6.4 Eos % (Auto) 0.4 Baso % (Auto) 0.3 Absolute Neuts (auto) 12.8 H Absolute Lymphs (auto) 1.82 Nucleated RBC % 0 Sodium 142 Potassium 4.7 Chloride 104 Carbon Dioxide 35.0 H Anion Gap 3 L BUN 20 H Creatinine 0.80 Estim Creat Clear Calc 50.97 Est GFR (MDRD) Af Amer 89 Est GFR (MDRD) Non-Af 73 BUN/Creatinine Ratio 24.9 H Glucose 107 H Calcium 9.7 Troponin I High Sens 39 B-Natriuretic Peptide 214.9 H Radiography Diagnostic Testing: Clinical Impression(s) from Imaging Studies Chest X-Ray 09/21/24 13:00 IMPRESSION: Bibasilar atelectasis and/or pneumonia. Electronically Signed: Maren Quezada MD at 13:56 EST Reading Location ID and State: [facility] / [place] Tel , Service support , Chest CTA 09/21/24 14:01 IMPRESSION: Bilateral pulmonary emboli. Grossly stable ill-defined left upper lobe opacity which may reflect atelectasis and/or scarring, cannot exclude a neoplastic process. Emphysema. Mitral annulus calcifications. Left basilar atelectasis. Atherosclerosis. The presence of pulmonary emphysema on CT is an independent risk factor for lung cancer. As of the prior chest CT dated October 27, 2023, the patient appears to be followed given the history of lung cancer. Electronically Signed: Maren Quezada MD at 15:18 EST , ADDENDUM: 09/21/24 1536 IMPRESSION: Bilateral pulmonary emboli. Grossly stable ill-defined left upper lobe opacity which may reflect atelectasis and/or scarring, cannot exclude a neoplastic process. Emphysema. Mitral annulus calcifications. Left basilar atelectasis. Atherosclerosis. The presence of pulmonary emphysema on CT is an independent risk factor for lung cancer. As of the prior chest CT dated October 27, 2023, the patient appears to be followed given the history of lung cancer. N.B. : The above Results were Read Back by Maren Quezada MD to Camilo Munoz NP, and understanding confirmed on 09/21/2024 15:29:27 (ET). Electronically Signed: Maren Quezada MD at 15:18 EST , EKG Initial EKG: Attestation: I personally reviewed and interpreted this EKG as follows: Comments: Normal sinus rhythm ventricular rate of 98 bpm Management Discussion w/another healthcare provider: Hospitalist (Dr Palacios) Treatment and Re-Evaluation :: Differential diagnosis includes however is not limited to: CHF exacerbation, COPD exacerbation, PE, pneumonia, COVID-19, influenza, RSV, respiratory failure secondary to tobacco use Patient presents to the emergency department for complaints of worsening shortness of breath over the last several months. Patient on 2 to 3 L of nasal cannula oxygen is 94 to 95%. I did take with the call from the patient's pulmonology office for worsening symptoms. Patient received a full cardiac workup including BNP, high sensitive troponin, basic laboratory values. Two-view chest x-ray will be obtained. All radiologic examinations were read, reviewed by the emergency department attending. From these reads, a plan of care will be put in place. Upon my initial evaluation I am unsure the patient will be able to be discharged home secondary to the stable decline in her breathing efforts. Patient after breathing treatments only helped slightly, patient remains stable on oxygen. Patient CBC does show leukocytosis with a white blood count of 15.9, patient's chemistries were unremarkable, BNP was slightly elevated at 214.9. Chest x-ray showed bibasal atelectasis and/or pneumonia. Secondary to this finding, patient did receive a CTA of the chest. CTA chest result was called to me by [facility], patient does have bilateral pulmonary emboli. Secondary this finding, I reached out to the hospitalist, patient will need to be admitted the hospital. Patient started IV heparin. Made the patient aware, patient is agreeable. Stable for admission. I have personally performed a face to face assessment of the patient and have reviewed the KRISTA Note. I performed a substantive portion of the visit including all aspects of the following. 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 Patient notes cough and no change in sputum production. Patient chronically wears home oxygen. No reported fevers. No prior thromboembolism history. Exam is rhonchorous lung sounds bilaterally with moist cough. She is alert conversant. She does not appear in any distress. Medical Decison Making EKG is sinus. I do not see any elevation of her cardiac enzymes which are normal at 39 BNP 214 9. My independent interpretation of the chest x-ray elevated right hemidiaphragm with static changes. Because of the change in oxygenation without change in sputum or definitive infiltrate a CTA of the chest was obtained which is positive for bilateral pulmonary embolisms. Plan will be admission to hospital for further management care Discharge Plan Dx/Rx/DC Orders Clinical Impression: COPD (chronic obstructive pulmonary disease), Hypoxia, Pulmonary embolism Disposition Disposition: Acute Care Hospital [facility]
[2024-09-21] MEDS: Albuterol 2.5 MG/3 ML VIAL.NEB. 5 MG INHALATION (13:23)
[2024-09-21] MEDS: Ipratropium/Albuterol Sulfate 3 ML AMPUL.NEB INHALATION ×3 (13:23→23:40)
[2024-09-21 13:28] LABS: Absolute Lymphocyte Count 1.82 X10^3/uL (0.83-4.51); Absolute Neutrophil Count 12.8 X10^3/uL (2.0-7.7); Basophil# 0.05 X10^3/uL; Basophil% 0.3 % (0-1); Eosinophil# 0.06 X10^3/uL; Eosinophils% 0.4 % (0-5); Hematocrit 47.4 % (37-47); Hemoglobin 14.9 g/dL (12.0-15.0); Lymphocyte # 1.82 X10^3/ul (0.83-4.51); Lymphocyte % 11.4 % (19-41); Mean Corp Hgb Conc 31.4 g/dL (32-36); Mean Corpuscular Hgb 31.2 pg (27.0-32.0); Mean Corpuscular Volume 99.2 fL (81-99); Mean Platelet Vol. 12.1 fl (6.2-12.0); Monocyte# 1.02 X10^3/uL; Monocyte% 6.4 % (0-10); NRBC Flagged by Analyzer 0 % (0-5); Neutrophil # 12.83 X10^3/uL (2.7-7.7); Neutrophil % 80.7 % (47-70); Platelet Count 175 K/mm3 (150-450); RBC Distribution Width CV 14.8 % (11.6-14.6); RBC Distribution Width SD 53.6 fl (35.1-43.9); Red Blood Count 4.78 M/mm3 (4.2-5.4); White Blood Count 15.9 K/mm3 (4.4-11.0)
[2024-09-21 13:40] LABS: Anion Gap 3 (5-15); BUN 20 mg/dL (7-18); BUN/Creat Ratio 24.9 RATIO (10-20); Calcium,Total 9.7 mg/dL (8.5-10.1); Chloride 104 mmol/L (98-107); EST Glomerular Filtration Rate 73 mL/min (>60); Est Glom Filt Rate - Afr Amer 89 mL/min (>60); Estimated Creatinine Clearance 50.97 ml/min; Glucose 107 mg/dL (74-106); Potassium 4.7 mmol/L (3.5-5.1); Sodium Level 142 mmol/L (136-145); Troponin-I HS 39 pg/mL (3.0-54.0)
[2024-09-21 13:57] LABS: BNP,B-Type NATRIURETIC PEPTIDE 214.9 pg/mL (0-100)
--- NOTE | 2024-09-21 14:01 | CT_ITS ---
We are attempting to reach an attending provider to discuss findings. An addendum with communication details will be sent when the communication is complete. STUDY: CTA CHEST REASON FOR EXAM: Female, 79 years old. Dyspnea RADIATION DOSAGE (If Supplied By Facility): CTDIvol = ( 8.36 ) mGy, DLP = ( 221.24 ) mGycm TECHNIQUE: The examination was performed with the intravenous administration of IV 100mL Isovue-370. Post-processing of the angiographic images was performed, with multiplanar reformation and 3D reconstruction. The protocol utilizes one or more of the following dose reduction techniques: automated exposure control, adjustment of mA and/or kV according to patient size,and/or use of iterative reconstruction technique. COMPARISON: October 27, 2023 FINDINGS: Normal enhancement of the main pulmonary artery and right and left pulmonary arteries. There are bilateral filling defects within segmental and subsegmental pulmonary arteries throughout the lungs consistent with pulmonary emboli. There is no evidence of right heart strain. Normal thoracic aorta and visualized great vessels. There is no demonstrated aortic dissection. There are calcifications of the coronary arteries. There are mitral annulus calcifications. Normal mediastinum. Normal hilar regions. Normal visualized trachea and bronchi. There is persistent elevation of the right mid diaphragm. There is a stable ill-defined opacity within the left upper lobe. There is right basilar atelectasis. There are emphysematous changes. Normal chest wall structures. Normal osseous structures. The limited images of the upper abdomen demonstrate gallstones within the gallbladder. CT/CTA Chest W/WO Contrast IMPRESSION: Bilateral pulmonary emboli. Grossly stable ill-defined left upper lobe opacity which may reflect atelectasis and/or scarring, cannot exclude a neoplastic process. Emphysema. Mitral annulus calcifications. Left basilar atelectasis. Atherosclerosis. The presence of pulmonary emphysema on CT is an independent risk factor for lung cancer. As of the prior chest CT dated October 27, 2023, the patient appears to be followed given the history of lung cancer. Electronically Signed: Maren Quezada MD at 15:18 EST ,
[2024-09-21 15:39] LABS: International Normalized Ratio 0.9; Partial Thromboplast Time 25.8 Seconds (24.1-36.2); Prothrombin Time (Protime)PT. 12.6 SECONDS (11.7-14.9)
--- NOTE | 2024-09-21 15:39 | HP.PCM.HOS_ITS ---
HPI - General General Date of Admission: 09/21/24 Date of Service: 09/21/24 Chief Complaint: SOB HPI Narrative ERICA CASTILLO, is a 79-year-old female history of lung cancer, tobacco use, depression, COPD on 2 L home O2 at bedtime who presented [facility] ED 09/21/2024 with several weeks of worsening shortness of breath. She was at her pulm office today and was 85% on room air and having exertional dyspnea so she was sent to the ED for evaluation. In the ED heart rate low 100s with blood pressure variable (as high as 126/103 and as low as 88/56) with a pulse ox of 88% on room air. Patient with white blood cell count of 15.9, troponin 39. BNP of 214 and chest x-ray with bibasilar atelectasis and/or pneumonia. Patient had CTA performed which showed bilateral pulmonary embolisms. Patient started on anticoagulation given she was hypoxic at presentation hospitalist contacted for admission. Patient evaluated bedside and reports for couple months she has felt generally unwell and then increasing shortness of breath on exertion especially over the past 1 month, she has begun having cough with yellow sputum as well and some bilateral lower extremity swelling which has been over the past couple of months. Is feeling better in the ED after steroids and nebulizers but still is diffusely wheezing. Smokes 1 pack/day but denies any drug or alcohol use. [facility] Medical History Asthmatic bronchitis with exacerbation Acute bronchitis, unspecified Tobacco abuse Restless leg syndrome Hyperlipidemia Peptic ulcer Abdominal aortic aneurysm Thrombosis of abdominal aorta Acute respiratory failure with hypoxia Lung mass Hemorrhoids SOB (shortness of breath) COPD (chronic obstructive pulmonary disease) Depression with anxiety Home Medications ?Medication ?Instructions ?Recorded ?Last Taken ?Type atorvastatin 20 mg tablet 20 mg PO DAILY cholesterol 09/23/21 10/22/21 History fluoxetine 20 mg capsule 20 mg PO DAILY mental health 09/23/21 10/22/21 History famotidine 40 mg tablet 40 mg PO DAILY #30 tabs 11/18/21 Unknown Rx fluticasone propionate 230 2 puff inhalation BID #12 grams 06/29/22 Unknown Rx mcg-salmeterol 21 mcg/actuation HFA inhaler (Advair HFA) tiotropium bromide 2.5 2 inh inhalation QDAY #1 ea 06/29/22 Unknown Rx mcg/actuation mist for inhalation (Spiriva Respimat) albuterol sulfate 90 mcg/actuation 2 puff inhalation Q6H PRN 04/16/24 Unknown Rx aerosol inhaler (Ventolin HFA) shortness of breath or wheezing #8.5 grams furosemide 40 mg tablet 40 mg PO QDAY 09/21/24 Unknown History potassium chloride 20 mEq 20 meq PO QDAY 09/21/24 Unknown History tablet,extended release(part/cryst) Allergy/AdvReac Type Severity Reaction Status Date / Time No Known Allergies Allergy Verified 09/21/24 12:10 Family History Mother Colon cancer Diabetes Father Heart disease Surgical History history colon reanastamosis History of colostomy History of colectomy History of hysterectomy Social History Smoking Status: Current every day smoker tobacco type: cigarettes Tobacco: How many years used: 50 Electronic Cigarette Use: not used second hand exposure: Yes alcohol intake: never substance use type: does not use ROS ROS Narrative General: Denies fever/chills HENT: Denies headache, denies stuffy nose, denies sore throat EYES: Denies changes in vision Resp: Cough with yellow sputum, increasing shortness of breath especially on exertion Cardiac: Denies chest pain GI: Denies abdominal pain, denies changes in bowel, denies nausea/vomiting : Denies changes in urination Extremity: Some bilateral lower extremity swelling MSK: Denies weakness Neuro: Has had some tingling in feet since they been swelling Heme: Denies any bleeding or bruising Skin: Denies rashes Psychiatric: No complaints voiced Vital Signs Vital Signs Vital Signs: 09/21/24 12:08 09/21/24 12:09 09/21/24 12:10 Temperature 98.2 F 98.1 F Temperature Source Oral Oral Pulse Rate 107 H 101 H Respiratory Rate 18 18 Respiratory Effort Respiratory Depth Respiratory Pattern Blood Pressure 97/61 104/69 Blood Pressure Mean 73 80 Pulse Ox 88 98 94 Oxygen Delivery Method Room Air Nasal Cannula Nasal Cannula Oxygen Flow Rate (L/min) 2 2 09/21/24 13:07 09/21/24 13:07 09/21/24 13:09 Temperature 98.1 F Temperature Source Oral Pulse Rate 105 H 104 H Respiratory Rate 18 18 Respiratory Effort Respiratory Depth Respiratory Pattern Blood Pressure 126/103 H 126/103 H Blood Pressure Mean 110 110 Pulse Ox 105 95 Oxygen Delivery Method Room Air Nasal Cannula Nasal Cannula Oxygen Flow Rate (L/min) 2 2 09/21/24 13:14 09/21/24 13:25 09/21/24 13:28 Temperature Temperature Source Pulse Rate 102 H Respiratory Rate 18 Respiratory Effort Short of Breath Respiratory Depth Normal Respiratory Pattern Normal Normal Blood Pressure 88/56 L Blood Pressure Mean 66 Pulse Ox Oxygen Delivery Method Oxygen Flow Rate (L/min) 09/21/24 14:00 09/21/24 15:00 Temperature 98 F 97.9 F Temperature Source Oral Oral Pulse Rate 70 99 Respiratory Rate 18 16 Respiratory Effort Respiratory Depth Respiratory Pattern Blood Pressure 121/88 H 127/95 H Blood Pressure Mean 99 105 Pulse Ox 98 98 Oxygen Delivery Method Nasal Cannula Nasal Cannula Oxygen Flow Rate (L/min) 2 2 Weight Weight: 67.585 kg Body Mass Index (BMI) 28.1 Physical Exam Narrative General: Alert, oriented HEENT: Atraumatic, normocephalic Eyes: Anicteric, normal conjunctiva, extraocular movements grossly intact Neck: Supple Respiratory: Diffuse wheezes, increased respiratory effort Cardiovascular: Low-grade sinus tachycardia GI: Soft, nontender, nondistended Extremities: Trace lower extremity edema Musculoskeletal: Moving all extremities Neuro: No overt focal neurological deficits Skin: Some erythema knuckles Psych: Cooperative Results Lab / Micro Data 09/21/24 12:45 09/21/24 12:45 Labs: Laboratory Results - last 24 hr 09/21/24 12:45: WBC 15.9 H, RBC 4.78, Hgb 14.9, Hct 47.4 H, MCV 99.2 H, MCH 31.2, MCHC 31.4 L, RDW Std Deviation 53.6 H, RDW Coeff of Yeimi 14.8 H, Plt Count 175, MPV 12.1 H, Immature Gran % (Auto) 0.800, Neut % (Auto) 80.7 H, Lymph % (Auto) 11.4 L, [place] % (Auto) 6.4, Eos % (Auto) 0.4, Baso % (Auto) 0.3, Absolute Neuts (auto) 12.8 H, Absolute Lymphs (auto) 1.82, Nucleated RBC % 0, Sodium 142, Potassium 4.7, Chloride 104, Carbon Dioxide 35.0 H, Anion Gap 3 L, BUN 20 H, Creatinine 0.80, Estim Creat Clear Calc 50.97, Est GFR (MDRD) Af Amer 89, Est GFR (MDRD) Non-Af 73, BUN/Creatinine Ratio 24.9 H, Glucose 107 H, Calcium 9.7, Troponin I High Sens 39, B-Natriuretic Peptide 214.9 H Micro: Microbiology 09/21/24 12:45 Mucosa - Nose SARS-CoV-2, Influenza & RSV (PCR) - Final Imaging Radiology Impression Chest X-Ray 09/21/24 13:00 IMPRESSION: Bibasilar atelectasis and/or pneumonia. Electronically Signed: Maren Quezada MD at 13:56 EST , Chest CTA 09/21/24 14:01 IMPRESSION: Bilateral pulmonary emboli. Grossly stable ill-defined left upper lobe opacity which may reflect atelectasis and/or scarring, cannot exclude a neoplastic process. Emphysema. Mitral annulus calcifications. Left basilar atelectasis. Atherosclerosis. The presence of pulmonary emphysema on CT is an independent risk factor for lung cancer. As of the prior chest CT dated October 27, 2023, the patient appears to be followed given the history of lung cancer. Electronically Signed: Maren Quezada MD at 15:18 EST , ADDENDUM: 09/21/24 1536 IMPRESSION: Bilateral pulmonary emboli. Grossly stable ill-defined left upper lobe opacity which may reflect atelectasis and/or scarring, cannot exclude a neoplastic process. Emphysema. Mitral annulus calcifications. Left basilar atelectasis. Atherosclerosis. The presence of pulmonary emphysema on CT is an independent risk factor for lung cancer. As of the prior chest CT dated October 27, 2023, the patient appears to be followed given the history of lung cancer. N.B. : The above Results were Read Back by Maren Quezada MD to Camilo Munoz NP, and understanding confirmed on 09/21/2024 15:29:27 (ET). Electronically Signed: Maren Quezada MD at 15:18 EST , Assessment & Plan Assessment/Plan (1) Hypoxia: (2) Pulmonary embolism: PLAN: Plan # Hypoxia secondary to bilateral pulmonary embolisms -Seen on CTA -Continue heparin, can transition to DOAC prior to discharge -Will obtain echocardiogram to assess for right heart strain # Also seems to have concomitant acute exacerbation of COPD -Admit to floor, continuous O2 monitoring -Chest x-ray: No acute process COVID negative, obtain respiratory panel, sputum culture if able -O2 in place, wean as tolerated -IV methylprednisone -Scheduled DuoNebs -Albuterol prn -Antibiotics: Augmentin -Incentive spirometer -Mucinex # History of lung cancer -Patient with 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 Lopez on an outpatient basis #Depression/anxiety -Continue home medications #Tobacco use -Advise cessation -Nicotine replacement available if desired #DVT ppx: Full dose anticoagulation Charges/Coding Visit Charges Inpatient E&M: 71049 Init Hosp L2
[2024-09-21] MEDS: HEPARIN/D5w 25,000 UNITS 25,000 UNITS/250 ML IV.SOLN. 10 UNITS CONT INF (16:01)
[2024-09-21] MEDS: Heparin Injection (Vial) 5,000 UNIT/ML VIAL 4500 UNIT IV (16:01)
--- NOTE | 2024-09-21 16:41 | ECHOD_ITS ---
Reason For Study: Pulm Embolism Procedure This was a 2D Doppler, Color Flow transthoracic echocardiogram. Exam performed portable in patient room. Left Ventricle Normal LV size. Left ventricular systolic function is normal. The left ventricular ejection fraction is 60 %. No regional wall motion abnormalities noted. Right Ventricle Normal RV size. Normal systolic function. Atria Normal left atrium. Normal right atrium. Mitral Valve There is mild to moderate mitral annular calcification. Moderate focal mitral valve calcification of the posterior leaflet. Healed calcified vegetation on the posterior leaflet cannot be completely excluded., This measures 1 cm x 0.5 cm. Tricuspid Valve Normal tricuspid valve. Moderate (2+) tricuspid valve insufficiency. Pulmonary artery systolic pressure is 60 mmHg. Moderate pulmonary hypertension. Aortic Valve Trisinus/trileaflet aortic valve. Mild focal aortic valve calcification. Pulmonic Valve Normal pulmonic valve. Great Vessels Normal aortic root. The pulmonary artery is normal size. Inferior vena cava collapse with respiration. Pericardium/Pleural No pericardial effusion. MMode/2D Measurements & Calculations LVIDd: 4.2 cm IVSd: 1.3 cm LVOT diam: 1.9 cm LVIDs: 2.0 cm LVPWd: 1.3 cm LVOT area: 2.8 cm2 RVDd: 2.2 cm FS: 51.1 % Ao root diam: 3.1 cm LAV(MOD-bp): 25.3 ml LVAd ap4: 17.0 cm2 LAV(MOD-bp) Indexed: 15.2 ml/m2 LVLd ap4: 6.3 cm LAV(MOD-sp2): 28.3 ml EDV(MOD-sp4): 38.9 ml LAV(MOD-sp4): 21.3 ml EDV(sp4-el): 38.9 ml LVAs ap4: 9.2 cm2 LVLs ap4: 5.2 cm ESV(MOD-sp4): 15.1 ml ESV(sp4-el): 13.7 ml EF(MOD-sp4): 61.2 % EF(sp4-el): 64.8 % SV(MOD-sp4): 23.8 ml SV(sp4-el): 25.2 ml LA A4 area: 11.0 cm2 SI(MOD-sp4): 14.3 ml/m2 LA dimension(2D): 2.9 cm RA A4 area: 9.5 cm2 TAPSE: 1.4 cm Time Measurements MV dec time: 0.22 sec Doppler Measurements & Calculations MV E max aung: 66.1 cm/sec Lat Peak E' Aung: 6.2 cm/sec Med Peak E' Aung: 5.0 cm/sec MV A max aung: 109.8 cm/sec E/E' lat: 10.7 E/E' med: 13.2 MV E/A: 0.60 Ao V2 max: 190.5 cm/sec AI max aung: 353.2 cm/sec MV dec slope: 303.0 cm/sec2 Ao max P.5 mmHg AI max P.9 mmHg Ao V2 mean: 133.9 cm/sec Ao mean P.0 mmHg AI dec slope: 275.8 cm/sec2 Ao V2 VTI: 36.6 cm AI P1/2t: 375.1 msec AV (velocity ratio): 0.83 LISA(I,D): 2.3 cm2 LISA(V,D): 2.0 cm2 LV V1 max: 134.4 cm/sec SV(LVOT): 84.1 ml PA V2 max: 124.7 cm/sec LV V1 max P.2 mmHg LV V1 mean P.5 mmHg LV V1 mean: 102.0 cm/sec LV V1 VTI: 30.2 cm TR max aung: 379.7 cm/sec TR max P.7 mmHg ECHO/Echo Complete Interpretation Summary Normal LV size. Left ventricular systolic function is normal. The left ventricular ejection fraction is 60 %. Moderate (2+) tricuspid valve insufficiency. Moderate pulmonary hypertension. Compared to the previous the right ventricular pressures are only minimally aditya vated. Healed calcified vegetation on the posterior leaflet cannot be completely exclu ded., This measures 1 cm x 0.5 cm Ordering Physician: Farida Palacios Referring Physician: Luís Jasso MD Performed By: Anna Guerrero RDCS
[2024-09-21] MEDS: Amox/Clavulanate 875 MG Tablet PO (17:12)
[2024-09-21] MEDS: Benzonatate 100 MG Capsule PO (21:55)
[2024-09-21] MEDS: Atorvastatin Calcium 20 MG Tablet PO (21:55)
[2024-09-21] MEDS: guaiFENesin 1,200 MG Tablet 1200 MG PO (21:55)
[2024-09-21] MEDS: 0.9% Saline Lock 10 ML Syringe IV (21:55)
[2024-09-21] MEDS: Acetaminophen 325 MG Tablet 650 MG PO (21:55)
[2024-09-21 22:46] LABS: Partial Thromboplast Time 158.5 Seconds (24.1-36.2)
--- NOTE | 2024-09-21 22:59 | NURSING ---
Pt PTT resulted critical at 158.5. Pt had only received one bolus and gtt was still running at 1,000 units/hr. Heparin gtt placed on hold at 2248 as per protocol; however, requested lab redraw PTT, as 158.5 seems high for the amount of heparin pt has recieved. Primary RN, Katherin notified.
[2024-09-21 23:45] LABS: Partial Thromboplast Time 124.1 Seconds (24.1-36.2)
[2024-09-22] VITALS (9 sets, daily range): BP systolic 90–113; BP diastolic 55–63; PULSE 89–104; RESP 16–20; TEMP 36.6–36.9; O2SAT 93–98
[2024-09-22] MEDS: 0.9% Saline Lock 10 ML Syringe IV ×2 (04:49→21:32)
[2024-09-22 07:08] LABS: Absolute Neutrophil Count 12.3 X10^3/uL (2.0-7.7); Basophil# 0.01 X10^3/uL; Basophil% 0.1 % (0-1); Hematocrit 46.1 % (37-47); Lymphocyte % 3.8 % (19-41); Mean Corp Hgb Conc 30.4 g/dL (32-36); Mean Corpuscular Hgb 30.7 pg (27.0-32.0); Mean Corpuscular Volume 101.1 fL (81-99); Mean Platelet Vol. 11.9 fl (6.2-12.0); Monocyte# 0.21 X10^3/uL; Monocyte% 1.6 % (0-10); NRBC Flagged by Analyzer 0 % (0-5); Neutrophil # 12.28 X10^3/uL (2.7-7.7); Neutrophil % 93.8 % (47-70); POSITIVE DIFFERENTIAL YES; Platelet Count 181 K/mm3 (150-450); RBC Distribution Width CV 14.7 % (11.6-14.6); RBC Distribution Width SD 53.8 fl (35.1-43.9); Red Blood Count 4.56 M/mm3 (4.2-5.4); White Blood Count 13.1 K/mm3 (4.4-11.0)
[2024-09-22] MEDS: Ipratropium/Albuterol Sulfate 3 ML AMPUL.NEB INHALATION ×3 (07:09→20:04)
[2024-09-22 07:32] LABS: Partial Thromboplast Time 60.3 Seconds (24.1-36.2)
[2024-09-22 07:55] LABS: Anion Gap 4 (5-15); BUN 31 mg/dL (7-18); BUN/Creat Ratio 29.2 RATIO (10-20); Calcium,Total 9.6 mg/dL (8.5-10.1); Chloride 107 mmol/L (98-107); Creatinine, Serum 1.06 mg/dL (0.55-1.02); EST Glomerular Filtration Rate 53 mL/min (>60); Est Glom Filt Rate - Afr Amer 64 mL/min (>60); Estimated Creatinine Clearance 38.42 ml/min; Glucose 148 mg/dL (74-106); Potassium 5.2 mmol/L (3.5-5.1); Sodium Level 142 mmol/L (136-145)
[2024-09-22] MEDS: Famotidine 20 MG Tablet 40 MG PO (09:28)
[2024-09-22] MEDS: guaiFENesin 1,200 MG Tablet 1200 MG PO ×2 (09:28→21:32)
[2024-09-22] MEDS: Furosemide 40 MG Tablet PO (09:28)
[2024-09-22] MEDS: Amox/Clavulanate 875 MG Tablet PO ×2 (09:28→16:58)
[2024-09-22] MEDS: Potassium Chloride Oral Tablet 20 MEQ PO (09:28)
[2024-09-22] MEDS: FLUoxetine 20 MG Capsule PO (09:28)
[2024-09-22] MEDS: Heparin Injection (Vial) 5,000 UNIT/ML VIAL IV (13:41)
[2024-09-22] MEDS: Benzonatate 100 MG Capsule PO ×2 (13:47→21:33)
--- NOTE | 2024-09-22 16:30 | CASEMGMT ---
FREDDY HORTON assessment: FREDDY HORTON to room to meet with patient for initial transition planning/care coordination assessment. FREDDY HORTON introduced self and role at [facility]. Patient voices understanding and consents to assessment at this time. Pt sitting up in chair in room, alert/oriented, and answers all questions appropriately. Care providers, pharmacy, and demographics verified/updated at this time. PCP: Dr Jasso Specialists: Krissy Cheema, [employer] ANALYST, pulmonology. Dr Lopez-oncology Preferred Pharmacy: [facility] Insurance: [facility] Prescription Benefit: yes. Pt to discharge home on Eliquis. Eliquis 30-day free trial offer card given to pt and instructed on use. Questions answered. Pt made aware to f/u with PCP if refills are not affordable. LNOK: HCPOA on file @ [facility]. Step-daughter, Maria A Aecves, is HCPOA. ( last year and Lily is listed as 1st alternative). Brother, Zac. Living Arrangements: Patient lives w/step-son and 2 [id number] (ages 15 & 16) in one-story home w/basement and 2 steps to enter. Pt does okay w/stairs to enter home. Family goes to basement to do laundry if pt not feeling well enough to navigate the stairs. Independent w/ADL's, manages her own medications. Independent w/most IADL's, family assists as needed. Pt states family is very helpful. Transportation: Patient drives self and denies transportation concerns. Nephew will take her home @ dc. DME:She has/uses a shower chair, nebulizer, and pulse ox. She has O2 from [employer]. Current O2 orders are: 2 l/m @ rest, 4 l/m exertion. Pt states she has only been wearing it @ HS for years and does not wear it during the day. She has concentrator only, not portability. Home O2 testing to be started on RA @ rest and then with exertion (if does not need it @ rest). If pt needs any O2 @ rest or w/exertion, pt to be provided w/portable O2 tank from [employer] supply to go home on, new script will need faxed to [employer], and [employer] to be notified of need for further portable tank delivery in the home. Patient typically ambulates independently without the use of an assistive device. She does have available, but does not use: wheelchair, cane and walker. HHC/SNF: No hx of SNF. Has had HHC in the past, but denies remembering name of agency. Pt declines wanting any HHC or OP therapy @ dc. Palliative: Pt meets criteria for palliative care. Discussed palliative w/pt, questions answered, and she is interested in referral. Dr Oviedo made aware, order received, and referral sent to [facility] via e-mail. Patient has no concerns with going home at time of discharge. Follow for any O2 needs @ discharge. Plan: Home w/family support and discharge plans in place. Home O2 testing to be started on RA @ rest and then RA with exertion (if does not need it @ rest). If pt needs any O2 @ rest or w/exertion, pt to be provided w/portable O2 tank from [employer] supply to go home on, new script will need faxed to [employer], and [employer] to be notified of need for further portable tank delivery in the home. Cary AHMADIN RN CM
--- NOTE | 2024-09-22 17:47 | PCM.PN.HOSP ---
Reason for Visit Reason for Visit: Diagnoses Other pulmonary embolism without acute cor pulmonale (09/21/24) Hypoxemia (09/21/24) Subjective Subjective Patient was seen and examined today, she is currently on 3 L of oxygen, patient's echocardiogram showed a 60% ejection fraction with some moderate tricuspid valve insufficiency, pulmonary artery pressure was 60, there was the possibility of healed calcified vegetation on the posterior leaflet of the mitral valve. Objective Data Objective Data Vital Signs: Vital Signs Temp Pulse Resp BP Pulse Ox O2 Del Method O2 Flow Rate 98.1 F 104 H 20 H 101/55 L 98 Nasal Cannula 3 09/22/24 15:00 09/22/24 15:04 09/22/24 15:04 09/22/24 15:00 09/22/24 15:00 09/22/24 15:00 09/22/24 15:00 Oxygen Flow Rate (L/min) 3 Oxygen Delivery Method Nasal Cannula Weight: 67.4 kg Body Mass Index (BMI) 28.0 Intake & Output: Intake and Output for Last 24 Hours 09/20/24 09/21/24 09/22/24 23:59 23:59 23:59 Intake Total 567.83 / 567.83 90.76 / 90.76 Balance 567.83 / 567.83 90.76 / 90.76 Lab / Micro Data 09/22/24 06:50 09/22/24 06:50 Labs: Laboratory Results - last 24 hr 09/21/24 22:15: APTT 158.5 H* 09/21/24 23:19: APTT 124.1 H* 09/22/24 06:50: WBC 13.1 H, RBC 4.56, Hgb 14.0, Hct 46.1, MCV 101.1 H, MCH 30.7, MCHC 30.4 L, RDW Std Deviation 53.8 H, RDW Coeff of Yeimi 14.7 H, Plt Count 181, MPV 11.9, Immature Gran % (Auto) 0.700, Neut % (Auto) 93.8 H, Lymph % (Auto) 3.8 L, [place] % (Auto) 1.6, Eos % (Auto) 0.0, Baso % (Auto) 0.1, Absolute Neuts (auto) 12.3 H, Absolute Lymphs (auto) 0.50 L, Nucleated RBC % 0, APTT 60.3 H, Sodium 142, Potassium 5.2 H, Chloride 107, Carbon Dioxide 30.0, Anion Gap 4 L, BUN 31 H, Creatinine 1.06 H, Estim Creat Clear Calc 38.42, Est GFR (MDRD) Af Amer 64, Est GFR (MDRD) Non-Af 53 L, BUN/Creatinine Ratio 29.2 H, Glucose 148 H, Calcium 9.6 09/22/24 12:36: APTT 47.0 H Micro: Microbiology 09/21/24 16:38 Mucosa - Nasopharyngeal Respiratory Panel (PCR) - Final Rhinovirus 09/21/24 12:45 Mucosa - Nose SARS-CoV-2, Influenza & RSV (PCR) - Final Radiography Diagnostic Testing: Radiology Impression Echocardiogram 09/21/24 16:41 Interpretation Summary Normal LV size. Left ventricular systolic function is normal. The left ventricular ejection fraction is 60 %. Moderate (2+) tricuspid valve insufficiency. Moderate pulmonary hypertension. Compared to the previous the right ventricular pressures are only minimally elevated. Healed calcified vegetation on the posterior leaflet cannot be completely excluded., This measures 1 cm x 0.5 cm Ordering Physician: Farida Palacios Referring Physician: Luís Jasso MD Performed By: Anna Guerrero RDCS Physical Exam Const alert, oriented x3 and no apparent distress General Appearance: cooperative, well kempt and well developed Orientation / Consciousness: awake, oriented to person, oriented to place and oriented to time HEENT normocephalic, head/scalp atraumatic and moist oral mucous membranes Eyes PERRL, EOMs intact bilaterally and conjunctivae normal Neck supple, no JVD, thyroid normal and no carotid bruits General: trachea midline Resp normal respiratory effort, no retractions and no use of accessory muscles Resp Narrative: Breath sounds are diminished bilaterally Auscultation: Negative for rales, rhonchi or wheezes Cardio regular rate, regular rhythm, S1 normal heart sound, S2 normal heart sound, no murmurs, no rub and no gallops GI normal to inspection, nondistended, normoactive bowel sounds, soft to palpation, non-tender and non-distended Extremity no clubbing, cyanosis or edema Skin no rashes or lesions noted General Skin Exam: no breakdown Neuro oriented x3, CN's II-XII intact bilaterally, moves all extremities, no focal motor deficits and no sensory deficits noted Sensorium / Orientation: awake and alert Speech: speech normal Psych affect normal Assessment & Plan Assessment/Plan (1) Hypoxia: PLAN: Plan 1. Hypoxia secondary to pulmonary embolisms and exacerbation of COPD-I will switch the patient over to Elinicolás mccracken, I have chosen to have her remain on Augmentin at this time and IV corticosteroids and aerosol treatments. Pulse ox will be monitored, adjustments will be made as needed #2 chronic obstructive pulmonary disease with exacerbation-again patient is on IV corticosteroids and aerosol treatments #3 pulmonary hypertension-patient is on Lasix currently, complicates care, management, recovery, and prognosis #4 hyperlipidemia-patient is on atorvastatin Total clinical time spent by myself addressing the patient's medical issues, reviewing all of her data, and collaborating with patient's care team: 35 minutes Charges/Coding Visit Charges Inpatient E&M: 13100 Subs Hosp L2
[2024-09-22 19:34] LABS: Partial Thromboplast Time 60.8 Seconds (24.1-36.2)
[2024-09-22] MEDS: Atorvastatin Calcium 20 MG Tablet PO (21:32)
[2024-09-23] VITALS (9 sets, daily range): BP systolic 100–111; BP diastolic 57–61; PULSE 85–99; RESP 18–20; TEMP 36.6–36.7; O2SAT 83–98
[2024-09-23] MEDS: HEPARIN/D5w 25,000 UNITS 25,000 UNITS/250 ML IV.SOLN. 8 UNITS CONT INF (01:36)
[2024-09-23 02:56] LABS: Partial Thromboplast Time 53.9 Seconds (24.1-36.2)
[2024-09-23] MEDS: Heparin Injection (Vial) 5,000 UNIT/ML VIAL IV (03:05)
[2024-09-23] MEDS: 0.9% Saline Lock 10 ML Syringe IV ×2 (05:14→14:14)
[2024-09-23] MEDS: Ipratropium/Albuterol Sulfate 3 ML AMPUL.NEB INHALATION ×3 (08:03→14:22)
[2024-09-23] MEDS: Famotidine 20 MG Tablet 40 MG PO (09:33)
[2024-09-23] MEDS: Potassium Chloride Oral Tablet 20 MEQ PO (09:33)
[2024-09-23] MEDS: guaiFENesin 1,200 MG Tablet 1200 MG PO (09:33)
[2024-09-23] MEDS: Amox/Clavulanate 875 MG Tablet PO (09:34)
[2024-09-23] MEDS: Furosemide 40 MG Tablet PO (09:34)
[2024-09-23] MEDS: FLUoxetine 20 MG Capsule PO (09:34)
[2024-09-23 09:40] LABS: Partial Thromboplast Time 57.2 Seconds (24.1-36.2)
[2024-09-23] MEDS: APIXABAN 5 MG TABLET 10 MG PO (14:13)
[2024-09-23 15:20] LABS: Partial Thromboplast Time 30.9 Seconds (24.1-36.2)
--- NOTE | 2024-09-23 15:27 | DCINST_ITS ---
Discharge Instructions Diet Discharge Diet: No restrictions DC O2, CPAP, BIPAP needs RN Home O2 Qualification: Home O2 Qualification: Is the patient on home oxygen No 09/23/24 15:17 Home O2 Qualification: AT REST 1-Pulse Ox at rest 97 09/23/24 14:43 1- Oxygen flow rate at rest 2 09/23/24 14:43 Home O2 Qualification: WITH AMBULATION 1- Pulse Ox with ambulation 93 09/23/24 14:43 1- Oxygen Flow Rate with 2 09/23/24 14:43 ambulation Home O2 Qualification: AT REST 1- Pulse Ox at rest 93 09/23/24 15:17 Home O2 Qualification: WITH AMBULATION 1- Pulse Ox with ambulation 83 09/23/24 15:17 1- Oxygen Flow Rate with 0 09/23/24 15:17 ambulation 2- Pulse Ox with ambulation 86 09/23/24 15:17 2- Oxygen Flow Rate with 1 09/23/24 15:17 ambulation 3- Pulse Ox with ambulation 91 09/23/24 15:17 3- Oxygen Flow Rate with 2 09/23/24 15:17 ambulation 3- Stopped test - Unable to No 09/23/24 15:17 obtain pulse ox >89% w/ max oxyg Home O2 Discharge instructions: Yes Type of respiratory needs?: Oxygen Oxygen frequency: With Ambulation Oxygen liters per minute during Ambulation: 2 L Dressing / Incision Discharge Activity: Return to Normal Activity Weight Bearing Status: Full weight bearing Follow Up Care Test Results: Test results from this visit will be discussed in further detail at your follow- up appointment, if applicable. Discharge Plan Admission Admit Date/Time: 09/21/24 15:39 Primary Reason for Your Visit: Pulmonary embolism Attending Provider: Hubert Oviedo Primary Care Provider: Luís Jasso Consulting Providers: Farida Palacios Instructions Additional Instructions / Restrictions: Use oxygen at 2 L/min via nasal cannula when ambulating Discharge Orders/Prescriptions Prescriptions: New prednisone 20 mg tablet 20 mg PO BID Qty: 10 0RF Rx Instructions: 1 twice a day for 3 days then 1/day for 4 days then stop Eliquis DVT-PE Treat 30D Start 5 mg (74 tabs) tablets,dose pack See Rx Instructions .ROUTE .COMPLEX Qty: 74 0RF Rx Instructions: orally per package directions-starting tonite-omit first dose on package Continued atorvastatin 20 mg tablet 20 mg PO DAILY fluoxetine 20 mg capsule 20 mg PO DAILY Patient Comments: TAKE 1 CAPSULE BY MOUTH EVERY DAY famotidine 40 mg tablet 40 mg PO DAILY Qty: 30 2RF fluticasone propion-salmeterol [Advair HFA] 230-21 mcg/actuation HFA aerosol inhaler 2 puff inhalation BID Qty: 12 11RF Spiriva Respimat 2.5 mcg/actuation mist 2 inh inhalation QDAY Qty: 1 11RF Rx Instructions: administer at approximately the same time(s) each day albuterol sulfate [Ventolin HFA] 90 mcg/actuation HFA aerosol inhaler 2 puff inhalation Q6H PRN (Reason: shortness of breath or wheezing) Qty: 8.5 1RF potassium chloride 20 mEq tablet,ER particles/crystals 20 meq PO QDAY furosemide 40 mg tablet 40 mg PO QDAY pramipexole 0.25 mg tablet 0.5 mg PO QHS Referrals / Follow Up: Luís Jasso MD [Primary Care Provider] - Disposition Disposition (needs filled in before D/C Order can be placed): Home, Self Care
--- NOTE | 2024-09-23 15:35 | PCM.DC.SUM ---
Providers Date of Admission: 09/21/24 Date of Discharge: 09/23/24 Primary Care Physician: Dr. Luís Jasso MD Reason For Visit: HYPOXIA, BILATERAL PULMONARY EMBOLUS, COPD EXAC Diagnosis Discharge Diagnosis (1) Hypoxia: Status: Acute Code(s): R09.02 - Hypoxemia Plan 1. Hypoxia secondary to pulmonary embolisms and exacerbation of COPD-I will switch the patient over to Danyellannikanydia mccracken, I have chosen to have her remain on Augmentin at this time and IV corticosteroids and aerosol treatments. Pulse ox will be monitored, adjustments will be made as needed #2 chronic obstructive pulmonary disease with exacerbation-again patient is on IV corticosteroids and aerosol treatments #3 pulmonary hypertension-patient is on Lasix currently, complicates care, management, recovery, and prognosis #4 hyperlipidemia-patient is on atorvastatin Total clinical time spent by myself addressing the patient's medical issues, reviewing all of her data, and collaborating with patient's care team: 35 minutes Medications at Discharge Home Medications atorvastatin 20 mg tablet 20 mg PO DAILY cholesterol 09/23/21 fluoxetine 20 mg capsule 20 mg PO DAILY mental health 09/23/21 famotidine 40 mg tablet 40 mg PO DAILY heartburn #30 tabs 11/18/21 fluticasone propionate 230 mcg-salmeterol 21 mcg/actuation HFA inhaler (Advair HFA) 2 puff inhalation BID sob #12 grams 06/29/22 tiotropium bromide 2.5 mcg/actuation mist for inhalation (Spiriva Respimat) 2 inh inhalation QDAY sob #1 ea 06/29/22 albuterol sulfate 90 mcg/actuation aerosol inhaler (Ventolin HFA) 2 puff inhalation Q6H PRN shortness of breath or wheezing #8.5 grams 04/16/24 furosemide 40 mg tablet 40 mg PO QDAY Swelling 09/21/24 potassium chloride 20 mEq tablet,extended release(part/cryst) 20 meq PO QDAY hypokalemia 09/21/24 apixaban 5 mg (74 tabs) tablets in a dose pack (Eliquis DVT-PE Treat 30D Start) See Rx Instructions PO .COMPLEX #74 tabs 09/23/24 pramipexole 0.25 mg tablet 0.5 mg PO QHS restless legs 09/23/24 prednisone 20 mg tablet 20 mg PO BID #10 tabs 09/23/24 Hospital Course Operations None Procedures 2-D Echocardiogram Summary of Care Provided Minutes Spent on Discharge: 31 Hospital Course: This 79-year-old white female was seen in the emergency room at [facility] [place] 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 Patient is chronically on oxygen at 2 L at home but she complained of several weeks of worsening shortness of breath. Workup in the emergency room showed a elevated white blood cell count of 15.9, BNP was elevated at 214, chest x-ray showed bibasilar atelectasis and/or pneumonia, patient is CTA performed which showed bilateral pulmonary emboli. Patient was started on anticoagulation and admitted to PCU, she was given IV corticosteroids and aerosol treatments for an exacerbation of COPD as well as oral antibiotics. Patient improved during her hospitalization, at the time of discharge on 09/23/2024, patient only required 2 L of oxygen with ambulation, she did not require any oxygen at rest. On 09/23/2024, patient was seen and examined: On examination she appeared in good health and spirits, she does not appear to be in any distress. Vital signs as documented. Skin warm and dry and without overt rashes. Neck without JVD, thyroid appears normal, trachea is midline, neck is supple. Lungs clear, normal air movement was noted. Heart exam notable for regular rhythm, normal sounds and absence of murmurs, rubs or gallops. Abdomen unremarkable and without evidence of organomegaly, masses, or abdominal aortic enlargement, bowel sounds are present in all 4 quadrants, no abdominal tenderness was noted. Extremities nonedematous, no cyanosis was noted, no clubbing was noted. Neuro: Cranial nerves II through XII are grossly intact, no focal motor deficits were noted, sensation to light touch and pinprick is intact, motor exam 5/5 throughout. Psych: Patient is alert and oriented x3, she does not appear anxious or depressed, she does not appear agitated. Patient was discharged home in stable condition on 09/23/2024. Weight / BMI Weight Weight: 67.4 kg Body Mass Index (BMI) 28.0 ABG / Lab / Microbiology Data 09/22/24 06:50 09/22/24 06:50 Laboratory: Laboratory Results - last 24 hr 09/22/24 19:14: APTT 60.8 H 09/23/24 02:10: APTT 53.9 H 09/23/24 09:01: APTT 57.2 H 09/23/24 15:01: APTT 30.9 Microbiology: Microbiology 09/21/24 16:38 Mucosa - Nasopharyngeal Respiratory Panel (PCR) - Final Rhinovirus 09/21/24 12:45 Mucosa - Nose SARS-CoV-2, Influenza & RSV (PCR) - Final D/C Instructions Discharge Diet: No restrictions Weight Bearing Status: Full weight bearing DC O2, CPAP, BIPAP Needs RN Home O2 Qualification: Home O2 Qualification: Is the patient on home oxygen No 09/23/24 15:17 Is the patient on home oxygen Yes 09/23/24 14:43 Home O2 Qualification: AT REST 1-Pulse Ox at rest 97 09/23/24 14:43 1- Oxygen flow rate at rest 2 09/23/24 14:43 Home O2 Qualification: WITH AMBULATION 1- Pulse Ox with ambulation 93 09/23/24 14:43 1- Oxygen Flow Rate with 2 09/23/24 14:43 ambulation Home O2 Qualification: AT REST 1- Pulse Ox at rest 93 09/23/24 15:17 Home O2 Qualification: WITH AMBULATION 1- Pulse Ox with ambulation 83 09/23/24 15:17 1- Oxygen Flow Rate with 0 09/23/24 15:17 ambulation 2- Pulse Ox with ambulation 86 09/23/24 15:17 2- Oxygen Flow Rate with 1 09/23/24 15:17 ambulation 3- Pulse Ox with ambulation 91 09/23/24 15:17 3- Oxygen Flow Rate with 2 09/23/24 15:17 ambulation 3- Stopped test - Unable to No 09/23/24 15:17 obtain pulse ox >89% w/ max oxyg Home O2 Discharge instructions: Yes Type of respiratory needs?: Oxygen Oxygen frequency: With Ambulation Oxygen liters per minute during Ambulation: 2 L DC home with Oxygen: Yes Home O2 MD Review: I have reviewed the oxygen testing, and the patient qualifies for home oxygen equipment and portability. The patient is mobile in the home and the community. Meaningful Use Info Meaningful Use Meaningful Use Diagnoses (Choose all that apply): VTE Ischemic Stroke Statin Dosing Therapy Reference: STATIN DOSE THERAPY REFERENCE: * Patients > 75 years receive moderate or high dose statin therapy. * Patients 75 years or YOUNGER should receive HIGH intensity statin dose unless contraindicated. You will be required to document reason for non-treatment if statin daily dose does not meet guidelines. HIGH DOSE STATIN THERAPY DAILY Atorvastatin > than or = to 40 mg Rosuvastatin > than or = to 20 mg Amlodipine + Atorvastatin > than or = to 2.5/40 mg Ezetimibe + Simvastatin 10/80 mg Simvastatin 80mg VTE Anticoag overlap given w/in hospital stay or rx'd at co?: No Pt receive overlap for 5 days?: No Reason overlap not ordered, prescribed, or given for 5 days: Treatment Not Indicated Discharge Plan Admission Admit Date/Time: 09/21/24 15:39 Primary Reason for Your Visit: Pulmonary embolism Attending Provider: Hubert Oviedo Primary Care Provider: Luís Jasso Consulting Providers: Farida Palacios Instructions Additional Instructions / Restrictions: Use oxygen at 2 L/min via nasal cannula when ambulating Discharge Orders/Prescriptions Prescriptions: New prednisone 20 mg tablet 20 mg PO BID Qty: 10 0RF Rx Instructions: 1 twice a day for 3 days then 1/day for 4 days then stop Eliquis DVT-PE Treat 30D Start 5 mg (74 tabs) tablets,dose pack See Rx Instructions .ROUTE .COMPLEX Qty: 74 0RF Rx Instructions: orally per package directions-starting tonite-omit first dose on package Continued atorvastatin 20 mg tablet 20 mg PO DAILY fluoxetine 20 mg capsule 20 mg PO DAILY Patient Comments: TAKE 1 CAPSULE BY MOUTH EVERY DAY famotidine 40 mg tablet 40 mg PO DAILY Qty: 30 2RF fluticasone propion-salmeterol [Advair HFA] 230-21 mcg/actuation HFA aerosol inhaler 2 puff inhalation BID Qty: 12 11RF Spiriva Respimat 2.5 mcg/actuation mist 2 inh inhalation QDAY Qty: 1 11RF Rx Instructions: administer at approximately the same time(s) each day albuterol sulfate [Ventolin HFA] 90 mcg/actuation HFA aerosol inhaler 2 puff inhalation Q6H PRN (Reason: shortness of breath or wheezing) Qty: 8.5 1RF potassium chloride 20 mEq tablet,ER particles/crystals 20 meq PO QDAY furosemide 40 mg tablet 40 mg PO QDAY pramipexole 0.25 mg tablet 0.5 mg PO QHS Referrals / Follow Up: Luís Jasso MD [Primary Care Provider] - Disposition Disposition (needs filled in before D/C Order can be placed): Home, Self Care Charges/Coding Visit Charges Inpatient E&M: 79610 Disch Hosp >30min
--- NOTE | 2024-09-23 15:45 | NURSING ---
[facility] notified of need for portable oxygen tanks and prescription faxed.
== END 2024-09-23 16:15 | disposition home or self-care (01) | DRG 190 ==
LOC: ED 15:32 → PCU 15:53
PROVIDERS: Internal Medicine; Nurse Practitioner; Admitting Provider Internal Medicine; Emergency Provider Emergency Medicine; PCP Family Medicine; Referring Provider Internal Medicine; Visit Provider Internal Medicine
DX: J44.1 Chronic obstructive pulmonary disease with (acute) exacerbation (principal); I26.99 Other pulmonary embolism without acute cor pulmonale; I27.20 Pulmonary hypertension, unspecified; F32.A Depression, unspecified; E78.5 Hyperlipidemia, unspecified; F17.210 Nicotine dependence, cigarettes, uncomplicated; F41.9 Anxiety disorder, unspecified; Z99.81 Dependence on supplemental oxygen; Z79.51 Long term (current) use of inhaled steroids; Z79.899 Other long term (current) drug therapy; Z85.118 Personal history of other malignant neoplasm of bronchus and lung
CPT/HCPCS: 36415; 71046; 71275; 80048; 83880; 84484; 85025; 85610; 85730; 87631; 87633; 93005; 93306; 94640; 94668; 97162; 97165; 97530; 99252; 99284; 99406; Q9967; A4216; G0463

== ENCOUNTER 2024-10-29 13:08 | Outpatient (CLI) | payer MEDICARE, SELFPAY ==
--- NOTE | 2024-10-29 14:00 | CT_ITS ---
PROCEDURE: CHEST WITH CONTRAST TECHNIQUE: Contiguous axial scans of 2.5 mm slice thicknesses. Sagittal and coronal reconstruction images were obtained. One or more dose reduction techniques were used (e.g., automated exposure control, adjustment of mA and/or kv according to patient size, use of iterative reconstruction technique). COMPARISON: Follow-up. History of pulmonary emboli FINDINGS: CHEST: Lines and tubes: None. Mediastinum: No evidence of mediastinal hemorrhage. Heart: Normal heart size. No pericardial effusion. Coronary artery calcifications. Thoracic Aorta: No signs of aneurysm. Atherosclerotic calcifications. Areas of eccentric thrombus in the descending thoracic aorta. Pulmonary arteries: Central pulmonary artery diameter measures 3.5 cm. No intraluminal filling defects. Lungs and Airways: Centrilobular emphysematous changes. Areas of ground-glass opacification in the right upper and lower lobes. Suspected parenchymal scarring in the left upper lobe/apex. A spiculated nodule in the right upper lobe, axial image 59 measuring 1.5 x 1.2 x 1.3 cm. A spiculated ground-glass opacity in the superior segment of the left lower lobe measuring approximately 1.1 cm, axial image 37, coronal image 214. Pleura: No pleural effusion. No pneumothorax. Bones: Multilevel spondylosis. Soft tissues: Unremarkable. Upper abdomen: Small calcification in the gallbladder. Renovascular calcifications bilaterally. Severe atherosclerotic calcifications of the splenic artery. Left adrenal gland thickening. Small left renal cyst. CT/Chest WITH Contrast IMPRESSION: 1. Centrilobular emphysematous changes. 2. Spiculated nodule right upper lobe. Can not exclude neoplasm. 3. Spiculated ground-glass opacity in the left lower lobe, stable. 4. Parenchymal scarring in the left upper lobe, stable. 5. Areas of ground-glass opacification in the right lung. Can not exclude inf lammation. 6. Prominent central pulmonary artery raising concern for pulmonary arterial h ypertension. No intraluminal filling defects. 7. Coronary artery calcifications. 8. Cholelithiasis. 9. Left adrenal gland thickening most likely due to adenoma. 10. Other nonacute findings detailed above. Reading Location: [facility]
[2024-10-29 14:50] LABS: Absolute Lymphocyte Count 2.02 X10^3/uL (0.83-4.51); Absolute Neutrophil Count 8.6 X10^3/uL (2.0-7.7); Basophil# 0.09 X10^3/uL; Basophil% 0.8 % (0-1); Eosinophils% 0.9 % (0-5); Hematocrit 43.4 % (37-47); Hemoglobin 13.8 g/dL (12.0-15.0); Lymphocyte # 2.02 X10^3/ul (0.83-4.51); Lymphocyte % 17.2 % (19-41); Mean Corp Hgb Conc 31.8 g/dL (32-36); Mean Corpuscular Volume 97.5 fL (81-99); Mean Platelet Vol. 11.7 fl (6.2-12.0); Monocyte# 0.89 X10^3/uL; Monocyte% 7.6 % (0-10); NRBC Flagged by Analyzer 0 % (0-5); Platelet Count 362 K/mm3 (150-450); RBC Distribution Width CV 15.8 % (11.6-14.6); RBC Distribution Width SD 55.9 fl (35.1-43.9); Red Blood Count 4.45 M/mm3 (4.2-5.4); White Blood Count 11.8 K/mm3 (4.4-11.0)
[2024-10-29 15:24] LABS: BNP,B-Type NATRIURETIC PEPTIDE 42.1 pg/mL (0-100)
[2024-10-29 15:36] LABS: Anion Gap 8 (5-15); BUN 24 mg/dL (7-18); BUN/Creat Ratio 26.7 RATIO (10-20); Calcium,Total 9.6 mg/dL (8.5-10.1); Chloride 102 mmol/L (98-107); EST Glomerular Filtration Rate 64 mL/min (>60); Est Glom Filt Rate - Afr Amer 78 mL/min (>60); Glucose 80 mg/dL (74-106); Potassium 4.1 mmol/L (3.5-5.1); Sodium Level 140 mmol/L (136-145)
== END 2024-10-29 23:59 | disposition home or self-care (01) ==
PROVIDERS: PCP Family Medicine; Referring Provider Internal Medicine Medical Oncology; Visit Provider Internal Medicine Medical Oncology
DX: C34.92 Malignant neoplasm of unspecified part of left bronchus or lung (principal); I27.20 Pulmonary hypertension, unspecified
CPT/HCPCS: 36415; 71260; 80048; 83880; 85025; Q9967

== ENCOUNTER → 2024-11-09 | Outpatient (CLI) | payer MEDICARE, SELFPAY | END | disposition home or self-care (01) | LOC: PSN 10:17 | PROVIDERS: PCP Family Medicine; Referring Provider Nurse Practitioner Family; Visit Provider Nurse Practitioner Family | DX: R05.2 Subacute cough (principal) | CPT/HCPCS: 94060; 94726; 94729 ==

== ENCOUNTER → 2024-12-14 | Outpatient (CLI) | payer MEDICARE, SELFPAY ==
[2024-12-14] MEDS: Zaleplon 5 MG Capsule PO (21:08)
== END | disposition home or self-care (01) ==
LOC: SL 19:48
PROVIDERS: PCP Family Medicine; Referring Provider Nurse Practitioner Family; Visit Provider Nurse Practitioner Family
DX: G47.10 Hypersomnia, unspecified (principal)
CPT/HCPCS: 95810

== ENCOUNTER → 2024-12-31 | Outpatient (CLI) | payer MEDICARE, SELFPAY ==
--- NOTE | 2024-12-31 13:15 | BI_ITS ---
EXAM: SCRN MAMM (CAD)W/BERNARDINO BILAT DATE: 12/31/2024 CLINICAL HISTORY: F, Age 79 y/o , SCREENING BREAST CANCER RISK ASSESSMENT: Has not been calculated TECHNIQUE: Bilateral screening digital breast tomosynthesis with 2D and 3D images. Computer aided detection. COMPARISON: None. FINDINGS: TISSUE DENSITY: The breast tissue is almost entirely fatty. Bilateral Breast Mammographic Findings: Benign-appearing macrocalcifications, round microcalcifications and secretory type calcifications are seen in both breasts. Benign-appearing dermal calcifications are seen in the inferior medial far posterior aspect of the right breast. No suspicious masses, suspicious clustered microcalcifications, architectural distortion or secondary sign of malignancy is identified in the right breast. A 3 mm well-circumscribed isodense mass in the superior outer, far posterior aspect of the left breast is noted. This does not appear to have a definitive fatty hilum on the bernardino images. Further workup is indicated. BI/SCRN MAMM (CAD)W/BERNARDINO BILAT IMPRESSION: Right Breast: BIRADS 2 BENIGN FINDING. Left Breast: BIRADS 0 Incomplete: Need additional imaging evaluation and/or soo or mammograms for comparison.. OVERALL FINAL ASSESSMENT: BIRADS 0 Incomplete: Need additional imaging evaluati on and/or prior mammograms for comparison. RECOMMENDATION: Incomplete: Need additional imaging evaluation and/or prior mammograms for comp arison. Patient should return for an LM view of the left breast as well as spot compression magnification CC and spot-compressi on magnification LM views of the left breast mass. An ultrasound may also be needed. A letter with findings and recommendations will be mailed to the patient. Reading Location: [id number]
== END | disposition home or self-care (01) ==
LOC: OPBI 13:14
PROVIDERS: PCP Family Medicine; Referring Provider Family Medicine; Visit Provider Family Medicine
DX: Z12.31 Encounter for screening mammogram for malignant neoplasm of breast (principal)
CPT/HCPCS: 77063; 77067

== ENCOUNTER → 2025-01-09 | Outpatient (CLI) | payer MEDICARE, SELFPAY ==
--- NOTE | 2025-01-09 09:20 | BI_ITS ---
PROCEDURE: DIAG MAMM W/CAD, UNILAT; LT BRST UNILAT BERNARDINO ADD ON REASON FOR EXAM: 79-year-old female presents for left breast finding on screening examination of 12/31/2024. no family history of breast cancer. COMPARISON: 12/31/2024, 12/29/2023, 04/18/2019 TECHNIQUE: Left diagnostic digital breast tomosynthesis with 2D and 3D images. Computer aided detection. FINDINGS: TISSUE DENSITY: The breast is almost entirely fatty. Follow-up examination performed for the mass in the left breast on examination of 12/31/2024. On the present examination, the mass in the upper-outer left breast at posterior depth persist and likely represents a benign intramammary lymph node. This mass is stable when compared to multiple priors dating back to 04/18/2019. BI/DIAG MAMM W/CAD, UNILAT IMPRESSION: Stable benign mass in the left breast, which likely represents a benign intrama mmary lymph node. This mass is stable when compared to priors dating back to 04/18/2019. BI-RADS 2: BENIGN RECOMMEND ANNUAL MAMMOGRAPHIC SCREENING. Reading Location: [id number]
--- NOTE | 2025-01-09 09:20 | BI_ITS ---
PROCEDURE: DIAG MAMM W/CAD, UNILAT; LT BRST UNILAT BERNARDINO ADD ON REASON FOR EXAM: 79-year-old female presents for left breast finding on screening examination of 12/31/2024. no family history of breast cancer. COMPARISON: 12/31/2024, 12/29/2023, 04/18/2019 TECHNIQUE: Left diagnostic digital breast tomosynthesis with 2D and 3D images. Computer aided detection. FINDINGS: TISSUE DENSITY: The breast is almost entirely fatty. Follow-up examination performed for the mass in the left breast on examination of 12/31/2024. On the present examination, the mass in the upper-outer left breast at posterior depth persist and likely represents a benign intramammary lymph node. This mass is stable when compared to multiple priors dating back to 04/18/2019. BI/Lt Brst Unilat Bernardino Add On IMPRESSION: Stable benign mass in the left breast, which likely represents a benign intrama mmary lymph node. This mass is stable when compared to priors dating back to 04/18/2019. BI-RADS 2: BENIGN RECOMMEND ANNUAL MAMMOGRAPHIC SCREENING. Reading Location: [id number]
== END | disposition home or self-care (01) ==
LOC: OPBI 09:16
PROVIDERS: PCP Family Medicine; Referring Provider Family Medicine; Visit Provider Family Medicine
DX: N63.21 Unspecified lump in the left breast, upper outer quadrant (principal)
CPT/HCPCS: 77061; 77065; G0279

== ENCOUNTER → 2025-01-15 | Outpatient (CLI) | payer MEDICARE, SELFPAY ==
[2025-01-15] MEDS: Zaleplon 5 MG Capsule PO (21:13)
== END | disposition home or self-care (01) ==
LOC: SL 19:40
PROVIDERS: PCP Family Medicine; Referring Provider Nurse Practitioner Family; Visit Provider Nurse Practitioner Family
DX: G47.33 Obstructive sleep apnea (adult) (pediatric) (principal)
CPT/HCPCS: 95811

== ENCOUNTER → 2025-02-14 | Outpatient (CLI) | payer MEDICARE, SELFPAY | END | disposition home or self-care (01) | LOC: SL 14:31 | PROVIDERS: PCP Family Medicine; Visit Provider Nurse Practitioner Family | DX: Z00.00 Encounter for general adult medical examination without abnormal findings (principal) ==

== ENCOUNTER → 2025-02-19 | Outpatient (CLI) | payer MEDICARE, SELFPAY ==
--- NOTE | 2025-02-19 12:35 | CT_ITS ---
PROCEDURE: CHEST WITH CONTRAST 02/19/2025 REASON FOR EXAM: NEW LUNG NODES/HX OF LUNG CA TECHNIQUE: Prone and supine chest CT with intravenous contrast, high resolution CT (HRCT) protocol. Coronal and Sagittal reconstruction series were provided. CONTRAST: Isovue-300 VOLUME: 100 mL One or more dose reduction techniques were used (e.g., Automated exposure control, adjustment of the mA and/or kV according to patient size, use of iterative reconstruction technique). RADIATION DOSE SUMMARY: CTDlvol: 11 mGy DLP: 327.73 mGycm COMPARISON: Prior study dated October 29, 2024 FINDINGS: Hardware: None Lymph nodes: No suspicious lymph nodes are seen. Heart and Vasculature: Coronary artery calcifications are noted. Lungs and Airways: Mild emphysematous changes are present. No septal thickening nodules or abnormal pulmonary opacities. Stable fibrocalcific scarring in the left upper lobe. The previously seen nodular density in the posterior aspect of the right upper lobe is not seen at this time. Stable areas of ground-glass appearance in the right upper and lower lobes. Pleura: No pleural effusion. Upper Abdomen: Small gallstones. Bones: Degenerative changes of the thoracic spine. CT/Chest WITH Contrast IMPRESSION: Coronary artery calcification (CAC) is is present Stable ground-glass appearance in the left upper lobe and spiculated nodule. Stable emphysematous changes and scarring. The previously seen spiculated nodule in the posterior aspect of the right uppe r lobe is not seen at this time. Reading Location: [place] [id number]
== END | disposition home or self-care (01) ==
LOC: CT 12:32
PROVIDERS: PCP Family Medicine; Referring Provider Internal Medicine Hematology & Oncology; Visit Provider Internal Medicine Hematology & Oncology
DX: R91.1 Solitary pulmonary nodule (principal); C34.12 Malignant neoplasm of upper lobe, left bronchus or lung
CPT/HCPCS: 71260; Q9967

== ENCOUNTER 2025-07-03 14:01 | Emergency (ER) | payer MEDICARE, SELFPAY ==
[2025-07-03 14:03] VITALS: BP 90/59; PULSE 100; RESP 16; TEMP 36.7
--- NOTE | 2025-07-03 14:15 | EX.ED.DYSGE1 ---
HPI History of Present Illness Chief Complaint: Hypotension Narrative Narrative: Patient is a 80-year-old female presenting to the emergency department for hypotension at her pulmonary outpatient visit today. She has a past medical history of NYLA, provoked PE, COPD on 2 L NC at night, complicated by squamous cell lung cancer that is in remission (not on chemo or radiation for the past 4 years) follows with Dr. Lopez, current smoker, AAA of 2.5 cm and pulmonary HTN identified on ECHO. Not on current OAC. Patient states that for the past 2 weeks she has had a productive cough and shortness of breath worse than baseline. Patient states that she was at her PCP visit today and they noted her blood pressure was low so they sent her here for evaluation. She denies headache, lightheadedness or dizziness. Denies chest pain, diaphoresis, nausea or vomiting. Denies abdominal pain, nausea, vomiting, diarrhea, dysuria or hematuria. Denies any lower extremity edema. Patient notes that she has a history of left sided sciatica and this has acted up over the past few day. Reports pain in her left butt cheek that goes down the back of my left leg. States it feels similar to prior sciatica episodes. Denies any falls or trauma. Denies any numbness or weakness in her arms or legs. [facility] Medical History Nodule of upper lobe of right lung Other nonspecific abnormal finding of lung field Malignant neoplasm of upper lobe, left bronchus or lung Pulmonary embolism Hypoxia Depression Smoker On home oxygen therapy Asthmatic bronchitis with exacerbation Acute bronchitis, unspecified Tobacco abuse Restless leg syndrome Hyperlipidemia Peptic ulcer Abdominal aortic aneurysm Thrombosis of abdominal aorta Acute respiratory failure with hypoxia Lung mass Hemorrhoids SOB (shortness of breath) COPD (chronic obstructive pulmonary disease) Depression with anxiety Home Medications ?Medication ?Instructions ?Recorded ?Last Taken ?Type atorvastatin 20 mg tablet 20 mg PO DAILY cholesterol 09/23/21 10/22/21 History fluoxetine 20 mg capsule 20 mg PO DAILY mental health 09/23/21 10/22/21 History famotidine 40 mg tablet 40 mg PO DAILY heartburn #30 tabs 11/18/21 Unknown Rx tiotropium bromide 2.5 2 inh inhalation QDAY sob #1 ea 06/29/22 Unknown Rx mcg/actuation mist for inhalation (Spiriva Respimat) albuterol sulfate 90 mcg/actuation 2 puff inhalation Q6H PRN 04/16/24 Unknown Rx aerosol inhaler (Ventolin HFA) shortness of breath or wheezing #8.5 grams furosemide 40 mg tablet 40 mg PO QDAY Swelling 09/21/24 Unknown History potassium chloride 20 mEq 20 meq PO QDAY hypokalemia 09/21/24 Unknown History tablet,extended release(part/cryst) pramipexole 0.25 mg tablet 0.5 mg PO QHS restless legs 09/23/24 Unknown History guaifenesin 1,200 mg tablet, 1,200 mg PO DAILY #30 tabs 10/17/24 Unknown Rx extended release 12 hr (Mucinex) fluticasone propionate 230 2 puff inhalation BID sob #12 grams 07/03/25 Unknown Rx mcg-salmeterol 21 mcg/actuation HFA inhaler (Advair HFA) mirtazapine 15 mg tablet mg PO 07/03/25 Unknown History Allergy/AdvReac Type Severity Reaction Status Date / Time No Known Allergies Allergy Verified 07/03/25 14:05 Family History Mother Colon cancer Diabetes Father Heart disease Surgical History History of appendectomy history colon reanastamosis History of colostomy History of colectomy History of hysterectomy Social History household members: family Smoking Status: Current every day smoker tobacco type: cigarettes Tobacco: How many years used: 50 Electronic Cigarette Use: not used second hand exposure: Yes alcohol intake: never substance use type: does not use ROS ROS ED ROS Narrative see HPI EXAM Physical Exam Narrative Exam Narrative: Vital signs: Reviewed General: Alert and orientedx3. No acute distress HEENT: Head is normocephalic and atraumatic, sinuses nontender, pupils equal round and reactive. Nares are patent. Oropharynx and throat exams normal. Neck: Supple without lymphadenopathy nontender Cardiovascular: Regular rate and rhythm, no murmurs. No rubs or gallops. Normal S1 and S2. Radial and DP pulses 2+ and symmetric throughout. Respiratory: Mild end expiratory wheezing noted in lower lung park. No rales or rhonchi. Abdominal: Soft and nontender. No pulsatile mass felt. Normal bowel sounds. No guarding or rebound. Nonsurgical abdomen Extremities: No lower extremity edema. No tenderness. No bruising. Normal range of motion. Normal sensation. Skin: No rash or redness. Neurological: Cranial nerves II through XII are grossly intact. Normal strength and sensation. Normal cerebellar function The rest of the physical exam is unremarkable Const Vital Signs: 07/03/25 14:03 07/03/25 14:17 07/03/25 14:19 Temperature 98.1 F Temperature Source Oral Pulse Rate 100 93 Respiratory Rate 16 20 H Respiratory Effort Short of Breath Respiratory Pattern Tachypnea Blood Pressure 90/59 L 84/54 L Blood Pressure Mean 69 64 Pulse Ox Oxygen Delivery Method Room Air 07/03/25 14:48 07/03/25 15:59 07/03/25 18:12 Temperature Temperature Source Pulse Rate 85 85 85 Respiratory Rate 20 H 18 18 Respiratory Effort Respiratory Pattern Blood Pressure 100/70 112/67 96/67 Blood Pressure Mean 80 82 76 Pulse Ox 95 93 92 Oxygen Delivery Method Room Air Room Air Room Air 07/03/25 20:00 Temperature 98.1 F Temperature Source Pulse Rate 84 Respiratory Rate 16 Respiratory Effort Respiratory Pattern Blood Pressure 130/73 H Blood Pressure Mean 92 Pulse Ox 93 Oxygen Delivery Method MDM MDM MDM Narrative Medical decision making narrative: Patient is a 80-year-old female presenting to the emergency department for hypotension noted at her pulmonary outpatient visit today. Patient is asymptomatic. Patient was seen and examined. On arrival BP is 90/59 with pulse of 100. She is afebrile. Respirations 16. Saturating 96% on room air. On chart review, systolic BPs usually in the mid to high 90s to low 100s. Slightly more hypotensive than normal for her. Differential includes but is not limited to: PE, dehydration, ACS, pneumonia, UTI less likely intraabdominal pathology including AAA rupture Patient given fluid bolus. With the patient's history of cancer and prior PE along with her shortness of breath over the past 2 weeks, CT PE study was ordered. With her known history of a AAA, additional CT imaging of her abdomen was also obtained. EKG shows normal sinus rhythm. Rate of 89. No ischemic changes. No dysrhythmia. CTA shows no evidence of pulmonary embolism. Stable appearance of the lungs as described. No evidence of bowel obstruction. Infrarenal abdominal aortic aneurysm of 2.8 cm, stable from prior imaging. Lactate within normal limits. Viral swab negative. CBC with mild leukocytosis at 13, consistent with prior on chart review. Normal hemoglobin at 13.2. BMP with baseline elevated BUN at 26. BNP within normal limits. Trended troponins are 101, 88, 91. Stable. Prior troponin in the 120s in 2021 on chart review. Urinalysis with 1+ bacteria and small amount of leukocyte esterase, no other signs of infection. Patient reevaluated, feeling well. After fluid bolus BP is 130/73. Patient ambulated without difficulty. Stable for outpatient management. Patient discharged from the Emergency Department. I do not feel that the patient's evaluation reveals any acute reason for admission at this time. I instructed them to either follow-up with their primary care physician or promptly return to the Emergency Department for reevaluation should symptoms worsen or new symptoms develop. I explained what symptoms would indicate the need to return to the emergency department. Shared decision making was used. The patient voiced understanding of the treatment plan and is agreeable with it. Clinical impression: Asymptomatic hypotension History & Record Review Discussion w/independent historian: Patient and Family Additional record(s) reviewed:: Prior ED visit and Prior labs Lab Data Attestation: I reviewed the patient's lab results. Labs: Laboratory Results - last 24 hr 07/03/25 07/03/25 07/03/25 14:40 15:36 16:48 WBC 13.0 H RBC 4.26 Hgb 13.2 Hct 40.9 MCV 96.0 MCH 31.0 MCHC 32.3 RDW Std Deviation 53.9 H RDW Coeff of Yeimi 15.5 H Plt Count 252 MPV 11.6 Immature Gran % (Auto) 0.500 Neut % (Auto) 76.0 H Lymph % (Auto) 15.1 L Warren % (Auto) 6.8 Eos % (Auto) 1.2 Baso % (Auto) 0.4 Absolute Neuts (auto) 9.9 H Absolute Lymphs (auto) 1.97 Nucleated RBC % 0 Sodium 143 Potassium 4.0 Chloride 104 Carbon Dioxide 28.5 Anion Gap 11 BUN 26 H Creatinine 1.00 Estim Creat Clear Calc 37.65 L Est GFR (MDRD) Non-Af 58 L BUN/Creatinine Ratio 26.0 H Glucose 74 Lactic Acid 1.2 Calcium 9.1 Troponin T High Sens 101 H* Troponin T Hi Sens 2 Hr 88 H* Troponin T Hi Sens 4Hr NT pro BNP II 553 Urine Color Yellow Urine Clarity Sl. Cloudy Urine pH 6.0 Ur Specific [place] 1.015 Urine Protein 30 H Urine Glucose (UA) Normal Urine Ketones Negative Urine Occult Blood Negative Urine Nitrite Negative Urine Bilirubin Negative Urine Urobilinogen Normal Ur Leukocyte Esterase 100 H Urine RBC 0 SEEN Urine WBC 0-5 SEEN Ur Squamous Epith Cells 0-5 SEEN Urine Bacteria 1+ Urine Mucus 0 SEEN 07/03/25 18:30 WBC RBC Hgb Hct MCV MCH MCHC RDW Std Deviation RDW Coeff of Yeimi Plt Count MPV Immature Gran % (Auto) Neut % (Auto) Lymph % (Auto) Warren % (Auto) Eos % (Auto) Baso % (Auto) Absolute Neuts (auto) Absolute Lymphs (auto) Nucleated RBC % Sodium Potassium Chloride Carbon Dioxide Anion Gap BUN Creatinine Estim Creat Clear Calc Est GFR (MDRD) Non-Af BUN/Creatinine Ratio Glucose Lactic Acid Calcium Troponin T High Sens Troponin T Hi Sens 2 Hr Troponin T Hi Sens 4Hr 91 H* NT pro BNP II Urine Color Urine Clarity Urine pH Ur Specific [place] Urine Protein Urine Glucose (UA) Urine Ketones Urine Occult Blood Urine Nitrite Urine Bilirubin Urine Urobilinogen Ur Leukocyte Esterase Urine RBC Urine WBC Ur Squamous Epith Cells Urine Bacteria Urine Mucus Radiography Diagnostic Testing: Clinical Impression(s) from Imaging Studies Chest/Abdomen/Pelvis CTA 07/03/25 15:15 IMPRESSION: No evidence of pulmonary embolism. Stable appearance of the lungs as described. No evidence of bowel obstruction. Infrarenal abdominal aortic aneurysm. Reading Location: [id number] Discharge Plan Triage Chief Complaint: Hypotension ED Provider: Jessica Hughes Dx/Rx/DC Orders Clinical Impression: Blood pressure check Instructions: ED Low Blood Pressure, All Causes Prescriptions: No Action atorvastatin 20 mg tablet 20 mg PO DAILY fluoxetine 20 mg capsule 20 mg PO DAILY Patient Comments: TAKE 1 CAPSULE BY MOUTH EVERY DAY famotidine 40 mg tablet 40 mg PO DAILY Qty: 30 2RF Spiriva Respimat 2.5 mcg/actuation mist 2 inh inhalation QDAY Qty: 1 11RF Rx Instructions: administer at approximately the same time(s) each day albuterol sulfate [Ventolin HFA] 90 mcg/actuation HFA aerosol inhaler 2 puff inhalation Q6H PRN (Reason: shortness of breath or wheezing) Qty: 8.5 1RF potassium chloride 20 mEq tablet,ER particles/crystals 20 meq PO QDAY furosemide 40 mg tablet 40 mg PO QDAY guaifenesin [Mucinex] 1,200 mg tablet extended release 12hr 1,200 mg PO DAILY Qty: 30 5RF Rx Instructions: take with a full glass of water mirtazapine 15 mg tablet PO Patient Comments: [NO ORIGINAL SIG] fluticasone propion-salmeterol [Advair HFA] 230-21 mcg/actuation HFA aerosol inhaler 2 puff inhalation BID Qty: 12 11RF pramipexole 0.25 mg tablet 0.5 mg PO QHS Primary Care Provider: Luís Jasso Referrals: Luís Jasso MD [Primary Care Provider, [facility]] - As soon as possible Activity Restrictions/Additional Instructions: Your evaluation in the Emergency Department did not reveal any acute reason for admission. However, I want to emphasize that you may be early in the course of a disease process or illness even if it is not present. For this reason you should follow-up within 24 hours for reevaluation with either your primary care physician or if necessary back here in the Emergency Department. You should return to the Emergency Department immediately if your symptoms worsen or new symptoms develop. Print Language: Macedonian Disposition Disposition: Home, Self Care Discharge Date/Time: 07/03/25 20:01
[2025-07-03 14:16] VITALS: BMI 24.5
[2025-07-03 14:19] VITALS: BP 84/54; PULSE 93; RESP 20
[2025-07-03] MEDS: 0.9% Normal Saline (500mL Bag) 500 ML IV (14:42)
[2025-07-03 14:48] VITALS: BP 100/70; PULSE 85; RESP 20; O2SAT 95
[2025-07-03 15:06] LABS: Hematocrit 40.9 % (37-47); Hemoglobin 13.2 g/dL (12.0-15.0); Immature Granulocytes Count 0.070 X10^3/uL (0.0-0.0); Mean Corp Hgb Conc 32.3 g/dL (32-36); Mean Corpuscular Volume 96.0 fL (81-99); Mean Platelet Vol. 11.6 fl (6.2-12.0); NRBC Flagged by Analyzer 0 % (0-5); Platelet Count 252 K/mm3 (150-450); RBC Distribution Width CV 15.5 % (11.6-14.6); RBC Distribution Width SD 53.9 fl (35.1-43.9); Red Blood Count 4.26 M/mm3 (4.2-5.4); White Blood Count 13.0 K/mm3 (4.4-11.0)
[2025-07-03 15:07] LABS: Anion Gap 11 (5-15); BUN 26 mg/dL (4-19); BUN/Creat Ratio 26.0 RATIO (10-20); Calcium,Total 9.1 mg/dL (7.6-11.0); Carbon Dioxide 28.5 mmol/L (21.0-32.0); Chloride 104 mmol/L (98-108); Estimated Creatinine Clearance 37.65 ml/min (50-250); Glucose 74 mg/dL (70-99); Potassium 4.0 mmol/L (3.3-5.1); Pro- Brain NATRIURETIC PEPTIDE 553 pg/mL (<=1800)
[2025-07-03 15:08] LABS: Troponin T High Sensitivity 101 ng/L (<=14)
--- NOTE | 2025-07-03 15:15 | CT_ITS ---
PROCEDURE: CTA CHST, ABD, PEL W AND/OR WO 07/03/2025 REASON FOR EXAM: RULE OUT PE, HX OF CANCER AND PE, HYPOTENSION/SOB Squamous cell carcinoma. TECHNIQUE: Chest, abdomen and pelvis CT with intravenous contrast. Coronal and Sagittal reconstruction series were provided. One or more dose reduction techniques were used (e.g., Automated exposure control, adjustment of the mA and/or kV according to patient size, use of iterative reconstruction technique. CONTRAST: Isovue 370 VOLUME: 100 mL RADIATION DOSE SUMMARY: CTDlvol: 9.7 mGy DLP: 625.71 mGycm COMPARISON: Prior CT scan of the chest dated February 19, 2025. FINDINGS: CT CHEST: Hardware: EKG electrodes are seen. Lymph nodes: No significant hilar or mediastinal lymphadenopathy is seen. Heart and Vasculature: The heart is nonenlarged. Atherosclerotic calcifications of the thoracic aorta. Pulmonary arteries are unremarkable. Coronary artery calcification. Lungs and Airways: Stable fibrocalcific scarring in the anterior aspect of the left upper lobe. Stable 9.8 mm nodule along the anterior aspect. Stable emphysematous changes. Stable scarring at the right lung base. No evidence of pulmonary embolism. Pleura: No pleural effusion. Bones: Degenerative changes of the visualized thoracic spine. CT ABDOMEN/PELVIS: Liver: Normal size. No mass. Gallbladder: Questionable sludge in the base of the gallbladder. Spleen: Normal size. Pancreas: Diffuse fatty atrophy. Adrenals: Unremarkable Kidneys: Normal renal sizes. No hydronephrosis. Bladder: Unremarkable Status post hysterectomy. Bowel: Unremarkable gas pattern Appendix: The appendix is not identified. There is no inflammatory process identified in the right lower quadrant to suggest appendicitis. Lymph nodes: Unremarkable. Vasculature: Infrarenal abdominal aortic aneurysm with a transverse dimension of 2.8 cm. Peritoneum / Retroperitoneum: Central lower abdominal ventral hernia containing nondilated small bowel loop. Bones: Degenerative changes of the spine. Lines and tubes: EKG electrodes are seen. CT/CTA Chst, Abd, Pel W and/or WO IMPRESSION: No evidence of pulmonary embolism. Stable appearance of the lungs as described . No evidence of bowel obstruction. Infrarenal abdominal aortic aneurysm. Reading Location: [id number]
[2025-07-03 15:39] LABS: Mucous, Urine 0 SEEN /hpf (<or=2+); Red Blood Cells-Urine 0 SEEN /hpf (0-5)
[2025-07-03 15:44] LABS: Color, Urine Yellow (Yellow); Glucose, Dipstick Normal (Normal); Ketone-Dipstick Negative (Negative); Leukocyte Esterase-Dipstick 100 /ul (Negative); Nitrite-Dipstick Negative (Negative); Occult Blood-Urine Negative /ul (Negative); Protein-Dipstick 30 mg/dl (Negative); Specific Gravity, Urine 1.015 (1.002-1.030); Urine Bilirubin Dipstick Negative (Negative)
[2025-07-03 15:59] VITALS: BP 112/67; PULSE 85; RESP 18; O2SAT 93
[2025-07-03 16:00] LABS: Squamous Epithelial Cells - UA 0-5 SEEN /hpf (5-10)
[2025-07-03 17:41] LABS: Troponin T High Sens 2 HR 88 ng/L (<=14)
[2025-07-03 18:12] VITALS: BP 96/67; PULSE 85; RESP 18; O2SAT 92
[2025-07-03 19:36] LABS: Troponin T High Sens 4 HR 91 ng/L (<=14)
[2025-07-03 20:00] VITALS: BP 130/73; PULSE 84; RESP 16; TEMP 36.7; O2SAT 93
== END 2025-07-03 20:01 | disposition home or self-care (01) ==
PROVIDERS: Emergency Provider Student in an Organized Health Care Education/Training Program; PCP Family Medicine; Visit Provider Student in an Organized Health Care Education/Training Program
DX: I95.9 Hypotension, unspecified (principal); I27.20 Pulmonary hypertension, unspecified; J44.9 Chronic obstructive pulmonary disease, unspecified; R06.02 Shortness of breath; Z11.52 Encounter for screening for COVID-19; M54.32 Sciatica, left side; I71.43 Infrarenal abdominal aortic aneurysm, without rupture; E78.5 Hyperlipidemia, unspecified; G47.33 Obstructive sleep apnea (adult) (pediatric); F17.210 Nicotine dependence, cigarettes, uncomplicated; Z86.711 Personal history of pulmonary embolism; Z85.118 Personal history of other malignant neoplasm of bronchus and lung
CPT/HCPCS: 71275; 74174; 80048; 81001; 83605; 83880; 84484; 85025; 87631; 93005; 96360; 99284; Q9967

== ENCOUNTER → 2025-08-28 | Outpatient (CLI) | payer MEDICARE, SELFPAY ==
--- NOTE | 2025-08-28 12:31 | CT_ITS ---
PROCEDURE: CHEST WITH CONTRAST 08/28/2025 REASON FOR EXAM: HX OF LUNG CA TECHNIQUE: Procedure Code: CTCHW Modality: CT Procedure: CHEST WITH CONTRAST Coronal and Sagittal reconstruction series were provided. CONTRAST: Isovue 370 VOLUME: 100 mL One or more dose reduction techniques were used (e.g., Automated exposure control, adjustment of the mA and/or kV according to patient size, use of iterative reconstruction technique). RADIATION DOSE SUMMARY: CTDlvol: 21.36 mGy DLP: 300.83 mGycm COMPARISON: 02/19/2025 FINDINGS: Lung windows show underlying emphysema. Stable fibro calcific scarring with architectural distortion in the left upper lobe. Stable bronchiectatic changes in the inferior aspect of the right upper lobe. No organized infiltrate or effusion, no suspicious noncalcified mass or nodule. Stable opacifications in the right lung base. Soft tissue windows show a normal-appearing thyroid gland. No suspicious axillary, mediastinal or perihilar adenopathy. The thoracic aorta tapers normally. Calcified coronary arteries noted Limited cuts through the upper abdomen do not show a suspicious abnormality. Bony structures show degenerative change CT/Chest WITH Contrast IMPRESSION: Coronary artery calcification (CAC) is is present There is no interval change in the appearance of the lung park since the prev ious study. There is underlying emphysema with stable fibrocalcific scarring in the left upper lobe. There is no new suspicio us noncalcified mass or nodule. No organized infiltrate or effusion. No suspicious adenopathy Degenerative bony changes Reading Location: [place] [id number]
== END | disposition home or self-care (01) ==
LOC: CT 12:29
PROVIDERS: PCP Family Medicine; Referring Provider Internal Medicine Medical Oncology; Visit Provider Internal Medicine Medical Oncology
DX: C34.2 Malignant neoplasm of middle lobe, bronchus or lung (principal)
CPT/HCPCS: 71260; Q9967